=== PATIENT | male | born 1940 | race Two or more races ===

== ENCOUNTER 2025-07-09 01:42 | Inpatient (IN) | payer OTHER, MEDICAID ==
[~2025-07-09] VITALS: Ht 160 cm; Wt 67.7 kg
[2025-07-09] VITALS (9 sets, daily range): BP systolic 129–149; BP diastolic 66–77; PULSE 98–113; RESP 18–26; TEMP 97.9–98.5; O2SAT 86–97
--- NOTE | 2025-07-09 02:32 | ECG ---
[facility] Test Date: 2025-07-09 Test Time: 01:57:10 Pat Name: ROBIN MAURICE Department: [facility] ED Patient ID: [facility]-[id number] Room: [address] [place] [address] Gender: M Firm Administrator: ADALGISA : 1940 Requested By: CHEIKH TERAN Order Number: [id number] Reading MD: Eddie Curtis Measurements Intervals [place] Rate: 111 P: 0 LA: 206 QRS: 46 QRSD: 107 T: 255 QT: 316 QTc: 430 Interpretive Statements Sinus tachycardia Nonspecific repol abnormality, diffuse leads Electronically Signed On 07-11-2025 10:57:01 PST by Eddie Curtis Please click the below link to view image of tracing.
--- NOTE | 2025-07-09 02:32 | ED.PDOC ---
SOB-HPI HPI Comments HPI: 84-year-old male who came to ER via EMS for shortness of breath. Patient is a very poor informant. States for the past 2 days he has been having cough and shortness of breath, progressively worsening. Up arrival, saturating at 96 % at 15 lpm/ mask, tachycardic at 113 bpm, tachypneic at 28 Past Medical History: Hypertension, Diabetes, hyperlipidemia, medication reconciliation list shows Lasix and tamsulosin Surgical History: Denies Family History: Denies Personal and Social History: Denies HPI: Poor Historian. Patient does not know any of his medications. patient does not know his past medical problems. REVIEW OF SYSTEMS: CONSTITUTIONAL: Denies acute: fever, diaphoresis, chills, HEAD: Denies acute: headache, photophobia Eyes: Denies acute: Double vision, vision loss, eye pain, eye discharge. EARS: Denies acute: tinnitus, hearing loss, ear discharge, ear pain, THROAT: Denies acute: sore throat, swelling, difficulty swallowing , pain with swallowing, change in voice. NECK: Denies acute: neck pain, neck swelling, stiff neck. HEART: Denies acute : chest pain, palpitations, LUNGS: Denies acute: , wheezing, , hemoptysis ABDOMEN: Denies acute: abdominal pain, Nausea, Vomiting, diarrhea, melena , hematemesis, hematochezia SKIN: Denies acute: rash, redness, lesions, itchiness. EXTREMITIES: Denies acute: calf pain, numbness, tingling, weakness, denies pain in extremity. Denies acute: Low back pain. Neuro: Denies acute: focal neurological deficit, motor or sensory focal neurological deficit, tremors, seizure like activity, confusion, dizziness, change in mental status, loss of bowel or bladder function, cauda equina like symptoms. : Denies acute: dysuria, hematuria, flank pain, increase in urinary frequency. PSYCH: Denies acute: hallucination, suicidal ideation, homicidal ideation. PHYSICAL EXAM: General: ---moderate-----acute distress, awake and alert. Head: normocephalic, atraumatic. No raccoon's eyes, no gotti sign. Neck: supple, trachea is midline, no swelling. Throat: Normal phonation. Eyes:, no erythema, no purulent discharge, no proptosis, no icterus. Heart: regular tachycardic,, no significant murmur appreciated. Lungs: Mild respiratory distress, No wheezing, no rhonchi, no crackles. No stridors Clear to auscultation bilaterally. Abdomen: non tender to palpation, non distended, soft, no guarding, no rebound, + bowel sounds. Neuro: Awake, Alert, oriented to name, self, situation, follows commands GCS=15. Speech is normal. Skin: no petechia, no purpura, no cyanosis, non-pale, not jaundice. Lower extremities: --1/4 b/l - Pitting edema no deformity, no focal swelling, no calf TTP. Makes eye contact. moves all four extremities. Face: no apparent facial droop. ED COURSE: DISCLAIMER: This medical document was created using an electronic medical record system with voice recognition software and computerized dictation system. Although this document has been carefully reviewed, there might still be some phonetic and typographical errors. Occasional wrong-word or "sound-alike" substitutions may have occurred due to the inherent limitations of voice recognition software. Th yanely areas are purely typographical due to imperfections of the software programs and do not reflect any compromise in the patient's medical care. Please read the chart carefully and recognize, using context, where these substitutions have occurred. Chief Complaint: Shortness of Breath Time Seen by MD: 02:32 Reviewed notes: Drum Handler Notes, Allergies Information Source: Patient, Emergency Med Personnel Mode of Arrival: EMS Was a procedure done? Was a procedure done?: No Differential Dx Differential Diagnosis: Other (DDx include ACS, unstable angina, anxiety, PE, pneumothroax, neoplasm, cardiac ischemia, COPD, asthma, CHF, pleural effusion, tobacco abuse, pneumonia, hypoxia, hypercapnia, anemia., infection/sepsis., pulmonary edema. Asthma, Cardiac tamponade, infection.) X-Ray, Labs, Meds, VS Vital Signs Date Time Temp Pulse Resp B/P (MAP) Pulse Ox O2 Delivery O2 Flow Rate FiO2 07/09/25 04:34 97.9 113 26 149/66 95 97.9 07/09/25 04:01 110 07/09/25 03:55 110 97 Facial BiPAP Mask 40 07/09/25 02:48 149/66 07/09/25 02:41 26 95 Non-Rebreather 15 N/A 07/09/25 02:13 Non-Rebreather 15 N/A 07/09/25 02:13 97.9 113 23 149/66 (93) 94 97.9 07/09/25 01:57 111 07/09/25 01:42 98.5 113 28 168/78 96 98.5 Lab Test 07/09/25 03:35 07/09/25 02:44 Range/Units Troponin I High Sensitivity 2046 *H 2075 *H </=54 ng/L White Blood Count 19.9 H 4.4-10.8 10^3/uL Red Blood Count 2.96 L 4.5-5.90 10^6/uL Hemoglobin 9.2 L 13.5-17.5 g/dL Hematocrit 28.2 L 41.0-53.0 % Mean Corpuscular Volume 95.1 80.0-100.0 fL Mean Corpuscular Hemoglobin 31.2 28.0-32.0 pg Mean Corpuscular Hemoglobin Concent 32.9 32.0-36.0 g/dL Red Cell Distribution Width 17.0 H 11.8-14.3 % Platelet Count 138 L 140-450 10^3/uL Mean Platelet Volume 8.8 6.9-10.8 fL Neutrophils (%) (Auto) 37.0-80.0 % Lymphocytes (%) (Auto) 10.0-50.0 % Monocytes (%) (Auto) 0.0-12.0 % Basophils (%) (Auto) 0.0-2.0 % Neutrophils # (Auto) 1.6-8.6 10 ^3/uL Lymphocytes # (Auto) 0.4-5.4 10 ^3/uL Monocytes # (Auto) 0-1.3 10 ^3/uL Differential Total Cells Counted 100.0 100 Neutrophils % (Manual) 85 H 37.0-80.0 Band Neutrophils % (Manual) 6 Lymphocytes % (Manual) 6 L 10.0-50.0 Monocytes % (Manual) 3 0-12 Eosinophils % (Manual) 0 0-7 Basophils % (Manual) 0 0.0-2.0 Metamyelocytes % (manual) 0 Myelocytes % (Manual) 0 Promyelocytes % (Manual) 0 Blast Cells % (Manual) 0 Reactive Lymphocytes 0 Platelet Estimate Decrea Large Platelets Few Prothrombin Time 13.0 H 9.3-11.8 sec Prothrombin Time INR 1.25 H 0.9-1.15 Activated Partial Thromboplast Time 32.2 24.5-34.5 SEC D-Dimer, Quantitative 0.93 H 0.0-0.49 mg/L FEU Sodium Level 138 136-145 mmol/L Potassium Level 4.2 3.5-5.1 mmol/L Chloride Level 108 H 98-107 mmol/L Carbon Dioxide Level 18 L 20-31 mmol/L Anion Gap 12 5-15 Blood Urea Nitrogen 37 H 9-23 mg/dL Creatinine 2.21 H 0.700-1.30 mg/dL Glomerular Filtration Rate Calc 29 >90 mL/min BUN/Creatinine Ratio 16.7 10.0-20.0 Serum Glucose 171 H 74-106 mg/dL Calcium Level 8.4 L 8.7-10.4 mg/dL Magnesium Level 2.7 H 1.6-2.6 mg/dL Total Bilirubin 0.7 0.2-1.0 mg/dL Aspartate Amino Transferase (AST) 33 13-40 U/L Alanine Aminotransferase (ALT) 26 7-40 U/L Alkaline Phosphatase 50 46-116 U/L B-Type Natriuretic Peptide 1101.04 0-100 pg/mL Total Protein 7.1 5.7-8.2 g/dL Albumin 4.1 3.2-4.8 g/dL Current Medications Medications (Trade) Dose Ordered Sig/Cherise Route Start Time Stop Time Status Last Admin Furosemide (Lasix Injection) 40 mg ONCE ONCE IV 07/09/25 02:30 07/09/25 02:32 DC 07/09/25 02:48 Albuterol (Ventolin Medneb) 2.5 mg ONCE ONCE NEB 07/09/25 02:30 07/09/25 02:32 DC 07/09/25 02:41 Ipratropium Dracut (Atrovent Medneb) 1 mg ONCE ONCE NEB 07/09/25 02:30 07/09/25 02:32 DC 07/09/25 02:42 Methylprednisolone Sodium Succinate (Solu Medrol) 125 mg ONCE ONCE IV 07/09/25 02:30 07/09/25 02:32 DC 07/09/25 02:48 Aspirin (Ecotrin Enteric Coated Tablet) 325 mg ONCE ONCE PO 07/09/25 04:00 07/09/25 04:01 DC 07/09/25 04:[address] [address] Ph: [phone] DIAGNOSTIC IMAGING Diagnostic Imaging Report : [id number] Signed PATIENT: ROBIN MAURICE ACCT: [id number] UNIT: [id number] : 1940 LOC: ER ROOM / BED: / AGE / SEX: 84 / M ADM STATUS: REG ER SERVICE 8 ORDERING PHYSICIAN: CHEIKH TERAN DO PROCEDURE(s): CXRP - CHEST PORTABLE REASON: sob ORDER NUMBER(s): [id number], ACCESSION NUMBER(s): [id number] CHEST RADIOGRAPH Indication: sob Technique: Single frontal view of the chest was obtained COMPARISON: None FINDINGS: Lines and Tubes: None Lungs: Moderate diffuse bilateral perihilar and basilar pulmonary airspace disease and increased prominence of the pulmonary vasculature and interstitium. Pleura: Small bilateral pleural effusions. No pneumothorax. Cardiomediastinal contours: Unremarkable Bones: Unremarkable IMPRESSION: 1. Diffuse bilateral perihilar and basilar pulmonary airspace disease with increased prominence of the pulmonary vasculature and interstitium. 2. Small bilateral pleural effusions. ATED BY: SHELTON SKINNER MD DICTATED DATE/TIME: 07/09/25306 SIGNED BY: SHELTON SKINNER MD SIGNED DATE/TIME: 07/09/25306 CC: Time of 1ST Reevaluation: 02:29 Reevaluation 1ST: Unchanged Time of 2ND Reevaluation: 03:26 (All lab results are still pending) Time of 3RD Reevaluation: 03:49 (Labs just came back with critical values of elevated BNP and elevated troponin. Patient denies chest pain. Patient was placed on a BiPAP earlier.) Patient Education/Counseling: Diagnosis, Treatment Family Education/Counseling: No Family Present Comments MDM: patient presented with the above HPI.--dyspnea----workup was initiated. chantal corado was found with the above mentioned diagnosis. the following medications were ordered: please refer to order lists of meds and tests obtained by myself Dr. Teran. Patient ED course and VS have been stabilized. Patient has been reassessed in e ED and remained in a stable condition. Pertinent incidental findings were discussed with the patient and/or family. Patient/family voices understanding and is agreeable with plan. Patient has been observed in the ED adequate length of time to insure improvement/stability. Escalation of care considered: Consideration of escalation to observation or admission Patient was extremely poor historian. Patient was given DuoNeb treatments and Lasix. Patient x-ray shows pulmonary vascular congestion, patient was placed on a BiPAP with the purpose of diuresing him. Patient's vital signs remained stable. Patient denies any chest pain however he was found with elevated troponin. Patient was given aspirin and heparin drip initiated. EKGs did not show any STEMI . Patient has a leukocytosis of 19. Empiric antibiotics started. Patient was ADMITTED to the medicine team for further evaluation and treatment of their presentation. All the reports of any imaging studies that were ordered by myself were reviewed by myself. SEPSIS Sepsis Screen Date sepsis recognized/suspect: Jul 09, 2025 Time Sepsis recognized/suspect: 014 Recent Procedure: No On Antibiotic Therapy: No Respiratory Rate >20: No Heart Rate >90: No Temp<36 C (96.8 F) or >38.3 C: No SBP <90 or MAP <65 mmHG: No New Acute Mental Status Change: No Is the patient on CPAP, BIPAP,: No Physician Orders Database Analyst (07/09/25 ) Covid19 Antigen Tia (07/09/25 ) Rapid Influenza A&B (07/09/25 02:29) Chest Portable (07/09/25 02:29) Troponin-I Hs (07/09/25 05:29) Electrocardigram (07/09/25 04:47) Electrocardigram (07/09/25 06:47) Blood Pressure (07/09/25 03:49) Pulse Oximetry (07/09/25 03:49) Heparin Drip/D5w 100units/Ml (07/09/25 05:00) * Cardiology Consult (07/09/25 03:49) Blood Culture (07/09/25 04:42) Lactic Acid W/ Reflex Order (07/09/25 04:42) Ceftriaxone 1gm/50ml (Rocephin) (07/09/25 04:45) PTPTT (07/09/25 11:00) Heparin Per Pharmacy Protocol (07/09/25 04:45) Vital Signs Date Time Temp Pulse Resp B/P (MAP) Pulse Ox O2 Delivery O2 Flow Rate FiO2 07/09/25 04:34 97.9 113 26 149/66 95 97.9 07/09/25 04:01 110 07/09/25 03:55 110 97 Facial BiPAP Mask 40 07/09/25 02:48 149/66 07/09/25 02:41 26 95 Non-Rebreather 15 N/A 07/09/25 02:13 Non-Rebreather 15 N/A 07/09/25 02:13 97.9 113 23 149/66 (93) 94 97.9 07/09/25 01:57 111 07/09/25 01:42 98.5 113 28 168/78 96 98.5 Laboratory Tests Test 07/09/25 02:44 White Blood Count 19.9 10^3/uL (4.4-10.8) H Medications Medications Dose Ordered Sig/Cherise Route Start Time Stop Time Status Last Admin Dose Admin Albuterol 2.5 mg ONCE ONCE NEB 07/09/25 02:30 07/09/25 02:32 DC 07/09/25 02:41 Aspirin 325 mg ONCE ONCE PO 07/09/25 04:00 07/09/25 04:01 DC 07/09/25 04:25 Furosemide 40 mg ONCE ONCE IV 07/09/25 02:30 07/09/25 02:32 DC 07/09/25 02:48 Ipratropium Dracut 1 mg ONCE ONCE NEB 07/09/25 02:30 07/09/25 02:32 DC 07/09/25 02:42 Methylprednisolone Sodium Succinate 125 mg ONCE ONCE IV 07/09/25 02:30 07/09/25 02:32 DC 07/09/25 02:48 Departure 1 Departure Time of Disposition: 02:32 Impression: Primary Impression: Acute respiratory distress Additional Impressions: Hypoxemia Atrial fibrillation with RVR Acute exacerbation of CHF (congestive heart failure) NSTEMI (non-ST elevated myocardial infarction) Disposition: ADMITTED INPATIENT Admit to: Tele Condition: Guarded Discharged With: Self Critical Care Note Critical Care Time?: Yes (35 min-critical care time only) I personally scribed for CHEIKH TERAN DO ([facility]) on 07/09/25 at 02:32. Electronically submitted by Billy Virk ([facility]). I personally scribed for CHEIKH TERAN DO ([facility]) on 07/09/25 at 03:28. Electronically submitted by Billy Virk ([facility]). I personally scribed for CHEIKH TERAN DO ([facility]) on 07/09/25 at 03:54. Electronically submitted by Billy Virk ([facility]). CHEIKH TERAN DO Jul 09, 2025 02:32
[2025-07-09] MEDS: ALBUTEROL SULF 2.5 MG/0.5ML(0.5%) NEB SOLN NEB ONE (02:41)
[2025-07-09] MEDS: IPRATROPIUM BROM 0.5 MG/2.5ML INH SOL NEB ONE (02:42)
[2025-07-09] MEDS: methylPREDNISolone SOD SUCC 125 MG/2 ML VL IV ONE (02:48)
[2025-07-09] MEDS: FUROSEMIDE 40 MG/4 ML VIAL IV ONE (02:48)
--- NOTE | 2025-07-09 03:10 | DVH ---
CHEST RADIOGRAPH Indication: sob Technique: Single frontal view of the chest was obtained COMPARISON: None FINDINGS: Lines and Tubes: None Lungs: Moderate diffuse bilateral perihilar and basilar pulmonary airspace disease and increased prominence of the pulmonary vasculature and interstitium. Pleura: Small bilateral pleural effusions. No pneumothorax. Cardiomediastinal contours: Unremarkable Bones: Unremarkable IMPRESSION: 1. Diffuse bilateral perihilar and basilar pulmonary airspace disease with increased prominence of the pulmonary vasculature and interstitium. 2. Small bilateral pleural effusions.
[2025-07-09 03:24] LABS: Hematocrit 28.2 % (41.0-53.0); Hemoglobin 9.2 g/dL (13.5-17.5); Mean Corpuscular Hemoglobin 31.2 pg (28.0-32.0); Mean Corpuscular Volume 95.1 fL (80.0-100.0)
[2025-07-09 03:41] LABS: Alanine Aminotransferase 26 U/L (7-40); Albumin 4.1 g/dL (3.2-4.8); Alkaline Phosphatase 50 U/L (46-116); Anion Gap 12 (5-15); BUN/Creatinine Ratio 16.7 (10.0-20.0); Bilirubin, Total 0.7 mg/dL (0.2-1.0); Potassium 4.2 mmol/L (3.5-5.1); Sodium 138 mmol/L (136-145); Total Protein 7.1 g/dL (5.7-8.2)
[2025-07-09 03:42] LABS: Blood Urea Nitrogen 37 mg/dL (9-23); Calcium 8.4 mg/dL (8.7-10.4); Carbon Dioxide 18 mmol/L (20-31); Chloride 108 mmol/L (98-107); Glucose 171 mg/dL (74-106); Magnesium 2.7 mg/dL (1.6-2.6)
[2025-07-09 04:01] LABS: Total Cells Counted 100.0 (100)
--- NOTE | 2025-07-09 04:04 | ECG ---
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
[2025-07-09] MEDS: ASPirin-EC 325mg tab PO ONE (04:14)
[2025-07-09 04:21] LABS: INR 1.25 (0.9-1.15); Partial Thromboplastin Time 32.2 SEC (24.5-34.5); Prothrombin Time 13.0 sec (9.3-11.8)
[2025-07-09] MEDS: HEPARIN DRIP/D5W 100UNITS/ML 250 ML IV SCH (05:20)
[2025-07-09] MEDS ORDERED: LEVALBUTEROL HCL 1.25 MG/3 ML NEB NEB SCH (09:30)
[2025-07-09] MEDS ORDERED: IPRATROPIUM BROM 0.5 MG/2.5ML INH SOL NEB SCH (09:30)
[2025-07-09 09:59] LABS: COVID19 ANTIGEN SOFIA FIA NEGATIVE (NEGATIVE)
[2025-07-09] MEDS: AZITHROMYCIN 500MG/250ML 250 ML IV SCH (10:11)
[2025-07-09] MEDS ORDERED: HYDROcodone-ACET 5/325MG TAB PO PRN (10:30)
[2025-07-09] MEDS ORDERED: MORPHINE SULFATE INJ 2 MG/ml SYRG IV PRN (10:30)
[2025-07-09] MEDS ORDERED: DOCUSATE SOD 100 MG CAP PO PRN (10:30)
[2025-07-09] MEDS ORDERED: ONDANSETRON HCL 4 MG/2 ML VIAL IV PRN (10:30)
[2025-07-09] MEDS ORDERED: NITROGLYCERIN 0.4 MG SL TAB SL PRN (10:30)
[2025-07-09] MEDS ORDERED: ACETAMINOPHEN 325 MG TAB PO PRN (10:30)
--- NOTE | 2025-07-09 10:42 | DVHHP2 ---
History of Present Illness Reason for Visit: Shortness of breath History of Present Illness Antoine Blanton is an 84-year-old male with past medical history of CHF, diabetes, hyperlipidemia, hypertension, BPH, and gout, who came to the hospital for shortness of breath. Patient states he has not been feeling well for about 2 days with flu like symptoms. He has been experiencing shortness of breath, cough with white phlegm, fever, and chills. Denies any chest pain or palpitations. Yesterday about 1500 his shortness of breath worsened, then became even worse at 1900 prompting him to come to the hospital. Cardiovascular: CHF, HTN, hyperipidemia, Other (PTCA) Rheumatologic: Gout Renal/: Benign prostatic enlarg. Endocrine: Diabetes Past Surgical History: Other (PTCA) Smoke: No ALCOHOL: none Drugs: None Lives: with Family Domestic Violence: Neg Review of Systems Constitutional: No: Fever, Chills, Sweats, Weakness, Malaise, Other Eyes: No: Pain, Vision change, Conjunctivae inflammation, Eyelid inflammation, Other, Redness ENT: No: Ear pain, Ear discharge, Nose pain, Nose discharge, Nose congestion, Mouth pain, Mouth swelling, Throat pain, Throat swelling, Other Respiratory: Cough, Shortness of breath, SOB with excertion, Wheezing; No: Dry, Hemoptysis, Pleuritic Pain, Sputum, Wheezing, Other Cardiovascular: No: Chest Pain, Palpitations, Orthopnea, Paroxysmal Noc. Dyspnea, Edema, Lt Headedness, Other Gastrointestinal: No: Nausea, Vomiting, Abdominal Pain, Diarrhea, Constipation, Melena, Hematochezia, Other Genitourinary: No Dysuria, No Frequency, No Incontinence, No Hematuria, No Retention, No Other Musculoskeletal: No: other, neck pain, shoulder pain, arm pain, back pain, hand pain, leg pain, foot pain Skin: No: Rash, Lesions, Jaundice, Bruising, Other Neurological: No: Weakness, Numbness, Incoordination, Change in speech, Confusion, Seizures, Other Allergies: Coded Allergies: NO KNOWN ALLERGIES (Unverified , 07/09/25) Medications Current Medications Medications Dose Ordered Sig/Cherise Route Start Time Stop Time Status Last Admin Dose Admin Heparin Sodium/ Dextrose 250 ml @ 9 mls/hr Q24H IV 07/09/25 05:00 07/09/25 05:20 9 MLS/HR Ceftriaxone Sodium 50 ml @ 100 mls/hr DAILY@09 IV 07/10/25 09:00 Azithromycin 250 ml @ 125 mls/hr DAILY IV 07/09/25 10:00 07/09/25 10:11 125 MLS/HR Ipratropium [place] 0.5 mg Q6HR NEB 07/09/25 12:00 Levalbuterol HCl 0.625 mg Q6HR NEB 07/09/25 12:00 Exam Vital Signs Vital Signs Date Time Temp Pulse Resp B/P (MAP) Pulse Ox O2 Delivery O2 Flow Rate FiO2 07/09/25 09:00 98.8 100 19 134/67 (89) 93 98.8 07/09/25 08:39 Hi-Flow NC 9 N/A General Appearance: Alert, Oriented X3, Cooperative, moderate distress HEENT: Atraumatic, PERRLA Respiratory: Other (Diminshed breath sounds, ) Cardiovascular: Normal S1, Normal S2, Other (ST-SR) Abdominal: Normal bowel sounds, Soft, No tenderness, No hepatospenomegaly Extremities: No clubbing, No cyanosis, Other (Minimal bilateral lower extremity edema) Skin: No rashes, No breakdown, No significant lesion Neuro: Normal gait, Normal speech, Strength at 5/5 X4 ext Psych/Mental Status: Mental status NL Labs/Xrays Labs Test 07/09/25 08:58 07/09/25 05:40 07/09/25 02:44 Range/Units Influenza Type A Antigen Negative Negative Influenza Type B Antigen Negative Negative SARS-CoV-2 Antigen (Rapid) Negative NEGATIVE Lactic Acid Level 1.9 0.4-2.0 mmol/L Troponin I High Sensitivity 2288 *H </=54 ng/L Thyroid Stimulating Hormone (TSH) 0.79 0.55-4.78 uIU/mL White Blood Count 19.9 H 4.4-10.8 10^3/uL Red Blood Count 2.96 L 4.5-5.90 10^6/uL Hemoglobin 9.2 L 13.5-17.5 g/dL Hematocrit 28.2 L 41.0-53.0 % Mean Corpuscular Volume 95.1 80.0-100.0 fL Mean Corpuscular Hemoglobin 31.2 28.0-32.0 pg Mean Corpuscular Hemoglobin Concent 32.9 32.0-36.0 g/dL Red Cell Distribution Width 17.0 H 11.8-14.3 % Platelet Count 138 L 140-450 10^3/uL Mean Platelet Volume 8.8 6.9-10.8 fL Neutrophils (%) (Auto) 37.0-80.0 % Lymphocytes (%) (Auto) 10.0-50.0 % Monocytes (%) (Auto) 0.0-12.0 % Basophils (%) (Auto) 0.0-2.0 % Neutrophils # (Auto) 1.6-8.6 10 ^3/uL Lymphocytes # (Auto) 0.4-5.4 10 ^3/uL Monocytes # (Auto) 0-1.3 10 ^3/uL Differential Total Cells Counted 100.0 100 Neutrophils % (Manual) 85 H 37.0-80.0 Band Neutrophils % (Manual) 6 Lymphocytes % (Manual) 6 L 10.0-50.0 Monocytes % (Manual) 3 0-12 Eosinophils % (Manual) 0 0-7 Basophils % (Manual) 0 0.0-2.0 Metamyelocytes % (manual) 0 Myelocytes % (Manual) 0 Promyelocytes % (Manual) 0 Blast Cells % (Manual) 0 Reactive Lymphocytes 0 Platelet Estimate Decrea Large Platelets Few Prothrombin Time 13.0 H 9.3-11.8 sec Prothrombin Time INR 1.25 H 0.9-1.15 Activated Partial Thromboplast Time 32.2 24.5-34.5 SEC D-Dimer, Quantitative 0.93 H 0.0-0.49 mg/L FEU Sodium Level 138 136-145 mmol/L Potassium Level 4.2 3.5-5.1 mmol/L Chloride Level 108 H 98-107 mmol/L Carbon Dioxide Level 18 L 20-31 mmol/L Anion Gap 12 5-15 Blood Urea Nitrogen 37 H 9-23 mg/dL Creatinine 2.21 H 0.700-1.30 mg/dL Glomerular Filtration Rate Calc 29 >90 mL/min BUN/Creatinine Ratio 16.7 10.0-20.0 Serum Glucose 171 H 74-106 mg/dL Calcium Level 8.4 L 8.7-10.4 mg/dL Magnesium Level 2.7 H 1.6-2.6 mg/dL Total Bilirubin 0.7 0.2-1.0 mg/dL Aspartate Amino Transferase (AST) 33 13-40 U/L Alanine Aminotransferase (ALT) 26 7-40 U/L Alkaline Phosphatase 50 46-116 U/L B-Type Natriuretic Peptide 1101.04 0-100 pg/mL Total Protein 7.1 5.7-8.2 g/dL Albumin 4.1 3.2-4.8 g/dL CHEST RADIOGRAPH FINDINGS: Lines and Tubes: None Lungs: Moderate diffuse bilateral perihilar and basilar pulmonary airspace disease and increased prominence of the pulmonary vasculature and interstitium. Pleura: Small bilateral pleural effusions. No pneumothorax. Cardiomediastinal contours: Unremarkable Bones: Unremarkable IMPRESSION: 1. Diffuse bilateral perihilar and basilar pulmonary airspace disease with increased prominence of the pulmonary vasculature and interstitium. 2. Small bilateral pleural effusions. SEPSIS Sepsis Screen Date sepsis recognized/suspect: Jul 09, 2025 Time Sepsis recognized/suspect: 839 Recent Procedure: No On Antibiotic Therapy: No Respiratory Rate >20: No Heart Rate >90: No Temp<36 C (96.8 F) or >38.3 C: No SBP <90 or MAP <65 mmHG: No New Acute Mental Status Change: No Is the patient on CPAP, BIPAP,: No Physician Orders Roof Technician (07/09/25 ) Chest Portable (07/09/25 02:29) Electrocardigram (07/09/25 04:47) Electrocardigram (07/09/25 06:47) Blood Pressure (07/09/25 03:49) Pulse Oximetry (07/09/25 03:49) Heparin Drip/D5w 100units/Ml (07/09/25 05:00) * Cardiology Consult (07/09/25 03:49) Blood Culture (07/09/25 04:42) PTPTT (07/09/25 11:00) Heparin Per Pharmacy Protocol (07/09/25 04:45) BIPAP (07/09/25 05:36) Communication Order (07/09/25 07:36) Drug Screen (07/09/25 09:29) Hemoglobin A1c (07/09/25 09:29) Urinalysis (07/09/25 09:29) Strict I & O QSHIFT (07/09/25 09:29) Strict Aspiration Precautions (07/09/25 09:29) Ceftriaxone 1gm/50ml (Rocephin) (07/10/25 09:00) Azithromycin 500mg/ 250ml (Zithromax 50 (07/09/25 10:00) Maintain Fluid Restrictions QSHIFT (07/09/25 09:29) Mrsa Screen (07/09/25 09:29) Respiratory Culture W/ Gs (07/09/25 09:29) Ipratropium Medneb (Atrovent Medneb) (07/09/25 12:00) Levalbuterol Hcl (Xopenex Medneb) (07/09/25 12:00) Admit (07/09/25 10:18) Code Status (07/09/25 10:18) Hydrocodone-Acet 5/325mg Tab ([place] 5/32 (07/09/25 10:30) Ondansetron Hcl (Zofran) (07/09/25 10:30) Docusate Sodium Capsule (Colace Capsule) (07/09/25 10:30) Complete Blood Count (07/10/25 04:00) Comprehensive Metabolic Panel (07/10/25 04:00) Condition: Serious (07/09/25 10:18) Acetaminophen Tablet (Tylenol Tablet) (07/09/25 10:30) Nitroglycerin Sublingual (Ntrostat Subli (07/09/25 10:30) Morphine Sulfate Injection (07/09/25 10:30) Commercial Cleaner For 24 Hours (07/09/25 10:18) Emergency Dysrhythmia Protocol (07/09/25 10:18) Rhythm Strips Once Every Shift (07/09/25 10:18) Oxygen By Nasal Cannula (07/09/25 10:18) Stat Ekg For Chest Pain (07/09/25 10:18) Notify Md Of Changes From Base (07/09/25 10:18) Vital Signs Date Time Temp Pulse Resp B/P (MAP) Pulse Ox O2 Delivery O2 Flow Rate FiO2 07/09/25 09:00 98.8 100 19 134/67 (89) 93 98.8 07/09/25 08:39 Hi-Flow NC 9 N/A 07/09/25 07:00 100 17 128/66 (86) 96 07/09/25 06:11 102 129/70 95 Facial BiPAP Mask 40 07/09/25 06:00 98 12 129/70 (89) 96 07/09/25 04:34 97.9 113 26 149/66 95 97.9 07/09/25 04:01 110 07/09/25 04:00 110 21 137/60 (85) 92 07/09/25 03:55 110 97 Facial BiPAP Mask 40 07/09/25 02:48 149/66 07/09/25 02:41 26 95 Non-Rebreather 15 N/A Laboratory Tests Test 07/09/25 02:44 07/09/25 05:40 White Blood Count 19.9 10^3/uL (4.4-10.8) H Lactic Acid Level 1.9 mmol/L (0.4-2.0) Medications Medications Dose Ordered Sig/Cherise Route Start Time Stop Time Status Last Admin Dose Admin Albuterol 2.5 mg ONCE ONCE NEB 07/09/25 02:30 07/09/25 02:32 DC 07/09/25 02:41 2.5 MG Aspirin 325 mg ONCE ONCE PO 07/09/25 04:00 07/09/25 04:01 DC 07/09/25 04:25 325 MG Azithromycin 250 ml @ 125 mls/hr DAILY IV 07/09/25 10:00 07/09/25 10:11 125 MLS/HR Ceftriaxone Sodium 50 ml @ 100 mls/hr ONCE ONCE IV 07/09/25 04:45 07/09/25 05:14 DC 07/09/25 05:20 100 MLS/HR Furosemide 40 mg ONCE ONCE IV 07/09/25 02:30 07/09/25 02:32 DC 07/09/25 02:48 40 MG Heparin Sodium/ Dextrose 250 ml @ 9 mls/hr Q24H IV 07/09/25 05:00 07/09/25 05:20 9 MLS/HR Ipratropium [place] 1 mg ONCE ONCE NEB 07/09/25 02:30 07/09/25 02:32 DC 07/09/25 02:42 1 MG Methylprednisolone Sodium Succinate 125 mg ONCE ONCE IV 07/09/25 02:30 07/09/25 02:32 DC 07/09/25 02:48 125 MG Assessment/Plan Assessment/Plan Assessment: Acute exacerbation of CHF (congestive heart failure), NSTEMI (non-ST elevated myocardial infarction), Pleural effusion, Acute hypoxic respiratory failure, Hypertension, Hyperlipidemia, PE, Plan: Admit to Tele, Cardiology consult, ECHO, IV Heparin drip, IV antibiotics, IV Lasix, IV steroids, Breathing treatments, Supplemental oxygen as needed, Accu checks with sliding scale, Home medications reconciled, Plan discussed with: Patient My Orders Orders - ROXANE TORO Procedure Category Date Status Time Admit ADMIT 07/09/25 Transmitted 10:18 Code Status CODE 07/09/25 Transmitted 10:18 Hydrocodone-Acet PHA 07/09/25 Transmitted 5/325mg Tab ([place] 10:30 Ondansetron Hcl PHA 07/09/25 Transmitted (Zofran) 10:30 Docusate Sodium PHA 07/09/25 Transmitted Capsule (Colace 10:30 Complete Blood Count LAB 07/10/25 Verified 04:00 Comprehensive LAB 07/10/25 Verified Metabolic Panel 04:00 Condition: Serious YOEL 07/09/25 Transmitted 10:18 Acetaminophen Tablet PHA 07/09/25 Transmitted (Tylenol Tablet) 10:30 Nitroglycerin PHA 07/09/25 Transmitted Sublingual (Ntrostat 10:30 Morphine Sulfate PHA 07/09/25 Transmitted Injection 10:30 Commercial Cleaner For [facility] 07/09/25 Transmitted 24 Hours 10:18 Emergency Dysrhythmia [facility] 07/09/25 Transmitted Protocol 10:18 Rhythm Strips Once [facility] 07/09/25 Transmitted Every Shift 10:18 Oxygen By Nasal RT 07/09/25 Transmitted Cannula 10:18 Stat Ekg For Chest [facility] 07/09/25 Transmitted Pain 10:18 Notify Md Of Changes [facility] 07/09/25 Transmitted From Base 10:18 Date of Service: Jul 09, 2025 Billing Provider: ROXANE TORO Common Visit Codes: [id number] INP/OBS CARE (HIGH) ROXANE TORO Jul 09, 2025 10:42
--- NOTE | 2025-07-09 11:07 | DVHCONRES ---
Date Seen: Jul 09, 2025 Resident Creating Document: BOGDAN CRYSTAL RESIDENT Referring Physician Dr Avelar History of Present Illness This is a 84-year-old patient who presented to the ER with a chief complaint of shortness of breaths for the past 2 days. Patient reports having flu-like symptoms, mild fevers and chills for the past 2 days, says that yesterday around 3:00 p.m. he started to become more short of breaths while he was in the bed, associated with generalized weakness, productive cough with white phlegm for the past 2 days. He is also experiencing mild fever and chills. Denies any recent traveling or sick contacts. He quit smoking in 1994. On arrival to the ER, patient was afebrile, tachycardic, tachypneic 28 per minute and was put on non-rebreather and BiPAP then high-flow. WBC 19. D-dimer 0.9. Lactic 1.9, troponins 2074, 2045, 2288. Patient denies any chest pain, dizziness, palpitations at this time. Cardiology consulted for elevated troponins and shortness of breaths Past medical history: Diabetes mellitus on insulin, CKD, diastolic heart failure, CAD status post 1 2021 to RCA Past surgical history denies Home medications: Insulin, iron tablets, amlodipine 10, Lasix 40 mg Social history: Quit smoking and drinking 1994 Patient seen and examined. Bilateral coarse crackles no wheezing heard on auscultation. On high-flow nasal cannula. Has 1+ pitting edema. Allergies: Coded Allergies: NO KNOWN ALLERGIES (Unverified , 07/09/25) Home Meds Reported Medications Ferrous Sulfate (Ferosul) 325 Mg Tab, 325 MG PO DAILY 07/09/25 Glipizide (Glipizide Er) 10 Mg Tab, 1 TAB PO BID 07/09/25 Furosemide (Furosemide) 40 Mg Tab, 1 TAB PO DAILY 07/09/25 Amlodipine Besylate (Amlodipine Besylate) 10 Mg Tab, 1 TAB PO DAILY 07/09/25 Ferrous Sulfate (Ferrous Sulfate) 325 Mg Tab, 1 TAB PO BID 07/09/25 Insulin Glargine (Lantus Solostar) 100 Unit/Ml Inj, 15 UNITS SC DAILY 07/09/25 Tamsulosin Hcl (Tamsulosin Hcl) 0.4 Mg Cap, 0.4 MG PO HS 07/09/25 Current Medications Current Medications Medications (Trade) Dose Ordered Sig/Cherise Route PRN Reason Start Time Stop Time Status Last Admin Heparin Sodium/ Dextrose 250 ml @ 9 mls/hr Q24H IV 07/09/25 05:00 07/09/25 05:20 Levalbuterol HCl (Xopenex Medneb) 0.625 mg Q6HR NEB 07/09/25 09:30 07/09/25 09:55 DC Ipratropium [place] (Atrovent Medneb) 0.5 mg Q6HR NEB 07/09/25 09:30 07/09/25 09:55 DC Ceftriaxone Sodium 50 ml @ 100 mls/hr DAILY@09 IV 07/10/25 09:00 Azithromycin 250 ml @ 125 mls/hr DAILY IV 07/09/25 10:00 07/09/25 10:11 Ipratropium [place] (Atrovent Medneb) 0.5 mg Q6HR NEB 07/09/25 12:00 Levalbuterol HCl (Xopenex Medneb) 0.625 mg Q6HR NEB 07/09/25 12:00 Acetaminophen/ Hydrocodone Bitart ([place] 5/325MG Tab) 1 tab Q4HP PRN PO MODERATE PAIN (4-6 PAIN SCALE) 07/09/25 10:30 Ondansetron HCl (Zofran) 4 mg Q4HP PRN IV NAUSEA / VOMITING 07/09/25 10:30 Docusate Sodium (Colace Capsule) 100 mg BIDPRN PRN PO FOR CONSTIPATION 07/09/25 10:30 Acetaminophen (Tylenol Tablet) 650 mg Q6HP PRN PO PAIN SCALE 1-3 OR TEMP>100.4 07/09/25 10:30 Nitroglycerin (Ntrostat Sublingual) 0.4 mg Q5MINP PRN SL FOR CHEST PAIN 07/09/25 10:30 Morphine Sulfate 2 mg Q30M PRN IV FOR CHEST PAIN 07/09/25 10:30 Review of Systems Eyes: No Pain, No Vision change, No Conjunctivae inflammation, No Eyelid inflammation, No Other, No Redness ENT: No Ear pain, No Ear discharge, No Nose pain, No Nose discharge, No Nose congestion, No Mouth pain, No Mouth swelling, No Throat pain, No Throat swelling, No Other Cardiovascular: No Chest Pain, No Palpitations, No Orthopnea, No PND, No Edema, No Lt Headedness, No Other Respiratory: Reports shortness of breaths on exertion, shortness of breaths, cough, phlegm No Wheezing, No Hemoptysis, No Pleuritic Pain, No Sputum, No Other Gastrointestinal: No Nausea, No Vomiting, No Abdominal Pain, No Diarrhea, No Constipation, No Melena, No Hematochezia, No Other Genitourinary: No Dysuria, No Frequency, No Incontinence, No Hematuria, No Retention, No Other Musculoskeletal: No other, No neck pain, No shoulder pain, No arm pain, No back pain, No hand pain, No leg pain, No foot pain Skin: No Rash, No Lesions, No Jaundice, No Bruising, No Other Vital Signs Vital Signs Date Time Temp Pulse Resp B/P (MAP) Pulse Ox O2 Delivery O2 Flow Rate FiO2 07/09/25 09:00 98.8 100 19 134/67 (89) 93 98.8 07/09/25 08:39 Hi-Flow NC 9 N/A Physical Exam Elderly male patient lying in the bed, mild acute distress General: Well-built, afebrile, palor, mucosae are moist Cardiovascular: Tachycardic but Regular S1 and S2. No murmurs, gallops or rubs. No JVD elevation. 1+ bilateral pedal pitting edema Respiratory: Coarse crackles heard on auscultation on NC supplementation Abdomen: Soft, nontender, nondistended, normoactive bowel sounds, no rebound tenderness, no organomegaly, no masses Genitourinary: Deferred MSK/skin: Mobilizes 4 limbs. Skin is dry and warm Neurological: No motor, no sensitive deficits, normal speech. Pupils are isocoric and reactive. Psych/Mental Status: A/Ox3 Labs/Diagnostic Data Labs Test 07/09/25 08:58 07/09/25 05:40 07/09/25 02:44 Range/Units Influenza Type A Antigen Negative Negative Influenza Type B Antigen Negative Negative SARS-CoV-2 Antigen (Rapid) Negative NEGATIVE Lactic Acid Level 1.9 0.4-2.0 mmol/L Troponin I High Sensitivity 2288 *H </=54 ng/L Thyroid Stimulating Hormone (TSH) 0.79 0.55-4.78 uIU/mL White Blood Count 19.9 H 4.4-10.8 10^3/uL Red Blood Count 2.96 L 4.5-5.90 10^6/uL Hemoglobin 9.2 L 13.5-17.5 g/dL Hematocrit 28.2 L 41.0-53.0 % Mean Corpuscular Volume 95.1 80.0-100.0 fL Mean Corpuscular Hemoglobin 31.2 28.0-32.0 pg Mean Corpuscular Hemoglobin Concent 32.9 32.0-36.0 g/dL Red Cell Distribution Width 17.0 H 11.8-14.3 % Platelet Count 138 L 140-450 10^3/uL Mean Platelet Volume 8.8 6.9-10.8 fL Neutrophils (%) (Auto) 37.0-80.0 % Lymphocytes (%) (Auto) 10.0-50.0 % Monocytes (%) (Auto) 0.0-12.0 % Basophils (%) (Auto) 0.0-2.0 % Neutrophils # (Auto) 1.6-8.6 10 ^3/uL Lymphocytes # (Auto) 0.4-5.4 10 ^3/uL Monocytes # (Auto) 0-1.3 10 ^3/uL Differential Total Cells Counted 100.0 100 Neutrophils % (Manual) 85 H 37.0-80.0 Band Neutrophils % (Manual) 6 Lymphocytes % (Manual) 6 L 10.0-50.0 Monocytes % (Manual) 3 0-12 Eosinophils % (Manual) 0 0-7 Basophils % (Manual) 0 0.0-2.0 Metamyelocytes % (manual) 0 Myelocytes % (Manual) 0 Promyelocytes % (Manual) 0 Blast Cells % (Manual) 0 Reactive Lymphocytes 0 Platelet Estimate Decrea Large Platelets Few Prothrombin Time 13.0 H 9.3-11.8 sec Prothrombin Time INR 1.25 H 0.9-1.15 Activated Partial Thromboplast Time 32.2 24.5-34.5 SEC D-Dimer, Quantitative 0.93 H 0.0-0.49 mg/L FEU Sodium Level 138 136-145 mmol/L Potassium Level 4.2 3.5-5.1 mmol/L Chloride Level 108 H 98-107 mmol/L Carbon Dioxide Level 18 L 20-31 mmol/L Anion Gap 12 5-15 Blood Urea Nitrogen 37 H 9-23 mg/dL Creatinine 2.21 H 0.700-1.30 mg/dL Glomerular Filtration Rate Calc 29 >90 mL/min BUN/Creatinine Ratio 16.7 10.0-20.0 Serum Glucose 171 H 74-106 mg/dL Calcium Level 8.4 L 8.7-10.4 mg/dL Magnesium Level 2.7 H 1.6-2.6 mg/dL Total Bilirubin 0.7 0.2-1.0 mg/dL Aspartate Amino Transferase (AST) 33 13-40 U/L Alanine Aminotransferase (ALT) 26 7-40 U/L Alkaline Phosphatase 50 46-116 U/L B-Type Natriuretic Peptide 1101.04 0-100 pg/mL Total Protein 7.1 5.7-8.2 g/dL Albumin 4.1 3.2-4.8 g/dL Assessment Likely acute on chronic CHF exacerbation-EF unknown Acute hypoxic respiratory failure secondary to above Likely sepsis secondary to pneumonia, Gram-positive and negative NSTEMI, type 1 versus type 2 Insulin-dependent diabetes mellitus Likely [place] on CKD Chest x-ray shows perihilar opacities bilateral small effusions EKG shows sinus tachycardia.. BNP 1100 D-dimer 0.9 Plan/Recommendation Given the NSTEMI, shortness of breaths and risk factors, patient will benefit from left heart catheterization once sepsis resolves. We will continue to monitor the patient. Started Lasix 40 mg IV daily Continue aspirin 81 mg daily Plavix 75 mg daily and Lipitor 40 mg HS daily Follow up with the echocardiogram Follow up with lower extremity Doppler Continue IV antibiotics for pneumonia Nebulized treatments q.6 hour Strict I&Os, fluid restriction , monitor telemetry Electrolyte replacement, K greater than 4, Mag greater than 2 Thank you for consulting Cardiology Plan discussed with patient in which all questions have been answered Case discussed with Dr. Gardner Plan discussed with: Patient Visit Coding Cardiology RES Date of Service: Jul 09, 2025 Billing Provider: LIMA BRUCE MD Cardiology Common Codes: CONSULT ONLY BOGDAN CRYSTAL RESIDENT Jul 09, 2025 11:07
[2025-07-09 11:48] LABS: INR 1.25 (0.9-1.15); Partial Thromboplastin Time 62.8 SEC (24.5-34.5); Prothrombin Time 13.0 sec (9.3-11.8)
--- NOTE | 2025-07-09 11:56 | DVH ---
Bilateral lower extremity venous Doppler INDICATION: Rule out DVT TECHNIQUE: Duplex venous sonography was performed with real-time and flow sensitive images submitted for evaluation. FINDINGS: Normal phasic venous flow. Veins are fully compressible. No filling defects. IMPRESSION: 1. No evidence of deep vein thrombosis.
[2025-07-09] MEDS: IPRATROPIUM BROM 0.5 MG/2.5ML INH SOL NEB SCH (12:02)
[2025-07-09] MEDS: LEVALBUTEROL HCL 1.25 MG/3 ML NEB NEB SCH (12:02)
[2025-07-09 12:50] LABS: Urine Protein, UAD 1+ (Negative)
[2025-07-09 12:58] LABS: Amphetamine Screen, Urine Neg (NEGATIVE); Barbiturate Scree,Urine Neg (NEGATIVE); Benzodiazephine Screen, Urine Neg (NEGATIVE); Cannabinoid Screen, Urine Neg (NEGATIVE); Cocaine Screen, Urine Neg (NEGATIVE); Opiate Scree,Urine Neg (NEGATIVE); Phencyclidine Screen, Urine Neg (NEGATIVE)
[2025-07-09] MEDS ORDERED: INSUINJ37 SC (14:15)
[2025-07-09] MEDS ORDERED: FER325T PO (14:15)
[2025-07-09] MEDS ORDERED: AMLO1TAB23 PO (14:15)
[2025-07-09] MEDS ORDERED: DEXTROSE (50%) 50ML SYRG IV PRN (14:15)
[2025-07-09] MEDS ORDERED: FURO40TA4 PO (14:15)
[2025-07-09] MEDS ORDERED: TAMS0.4C39 PO (14:15)
[2025-07-09] MEDS ORDERED: GLIP10TA21 PO (14:15)
[2025-07-09] MEDS ORDERED: FERR325T20 PO (14:15)
[2025-07-09] MEDS: CLOPIDOGREL BISULFATE 75 MG TAB PO ONE (14:37)
[2025-07-09] MEDS: ACCU-CHEK COMFORT CURVE STRIP VI SCH (17:00)
[2025-07-09] MEDS: InsuLIN REG 1unit/0.01ml Soln (100units/ml) SC SCH ×2 (17:00→23:04)
[2025-07-09 19:53] LABS: INR 1.17 (0.9-1.15); Partial Thromboplastin Time 50.7 SEC (24.5-34.5); Prothrombin Time 12.2 sec (9.3-11.8)
[2025-07-09] MEDS ORDERED: FERROUS SULFATE 325mg EC TAB PO SCH (22:00)
[2025-07-09] MEDS: methylPREDNISolone SOD SUCC 40 MG/ML VL IV SCH (22:56)
[2025-07-09] MEDS: TAMSULOSIN HYDROCHLORIDE 0.4 MG CAP PO SCH (22:56)
[2025-07-09] MEDS: ATORVASTATIN 20 MG TAB PO SCH (22:56)
[2025-07-10] VITALS (40 sets, daily range): BP systolic 117–140; BP diastolic 58–77; PULSE 104–126; RESP 15–28; TEMP 97.8–98.7; O2SAT 89–100
[2025-07-10 02:30] LABS: INR 1.14 (0.9-1.15); Partial Thromboplastin Time 46.0 SEC (24.5-34.5); Prothrombin Time 11.9 sec (9.3-11.8)
[2025-07-10] MEDS: HEPARIN DRIP/D5W 100UNITS/ML 250 ML IV SCH (03:44)
[2025-07-10 07:49] LABS: Hematocrit 26.6 % (41.0-53.0); Hemoglobin 8.9 g/dL (13.5-17.5); Mean Corpuscular Hemoglobin 31.1 pg (28.0-32.0); Mean Corpuscular Volume 93.2 fL (80.0-100.0)
[2025-07-10 08:20] LABS: Albumin 3.9 g/dL (3.2-4.8); BUN/Creatinine Ratio 21.2 (10.0-20.0); Total Protein 7.1 g/dL (5.7-8.2)
[2025-07-10 08:21] LABS: Bilirubin, Total 0.5 mg/dL (0.2-1.0)
[2025-07-10 08:22] LABS: Alanine Aminotransferase 53 U/L (7-40); Alkaline Phosphatase 46 U/L (46-116); Blood Urea Nitrogen 58 mg/dL (9-23); Calcium 8.4 mg/dL (8.7-10.4); Carbon Dioxide 16 mmol/L (20-31); Glucose 209 mg/dL (74-106)
[2025-07-10 08:53] LABS: Anion Gap 17 (5-15); Chloride 109 mmol/L (98-107); Potassium 4.0 mmol/L (3.5-5.1); Sodium 142 mmol/L (136-145)
[2025-07-10 09:01] LABS: Total Cells Counted 100.0 (100)
[2025-07-10] MEDS: FERROUS SULFATE 325mg EC TAB PO SCH (09:44)
[2025-07-10] MEDS: CLOPIDOGREL BISULFATE 75 MG TAB PO SCH (09:46)
[2025-07-10] MEDS ORDERED: FUROSEMIDE 40 MG TAB PO SCH (10:00)
[2025-07-10] MEDS: INSULIN LANTUS (GLARGINE) 1 /0.01ml (100units/ml) SC SCH (10:26)
--- NOTE | 2025-07-10 11:09 | DVHPNRES ---
Progress Note Date Seen: Jul 10, 2025 Resident Creating Document: OLEG WOODS RESIDENT Objective vital signs Vital Sign Date Time Temp Pulse Resp B/P (MAP) Pulse Ox O2 Delivery O2 Flow Rate FiO2 07/10/25 09:45 121/66 07/10/25 09:00 98.1 112 20 98 98.1 07/10/25 01:20 Oxymizer 10 N/A Total Intake and Output 07/09/25 07/09/25 07/10/25 15:00 23:00 07:00 Intake Total 271 ml 28 ml 0 ml Balance 271 ml 28 ml 0 ml medications Current Medications Medications Dose Ordered Sig/Cherise Route Start Time Stop Time Status Last Admin Dose Admin Ceftriaxone Sodium 50 ml @ 100 mls/hr DAILY@09 IV 07/10/25 09:00 07/10/25 09:44 100 MLS/HR Azithromycin 250 ml @ 125 mls/hr DAILY IV 07/09/25 10:00 07/10/25 11:03 125 MLS/HR Ipratropium [place] 0.5 mg Q6HR NEB 07/09/25 12:00 07/10/25 06:48 0.5 MG Levalbuterol HCl 0.625 mg Q6HR NEB 07/09/25 12:00 07/10/25 06:49 0.625 MG Acetaminophen/ Hydrocodone Bitart 1 tab Q4HP PRN PO 07/09/25 10:30 Ondansetron HCl 4 mg Q4HP PRN IV 07/09/25 10:30 Docusate Sodium 100 mg BIDPRN PRN PO 07/09/25 10:30 Acetaminophen 650 mg Q6HP PRN PO 07/09/25 10:30 Nitroglycerin 0.4 mg Q5MINP PRN SL 07/09/25 10:30 Morphine Sulfate 2 mg Q30M PRN IV 07/09/25 10:30 Aspirin 81 mg DAILY PO 07/10/25 10:00 07/10/25 09:44 81 MG Clopidogrel Bisulfate 75 mg DAILY PO 07/10/25 10:00 07/10/25 09:46 75 MG Atorvastatin Calcium 40 mg HS PO 07/09/25 22:00 07/09/25 22:56 40 MG Methylprednisolone Sodium Succinate 40 mg BID IV 07/09/25 22:00 07/10/25 09:53 40 MG Diagnostic Test (Pha) 1 strip ACHS 07/09/25 17:00 07/10/25 06:15 1 STRIP Insulin Human Regular HS SC 07/09/25 22:00 07/09/25 23:04 2 UNITS Insulin Human Regular AC SC 07/09/25 17:00 07/10/25 06:21 6 UNITS Dextrose 50 ml UD PRN IV 07/09/25 14:15 Tamsulosin HCl 0.4 mg HS PO 07/09/25 22:00 07/09/25 22:56 0.4 MG Amlodipine Besylate 10 mg DAILY PO 07/10/25 10:00 07/10/25 09:45 10 MG Ferrous Sulfate 325 mg DAILY PO 07/10/25 10:00 07/10/25 09:44 325 MG Patient Own Medication 1 tab BID PO 07/09/25 22:00 Insulin Glargine 15 units DAILY SC 07/10/25 10:00 07/10/25 10:26 15 UNITS Heparin Sodium/ Dextrose 250 ml @ 9 mls/hr Q24H IV 07/10/25 03:15 07/10/25 03:44 9 MLS/HR Examination: GENERAL:Normal (overall sick ), HEENT:Normal, NECK:Abnormal (JVP elevated. ), LUNGS:Abnormal (crackles, right more than left on 6 L nc), CVS:Normal, ABDOMEN:Normal, MSK:Abnormal (pitting edema), SKIN:Normal, NEURO:Abnormal (patient hard of hearing,on oxygen mask. mildly anxious. ) laboratory and microbiology Laboratory Tests 07/10/25 06:39 Test 07/10/25 06:39 Range/Units Serum Glucose 209 H 74-106 mg/dL Microbiology Date/Time Source Procedure Growth Status 07/09/25 05:40 Blood Blood Culture - Preliminary NO GROWTH AFTER 24 HOURS OF INCUBATION. Resulted Labs and/or images reviewed: Labs reviewed by me, Image(s) reviewed by me Problem List/Assessment/Plan Problem List/Assessment/Plan Mr. Blanton, an 84-year-old male with a history of diabetes mellitus (on insulin), CKD, diastolic heart failure, and CAD status post ANICETO to RCA in 2021, presented to the ED with worsening shortness of breath over the past 2 days, accompanied by flu-like symptoms including mild fever, chills, generalized weakness, and a productive cough with white sputum. He denies chest pain, palpitations, dizziness, recent travel, or sick contacts. On arrival, he was afebrile but tachycardic and tachypneic (RR 28), requiring escalation from non-rebreather to BiPAP and then high-flow oxygen. Labs revealed leukocytosis (WBC 19), elevated troponins (2075 ? 2046 ? 2288), D-dimer 0.9, and lactate 1.9. Cardiology was consulted for elevated troponin and dyspnea. On exam, bilateral coarse crackles were noted without wheezing, 1+ pitting edema, and ABG showed mild respiratory alkalosis. Patient reports feeling better on 07/10 while on Oxymizer 10 L with O2 saturation between 8892%. Assesment and Plan: # Likely COPD exacerbation: on levalbuterol ipratropium as needed, on methylprednisolone 40 mg IV, we will try to go down on IV steroids given high chance of fluid retention. DVT ruled out # Type II NSTEMI, high risk: cardiology on board, echo pending, aspirin, atorvastatin and Plavix continue. # High risk of PE: elevated ddimer, renal function poor VQ scan to check. # Acute hypoxic respiratory failure: 6l>10 L check ABG, impending respiratory failure. # Sepsis, lactic acid negative, predominant neutrophilia: UA unremarkable, yet dark urine, sent urine culture, blood culture to follow, close monitoring. # Likely CHF exacerbation, no known EF: Echocardiogram done 10 07/09, final reading pending continue on telemetry, unknown EF, BNP elevated BNP >1000, high likelihood of CHF exacerbation, we will avoid beta blockade or negative ionotropic for now. # Bilateral pleural effusion likely due to CHF exacerbation # Pulmonary vascular congestion likely due to CHF exacerbation, Treatable Viral pneumonia ruled out with influenza and covid # Normocytic anemia, unknown baseline hemoglobin, 8.9, 9.2, H&H stable, cbc to follow # Mild thrombocytopenia 132 versus 138, close eye, no active bleeding noted, patient on heparin drip. # Controlled diabetic, 6.8 hemoglobin: target BG 140-180 avoid hypoglycemia elderly # Anion gap metabolic acidosis, 17 anion gap: recheck anion gap with BMP, blood gas and lactic acid. # Known CKD, stage stage IIIA/B: GFR last noted , limited room for GDM T # Known CAD status post 1 ANICETO 2021 to RCA, no conduction abnormality noted at this point. # Prior history of smoking, quit 1994 # BPH: tamsulosin 0.4, continue foleys. # Recurrent constipation: as needed docusate, abdomen unremarkable. # Mild transaminitis likely due to hepatic congestion, continue diuresis # Left-sided hard of hearing, has hearing aid, use the hearing aid # High-risk of in-hospital delirium, delirium prevention to continue, fall precautions # Chronic iron-deficiency anemia/anemia of chronic disease: Check iron panel, if the patient is heparin, we will need IV iron replenishment, oral iron for now is appropriate. Iron-deficiency anemia on iron tablets at home # MRSA nasal +ve: mupirocin x 5 days to nares. PUD prophylaxis: protonix 40mg/not needed DVT prophylaxis: Heparin drip Barriers to discharge: Medical diagnosis and management in progress. Patient lives with self / family. Independent/need supportive device/wheelchair/person support for ADL. PT and SW consult as needed. PCP: Dr. Quiles Specialist Relevant To Admission: Cardiology Case discussed with Dr. Bah Code Status: Full Code. Discussion needed total 29 minutes bedside. Upgraded to ICU level of care. Multiorgan disease need input from cardiology and perhaps from General Partner. Updated the son and daughter in law. Plan discussed with: Patient My Orders My Orders Orders - OLEG WOODS RESIDENT Procedure Category Date Status Time Mrsa Screen RICO 07/10/25 Logged 10:58 Lactic Acid W/ Reflex LAB 07/10/25 Logged Order 10:58 Erythrocyte LAB 07/10/25 Logged Sedimentation Rate 10:58 C-Reactive Protein LAB 07/10/25 Logged 10:58 Stool Occult Blood LAB 07/10/25 Logged 10:58 Iron Panel LAB 07/10/25 Logged 10:58 Ferritin LAB 07/10/25 Logged 10:58 Advance Directive YOEL 07/10/25 In Process 11:00 Vital Signs YOEL 07/10/25 In Process 11:00 Maintain Fluid YOEL 07/10/25 In Process Restrictions 11:00 Obtain Daily Weight YOEL 07/10/25 In Process 11:00 Echo 2d Mode Cardiac US 07/10/25 Logged DOP 11:00 Copy Of Previous Echo YOEL 07/10/25 In Process Report T 11:00 Chest Two Views XY 07/10/25 Logged Routine 11:00 Oxygen By Nasal RT 07/10/25 Transmitted Cannula 11:00 Oxygen By Face Mask RT 07/10/25 Transmitted 11:00 Early Ambulation YOEL 07/10/25 In Process 11:00 Sequential YOEL 07/10/25 In Process Compression Device 11:00 Cardiac YOEL 07/10/25 In Process Rehabilitation - Outpa Strict I & O YOEL 07/10/25 In Process 11:00 Teach: Heart Failure YOEL 07/10/25 In Process 11:00 Magnesium LAB 07/10/25 Logged 11:00 Cardiac ORDERS 07/10/25 Transmitted Rehabilitation: 11:00 Date of Service: Jul 10, 2025 Billing Provider: ZOLTAN BAH MD Common Visit Codes: [id number] INP/OBS CARE(HIGH) Secondary Visit Codes: [id number] CARE PLAN 30 MINUTES OLEG WOODS RESIDENT Jul 10, 2025 11:09 ZOLTAN BAH MD Jul 10, 2025 15:48
[2025-07-10 11:30] LABS: INR 1.11 (0.9-1.15); Partial Thromboplastin Time 58.5 SEC (24.5-34.5); Prothrombin Time 11.6 sec (9.3-11.8)
[2025-07-10] MEDS ORDERED: ZOLPIDEM TARTRATE 5 MG TAB PO PRN (11:45)
--- NOTE | 2025-07-10 12:50 | DVHPN2 ---
Progress Note - Dictate Date Seen: Jul 10, 2025 Medical Necessity Reason Pt with a Central, PICC or Fol: No Subjective PT WITH MYALGIA ARTHALGIA FEVER LEUKOCYTOSIS WITH LEFT SHIFT NOW WITH ELEVATED BNP ELEVATED TROPONIN CKD RENAL FAILURE INSUFF HX OF CAD S/P PTCA STENT IN 2021 ECHO LVH EF 50% vital signs Vital Sign Date Time Temp Pulse Resp B/P (MAP) Pulse Ox O2 Delivery O2 Flow Rate FiO2 07/10/25 09:45 121/66 07/10/25 09:00 98.1 112 20 98 98.1 07/10/25 01:20 Oxymizer 10 N/A Total Intake and Output 07/09/25 07/09/25 07/10/25 15:00 23:00 07:00 Intake Total 271 ml 28 ml 0 ml Balance 271 ml 28 ml 0 ml medications Current Medications Medications Dose Ordered Sig/Cherise Route Start Time Stop Time Status Last Admin Dose Admin Ceftriaxone Sodium 50 ml @ 100 mls/hr DAILY@09 IV 07/10/25 09:00 07/10/25 09:44 100 MLS/HR Azithromycin 250 ml @ 125 mls/hr DAILY IV 07/09/25 10:00 07/10/25 11:03 125 MLS/HR Ipratropium [place] 0.5 mg Q6HR NEB 07/09/25 12:00 07/10/25 11:56 0.5 MG Levalbuterol HCl 0.625 mg Q6HR NEB 07/09/25 12:00 07/10/25 11:56 0.625 MG Acetaminophen/ Hydrocodone Bitart 1 tab Q4HP PRN PO 07/09/25 10:30 Ondansetron HCl 4 mg Q4HP PRN IV 07/09/25 10:30 Docusate Sodium 100 mg BIDPRN PRN PO 07/09/25 10:30 Acetaminophen 650 mg Q6HP PRN PO 07/09/25 10:30 Nitroglycerin 0.4 mg Q5MINP PRN SL 07/09/25 10:30 Morphine Sulfate 2 mg Q30M PRN IV 07/09/25 10:30 Aspirin 81 mg DAILY PO 07/10/25 10:00 07/10/25 09:44 81 MG Clopidogrel Bisulfate 75 mg DAILY PO 07/10/25 10:00 07/10/25 09:46 75 MG Atorvastatin Calcium 40 mg HS PO 07/09/25 22:00 07/09/25 22:56 40 MG Methylprednisolone Sodium Succinate 40 mg BID IV 07/09/25 22:00 07/10/25 09:53 40 MG Diagnostic Test (Pha) 1 strip ACHS 07/09/25 17:00 07/10/25 06:15 1 STRIP Insulin Human Regular HS SC 07/09/25 22:00 07/09/25 23:04 2 UNITS Insulin Human Regular AC SC 07/09/25 17:00 07/10/25 11:37 9 UNITS Dextrose 50 ml UD PRN IV 07/09/25 14:15 Tamsulosin HCl 0.4 mg HS PO 07/09/25 22:00 07/09/25 22:56 0.4 MG Ferrous Sulfate 325 mg DAILY PO 07/10/25 10:00 07/10/25 09:44 325 MG Patient Own Medication 1 tab BID PO 07/09/25 22:00 Insulin Glargine 15 units DAILY SC 07/10/25 10:00 07/10/25 10:26 15 UNITS Heparin Sodium/ Dextrose 250 ml @ 9 mls/hr Q24H IV 07/10/25 03:15 07/10/25 12:32 9 MLS/HR Zolpidem Tartrate 5 mg HSPRN PRN PO 07/10/25 11:45 laboratory and microbiology Laboratory Tests 07/10/25 06:39 Test 07/10/25 06:39 Range/Units Serum Glucose 209 H 74-106 mg/dL Problem List MYALGIA ARTHALGIA FEVER LEUKOCYTOSIS WITH LEFT SHIFT NOW WITH ELEVATED BNP ELEVATED TROPONIN CKD RENAL FAILURE INSUFF HX OF CAD S/P PTCA STENT IN 2021 ECHO LVH EF 50% METABOLIC GAP ACIDOSIS SEVERE VOLUME DEPLETION Assessment/Plan IV FLUID ABX NO CARDIAC INTERVENTION AT THIS TIME ELEVATED CARDIAC PARAMETRS SECONDARY TO METABOLIC INSTABILITY Plan discussed with: Patient Critical Care Time(min): 35 LIMA BRUCE MD Jul 10, 2025 12:50
[2025-07-10 14:19] LABS: Base Excess -5.3 mmol/L (-2.0-3.0)
--- NOTE | 2025-07-10 14:50 | DVHPN2 ---
Progress Note Date Seen: Jul 10, 2025 Resident Creating Document: BOGDAN CRYSTAL RESIDENT Medical Necessity Reason Pt with a Central, PICC or Fol: No Subjective Review of Systems This is a 84-year-old patient who presented to the ER with a chief complaint of shortness of breaths for the past 2 days. Patient reports having flu-like symptoms, mild fevers and chills for the past 2 days, says that yesterday around 3:00 p.m. he started to become more short of breaths while he was in the bed, associated with generalized weakness, productive cough with white phlegm for the past 2 days. He is also experiencing mild fever and chills. Denies any recent traveling or sick contacts. He quit smoking in 1994. On arrival to the ER, patient was afebrile, tachycardic, tachypneic 28 per minute and was put on non-rebreather and BiPAP then high-flow. WBC 19. D-dimer 0.9. Lactic 1.9, troponins 2074, 2045, 2288. Patient denies any chest pain, dizziness, palpitations at this time. Cardiology consulted for elevated troponins and shortness of breaths Past medical history: Diabetes mellitus on insulin, CKD, diastolic heart failure, CAD status post 1 ANICETO 2021 to RCA Past surgical history denies Home medications: Insulin, iron tablets, amlodipine 10, Lasix 40 mg Social history: Quit smoking and drinking 07/09-Patient seen and examined. Bilateral coarse crackles no wheezing heard on auscultation. On high-flow nasal cannula. Has 1+ pitting edema. 07/10-patient seen and examined, reports feeling better. On Oxymizer 10 L, saturating 88-92. ABG showing mild respiratory alkalosis. Objective vital signs Vital Sign Date Time Temp Pulse Resp B/P (MAP) Pulse Ox O2 Delivery O2 Flow Rate FiO2 07/10/25 13:00 98.1 109 21 138/62 (87) 94 98.1 07/10/25 10:00 Oxymizer 10 N/A Total Intake and Output 07/09/25 07/09/25 07/10/25 15:00 23:00 07:00 Intake Total 271 ml 28 ml 0 ml Balance 271 ml 28 ml 0 ml medications Current Medications Medications Dose Ordered Sig/Cherise Route Start Time Stop Time Status Last Admin Dose Admin Ceftriaxone Sodium 50 ml @ 100 mls/hr DAILY@09 IV 07/10/25 09:00 07/10/25 09:44 100 MLS/HR Azithromycin 250 ml @ 125 mls/hr DAILY IV 07/09/25 10:00 07/10/25 11:03 125 MLS/HR Ipratropium [place] 0.5 mg Q6HR NEB 07/09/25 12:00 07/10/25 11:56 0.5 MG Levalbuterol HCl 0.625 mg Q6HR NEB 07/09/25 12:00 07/10/25 11:56 0.625 MG Acetaminophen/ Hydrocodone Bitart 1 tab Q4HP PRN PO 07/09/25 10:30 Ondansetron HCl 4 mg Q4HP PRN IV 07/09/25 10:30 Docusate Sodium 100 mg BIDPRN PRN PO 07/09/25 10:30 Acetaminophen 650 mg Q6HP PRN PO 07/09/25 10:30 Nitroglycerin 0.4 mg Q5MINP PRN SL 07/09/25 10:30 Morphine Sulfate 2 mg Q30M PRN IV 07/09/25 10:30 Aspirin 81 mg DAILY PO 07/10/25 10:00 07/10/25 09:44 81 MG Clopidogrel Bisulfate 75 mg DAILY PO 07/10/25 10:00 07/10/25 09:46 75 MG Atorvastatin Calcium 40 mg HS PO 07/09/25 22:00 07/09/25 22:56 40 MG Methylprednisolone Sodium Succinate 40 mg BID IV 07/09/25 22:00 07/10/25 09:53 40 MG Diagnostic Test (Pha) 1 strip ACHS 07/09/25 17:00 07/10/25 06:15 1 STRIP Insulin Human Regular HS SC 07/09/25 22:00 07/09/25 23:04 2 UNITS Insulin Human Regular AC SC 07/09/25 17:00 07/10/25 11:37 9 UNITS Dextrose 50 ml UD PRN IV 07/09/25 14:15 Tamsulosin HCl 0.4 mg HS PO 07/09/25 22:00 07/09/25 22:56 0.4 MG Ferrous Sulfate 325 mg DAILY PO 07/10/25 10:00 07/10/25 09:44 325 MG Patient Own Medication 1 tab BID PO 07/09/25 22:00 Insulin Glargine 15 units DAILY SC 07/10/25 10:00 07/10/25 10:26 15 UNITS Heparin Sodium/ Dextrose 250 ml @ 9 mls/hr Q24H IV 07/10/25 03:15 07/10/25 12:32 9 MLS/HR Zolpidem Tartrate 5 mg HSPRN PRN PO 07/10/25 11:45 Mupirocin 1 applic BID EACHNOSTRI 07/10/25 22:00 07/15/25 21:59 Examination Elderly male patient lying in the bed, mild acute distress General: Well-built, afebrile, palor, mucosae are moist Cardiovascular: Tachycardic but Regular S1 and S2. No murmurs, gallops or rubs. No JVD elevation. 1+ bilateral pedal pitting edema Respiratory: Coarse crackles heard on auscultation on 10 L Oxymizer Abdomen: Soft, nontender, nondistended, normoactive bowel sounds, no rebound tenderness, no organomegaly, no masses Genitourinary: Deferred MSK/skin: Mobilizes 4 limbs. Skin is dry and warm Neurological: No motor, no sensitive deficits, normal speech. Pupils are isocoric and reactive. Psych/Mental Status: A/Ox3 laboratory and microbiology Laboratory Tests 07/10/25 06:39 Test 07/10/25 06:39 Range/Units Serum Glucose 209 H 74-106 mg/dL Microbiology Date/Time Source Procedure Growth Status 07/10/25 01:46 Nose MRSA Screen - Final Methicillin Resistant S.aureus Complete 07/09/25 05:40 Blood Blood Culture - Preliminary NO GROWTH AFTER 24 HOURS OF INCUBATION. Resulted Labs and/or images reviewed: Labs reviewed by me, Image(s) reviewed by me Problem List/Assessment/Plan Problem List/Assessment/Plan Likely acute on chronic CHF exacerbation-EF unknown Acute hypoxic respiratory failure secondary to above Likely sepsis secondary to pneumonia, Gram-positive and negative NSTEMI, type 1 versus type 2 Insulin-dependent diabetes mellitus Likely CAMERON on CKD Chest x-ray shows perihilar opacities bilateral small effusions EKG shows sinus tachycardia BNP 1100 D-dimer 0.9 Plan/Recommendation Given the NSTEMI, shortness of breaths and risk factors, patient will benefit from left heart catheterization once sepsis resolves. We will continue to monitor the patient. Discontinued Lasix given worsening CAMERON, downtrending GFR. Patient would benefit from gentle IV hydration given sepsis at this time. Lower extremity Doppler unremarkable. Continue aspirin 81 mg daily Plavix 75 mg daily and Lipitor 40 mg HS daily Follow up with the echocardiogram Consider CT angio to rule out PE, given the patient is tachycardic, repeat EKG 07/10 also shows sinus tachycardia Continue IV antibiotics for pneumonia Nebulized treatments q.6 hour Strict I&Os, fluid restriction , monitor telemetry Electrolyte replacement, K greater than 4, Mag greater than 2 Thank you for consulting Cardiology Plan discussed with patient in which all questions have been answered Case discussed with Dr. Gardner Plan discussed with: Patient My Orders My Orders Orders - BOGDAN CRYSTAL Procedure Category Date Status Time Strict I & O YOEL 07/10/25 In Process 09:10 Urinalysis LAB 07/10/25 Logged 09:13 Urine Sodium LAB 07/10/25 Logged 09:13 Communication Order ORDERS 07/10/25 Transmitted 09:13 Urine LAB 07/10/25 Logged Protein/Creatinine 09:13 Abg W/ Co-Ox RT 07/10/25 Logged 11:20 Electrocardigram EKG 07/10/25 Logged 11:27 Visit Coding Cardiology RES Date of Service: Jul 10, 2025 Billing Provider: LIMA BRUCE MD Cardiology Common Codes: [id number] HOSP CARE(High BOGDAN CRYSTAL RESIDENT Jul 10, 2025 14:50
[2025-07-10] MEDS ORDERED: ALLO100T PO (15:00)
[2025-07-10] MEDS ORDERED: DOCU-94 PO (15:01)
[2025-07-10] MEDS ORDERED: HYDR50TA47 PO (15:02)
[2025-07-10] MEDS ORDERED: ATOR-507 PO (15:03)
[2025-07-10] MEDS ORDERED: PATI1POW PO (15:04)
--- NOTE | 2025-07-10 15:24 | DVH ---
CHEST RADIOGRAPH Indication: Pulmonary Edema Technique: Single frontal view of the chest was obtained Comparison: XY CHEST PORTABLE on DOS: 07/09/25 FINDINGS: Lines and Tubes: None Lungs: Bilateral perihilar infiltrates. Pleura: No effusion. No pneumothorax. Cardiomediastinal contours: Mild cardiomegaly Bones: No acute osseous abnormality. IMPRESSION: 1. Mild cardiomegaly and bilateral perihilar infiltrates. 2. Findings may represent non cardiogenic pulmonary edema. Other possibility such as developing congestive failure are also in the differential. Correlate with the clinical setting.
[2025-07-10 16:06] LABS: INR 1.07 (0.9-1.15); Partial Thromboplastin Time 57.0 SEC (24.5-34.5); Prothrombin Time 11.3 sec (9.3-11.8)
[2025-07-10 16:17] LABS: Lactic Acid w/Reflex 2.2 mmol/L (0.4-2.0)
[2025-07-10 16:21] LABS: Iron 25.0 ug/dL (65-175); Total Iron Binding Capacity 209.0 ug/dL (250-425)
[2025-07-10] MEDS ORDERED: VANCOMYCIN PER PHARMACY 0 MG IV SCH (17:30)
[2025-07-10] MEDS: LACTATED RINGER'S 250 ML IV ONE (18:43)
[2025-07-10] MEDS: VANCOMYCIN 1GM/250ML KIT 250 ML IV ONE (19:29)
[2025-07-10 19:41] LABS: Urine Amorphous Crystal FEW /hpf (None Seen); Urine Protein, UAD 1+ (Negative)
[2025-07-10 19:53] LABS: Protein, Urine 72.8 mg/dL (1-14)
[2025-07-10] MEDS: CEFEPIME 1GM/50ML 50 ML IV SCH (20:39)
[2025-07-10] MEDS ORDERED: MUPIROCIN 2% OINT 15gm or 22gm FOR MRSA NARES EACHNOSTRI SCH (22:00)
[2025-07-10] MEDS: MUPIROCIN 2% OINT 15gm or 22gm FOR MRSA NARES EACHNOSTRI SCH (22:14)
[2025-07-10] MEDS: MUPIROCIN 2% OINT 15gm or 22gm ONE (22:18)
[2025-07-10 22:28] LABS: INR 1.08 (0.9-1.15); Partial Thromboplastin Time 57.5 SEC (24.5-34.5); Prothrombin Time 11.4 sec (9.3-11.8)
[2025-07-10] MEDS: LEVALBUTEROL HCL 1.25 MG/3 ML NEB NEB SCH (22:52)
[2025-07-10] MEDS: IPRATROPIUM BROM 0.5 MG/2.5ML INH SOL NEB SCH (22:52)
[2025-07-10] MEDS: FUROSEMIDE 40 MG/4 ML VIAL IV ONE (23:20)
[2025-07-10] MEDS ORDERED: HEPARIN DRIP/D5W 100UNITS/ML 250 ML IV SCH (23:45)
[2025-07-11] VITALS (105 sets, daily range): BP systolic 101–146; BP diastolic 50–106; PULSE 96–133; RESP 8–57; TEMP 97.7–99.7; O2SAT 62–100
[2025-07-11 00:18] LABS: Base Excess -4.7 mmol/L (-2.0-3.0)
[2025-07-11] MEDS: LORazepam 2MG/ML-1ML VIAL IV ONE (00:42)
--- NOTE | 2025-07-11 01:32 | DVH ---
CHEST RADIOGRAPH Indication: SOB Technique: Single frontal view of the chest was obtained COMPARISON: XY CHEST XRAY 1 VIEW on DOS: 07/10/25, XY CHEST PORTABLE on DOS: 07/09/25 FINDINGS: Worsening perihilar predominant airspace disease throughout both lungs. Cardiac silhouette is mildly enlarged. Diffuse prominence of the pulmonary vasculature. Trace bilateral pleural effusions. IMPRESSION: Worsening perihilar predominant airspace disease presumably related to pulmonary edema although infection could have a similar appearance.
[2025-07-11 03:38] LABS: Hematocrit 26.2 % (41.0-53.0); Hemoglobin 8.7 g/dL (13.5-17.5); Mean Corpuscular Hemoglobin 31.7 pg (28.0-32.0); Mean Corpuscular Volume 95.0 fL (80.0-100.0)
[2025-07-11 03:51] LABS: Albumin 4.1 g/dL (3.2-4.8); Alkaline Phosphatase 46 U/L (46-116); Anion Gap 15 (5-15); BUN/Creatinine Ratio 21.3 (10.0-20.0); Calcium 8.7 mg/dL (8.7-10.4); Potassium 3.8 mmol/L (3.5-5.1); Sodium 142 mmol/L (136-145); Total Protein 7.2 g/dL (5.7-8.2)
[2025-07-11 03:52] LABS: Bilirubin, Total 0.5 mg/dL (0.2-1.0)
[2025-07-11 03:58] LABS: Alanine Aminotransferase 60 U/L (7-40); Blood Urea Nitrogen 58 mg/dL (9-23); Carbon Dioxide 19 mmol/L (20-31); Chloride 108 mmol/L (98-107); Glucose 182 mg/dL (74-106)
[2025-07-11 03:59] LABS: Lactic Acid w/Reflex 2.1 mmol/L (0.4-2.0)
[2025-07-11] MEDS ORDERED: POTASSIUM CHLORIDE 20 MEQ, LIDOCAINE 1% (LOCAL ANESTH.) 2 ML in SODIUM CHL 0.9% 100 ML IV ONE (04:30)
[2025-07-11 04:32] LABS: Total Cells Counted 100.0 (100)
[2025-07-11] MEDS: FUROSEMIDE 40 MG/4 ML VIAL IV ONE (04:48)
[2025-07-11] MEDS: POTASSIUM CHL 20MEQ/100ML 100 ML IV ONE (04:53)
[2025-07-11 06:22] LABS: Base Excess -10.8 mmol/L (-2.0-3.0)
[2025-07-11] MEDS: SODIUM BICARB 8.4% 50Meq/50ml SYR Vial IV ONE ×2 (07:13→07:22)
--- NOTE | 2025-07-11 07:33 | ECG ---
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
[2025-07-11 10:02] LABS: Base Excess -1.7 mmol/L (-2.0-3.0)
[2025-07-11] MEDS: AZITHROMYCIN 500MG/250ML 250 ML IV SCH (10:57)
--- NOTE | 2025-07-11 11:47 | DVHPN2 ---
Progress Note Date Seen: Jul 11, 2025 Resident Creating Document: BOGDAN CRYSTAL RESIDENT Medical Necessity Reason Pt with a Central, PICC or Fol: No Subjective Review of Systems This is a 84-year-old patient who presented to the ER with a chief complaint of shortness of breaths for the past 2 days. Patient reports having flu-like symptoms, mild fevers and chills for the past 2 days, says that yesterday around 3:00 p.m. he started to become more short of breaths while he was in the bed, associated with generalized weakness, productive cough with white phlegm for the past 2 days. He is also experiencing mild fever and chills. Denies any recent traveling or sick contacts. He quit smoking in 1994. On arrival to the ER, patient was afebrile, tachycardic, tachypneic 28 per minute and was put on non-rebreather and BiPAP then high-flow. WBC 19. D-dimer 0.9. Lactic 1.9, troponins 2074, 2045, 2288. Patient denies any chest pain, dizziness, palpitations at this time. Cardiology consulted for elevated troponins and shortness of breaths Past medical history: Diabetes mellitus on insulin, CKD, diastolic heart failure, CAD status post 1 ANICETO 2021 to RCA Past surgical history denies Home medications: Insulin, iron tablets, amlodipine 10, Lasix 40 mg Social history: Quit smoking and drinking 07/09-Patient seen and examined. Bilateral coarse crackles no wheezing heard on auscultation. On high-flow nasal cannula. Has 1+ pitting edema. 07/10-patient seen and examined, reports feeling better. On Oxymizer 10 L, saturating 88-92. ABG showing mild respiratory alkalosis. 07/11- Max 99.7, tachycardic, 120s bpm tachypneic 22-28 per minute, normotensive, started on BiPAP overnight, urine output 1750 cc and a day, WBC persistently high at 23.9, lactic acidosis 2.5. Repeat CRP and BNP pending. Chest x-ray shows worsening opacity. Patient is A&O x3. ABG shows respiratory alkalosis. Objective vital signs Vital Sign Date Time Temp Pulse Resp B/P (MAP) Pulse Ox O2 Delivery O2 Flow Rate FiO2 07/11/25 09:53 117 120/62 98 Facial BiPAP Mask 80 07/11/25 08:00 97.7 24 97.7 07/10/25 11:56 10 Total Intake and Output 07/10/25 07/10/25 07/11/25 15:00 23:00 07:00 Intake Total 250 ml 390 ml 50 ml Output Total 1000 ml 750 ml Balance 250 ml -610 ml -700 ml medications Current Medications Medications Dose Ordered Sig/Cherise Route Start Time Stop Time Status Last Admin Dose Admin Docusate Sodium 100 mg BIDPRN PRN PO 07/09/25 10:30 Acetaminophen 650 mg Q6HP PRN PO 07/09/25 10:30 Nitroglycerin 0.4 mg Q5MINP PRN SL 07/09/25 10:30 Aspirin 81 mg DAILY PO 07/10/25 10:00 07/10/25 09:44 81 MG Clopidogrel Bisulfate 75 mg DAILY PO 07/10/25 10:00 07/10/25 09:46 75 MG Atorvastatin Calcium 40 mg HS PO 07/09/25 22:00 07/09/25 22:56 40 MG Methylprednisolone Sodium Succinate 40 mg BID IV 07/09/25 22:00 07/11/25 10:57 40 MG Diagnostic Test (Pha) 1 strip ACHS 07/09/25 17:00 07/11/25 11:04 1 STRIP Insulin Human Regular HS SC 07/09/25 22:00 07/10/25 22:12 4 UNITS Insulin Human Regular AC SC 07/09/25 17:00 07/11/25 06:31 9 UNITS Dextrose 50 ml UD PRN IV 07/09/25 14:15 Insulin Glargine 15 units DAILY SC 07/10/25 10:00 07/10/25 10:26 15 UNITS Mupirocin 1 applic BID EACHNOSTRI 07/10/25 22:00 07/15/25 21:59 07/11/25 10:00 1 APPLIC Cefepime HCl 50 ml @ 12.5 mls/hr DAILY IV 07/10/25 17:30 07/11/25 10:57 12.5 MLS/HR Vancomycin HCl 0 ml @ 0 mls/hr PER PHARMACY IV 07/10/25 17:30 Ipratropium [place] 0.5 mg Q4HR NEB 07/10/25 22:45 07/11/25 10:42 0.5 MG Levalbuterol HCl 0.625 mg Q4HR NEB 07/10/25 22:45 07/11/25 10:42 0.625 MG Heparin Sodium/ Dextrose 250 ml @ 0 mls/hr Q0M IV 07/10/25 23:45 Hold Azithromycin 250 ml @ 125 mls/hr DAILY IV 07/11/25 10:00 07/11/25 10:57 125 MLS/HR Furosemide 60 mg BIDD IV 07/11/25 18:00 Examination Elderly male patient lying in the bed, mild acute distress General: Well-built, afebrile, palor, mucosae are moist Cardiovascular: Tachycardic but Regular S1 and S2. No murmurs, gallops or rubs. No JVD elevation. Minimal bilateral pedal pitting edema Respiratory: Coarse crackles heard on auscultation on BiPAP Abdomen: Soft, nontender, nondistended, normoactive bowel sounds, no rebound tenderness, no organomegaly, no masses Genitourinary: Deferred MSK/skin: Mobilizes 4 limbs. Skin is dry and warm Neurological: No motor, no sensitive deficits, normal speech. Pupils are isocoric and reactive. Psych/Mental Status: A/Ox3 laboratory and microbiology Laboratory Tests 07/11/25 02:46 Test 07/11/25 02:46 Range/Units Serum Glucose 182 H 74-106 mg/dL Microbiology Date/Time Source Procedure Growth Status 07/10/25 01:46 Nose MRSA Screen - Final Methicillin Resistant S.aureus Complete 07/09/25 05:40 Blood Blood Culture - Preliminary NO GROWTH AFTER 48 HOURS OF INCUBATION. Resulted Labs and/or images reviewed: Labs reviewed by me, Image(s) reviewed by me Problem List/Assessment/Plan Problem List/Assessment/Plan Likely acute on chronic systolic CHF exacerbation-EF 35-40% Acute hypoxic respiratory failure secondary to above Likely sepsis secondary to pneumonia, Gram-positive and negative Likely COPD exacerbation Lactic acidosis NSTEMI, type 1 versus type 2 Insulin-dependent diabetes mellitus Likely CAMERON on CKD Transaminitis Nicotine dependence Chest x-ray shows perihilar opacities bilateral small effusions EKG shows sinus tachycardia BNP 1100 D-dimer 0.9 Plan/Recommendation Given the NSTEMI, shortness of breaths and risk factors, patient will benefit from left heart catheterization once sepsis resolves. We will continue to monitor the patient. Lower extremity Doppler unremarkable. Continue aspirin 81 mg daily Plavix 75 mg daily and Lipitor 40 mg HS daily Echocardiogram EF 35-40% MILD TR MILD MR Continue IV antibiotics for pneumonia Nebulized treatments q.6 hour Strict I&Os, fluid restriction , monitor telemetry Electrolyte replacement, K greater than 4, Mag greater than 2 Thank you for consulting Cardiology Plan discussed with patient in which all questions have been answered Case discussed with Dr. Gardner Plan discussed with: Patient, Other (nurse) Visit Coding Cardiology RES Date of Service: Jul 11, 2025 Billing Provider: LIMA BRUCE MD Cardiology Common Codes: [id number] [id number] CARE([facility] BOGDAN CRYSTAL RESIDENT Jul 11, 2025 11:47
[2025-07-11] MEDS ORDERED: VANCOMYCIN 500mg/100mL 100 ML IV ONE (13:00)
--- NOTE | 2025-07-11 13:00 | DVHPN2 ---
Progress Note - Dictate Date Seen: Jul 11, 2025 Medical Necessity Reason Pt with a Central, PICC or Fol: No Subjective PT WITH MYALGIA ARTHALGIA FEVER LEUKOCYTOSIS WITH LEFT SHIFT NOW WITH ELEVATED BNP ELEVATED TROPONIN CKD RENAL FAILURE INSUFF HX OF CAD S/P PTCA STENT IN 2021 ECHO LVH EF 50% vital signs Vital Sign Date Time Temp Pulse Resp B/P (MAP) Pulse Ox O2 Delivery O2 Flow Rate FiO2 07/11/25 12:00 27 97 Bi-Pap+ 100 100 07/11/25 11:52 114 120/62 07/11/25 08:00 97.7 97.7 07/10/25 11:56 10 Total Intake and Output 07/10/25 07/10/25 07/11/25 15:00 23:00 07:00 Intake Total 250 ml 390 ml 50 ml Output Total 1000 ml 750 ml Balance 250 ml -610 ml -700 ml medications Current Medications Medications Dose Ordered Sig/[place] Route Start Time Stop Time Status Last Admin Dose Admin Docusate Sodium 100 mg BIDPRN PRN PO 07/09/25 10:30 Acetaminophen 650 mg Q6HP PRN PO 07/09/25 10:30 Nitroglycerin 0.4 mg Q5MINP PRN SL 07/09/25 10:30 Aspirin 81 mg DAILY PO 07/10/25 10:00 07/10/25 09:44 81 MG Clopidogrel Bisulfate 75 mg DAILY PO 07/10/25 10:00 07/10/25 09:46 75 MG Atorvastatin Calcium 40 mg HS PO 07/09/25 22:00 07/09/25 22:56 40 MG Methylprednisolone Sodium Succinate 40 mg BID IV 07/09/25 22:00 07/11/25 10:57 40 MG Diagnostic Test (Pha) 1 strip ACHS 07/09/25 17:00 07/11/25 11:04 1 STRIP Insulin Human Regular HS SC 07/09/25 22:00 07/10/25 22:12 4 UNITS Insulin Human Regular AC SC 07/09/25 17:00 07/11/25 06:31 9 UNITS Dextrose 50 ml UD PRN IV 07/09/25 14:15 Insulin Glargine 15 units DAILY SC 07/10/25 10:00 07/10/25 10:26 15 UNITS Mupirocin 1 applic BID EACHNOSTRI 07/10/25 22:00 07/15/25 21:59 07/11/25 10:00 1 APPLIC Cefepime HCl 50 ml @ 12.5 mls/hr DAILY IV 07/10/25 17:30 07/11/25 10:57 12.5 MLS/HR Vancomycin HCl 0 ml @ 0 mls/hr PER PHARMACY IV 07/10/25 17:30 Ipratropium [place] 0.5 mg Q4HR NEB 07/10/25 22:45 07/11/25 10:42 0.5 MG Levalbuterol HCl 0.625 mg Q4HR NEB 07/10/25 22:45 07/11/25 10:42 0.625 MG Heparin Sodium/ Dextrose 250 ml @ 0 mls/hr Q0M IV 07/10/25 23:45 Hold Azithromycin 250 ml @ 125 mls/hr DAILY IV 07/11/25 10:00 07/11/25 10:57 125 MLS/HR Furosemide 60 mg BIDD IV 07/11/25 18:00 laboratory and microbiology Laboratory Tests 07/11/25 02:46 Test 07/11/25 02:46 Range/Units Serum Glucose 182 H 74-106 mg/dL Problem List MYALGIA ARTHALGIA FEVER LEUKOCYTOSIS WITH LEFT SHIFT NOW WITH ELEVATED BNP ELEVATED TROPONIN CKD RENAL FAILURE INSUFF HX OF CAD S/P PTCA STENT IN 2021 ECHO LVH EF 35% METABOLIC GAP ACIDOSIS SEVERE VOLUMEoverload Assessment/Plan IV FLUID ABX NO CARDIAC INTERVENTION AT THIS TIME ELEVATED CARDIAC PARAMETeRS SECONDARY TO METABOLIC INSTABILITY EF 35% MILD TR MILD MR Plan discussed with: Patient Critical Care Time(min): 35 LIMA BRUCE MD Jul 11, 2025 13:00
[2025-07-11] MEDS ORDERED: DEXTROSE (50%) 50ML SYRG IV PRN ×2 (13:15→19:00)
[2025-07-11 13:37] LABS: Hematocrit 24.8 % (41.0-53.0); Hemoglobin 8.0 g/dL (13.5-17.5)
[2025-07-11 13:43] LABS: Base Excess -2.5 mmol/L (-2.0-3.0)
[2025-07-11] MEDS: ETOMIDATE (2MG/ML) 20ML VIAL IV ONE ×2 (14:39→15:32)
[2025-07-11] MEDS ORDERED: ROCURONIUM 10MG/ML 10ML VIAL IV ONE (14:43)
[2025-07-11] MEDS: ROCURONIUM 10MG/ML 10ML VIAL IV ONE ×2 (14:45→15:32)
[2025-07-11] MEDS: PROPOFOL 100 ML IV SCH (15:00)
[2025-07-11] MEDS: fentaNYL Drip 2500mCg/250mlNS 250 ML IV SCH (15:00)
[2025-07-11] MEDS: SUCCINYLCHOLINE CHLORIDE 20 MG/ML 10ML VIAL IV ONE (15:14)
[2025-07-11] MEDS: fentaNYL Drip 2500mCg/250mlNS 250 ML IV ONE (15:15)
[2025-07-11] MEDS: PROPOFOL 100 ML IV ONE (15:15)
[2025-07-11] MEDS: DOBUTamine 1000MCG/ML 250 ML IV SCH (15:50)
--- NOTE | 2025-07-11 15:52 | DVH ---
INDICATION: confirm ET tube placement TECHNIQUE: Single frontal view of the chest was obtained COMPARISON: XY CHEST PORTABLE on DOS: 07/11/25, XY CHEST XRAY 1 VIEW on DOS: 07/10/25, XY CHEST PORTABLE on DOS: 07/09/25 FINDINGS: Nondiagnostic examination as the upper chest not included within the field of view. Endotracheal tube not visualized. IMPRESSION: Nondiagnostic examination as the upper chest not included within the field of view. Endotracheal tube not visualized.
[2025-07-11 16:34] LABS: Base Excess -6.1 mmol/L (-2.0-3.0)
--- NOTE | 2025-07-11 17:56 | DVHINCON2 ---
Date of service: Jul 11, 2025 Reason for Consultation [place] History of Present Illness 84 years old male with past medical history of diabetes insulin-dependent, Chronic kidney disease, diastolic heart failure, coronary artery disease status post stent, presented with chief complaints of shortness of breath for the past few days prior to hospitalization associated with fevers and chills generalized weakness, cough productive patient seen and examined in ICU he is currently on BiPAP and is restless Past Medical History As per HPI Allergies: Coded Allergies: NO KNOWN ALLERGIES (Unverified , 07/09/25) Home Meds Reported Medications Patiromer Sorbitex Calcium (Veltassa) 8.4 Gm Pow, 8.4 GM PO DAILY, POW 07/10/25 Atorvastatin Calcium (Lipitor) 40 Mg Tab, 1 TAB PO QPM, #90 TAB 1 Refill 07/10/25 Hydralazine Hcl (Hydralazine Hcl) 50 Mg Tab, 50 MG PO 3x a day PRN for blood pressure for 30 Days, MG 07/10/25 Docusate Sodium (Colace) 100 Mg Cap, 1 CAP PO BID, #30 CAP 07/10/25 Allopurinol (Allopurinol) 100 Mg Tab, 100 MG PO DAILY for 30 Days, MG 07/10/25 Ferrous Sulfate (Ferosul) 325 Mg Tab, 325 MG PO DAILY 07/09/25 Glipizide (Glipizide Er) 10 Mg Tab, 1 TAB PO BID 07/09/25 Furosemide (Furosemide) 40 Mg Tab, 1 TAB PO DAILY 07/09/25 Amlodipine Besylate (Amlodipine Besylate) 10 Mg Tab, 1 TAB PO DAILY 07/09/25 Ferrous Sulfate (Ferrous Sulfate) 325 Mg Tab, 1 TAB PO BID 07/09/25 Insulin Glargine (Lantus Solostar) 100 Unit/Ml Inj, 15 UNITS SC DAILY 07/09/25 Tamsulosin Hcl (Tamsulosin Hcl) 0.4 Mg Cap, 0.4 MG PO HS 07/09/25 Current Medications Current Medications Medications (Trade) Dose Ordered Sig/Cherise Route PRN Reason Start Time Stop Time Status Last Admin Mupirocin (Bactroban 2% Ointment) 1 applic BID EACHNOSTRI 07/10/25 22:00 07/10/25 13:17 DC Mupirocin (Bactroban 2% Ointment) 1 applic BID EACHNOSTRI 07/10/25 22:00 07/15/25 21:59 07/11/25 10:00 Ipratropium Thermal (Atrovent Medneb) 0.5 mg Q4HR NEB 07/10/25 22:45 07/11/25 14:55 Levalbuterol HCl (Xopenex Medneb) 0.625 mg Q4HR NEB 07/10/25 22:45 07/11/25 14:55 Heparin Sodium/ Dextrose 250 ml @ 0 mls/hr Q0M IV 07/10/25 23:45 Hold Azithromycin 250 ml @ 125 mls/hr DAILY IV 07/11/25 10:00 07/11/25 13:11 DC 07/11/25 10:57 Furosemide (Lasix Injection) 60 mg BIDD IV 07/11/25 18:00 Diagnostic Test (Pha) (Accu-Chek Comfort Curve T) 1 strip Q6HR 07/11/25 18:00 Insulin Human Regular (InsuLIN R) Q6HR SC 07/11/25 18:00 Dextrose 50 ml UD PRN IV Blood Sugar LESS THAN 60 07/11/25 13:15 Dobutamine HCl/ Dextrose 250 ml @ 21.48 mls/ hr [id number] IV 07/11/25 14:15 07/11/25 15:50 Propofol 100 ml @ 2.148 mls/ hr Q24H IV 07/11/25 15:00 07/11/25 15:00 Fentanyl Citrate 250 ml @ 2.5 mls/hr Q24H IV 07/11/25 15:00 07/11/25 15:00 Family History: FH: cancer G8 FATHER G8 BROTHER FH: heart attack G8 MOTHER Review of Systems Unable to obtain patient on BiPAP H&P Exam Vital Signs/I&O Vital Sign Date Time Temp Pulse Resp B/P (MAP) Pulse Ox O2 Delivery O2 Flow Rate FiO2 07/11/25 16:45 121 26 114/60 (78) 93 07/11/25 16:19 90 07/11/25 16:00 Mechanical Ventilator+ 07/11/25 16:00 99.1 99.1 07/10/25 11:56 10 Intake and Output 07/10/25 07/11/25 19:00 07:00 Intake Total 363 ml 327 ml Output Total 1750 ml Balance 363 ml -1423 ml Intake Oral 0 ml 0 ml IV Total 363 ml 327 ml Output Urine Total 1750 ml Physical Exam Patient in respiratory distress currently on BiPAP Positive crackles No pedal edema Soft abdomen Labs/Diagnostic Data Labs/Diagnostic Data Laboratory Tests Test 07/11/25 16:15 07/11/25 13:01 07/11/25 12:51 07/11/25 10:43 Range/Units Blood Gas Specimen Type Arterial Arterial Blood Gas Sample Site Left radial Right radial Blood Gas Patient Temperature 37.0 37.0 Arterial Blood Date Drawn [id number] Arterial Blood pH 7.261 L 7.496 H 7.350-7.450 Arterial Blood Partial Pressure CO2 47.1 26.7 L 35.0-48.0 mmHg Arterial Blood Partial Pressure O2 94.2 48.1 *L 83.0-108.0 mmHg Arterial Blood HCO3 20.7 L 20.2 L 21.0-28.0 mmol/L Arterial Blood Oxygen Saturation 94.9 83.1 *L 94.0-98.0 % Arterial Blood Base Excess -6.1 L -2.5 L -2.0-3.0 mmol/L Arterial Blood Oxyhemoglobin 94.3 82.9 L 94.0-98.0 % Arterial Blood Carboxyhemoglobin 0.5 0.2 L 0.5-1.5 % Arterial Blood Methemoglobin 0.1 0.0 0.0-1.5 % Salas Test Modified Modified Blood Gas Total Hemoglobin 8.80 L 8.00 L 13.5-17.5 g/dL Blood Gas Set Respiration Rate 26.0 12.0 Blood Gas Modality Vent - ac Mask - bipap FiO2 % 100.0 80.0 Blood Gas Tidal Volume 450.0 Blood Gas PEEP or CPAP 8.0 Hemoglobin 8.0 L 13.5-17.5 g/dL Hematocrit 24.8 L 41.0-53.0 % Blood Gas EPAP 5 Blood Gas IPAP 12 Blood Gas Critical Value Read Back Yes Blood Gas Notified Whom Azra otero Blood Gas Notified Time [id number] Blood Gas Notified By German healy POC Glucose 167 H 70-106 mg/dl Test 07/11/25 09:31 07/11/25 09:30 07/11/25 06:28 07/11/25 06:10 Range/Units Blood Gas Specimen Type Arterial Arterial Blood Gas Sample Site Left radial Left radial Blood Gas Patient Temperature 37.0 37.0 Arterial Blood Date Drawn [id number] Arterial Blood pH 7.488 H 7.284 L 7.350-7.450 Arterial Blood Partial Pressure CO2 28.8 L 32.0 L 35.0-48.0 mmHg Arterial Blood Partial Pressure O2 59.2 L 68.1 L 83.0-108.0 mmHg Arterial Blood HCO3 21.4 14.8 L 21.0-28.0 mmol/L Arterial Blood Oxygen Saturation 90.8 L 89.1 L 94.0-98.0 % Arterial Blood Base Excess -1.7 -10.8 L -2.0-3.0 mmol/L Arterial Blood Oxyhemoglobin 90.3 L 88.6 L 94.0-98.0 % Arterial Blood Carboxyhemoglobin 0.3 L 0.3 L 0.5-1.5 % Arterial Blood Methemoglobin 0.2 0.3 0.0-1.5 % Salas Test Yes Yes Blood Gas Total Hemoglobin 7.00 L 8.70 L 13.5-17.5 g/dL Blood Gas Set Respiration Rate 12.0 Blood Gas Modality Mask - bipap Mask - bipap FiO2 % 80.0 70.0 Blood Gas EPAP 5 5 Blood Gas IPAP 12 12 Lactic Acid Level 2.5 *H 0.4-2.0 mmol/L POC Glucose 270 H 70-106 mg/dl Blood Gas Spontaneous Rate 12 Test 07/11/25 02:46 07/11/25 00:52 07/10/25 23:03 07/10/25 22:08 Range/Units White Blood Count 23.9 H 4.4-10.8 10^3/uL Red Blood Count 2.76 L 4.5-5.90 10^6/uL Hemoglobin 8.7 L 13.5-17.5 g/dL Hematocrit 26.2 L 41.0-53.0 % Mean Corpuscular Volume 95.0 80.0-100.0 fL Mean Corpuscular Hemoglobin 31.7 28.0-32.0 pg Mean Corpuscular Hemoglobin Concent 33.4 32.0-36.0 g/dL Red Cell Distribution Width 16.7 H 11.8-14.3 % Platelet Count 153 140-450 10^3/uL Mean Platelet Volume 9.3 6.9-10.8 fL Neutrophils (%) (Auto) 37.0-80.0 % Lymphocytes (%) (Auto) 10.0-50.0 % Monocytes (%) (Auto) 0.0-12.0 % Basophils (%) (Auto) 0.0-2.0 % Neutrophils # (Auto) 1.6-8.6 10 ^3/uL Lymphocytes # (Auto) 0.4-5.4 10 ^3/uL Monocytes # (Auto) 0-1.3 10 ^3/uL Differential Total Cells Counted 100.0 100 Neutrophils % (Manual) 90 H 37.0-80.0 Band Neutrophils % (Manual) 6 Lymphocytes % (Manual) 4 L 10.0-50.0 Monocytes % (Manual) 0 0-12 Eosinophils % (Manual) 0 0-7 Basophils % (Manual) 0 0.0-2.0 Metamyelocytes % (manual) 0 Myelocytes % (Manual) 0 Promyelocytes % (Manual) 0 Blast Cells % (Manual) 0 Reactive Lymphocytes 0 Platelet Estimate Adequate Sodium Level 142 136-145 mmol/L Potassium Level 3.8 3.5-5.1 mmol/L Chloride Level 108 H 98-107 mmol/L Carbon Dioxide Level 19 L 20-31 mmol/L Anion Gap 15 5-15 Blood Urea Nitrogen 58 H 9-23 mg/dL Creatinine 2.72 H 0.700-1.30 mg/dL Glomerular Filtration Rate Calc 22 >90 mL/min BUN/Creatinine Ratio 21.3 H 10.0-20.0 Serum Glucose 182 H 74-106 mg/dL Lactic Acid Level 2.1 *H 0.4-2.0 mmol/L Calcium Level 8.7 8.7-10.4 mg/dL Total Bilirubin 0.5 0.2-1.0 mg/dL Aspartate Amino Transferase (AST) 75 H 13-40 U/L Alanine Aminotransferase (ALT) 60 H 7-40 U/L Alkaline Phosphatase 46 46-116 U/L C-Reactive Protein High Sensitivity 10.21 H <1.0 mg/dL B-Type Natriuretic Peptide 1276.53 0-100 pg/mL Total Protein 7.2 5.7-8.2 g/dL Albumin 4.1 3.2-4.8 g/dL Random Vancomycin Level 12.2 H 5-10 ug/mL POC Glucose 177 H 210 H 70-106 mg/dl Blood Gas Specimen Type Arterial Blood Gas Sample Site Right radial Blood Gas Patient Temperature 37.0 Arterial Blood Date Drawn [id number] Arterial Blood pH 7.491 H 7.350-7.450 Arterial Blood Partial Pressure CO2 23.9 L 35.0-48.0 mmHg Arterial Blood Partial Pressure O2 60.5 L 83.0-108.0 mmHg Arterial Blood HCO3 17.8 L 21.0-28.0 mmol/L Arterial Blood Oxygen Saturation 91.2 L 94.0-98.0 % Arterial Blood Base Excess -4.7 L -2.0-3.0 mmol/L Arterial Blood Oxyhemoglobin 90.7 L 94.0-98.0 % Arterial Blood Carboxyhemoglobin 0.5 0.5-1.5 % Arterial Blood Methemoglobin 0.1 0.0-1.5 % Salas Test Yes Blood Gas Total Hemoglobin 7.40 L 13.5-17.5 g/dL Blood Gas Set Respiration Rate 12.0 Blood Gas Modality Mask - bipap Blood Gas Spontaneous Rate 26 FiO2 % 60.0 Blood Gas EPAP 5 Blood Gas IPAP 12 Test 07/10/25 21:45 07/10/25 18:45 07/10/25 17:25 07/10/25 17:04 Range/Units Prothrombin Time 11.4 9.3-11.8 sec Prothrombin Time INR 1.08 0.9-1.15 Activated Partial Thromboplast Time 57.5 H 24.5-34.5 SEC Urine Color Light-yellow Yellow Urine Clarity Turbid H Clear Urine pH 5.0 5.0-9.0 Urine Specific [place] 1.012 1.001-1.035 Urine Protein 1+ H Negative Urine Ketones Negative Negative Urine Blood 2+ H Negative /uL Urine Nitrite Negative Negative Urine Bilirubin Negative Negative Urine Urobilinogen Normal Negative mg/dL Urine Leukocyte Esterase Negative Negative /uL Urine RBC 34 0 - 3 /hpf Urine Microscopic WBC 5 H 0-3 /HPF Urine Squamous Epithelial Cells None seen <5 /hpf Urine Amorphous Crystals Few None Seen /hpf Urine Bacteria Few H None Seen /hpf Urine Creatinine 93.23 30.0-125.0 mg/dL Urine Protein/Creatinine Ratio 0.78 Urine Sodium 19 L 40-220 mmol/L Urine Glucose 2+ H Normal mg/dL Urine Total Protein 72.8 H 1-14 mg/dL Lactic Acid Level 2.0 0.4-2.0 mmol/L POC Glucose 226 H 70-106 mg/dl Test 07/10/25 15:31 07/10/25 11:57 07/10/25 11:33 07/10/25 09:36 Range/Units Erythrocyte Sedimentation Rate 76 H 0-20 mm/hr Prothrombin Time 11.3 11.6 9.3-11.8 sec Prothrombin Time INR 1.07 1.11 0.9-1.15 Activated Partial Thromboplast Time 57.0 H 58.5 H 24.5-34.5 SEC Lactic Acid Level 2.2 *H 0.4-2.0 mmol/L Magnesium Level 3.1 H 1.6-2.6 mg/dL Iron Level 25 L 65-175 ug/dL Total Iron Binding Capacity 209 L 250-425 ug/dL Percent Iron Saturation 12.0 L 20-55 % Ferritin 539.5 H 22-322 ng/mL C-Reactive Protein High Sensitivity 12.76 H <1.0 mg/dL Blood Gas Specimen Type Arterial Blood Gas Sample Site Left radial Blood Gas Patient Temperature 37.0 Arterial Blood Date Drawn [id number] Arterial Blood pH 7.462 H 7.350-7.450 Arterial Blood Partial Pressure CO2 24.9 L 35.0-48.0 mmHg Arterial Blood Partial Pressure O2 65.2 L 83.0-108.0 mmHg Arterial Blood HCO3 17.4 L 21.0-28.0 mmol/L Arterial Blood Oxygen Saturation 92.7 L 94.0-98.0 % Arterial Blood Base Excess -5.3 L -2.0-3.0 mmol/L Arterial Blood Oxyhemoglobin 92.0 L 94.0-98.0 % Arterial Blood Carboxyhemoglobin 0.7 0.5-1.5 % Arterial Blood Methemoglobin 0.1 0.0-1.5 % Salas Test Yes Blood Gas Total Hemoglobin 9.60 L 13.5-17.5 g/dL Blood Gas Liter Flow 10.00 Blood Gas Modality Oxymizer FiO2 % 72.0 POC Glucose 268 H 70-106 mg/dl Test 07/10/25 06:39 07/10/25 06:07 07/10/25 01:28 07/09/25 23:00 Range/Units White Blood Count 25.8 #H 4.4-10.8 10^3/uL Red Blood Count 2.86 L 4.5-5.90 10^6/uL Hemoglobin 8.9 L 13.5-17.5 g/dL Hematocrit 26.6 L 41.0-53.0 % Mean Corpuscular Volume 93.2 80.0-100.0 fL Mean Corpuscular Hemoglobin 31.1 28.0-32.0 pg Mean Corpuscular Hemoglobin Concent 33.3 32.0-36.0 g/dL Red Cell Distribution Width 16.2 H 11.8-14.3 % Platelet Count 132 L 140-450 10^3/uL Mean Platelet Volume 9.5 6.9-10.8 fL Neutrophils (%) (Auto) 37.0-80.0 % Lymphocytes (%) (Auto) 10.0-50.0 % Monocytes (%) (Auto) 0.0-12.0 % Basophils (%) (Auto) 0.0-2.0 % Neutrophils # (Auto) 1.6-8.6 10 ^3/uL Lymphocytes # (Auto) 0.4-5.4 10 ^3/uL Monocytes # (Auto) 0-1.3 10 ^3/uL Differential Total Cells Counted 100.0 100 Neutrophils % (Manual) 91 H 37.0-80.0 Band Neutrophils % (Manual) 4 Lymphocytes % (Manual) 4 L 10.0-50.0 Monocytes % (Manual) 1 0-12 Eosinophils % (Manual) 0 0-7 Basophils % (Manual) 0 0.0-2.0 Metamyelocytes % (manual) 0 Myelocytes % (Manual) 0 Promyelocytes % (Manual) 0 Blast Cells % (Manual) 0 Reactive Lymphocytes 0 Platelet Estimate Decreased Sodium Level 142 136-145 mmol/L Potassium Level 4.0 3.5-5.1 mmol/L Chloride Level 109 H 98-107 mmol/L Carbon Dioxide Level 16 L 20-31 mmol/L Anion Gap 17 H 5-15 Blood Urea Nitrogen 58 #H 9-23 mg/dL Creatinine 2.73 H 0.700-1.30 mg/dL Glomerular Filtration Rate Calc 22 >90 mL/min BUN/Creatinine Ratio 21.2 H 10.0-20.0 Serum Glucose 209 H 74-106 mg/dL Calcium Level 8.4 L 8.7-10.4 mg/dL Total Bilirubin 0.5 0.2-1.0 mg/dL Aspartate Amino Transferase (AST) 92 H 13-40 U/L Alanine Aminotransferase (ALT) 53 H 7-40 U/L Alkaline Phosphatase 46 46-116 U/L Troponin I High Sensitivity 2113 *H </=54 ng/L Total Protein 7.1 5.7-8.2 g/dL Albumin 3.9 3.2-4.8 g/dL POC Glucose 205 H 153 H 70-106 mg/dl Prothrombin Time 11.9 H 9.3-11.8 sec Prothrombin Time INR 1.14 0.9-1.15 Activated Partial Thromboplast Time 46.0 H 24.5-34.5 SEC Test 07/09/25 19:26 07/09/25 18:11 07/09/25 12:13 07/09/25 11:12 Range/Units Prothrombin Time 12.2 H 13.0 H 9.3-11.8 sec Prothrombin Time INR 1.17 H 1.25 H 0.9-1.15 Activated Partial Thromboplast Time 50.7 H 62.8 H 24.5-34.5 SEC POC Glucose 307 H 70-106 mg/dl Urine Color Light-yellow Yellow Urine Clarity Turbid H Clear Urine pH 5.0 5.0-9.0 Urine Specific [place] 1.010 1.001-1.035 Urine Protein 1+ H Negative Urine Ketones Negative Negative Urine Blood 1+ H Negative /uL Urine Nitrite Negative Negative Urine Bilirubin Negative Negative Urine Urobilinogen Normal Negative mg/dL Urine Leukocyte Esterase Negative Negative /uL Urine RBC <1 0 - 3 /hpf Urine Microscopic WBC 2 0-3 /HPF Urine Squamous Epithelial Cells None seen <5 /hpf Urine Bacteria Few H None Seen /hpf Urine Hyaline Casts Few 0 - 2 /lpf Urine Glucose 3+ H Normal mg/dL Urine Opiates Screen Neg NEGATIVE Urine Fentanyl Screen Neg NEGATIVE Urine Barbiturates Screen Neg NEGATIVE Urine Phencyclidine Screen Neg NEGATIVE Urine Amphetamines Screen Neg NEGATIVE Urine Benzodiazepines Screen Neg NEGATIVE Urine Cocaine Screen Neg NEGATIVE Urine Cannabinoids Screen Neg NEGATIVE Hemoglobin A1c 6.8 H <5.7 % A1C Test 07/09/25 08:58 07/09/25 05:40 07/09/25 03:35 07/09/25 02:44 Range/Units Influenza Type A Antigen Negative Negative Influenza Type B Antigen Negative Negative SARS-CoV-2 Antigen (Rapid) Negative NEGATIVE Lactic Acid Level 1.9 0.4-2.0 mmol/L Troponin I High Sensitivity 2288 *H 2046 *H 2075 *H </=54 ng/L Thyroid Stimulating Hormone (TSH) 0.79 0.55-4.78 uIU/mL White Blood Count 19.9 H 4.4-10.8 10^3/uL Red Blood Count 2.96 L 4.5-5.90 10^6/uL Hemoglobin 9.2 L 13.5-17.5 g/dL Hematocrit 28.2 L 41.0-53.0 % Mean Corpuscular Volume 95.1 80.0-100.0 fL Mean Corpuscular Hemoglobin 31.2 28.0-32.0 pg Mean Corpuscular Hemoglobin Concent 32.9 32.0-36.0 g/dL Red Cell Distribution Width 17.0 H 11.8-14.3 % Platelet Count 138 L 140-450 10^3/uL Mean Platelet Volume 8.8 6.9-10.8 fL Neutrophils (%) (Auto) 37.0-80.0 % Lymphocytes (%) (Auto) 10.0-50.0 % Monocytes (%) (Auto) 0.0-12.0 % Basophils (%) (Auto) 0.0-2.0 % Neutrophils # (Auto) 1.6-8.6 10 ^3/uL Lymphocytes # (Auto) 0.4-5.4 10 ^3/uL Monocytes # (Auto) 0-1.3 10 ^3/uL Differential Total Cells Counted 100.0 100 Neutrophils % (Manual) 85 H 37.0-80.0 Band Neutrophils % (Manual) 6 Lymphocytes % (Manual) 6 L 10.0-50.0 Monocytes % (Manual) 3 0-12 Eosinophils % (Manual) 0 0-7 Basophils % (Manual) 0 0.0-2.0 Metamyelocytes % (manual) 0 Myelocytes % (Manual) 0 Promyelocytes % (Manual) 0 Blast Cells % (Manual) 0 Reactive Lymphocytes 0 Platelet Estimate Decrea Large Platelets Few Prothrombin Time 13.0 H 9.3-11.8 sec Prothrombin Time INR 1.25 H 0.9-1.15 Activated Partial Thromboplast Time 32.2 24.5-34.5 SEC D-Dimer, Quantitative 0.93 H 0.0-0.49 mg/L FEU Sodium Level 138 136-145 mmol/L Potassium Level 4.2 3.5-5.1 mmol/L Chloride Level 108 H 98-107 mmol/L Carbon Dioxide Level 18 L 20-31 mmol/L Anion Gap 12 5-15 Blood Urea Nitrogen 37 H 9-23 mg/dL Creatinine 2.21 H 0.700-1.30 mg/dL Glomerular Filtration Rate Calc 29 >90 mL/min BUN/Creatinine Ratio 16.7 10.0-20.0 Serum Glucose 171 H 74-106 mg/dL Calcium Level 8.4 L 8.7-10.4 mg/dL Magnesium Level 2.7 H 1.6-2.6 mg/dL Total Bilirubin 0.7 0.2-1.0 mg/dL Aspartate Amino Transferase (AST) 33 13-40 U/L Alanine Aminotransferase (ALT) 26 7-40 U/L Alkaline Phosphatase 50 46-116 U/L B-Type Natriuretic Peptide 1101.04 0-100 pg/mL Total Protein 7.1 5.7-8.2 g/dL Albumin 4.1 3.2-4.8 g/dL Microbiology Date/Time Source Procedure Growth Status 07/10/25 01:46 Nose MRSA Screen - Final Methicillin Resistant S.aureus Complete Assessment Acute kidney injury hemodynamic mediated etiology unknown baseline renal function Acute hypoxic respiratory failure needing BiPAP Severe sepsis Possible underlying Chronic kidney disease four Congestive heart failure preserved ejection fraction Recommendations Agree with IV Lasix continue for now Kidney ultrasound as ordered Nonoliguric High-risk for intubation We will follow closely Plan discussed with: Patient, Other NICOLÁS VAUGHN MD Jul 11, 2025 17:56
[2025-07-11] MEDS: VANCOMYCIN 500mg/100mL 100 ML IV ONE (17:57)
[2025-07-11] MEDS: FUROSEMIDE 100 MG/10ML VIAL IV SCH (17:58)
--- NOTE | 2025-07-11 18:07 | DVH ---
CHEST RADIOGRAPH REASON FOR EXAM: confirm central line and NG placement. COMPARISON: XY CHEST PORTABLE on DOS: 07/11/25, XY CHEST PORTABLE on DOS: 07/11/25, XY CHEST XRAY 1 VIEW on DOS: 07/10/25, XY CHEST PORTABLE on DOS: 07/09/25 TECHNIQUE: One view of the chest is provided FINDINGS: The cardiomediastinal silhouette is within normal limits for size. There is aortic atherosclerosis. There is an endotracheal tube terminating approximately 4.7 cm from the terry. There is a right neck catheter with the tip projecting over the area of mid SVC. There is extensive bilateral airspace disease that appears more pronounced compared with the prior study. There is no significant pleural effusion. The right lung apex is excluded from view. There is no large pneumothorax. There is an enteric tube with the tip and side hole projecting over the stomach. IMPRESSION: Enteric tube tip and side hole project over the stomach. Endotracheal tube terminates approximately 4.7 cm from the terry. Right neck catheter tip projects over the area of mid SVC.
[2025-07-11] MEDS: ACCU-CHEK COMFORT CURVE STRIP VI SCH ×2 (18:25→23:51)
[2025-07-11] MEDS: InsuLIN REG 1unit/0.01ml Soln (100units/ml) SC SCH ×2 (18:40→23:50)
--- NOTE | 2025-07-11 19:59 | DVHPNRES ---
Progress Note Date Seen: Jul 11, 2025 Resident Creating Document: KARYNA SINGLETON RESIDENT Medical Necessity Reason Pt with a Central, PICC or Fol: No Subjective Review of Systems pt seen and examined at bedside was on BPAP in the morning, did not complaint of chest pain. Toscano catheter revealed gross hematuria, ( heparin drip was discontinued yesterday) did not have any improvement in the PaO2 even on 100% BPAP pt had bouts of confusion since the morning, pt refused intubation but later got altered and family decided for intubation after detailed discussion was intubated later currently on [facility] vent Dobutamine drip was started per cardiology recommendation Objective vital signs Vital Sign Date Time Temp Pulse Resp B/P (MAP) Pulse Ox O2 Delivery O2 Flow Rate FiO2 07/11/25 18:45 105 13 111/53 (72) 100 07/11/25 17:30 Mechanical Ventilator+ 80 80 07/11/25 16:00 99.1 99.1 07/10/25 11:56 10 Total Intake and Output 07/10/25 07/10/25 07/11/25 15:00 23:00 07:00 Intake Total 250 ml 390 ml 50 ml Output Total 1000 ml 750 ml Balance 250 ml -610 ml -700 ml medications Current Medications Medications Dose Ordered Sig/Cherise Route Start Time Stop Time Status Last Admin Dose Admin Docusate Sodium 100 mg BIDPRN PRN PO 07/09/25 10:30 Acetaminophen 650 mg Q6HP PRN PO 07/09/25 10:30 Nitroglycerin 0.4 mg Q5MINP PRN SL 07/09/25 10:30 Aspirin 81 mg DAILY PO 07/10/25 10:00 07/10/25 09:44 81 MG Clopidogrel Bisulfate 75 mg DAILY PO 07/10/25 10:00 07/10/25 09:46 75 MG Atorvastatin Calcium 40 mg HS PO 07/09/25 22:00 07/09/25 22:56 40 MG Mupirocin 1 applic BID EACHNOSTRI 07/10/25 22:00 07/15/25 21:59 07/11/25 10:00 1 APPLIC Cefepime HCl 50 ml @ 12.5 mls/hr DAILY IV 07/10/25 17:30 07/11/25 10:57 12.5 MLS/HR Vancomycin HCl 0 ml @ 0 mls/hr PER PHARMACY IV 07/10/25 17:30 Ipratropium [place] 0.5 mg Q4HR NEB 07/10/25 22:45 07/11/25 14:55 0.5 MG Levalbuterol HCl 0.625 mg Q4HR NEB 07/10/25 22:45 07/11/25 14:55 0.625 MG Heparin Sodium/ Dextrose 250 ml @ 0 mls/hr Q0M IV 07/10/25 23:45 Hold Furosemide 60 mg BIDD IV 07/11/25 18:00 07/11/25 17:58 60 MG Dobutamine HCl/ Dextrose 250 ml @ 21.48 mls/ hr [id number] IV 07/11/25 14:15 07/11/25 15:50 21.48 MLS/HR Propofol 100 ml @ 2.148 mls/ hr Q24H IV 07/11/25 15:00 07/11/25 15:00 2.148 MLS/HR Fentanyl Citrate 250 ml @ 2.5 mls/hr Q24H IV 07/11/25 15:00 07/11/25 15:00 2.5 MLS/HR Diagnostic Test (Pha) 1 strip Q6HR 07/12/25 00:00 Insulin Human Regular Q6HR SC 07/12/25 00:00 Dextrose 50 ml UD PRN IV 07/11/25 19:00 Examination Examination General Appearance: Toscano's catheter revealed gross hematuria, Sedated and intubated HEENT: EOMI Respiratory: On mechanical ventilation Cardiovascular: Regular rate, Normal S1, Normal S2 Abdominal: Normal bowel sounds Extremities: No cyanosis, No edema, Normal pulses, No tenderness/swelling Skin: No rashes, No breakdown Neuro: Sedated and intubated laboratory and microbiology Laboratory Tests 07/11/25 13:01 07/11/25 02:46 Test 07/11/25 02:46 Range/Units Serum Glucose 182 H 74-106 mg/dL Microbiology Date/Time Source Procedure Growth Status 07/10/25 18:45 Urine - Toscano Port Urine Culture - Preliminary No growth Resulted 07/10/25 01:46 Nose MRSA Screen - Final Methicillin Resistant S.aureus Complete 07/09/25 05:40 Blood Blood Culture - Preliminary NO GROWTH AFTER 48 HOURS OF INCUBATION. Resulted Labs and/or images reviewed: Labs reviewed by me, Image(s) reviewed by me Problem List/Assessment/Plan Problem List/Assessment/Plan Assessment/plan Neurology # Sedation Fentanyl and Propofol # ALOC ?Cardiac encephalopathy -likely because of forward pump failure -patient is currently sedated and intubated Cardiology # NSTEMI type 2 likely, type one not ruled out yet - elevated trops - patient was on heparin drip and then was discontinued due to gross hematuria - hold aspirin and Plavix because of gross hematuria - Dr. Gardner, cardiology on board, awaiting sepsis to be resolved before deciding for left heart catheterization - echocardiogram shows ejection fraction 20%, which is decreased from previous 50% # acute HFrEF exacerbation -currently on dobutamine drip 5% started by the shopping investigator - Dr. Gardner, cardiology on board, awaiting sepsis to be resolved before deciding for left heart catheterization - echocardiogram shows ejection fraction 20%, which is decreased from previous 50% - IV lasix 60mg BID # elevated D-dimer likely because of sepsis CHF exacerbation -lower extremity ultrasound # hypertension, currently in shock Hold antihypertensives # hyperlipidemia on statins # paroxysmal AFib, currently sinus tachycardia Likely because of CHF exacerbation # Known CAD status post 1 ANICETO 2021 to RCA -hold aspirin and Plavix because of gross hematuria Respiratory # Acute hypoxic respiratory failure likely due to acute HFrEF exacerbation Currently on mechanical ventilator Intubated 07/2025 # Gram-positive/negative community-acquired pneumonia -currently on antibiotics, Vanc plus cefepime # bilateral pleural effusion due to CHF exacerbation -continue diuresis # ?COPD, not in exacerbation Currently on mechanical ventilator # history of previous smoking Nephrology # CAMERON on CKD Monitor Renal function Renal ultrasound # anion gap metabolic acidosis with partial compensatory respiratory alkalosis Monitor CBC Infectious disease # sepsis likely due to pneumonia IV antibiotics Cultures # MRSA nares positive Mupirocin GI # Mild transaminitis likely due to hepatic congestion -continue diuresis # ppd prophylaxis IV Protonix 40 mg daily # bowel regimen -currently on [facility] Endocrinology # diabetes mellitus type 2 Sliding scale insulin Rheumatology # Gout We will resume allopurinol on discharge Urology # BPH Hold tamsulosin # gross hematuria -hold antiplatelets and bladder irrigation Hematology oncology # anemia, likely anemia of chronic disease Monitor # thrombocytopenia likely due to sepsis Resolved #DVT prophylaxis -heparin on hold currently because of gross hematuria SCDs Lines Right IJ line CBC placed on 07/11/2025 Tocsano's catheter placed on 07/11/25 Code status discussed with the family for greater than 21 min, full code Family at bedside updated about the condition of the patient 07/11/25 : pt was on BPAP in the morning, did not complaint of chest pain. Toscano catheter revealed gross hematuria, ( heparin drip was discontinued yesterday. He did not have any improvement in the PaO2 even on 100% BPAP. pt had bouts of confusion since the morning, pt refused intubation but later got altered and family decided for intubation after detailed discussion. pt was intubated later, currently on [facility] vent. Dobutamine drip was started per cardiology recommendation Critical care time excluding procedures >93 minutes Case discussion with Dr Marlow. Plan discussed with: Patient, Other My Orders My Orders Orders - KARYNA SINGLETON Procedure Category Date Status Time Furosemide Injection PHA 07/11/25 In Process (Lasix Injection) 18:00 BIPAP RT 07/11/25 Logged 13:40 Abg W/ Co-Ox RT 07/11/25 Logged 14:45 Ventilator Orders RT 07/11/25 Transmitted 14:45 Respiratory Culture RICO 07/11/25 In Process W/ Gs 14:55 Place Ng ORDERS 07/11/25 Transmitted 15:19 Ventilator Orders RT 07/11/25 Transmitted 16:23 Abg W/ Co-Ox RT 07/11/25 Logged 17:30 Chest Portable XY 07/11/25 Resulted 17:02 Glucose Blood PHA 07/12/25 In Process (Accu-Chek Comfort 00:00 Insulin R (Human) PHA 07/12/25 In Process (Insulin R) 00:00 Dextrose 50% Syringe PHA 07/11/25 In Process 19:00 Date of Service: Jul 11, 2025 Billing Provider: CELINE MARLOW MD Common Visit Codes: [id number] CARE 30-74 MIN, [id number] CARE-EACH +30MIN KARYNA SINGLETON Jul 11, 2025 19:59 CELINE MARLOW MD Jul 16, 2025 17:57
--- NOTE | 2025-07-11 21:00 | DVHNC2 ---
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 The skin was thoroughly sponged with chlorhexidine and allowed to dry. All persons involved were shielded with hair nets, face masks and sterile gowns. With sterile-gloved hands the right neck area was draped with the large disposable sterile field provided in the pre-manufactured kit. The skin and subcutaneous tissues superficial to the RIGHT internal jugular vein were anesthetized with 2 mL of 1% lidocaine. The RIGHT internal jugular vein was identified on ultrasound from the angle of the mandible down into the supraclavicular fossa using the linear ultrasound probe in the transverse orientation. The carotid artery was identified and avoided. The internal jugular vein was then placed in the center of the ultrasound field and compressed for patency. A movement artifact was identified as the needle was advanced through the skin and advanced toward the vessel. A real time hyperechoic signal revealed visualization of vascular needle entry into the lumen as blood was noted to flashback in the syringe. The needle was then held in place while the guide wire was advanced. The needle was then removed. Direct visualization of guide wire location within the vein was noted on ultrasound indicating proper placement and was document in the electronic medical record chart. A skin dilator was advanced over the guidewire and removed, and the triple-lumen catheter was then advanced over the guide wire into proper position. The guide wire was removed and discarded. The ports were aspirated which showed good blood return and then carefully flushed with normal saline. The catheter was stabilized and sutured to the skin with 2-0 silk at 2 anchor points. A sterile bio-patch and dressing was placed over the catheter, including the insertion site. The patient tolerated the procedure well. A chest x-ray was ordered for position confirmation. Ilia Hoyt Luis J MD Intubation Indication: Respiratory Insufficiency Prep: Preoxygenation (BPAP) Intubation Approach: Orotracheal Intubation size: cm (8 cm) Informed consent obtained: Yes Risks/benefits/alt described: Yes Notes A time out was performed.The patient was placed on a night monitor including continuous pulse oximetry. Rapid Sequence Intubation was conducted. The patient received 30 mg of etomidate for induction and 50 mg of rocuronium for adequate paralysis. Using a size 4 video laryngoscope and a size eight endotracheal tube with stylet, the patient was intubated on the 1st attempt. The stylet was removed and cuff balloon was inflated. Appropriate endotracheal tube position was confirmed by direct visualization of vocal cord passage, fogging of the tube, CO2 colormetric indicator and symmetric breath sounds. The tube was secured at 26 cm at the lips. Post intubation chest x-ray is pending at this time. Ilia Hoyt Luis J MD Date of Service: Jul 11, 2025 Billing Provider: CELINE MARLOW MD Common Visit Codes: PROCEDURE ONLY Procedure Codes: [id number], [id number] NON-TUNNEL CV CATH ILIA HOYT Jul 11, 2025 21:00 CELINE MARLOW MD Jul 16, 2025 17:58
[2025-07-11 21:05] LABS: Base Excess -6.1 mmol/L (-2.0-3.0)
--- NOTE | 2025-07-11 22:23 | DVH ---
INDICATION: CAMERON TECHNIQUE: Multiple real-time sonographic images of the kidneys and bladder were obtained. COMPARISON: None FINDINGS: The right kidney measures 8.7 cm in length, which is normal in size. There is normal echogenicity of the right kidney. No hydronephrosis. There is a 2.0 cm right renal cyst. The left kidney measures 11.0 cm in length, which is normal in size. There is normal echogenicity of the left kidney. No hydronephrosis. A Toscano catheter is present in the urinary bladder. Incidental note of bilateral pleural effusions. IMPRESSION: 1. No acute sonographic abnormality within the kidneys.
[2025-07-11] MEDS: PANTOPRAZOLE 40 MG/10 ML VIAL INJ IV ONE (22:44)
[2025-07-11] MEDS: DOCUSATE ORAL LIQUID 100 MG/10 ML UD GT SCH (22:44)
[2025-07-12] VITALS (115 sets, daily range): BP systolic 102–150; BP diastolic 47–68; PULSE 86–108; RESP 15–34; TEMP 93.9–98.9; O2SAT 89–100
[2025-07-12 04:33] LABS: Hematocrit 20.8 % (41.0-53.0); Mean Corpuscular Hemoglobin 31.5 pg (28.0-32.0); Mean Corpuscular Volume 95.0 fL (80.0-100.0); Nucleated Red Blood Cells % 0.5 %
--- NOTE | 2025-07-12 04:34 | DVH ---
CHEST RADIOGRAPH Indication: intubated Technique: Single frontal view of the chest was obtained COMPARISON: XY CHEST PORTABLE on DOS: 07/11/25, XY CHEST PORTABLE on DOS: 07/11/25, XY CHEST PORTABLE on DOS: 07/11/25, XY CHEST XRAY 1 VIEW on DOS: 07/10/25, XY CHEST PORTABLE on DOS: 07/09/25 FINDINGS: Tracheostomy tube tip terminating 5.4 cm above the terry. Right IJ line in the lower SVC. Enteric tube terminating at least in the mid stomach. Cardiac silhouette is borderline in size. Grossly stable diffuse airspace disease throughout both lungs. No large pleural effusion or significant pneumothorax. IMPRESSION: Stable diffuse airspace disease.
[2025-07-12 04:38] LABS: Hemoglobin 6.9 g/dL (13.5-17.5)
[2025-07-12 04:44] LABS: Albumin 3.3 g/dL (3.2-4.8); Anion Gap 15 (5-15); BUN/Creatinine Ratio 26.2 (10.0-20.0); Carbon Dioxide 24 mmol/L (20-31); Potassium 3.9 mmol/L (3.5-5.1); Total Protein 5.7 g/dL (5.7-8.2)
[2025-07-12 04:45] LABS: Bilirubin, Total 0.4 mg/dL (0.2-1.0)
[2025-07-12 04:47] LABS: Alanine Aminotransferase 55 U/L (7-40); Alkaline Phosphatase 43 U/L (46-116); Calcium 7.7 mg/dL (8.7-10.4); Chloride 108 mmol/L (98-107); Glucose 299 mg/dL (74-106); Magnesium 3.6 mg/dL (1.6-2.6); Sodium 147 mmol/L (136-145)
[2025-07-12 04:48] LABS: Blood Urea Nitrogen 107 mg/dL (9-23)
[2025-07-12 06:53] LABS: Base Excess -3.5 mmol/L (-2.0-3.0)
[2025-07-12] MEDS: SOD CHL 0.45% 1,000 ML IV ONE (09:39)
[2025-07-12] MEDS: PANTOPRAZOLE 40 MG/10 ML VIAL INJ IV SCH (09:44)
[2025-07-12] MEDS: FREE WATER GT SCH (12:18)
--- NOTE | 2025-07-12 13:26 | DVHPN2 ---
Progress Note Date Seen: Jul 12, 2025 Resident Creating Document: BOGDAN CRYSTAL RESIDENT Medical Necessity Reason Pt with a Central, PICC or Fol: Yes The following are medically ne: Central Line, Toscano Catheter Subjective Review of Systems This is a 84-year-old patient who presented to the ER with a chief complaint of shortness of breaths for the past 2 days. Patient reports having flu-like symptoms, mild fevers and chills for the past 2 days, says that yesterday around 3:00 p.m. he started to become more short of breaths while he was in the bed, associated with generalized weakness, productive cough with white phlegm for the past 2 days. He is also experiencing mild fever and chills. Denies any recent traveling or sick contacts. He quit smoking in 1994. On arrival to the ER, patient was afebrile, tachycardic, tachypneic 28 per minute and was put on non-rebreather and BiPAP then high-flow. WBC 19. D-dimer 0.9. Lactic 1.9, troponins 2074, 2045, 228. Patient denies any chest pain, dizziness, palpitations at this time. Cardiology consulted for elevated troponins and shortness of breaths Past medical history: Diabetes mellitus on insulin, CKD, diastolic heart failure, CAD status post 1 2021 to RCA Past surgical history denies Home medications: Insulin, iron tablets, amlodipine 10, Lasix 40 mg Social history: Quit smoking and drinking 07/09-Patient seen and examined. Bilateral coarse crackles no wheezing heard on auscultation. On high-flow nasal cannula. Has 1+ pitting edema. 07/10-patient seen and examined, reports feeling better. On Oxymizer 10 L, saturating 88-92. ABG showing mild respiratory alkalosis. 07/11- Max 99.7, tachycardic, 120s bpm tachypneic 22-28 per minute, normotensive, started on BiPAP overnight, urine output 1750 cc and a day, WBC persistently high at 23.9, lactic acidosis 2.5. Repeat CRP and BNP pending. Chest x-ray shows worsening opacity. Patient is A&O x3. ABG shows respiratory alkalosis. 07/12 patient overnight got intubated secondary to respiratory distress, on Lasix 40 b.i.d., urine output 875 cc in 24 hours. Hemoglobin 6.9, transfuse 1 packed RBCs. Objective vital signs Vital Sign Date Time Temp Pulse Resp B/P (MAP) Pulse Ox O2 Delivery O2 Flow Rate FiO2 07/12/25 12:57 95 26 117/55 (75) 100 30 07/12/25 12:00 Mechanical Ventilator+ 07/12/25 11:27 98.9 98.9 07/10/25 11:56 10 Total Intake and Output 07/11/25 07/11/25 07/12/25 15:00 23:00 07:00 Intake Total 50.0 ml 322.760 ml 404.628 ml Output Total 550 ml 325 ml Balance 50.0 ml -227.240 ml 79.628 ml medications Current Medications Medications Dose Ordered Sig/Cherise Route Start Time Stop Time Status Last Admin Dose Admin Atorvastatin Calcium 40 mg HS PO 07/09/25 22:00 07/11/25 22:45 40 MG Mupirocin 1 applic BID EACHNOSTRI 07/10/25 22:00 07/15/25 21:59 07/12/25 09:44 1 APPLIC Cefepime HCl 50 ml @ 12.5 mls/hr DAILY IV 07/10/25 17:30 07/12/25 09:44 12.5 MLS/HR Vancomycin HCl 0 ml @ 0 mls/hr PER PHARMACY IV 07/10/25 17:30 Dobutamine HCl/ Dextrose 250 ml @ 21.48 mls/ hr [id number] IV 07/11/25 14:15 07/12/25 03:15 21.48 MLS/HR Propofol 100 ml @ 2.148 mls/ hr Q24H IV 07/11/25 15:00 07/12/25 03:49 15.036 MLS/HR Fentanyl Citrate 250 ml @ 2.5 mls/hr Q24H IV 07/11/25 15:00 07/12/25 09:55 12.5 MLS/HR Diagnostic Test (Pha) 1 strip Q6HR 07/12/25 00:00 07/12/25 12:15 1 STRIP Insulin Human Regular Q6HR SC 07/12/25 00:00 07/12/25 12:16 6 UNITS Dextrose 50 ml UD PRN IV 07/11/25 19:00 Pantoprazole Sodium 40 mg DAILY IV 07/12/25 10:00 07/12/25 09:44 40 MG Enteral Nutritional Formula 1,000 ml 30ML/HR GT 07/11/25 21:00 Docusate Sodium 100 mg BID GT 07/11/25 22:00 07/12/25 09:43 100 MG Purified Water 100 ml Q6HR GT 07/12/25 12:00 07/12/25 12:18 100 ML Furosemide 40 mg BIDD IV 07/12/25 18:00 Examination Elderly male patient lying in the bed, mild acute distress General: Well-built, afebrile, palor, mucosae are moist Cardiovascular: Regular S1 and S2. No murmurs, gallops or rubs. No JVD elevation. Minimal bilateral pedal pitting edema Respiratory: Decreased breath sounds, minimal Coarse crackles heard on auscultation, intubated on minimal settings FiO2 30% Abdomen: Soft, nontender, nondistended, normoactive bowel sounds, no rebound tenderness, no organomegaly, no masses Genitourinary: Deferred MSK/skin: Skin is dry and warm laboratory and microbiology Laboratory Tests 07/12/25 03:50 Test 07/12/25 03:50 Range/Units Serum Glucose 299 #H 74-106 mg/dL Microbiology Date/Time Source Procedure Growth Status 07/11/25 14:45 Sputum Gram Stain Pending Resulted 07/11/25 14:45 Sputum Respiratory Culture - Preliminary Resulted 07/10/25 18:45 Urine - Toscano Port Urine Culture - Preliminary No growth Resulted 07/10/25 01:46 Nose MRSA Screen - Final Methicillin Resistant S.aureus Complete 07/09/25 05:40 Blood Blood Culture - Preliminary NO GROWTH AFTER 72 HOURS OF INCUBATION. Resulted Labs and/or images reviewed: Labs reviewed by me, Image(s) reviewed by me Problem List/Assessment/Plan Problem List/Assessment/Plan Likely ARDS secondary to sepsis Likely acute on chronic systolic CHF exacerbation-EF 35-40% Acute hypoxic respiratory failure secondary to above Pulmonary edema Likely sepsis secondary to pneumonia, Gram-positive and negative Likely COPD exacerbation Lactic acidosis NSTEMI, type 1 versus type 2 Insulin-dependent diabetes mellitus Likely CAMERON on CKD Transaminitis Nicotine dependence Chest x-ray shows perihilar opacities bilateral small effusions EKG shows sinus tachycardia BNP 1100 D-dimer 0.9 Plan/Recommendation Given the NSTEMI, shortness of breaths and risk factors, patient will benefit from left heart catheterization once sepsis resolves. Consider [place]-Janie catheter for hemodynamic monitoring due to probable ARDS. Currently on dobutamine drip, not on any pressors Echocardiogram EF 35-40% MILD TR MILD MR Dual antiplatelet hold given gross hematuria and no hemoglobin Continue Lipitor Continue IV antibiotics for pneumonia Nebulized treatments q.6 hour Strict I&Os, fluid restriction , monitor telemetry Electrolyte replacement, K greater than 4, Mag greater than 2 Thank you for consulting Cardiology Case discussed with Dr. Gardner, Dr Hoyt Plan discussed with: Patient, Other (Nurse Ramandeep) Dietary Evaluation Review Comments: Nutrition Recommendation: 1) EN Glucerna 1.2 @ 60ml/hr x 24hr (goal). TF at goal volume provides 1728 kcal (100%), 86 gm protein (100%), and 1159 ml free water. 2) Consider TPN/PN if NPO>7 days 3) Monitor NPO status, lab values, weight trend, and I/O Expected Outcomes/Goals: Intake to meet >75% estimated needs Lab values to improve FU 2-3 days Visit Coding Cardiology RES Date of Service: Jul 12, 2025 Billing Provider: LIMA BRUCE MD Cardiology Common Codes: [id number] HOSP CARE(BOGDAN Davalos RESIDENT Jul 12, 2025 13:26
--- NOTE | 2025-07-12 14:41 | DVH ---
Carotid Duplex Date: 07/12/2025 02:00 PM Clinical History: rule out stenosis Comparison: None Technique: Duplex Doppler evaluation of the extracranial carotid and vertebral arteries including color Doppler and spectral/pulsed waveform analysis was performed. Findings: Velocities and ratios within normal limits IMPRESSION: No hemodynamically significant stenosis noted in the right carotid system. No hemodynamically significant stenosis noted in the left carotid system. Reference: Radiology 2003; 229:[id number]
--- NOTE | 2025-07-12 15:01 | DVHPN2 ---
Progress Note Date Seen: Jul 12, 2025 Medical Necessity Reason Pt with a Central, PICC or Fol: Yes The following are medically ne: Central Line, Toscano Catheter Subjective Patient reports: Other Review of Systems: Deferred Objective vital signs Vital Sign Date Time Temp Pulse Resp B/P (MAP) Pulse Ox O2 Delivery O2 Flow Rate FiO2 07/12/25 13:51 89 26 113/66 (82) 100 30 07/12/25 12:00 Mechanical Ventilator+ 07/12/25 11:27 98.9 98.9 07/10/25 11:56 10 Total Intake and Output 07/11/25 07/11/25 07/12/25 15:00 23:00 07:00 Intake Total 50.0 ml 322.760 ml 404.628 ml Output Total 550 ml 325 ml Balance 50.0 ml -227.240 ml 79.628 ml medications Current Medications Medications Dose Ordered Sig/Cherise Route Start Time Stop Time Status Last Admin Dose Admin Mupirocin 1 applic BID EACHNOSTRI 07/10/25 22:00 07/15/25 21:59 07/12/25 09:44 1 APPLIC Cefepime HCl 50 ml @ 12.5 mls/hr DAILY IV 07/10/25 17:30 07/12/25 09:44 12.5 MLS/HR Dobutamine HCl/ Dextrose 250 ml @ 21.48 mls/ hr [id number] IV 07/11/25 14:15 07/12/25 13:33 21.48 MLS/HR Propofol 100 ml @ 2.148 mls/ hr Q24H IV 07/11/25 15:00 07/12/25 03:49 15.036 MLS/HR Fentanyl Citrate 250 ml @ 2.5 mls/hr Q24H IV 07/11/25 15:00 07/12/25 09:55 12.5 MLS/HR Diagnostic Test (Pha) 1 strip Q6HR 07/12/25 00:00 07/12/25 12:15 1 STRIP Insulin Human Regular Q6HR SC 07/12/25 00:00 07/12/25 12:16 6 UNITS Dextrose 50 ml UD PRN IV 07/11/25 19:00 Pantoprazole Sodium 40 mg DAILY IV 07/12/25 10:00 07/12/25 09:44 40 MG Enteral Nutritional Formula 1,000 ml 30ML/HR GT 07/11/25 21:00 Docusate Sodium 100 mg BID GT 07/11/25 22:00 07/12/25 09:43 100 MG Purified Water 100 ml Q6HR GT 07/12/25 12:00 07/12/25 12:18 100 ML Furosemide 40 mg DAILY IV 07/13/25 10:00 Examination: GENERAL:Abnormal, LUNGS:Abnormal, MSK:Abnormal laboratory and microbiology Laboratory Tests 07/12/25 03:50 Test 07/12/25 03:50 Range/Units Serum Glucose 299 #H 74-106 mg/dL Microbiology Date/Time Source Procedure Growth Status 07/11/25 14:45 Sputum Gram Stain - Final Resulted 07/11/25 14:45 Sputum Respiratory Culture - Preliminary Resulted 07/10/25 18:45 Urine - Toscano Port Urine Culture - Preliminary No growth Resulted 07/10/25 01:46 Nose MRSA Screen - Final Methicillin Resistant S.aureus Complete 07/09/25 05:40 Blood Blood Culture - Preliminary NO GROWTH AFTER 72 HOURS OF INCUBATION. Resulted Problem List/Assessment/Plan Problem List/Assessment/Plan Acute kidney injury hemodynamic mediated etiology unknown baseline renal function Acute hypoxic respiratory failure needing intubation Severe sepsis Possible underlying Chronic kidney disease four Congestive heart failure preserved ejection fraction Recommendations 1L ivf half NS getting prbc reduce lasix Plan discussed with: Other My Orders My Orders Orders - NICOLÁS VAUGHN MD Procedure Category Date Status Time Sod Chl 0.45% (Sodium PHA 07/12/25 In Process Chloride 0.45% Via 09:15 Dietary Evaluation Review Comments: Nutrition Recommendation: 1) EN Glucerna 1.2 @ 60ml/hr x 24hr (goal). TF at goal volume provides 1728 kcal (100%), 86 gm protein (100%), and 1159 ml free water. 2) Consider TPN/PN if NPO>7 days 3) Monitor NPO status, lab values, weight trend, and I/O Expected Outcomes/Goals: Intake to meet >75% estimated needs Lab values to improve FU 2-3 days NICOLÁS VAUGHN MD Jul 12, 2025 15:01
--- NOTE | 2025-07-12 15:39 | DVHPN2 ---
Progress Note - Dictate Date Seen: Jul 12, 2025 Medical Necessity Reason Pt with a Central, PICC or Fol: Yes The following are medically ne: Central Line, Toscano Catheter Subjective PT WITH MYALGIA ARTHALGIA FEVER LEUKOCYTOSIS WITH LEFT SHIFT NOW WITH ELEVATED BNP ELEVATED TROPONIN CKD RENAL FAILURE INSUFF HX OF CAD S/P PTCA STENT IN 2021 ECHO LVH EF 50% vital signs Vital Sign Date Time Temp Pulse Resp B/P (MAP) Pulse Ox O2 Delivery O2 Flow Rate FiO2 07/12/25 14:00 26 100 Mechanical Ventilator+ 30 30 07/12/25 13:51 89 113/66 (82) 07/12/25 11:27 98.9 98.9 07/10/25 11:56 10 Total Intake and Output 07/11/25 07/11/25 07/12/25 15:00 23:00 07:00 Intake Total 50.0 ml 322.760 ml 404.628 ml Output Total 550 ml 325 ml Balance 50.0 ml -227.240 ml 79.628 ml medications Current Medications Medications Dose Ordered Sig/Cherise Route Start Time Stop Time Status Last Admin Dose Admin Mupirocin 1 applic BID EACHNOSTRI 07/10/25 22:00 07/15/25 21:59 07/12/25 09:44 1 APPLIC Cefepime HCl 50 ml @ 12.5 mls/hr DAILY IV 07/10/25 17:30 07/12/25 09:44 12.5 MLS/HR Dobutamine HCl/ Dextrose 250 ml @ 21.48 mls/ hr [id number] IV 07/11/25 14:15 07/12/25 13:33 21.48 MLS/HR Propofol 100 ml @ 2.148 mls/ hr Q24H IV 07/11/25 15:00 07/12/25 03:49 15.036 MLS/HR Fentanyl Citrate 250 ml @ 2.5 mls/hr Q24H IV 07/11/25 15:00 07/12/25 09:55 12.5 MLS/HR Diagnostic Test (Pha) 1 strip Q6HR 07/12/25 00:00 07/12/25 12:15 1 STRIP Insulin Human Regular Q6HR SC 07/12/25 00:00 07/12/25 12:16 6 UNITS Dextrose 50 ml UD PRN IV 07/11/25 19:00 Pantoprazole Sodium 40 mg DAILY IV 07/12/25 10:00 07/12/25 09:44 40 MG Enteral Nutritional Formula 1,000 ml 30ML/HR GT 07/11/25 21:00 Docusate Sodium 100 mg BID GT 07/11/25 22:00 07/12/25 09:43 100 MG Purified Water 100 ml Q6HR GT 07/12/25 12:00 07/12/25 12:18 100 ML Furosemide 40 mg DAILY IV 07/13/25 10:00 laboratory and microbiology Laboratory Tests 07/12/25 03:50 Test 07/12/25 03:50 Range/Units Serum Glucose 299 #H 74-106 mg/dL Problem List MYALGIA ARTHALGIA FEVER LEUKOCYTOSIS WITH LEFT SHIFT NOW WITH ELEVATED BNP ELEVATED TROPONIN CKD RENAL FAILURE INSUFF HX OF CAD S/P PTCA STENT IN 2021 ECHO LVH EF 35% METABOLIC GAP ACIDOSIS SEVERE VOLUMEoverload Assessment/Plan IV FLUID ABX NO CARDIAC INTERVENTION AT THIS TIME ELEVATED CARDIAC PARAMETeRS SECONDARY TO METABOLIC INSTABILITY EF 35% MILD TR MILD MR cxr CONSISTENT WITH ARDS IF CLINICALLY INDICATED CONSIDER RHC Dietary Evaluation Review Comments: Nutrition Recommendation: 1) EN Glucerna 1.2 @ 60ml/hr x 24hr (goal). TF at goal volume provides 1728 kcal (100%), 86 gm protein (100%), and 1159 ml free water. 2) Consider TPN/PN if NPO>7 days 3) Monitor NPO status, lab values, weight trend, and I/O Expected Outcomes/Goals: Intake to meet >75% estimated needs Lab values to improve FU 2-3 days Plan discussed with: Patient Critical Care Time(min): 35 LIMA BRUCE MD Jul 12, 2025 15:39
[2025-07-12 15:57] LABS: Hemoglobin 7.8 g/dL (13.5-17.5)
[2025-07-12 15:59] LABS: Hematocrit 23.6 % (41.0-53.0)
[2025-07-12] MEDS ORDERED: CEFEPIME 1GM/50ML 50 ML IV SCH (17:00)
[2025-07-12] MEDS: DOXYCYCLINE 100MG/100ML 100 ML IV SCH (17:00)
[2025-07-12] MEDS ORDERED: FUROSEMIDE 40 MG/4 ML VIAL IV SCH (18:00)
--- NOTE | 2025-07-12 19:14 | DVHPNRES ---
Progress Note Date Seen: Jul 12, 2025 Resident Creating Document: KARYNA SINGLETON RESIDENT Medical Necessity Reason Pt with a Central, PICC or Fol: Yes The following are medically ne: Central Line, Ling Catheter Subjective Review of Systems pt seen and examined at bedside. sedated and intubated Hb 6.9 and 1 unit of PRBC was transferred. had gross hematuria seen in ling, darker color compared to yesterday Vanco discontinued and switched to doxy worsening kidney function decreased lasix to 40mg daily Objective vital signs Vital Sign Date Time Temp Pulse Resp B/P (MAP) Pulse Ox O2 Delivery O2 Flow Rate FiO2 07/12/25 18:26 98.8 88 26 107/54 98.8 07/12/25 16:45 100 07/12/25 16:00 Mechanical Ventilator+ 30 30 07/10/25 11:56 10 Total Intake and Output 07/11/25 07/11/25 07/12/25 15:00 23:00 07:00 Intake Total 50.0 ml 322.760 ml 404.628 ml Output Total 550 ml 325 ml Balance 50.0 ml -227.240 ml 79.628 ml medications Current Medications Medications Dose Ordered Sig/Cherise Route Start Time Stop Time Status Last Admin Dose Admin Mupirocin 1 applic BID EACHNOSTRI 07/10/25 22:00 07/15/25 21:59 07/12/25 09:44 1 APPLIC Dobutamine HCl/ Dextrose 250 ml @ 21.48 mls/ hr [id number] IV 07/11/25 14:15 07/12/25 13:33 21.48 MLS/HR Propofol 100 ml @ 2.148 mls/ hr Q24H IV 07/11/25 15:00 07/12/25 18:16 15.036 MLS/HR Fentanyl Citrate 250 ml @ 2.5 mls/hr Q24H IV 07/11/25 15:00 07/12/25 09:55 12.5 MLS/HR Diagnostic Test (Pha) 1 strip Q6HR 07/12/25 00:00 07/12/25 17:24 1 STRIP Insulin Human Regular Q6HR SC 07/12/25 00:00 07/12/25 17:26 6 UNITS Dextrose 50 ml UD PRN IV 07/11/25 19:00 Pantoprazole Sodium 40 mg DAILY IV 07/12/25 10:00 07/12/25 09:44 40 MG Enteral Nutritional Formula 1,000 ml 30ML/HR GT 07/11/25 21:00 Docusate Sodium 100 mg BID GT 07/11/25 22:00 07/12/25 09:43 100 MG Purified Water 100 ml Q6HR GT 07/12/25 12:00 07/12/25 17:24 100 ML Furosemide 40 mg DAILY IV 07/13/25 10:00 Doxycycline Hyclate 100 ml @ 50 mls/hr Q12H IV 07/12/25 17:00 07/12/25 17:00 50 MLS/HR Cefepime HCl 50 ml @ 12.5 mls/hr BID IV 07/12/25 22:00 Examination Examination General Appearance: Ling's catheter revealed gross hematuria, Sedated and intubated HEENT: EOMI Respiratory: On mechanical ventilation Cardiovascular: Regular rate, Normal S1, Normal S2 Abdominal: Normal bowel sounds Extremities: No cyanosis, No edema, Normal pulses, No tenderness/swelling Skin: No rashes, No breakdown Neuro: Sedated and intubated laboratory and microbiology Laboratory Tests 07/12/25 15:43 07/12/25 03:50 Test 07/12/25 03:50 Range/Units Serum Glucose 299 #H 74-106 mg/dL Microbiology Date/Time Source Procedure Growth Status 07/11/25 14:45 Sputum Gram Stain - Final Resulted 07/11/25 14:45 Sputum Respiratory Culture - Preliminary Resulted 07/10/25 18:45 Urine - Ling Port Urine Culture - Preliminary No growth Resulted 07/10/25 01:46 Nose MRSA Screen - Final Methicillin Resistant S.aureus Complete 07/09/25 05:40 Blood Blood Culture - Preliminary NO GROWTH AFTER 72 HOURS OF INCUBATION. Resulted Labs and/or images reviewed: Labs reviewed by me, Image(s) reviewed by me Problem List/Assessment/Plan Problem List/Assessment/Plan Assessment/plan Neurology # Sedation Fentanyl and Propofol # ALOC ?Cardiac encephalopathy -likely because of forward pump failure -patient is currently sedated and intubated Cardiology # NSTEMI type 2 likely, type one not ruled out yet - elevated trops - patient was on heparin drip and then was discontinued due to gross hematuria - hold aspirin and Plavix because of gross hematuria - Dr. Gardner, cardiology on board, awaiting sepsis to be resolved before deciding for left heart catheterization - echocardiogram shows ejection fraction 20%, which is decreased from previous 50% # acute HFrEF exacerbation -currently on dobutamine drip 5% started by the picture engraver - Dr. Gardner, cardiology on board, awaiting sepsis to be resolved before deciding for left heart catheterization - echocardiogram shows ejection fraction 20%, which is decreased from previous 50% - IV lasix 60mg BID decreased to 40mg IV daily for worsening kidney function # elevated D-dimer likely because of sepsis CHF exacerbation -lower extremity ultrasound # hypertension, currently in shock Hold antihypertensives # hyperlipidemia on statins # paroxysmal AFib, currently sinus tachycardia Likely because of CHF exacerbation # Known CAD status post 1 2021 to RCA -hold aspirin and Plavix because of gross hematuria Respiratory # Acute hypoxic respiratory failure likely due to acute HFrEF exacerbation Currently on mechanical ventilator Intubated 07/2025 # Gram-positive/negative community-acquired pneumonia -currently on antibiotics, Vanc switched to doxy plus cefepime # bilateral pleural effusion due to CHF exacerbation -continue diuresis # ?COPD, not in exacerbation Currently on mechanical ventilator # history of previous smoking Nephrology # CAMERON on CKD, worsening Monitor Renal function Renal ultrasound # anion gap metabolic acidosis with partial compensatory respiratory alkalosis Monitor CBC # Hypernatremia -free water 1/2 NS once given by nephrology Infectious disease # sepsis likely due to pneumonia IV antibiotics Cultures # MRSA nares positive Mupirocin GI # Mild transaminitis likely due to hepatic congestion -continue diuresis # ppd prophylaxis IV Protonix 40 mg daily # bowel regimen -currently on Colace Endocrinology # diabetes mellitus type 2 Sliding scale insulin Rheumatology # Gout We will resume allopurinol on discharge Urology # BPH Hold tamsulosin # gross hematuria -hold antiplatelet agents and bladder irrigation Hematology oncology # anemia, likely anemia of chronic disease Monitor # thrombocytopenia likely due to sepsis Resolved #DVT prophylaxis -heparin on hold currently because of gross hematuria SCDs Lines Right IJ line CBC placed on 07/11/2025 Ling's catheter placed on 07/11/25 Code status discussed with the family for greater than 21 min, full code Family at bedside updated about the condition of the patient 07/11/25 : pt was on BPAP in the morning, did not complaint of chest pain. Lnig catheter revealed gross hematuria, ( heparin drip was discontinued yesterday. He did not have any improvement in the PaO2 even on 100% BPAP. pt had bouts of confusion since the morning, pt refused intubation but later got altered and family decided for intubation after detailed discussion. pt was intubated later, [facility] Dobutamine drip was started per cardiology recommendation 07/12/25: Hb 6.9 and 1 unit of PRBC was transferred. had gross hematuria seen in ling, darker color compared to yesterday Vanco discontinued and switched to doxy worsening kidney function decreased lasix to 40mg daily Critical care time excluding procedures >81 minutes Case discussion with Dr Marlow. Plan discussed with: Other My Orders My Orders Orders - KARYNA SINGLETON RESIDENT Procedure Category Date Status Time Kidney US 07/11/25 Resulted 20:35 Chest Portable XY 07/12/25 Resulted 04:00 Abg W/ Co-Ox RT 07/12/25 Logged 04:00 Pantoprazole PHA 07/12/25 In Process (Protonix) 10:00 Nutritional PHA 07/11/25 In Process Supplements (Glucerna 21:00 Docusate Sodium PHA 07/11/25 In Process Liquid (Colace Liquid) 22:00 Communication Order ORDERS 07/11/25 Transmitted 20:59 Communication Order ORDERS 07/11/25 Transmitted 21:00 Free Water PHA 07/12/25 In Process 12:00 Stool Occult Blood LAB 07/12/25 Logged 08:49 Carotid Duplx W Color US 07/12/25 Resulted DOP 11:04 Doxycycline PHA 07/12/25 In Process 100mg/100ml 17:00 Cefepime 1gm/50ml PHA 07/12/25 In Process (Maxipime 1gm/50ml) 22:00 Dietary Evaluation Review Comments: Nutrition Recommendation: 1) EN Glucerna 1.2 @ 60ml/hr x 24hr (goal). TF at goal volume provides 1728 kcal (100%), 86 gm protein (100%), and 1159 ml free water. 2) Consider TPN/PN if NPO>7 days 3) Monitor NPO status, lab values, weight trend, and I/O Expected Outcomes/Goals: Intake to meet >75% estimated needs Lab values to improve FU 2-3 days Date of Service: Jul 12, 2025 Billing Provider: CELINE MARLOW MD Common Visit Codes: 34590-ECYIEOPH CARE 30-74 MIN, 85851-BORBXISP CARE-EACH +30MIN KARYNA SINGLETON Jul 12, 2025 19:14 CELINE MARLOW MD Jul 13, 2025 14:32
[2025-07-12] MEDS: CEFEPIME 1GM/50ML 50 ML IV SCH (22:23)
[2025-07-13] VITALS (112 sets, daily range): BP systolic 111–131; BP diastolic 54–66; PULSE 90–103; RESP 21–30; TEMP 97.3–99.1; O2SAT 80–100
[2025-07-13] MEDS: InsuLIN REG 1unit/0.01ml Soln (100units/ml) SC SCH (00:10)
[2025-07-13 00:20] LABS: Potassium 4.6 mmol/L (3.5-5.1); Sodium 143 mmol/L (136-145)
[2025-07-13 00:21] LABS: Anion Gap 14 (5-15); Carbon Dioxide 22 mmol/L (20-31)
[2025-07-13 00:22] LABS: Hematocrit 25.6 % (41.0-53.0); Hemoglobin 8.5 g/dL (13.5-17.5); Mean Corpuscular Hemoglobin 31.2 pg (28.0-32.0); Mean Corpuscular Volume 93.5 fL (80.0-100.0); Nucleated Red Blood Cells % 0.9 %
[2025-07-13 00:23] LABS: Calcium 7.6 mg/dL (8.7-10.4); Chloride 107 mmol/L (98-107)
[2025-07-13 00:27] LABS: BUN/Creatinine Ratio 23.1 (10.0-20.0)
[2025-07-13 00:37] LABS: Glucose 276 mg/dL (74-106); Magnesium 3.5 mg/dL (1.6-2.6)
[2025-07-13 00:38] LABS: Blood Urea Nitrogen 89 mg/dL (9-23)
--- NOTE | 2025-07-13 04:59 | DVH ---
[facility]: Single frontal view of the chest was obtained Comparison: XY CHEST PORTABLE on DOS: 07/12/25 FINDINGS: Lines and Tubes: The endotracheal tube terminates 5.1 cm above the terry. Right PICC terminates in the superior vena cava. Lungs: Patchy bilateral pulmonary opacities are similar to prior study. Pleura: No effusion. No pneumothorax. Cardiomediastinal contours: Unremarkable Bones: No acute osseous abnormality. IMPRESSION: 1. No significant change in bilateral pulmonary opacities.
[2025-07-13 07:22] LABS: Base Excess -3.6 mmol/L (-2.0-3.0)
--- NOTE | 2025-07-13 07:29 | ECG ---
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
[2025-07-13] MEDS: FUROSEMIDE 40 MG/4 ML VIAL IV SCH (10:11)
--- NOTE | 2025-07-13 11:20 | DVHPN2 ---
Progress Note Date Seen: Jul 13, 2025 Resident Creating Document: BOGDAN CRYSTAL RESIDENT Medical Necessity Reason Pt with a Central, PICC or Fol: Yes The following are medically ne: Central Line, Toscano Catheter Subjective Review of Systems This is a 84-year-old patient who presented to the ER with a chief complaint of shortness of breaths for the past 2 days. Patient reports having flu-like symptoms, mild fevers and chills for the past 2 days, says that yesterday around 3:00 p.m. he started to become more short of breaths while he was in the bed, associated with generalized weakness, productive cough with white phlegm for the past 2 days. He is also experiencing mild fever and chills. Denies any recent traveling or sick contacts. He quit smoking in 1994. On arrival to the ER, patient was afebrile, tachycardic, tachypneic 28 per minute and was put on non-rebreather and BiPAP then high-flow. WBC 19. D-dimer 0.9. Lactic 1.9, troponins 2074, 2045, 228. Patient denies any chest pain, dizziness, palpitations at this time. Cardiology consulted for elevated troponins and shortness of breaths Past medical history: Diabetes mellitus on insulin, CKD, diastolic heart failure, CAD status post 1 2021 to RCA Past surgical history denies Home medications: Insulin, iron tablets, amlodipine 10, Lasix 40 mg Social history: Quit smoking and drinking 07/09-Patient seen and examined. Bilateral coarse crackles no wheezing heard on auscultation. On high-flow nasal cannula. Has 1+ pitting edema. 07/10-patient seen and examined, reports feeling better. On Oxymizer 10 L, saturating 88-92. ABG showing mild respiratory alkalosis. 07/11- Max 99.7, tachycardic, 120s bpm tachypneic 22-28 per minute, normotensive, started on BiPAP overnight, urine output 1750 cc and a day, WBC persistently high at 23.9, lactic acidosis 2.5. Repeat CRP and BNP pending. Chest x-ray shows worsening opacity. Patient is A&O x3. ABG shows respiratory alkalosis. 07/12 patient overnight got intubated secondary to respiratory distress, on Lasix 40 b.i.d., urine output 875 cc in 24 hours. Hemoglobin 6.9, transfuse 1 packed RBCs. 07/13-urine output 1175 cc per 24 hours, BUN/creatinine trending down, vent settings peep 8, FiO2 30, tidal volume 450 Objective vital signs Vital Sign Date Time Temp Pulse Resp B/P (MAP) Pulse Ox O2 Delivery O2 Flow Rate FiO2 07/13/25 11:00 97.5 95 30 125/61 (82) 99 207.5 07/13/25 10:00 Mechanical Ventilator+ 30 30 Total Intake and Output 07/12/25 07/12/25 07/13/25 15:00 23:00 07:00 Intake Total 1167.128 ml 1642.128 ml 758.572 ml Output Total 525 ml 650 ml Balance 1167.128 ml 1117.128 ml 108.572 ml medications Current Medications Medications Dose Ordered Sig/Cherise Route Start Time Stop Time Status Last Admin Dose Admin Mupirocin 1 applic BID EACHNOSTRI 07/10/25 22:00 07/15/25 21:59 07/13/25 10:09 1 APPLIC Dobutamine HCl/ Dextrose 250 ml @ 21.48 mls/ hr [id number] IV 07/11/25 14:15 07/13/25 02:18 21.48 MLS/HR Propofol 100 ml @ 2.148 mls/ hr Q24H IV 07/11/25 15:00 07/13/25 05:32 15.036 MLS/HR Fentanyl Citrate 250 ml @ 2.5 mls/hr Q24H IV 07/11/25 15:00 07/13/25 05:37 12.5 MLS/HR Diagnostic Test (Pha) 1 strip Q6HR 07/12/25 00:00 07/13/25 05:37 1 STRIP Dextrose 50 ml UD PRN IV 07/11/25 19:00 Pantoprazole Sodium 40 mg DAILY IV 07/12/25 10:00 07/13/25 10:12 40 MG Enteral Nutritional Formula 1,000 ml 30ML/HR GT 07/11/25 21:00 Docusate Sodium 100 mg BID GT 07/11/25 22:00 07/13/25 10:09 100 MG Furosemide 40 mg DAILY IV 07/13/25 10:00 07/13/25 10:11 40 MG Doxycycline Hyclate 100 ml @ 50 mls/hr Q12H IV 07/12/25 17:00 07/13/25 05:32 50 MLS/HR Cefepime HCl 50 ml @ 12.5 mls/hr BID IV 07/12/25 22:00 07/13/25 10:12 12.5 MLS/HR Insulin Human Regular Q6HR SC 07/13/25 00:00 07/13/25 05:38 3 UNITS Examination Elderly male patient lying in the bed, intubated and mechanically ventilated General: Well-built, afebrile, palor, mucosae are moist Cardiovascular: Regular S1 and S2. No murmurs, gallops or rubs. Pulsatile JVD noted. Minimal bilateral pedal pitting edema Respiratory: Decreased breath sounds, minimal Coarse crackles heard on auscultation, intubated on minimal settings FiO2 30% Abdomen: Soft, nontender, nondistended, normoactive bowel sounds, no rebound tenderness, no organomegaly, no masses Genitourinary: Deferred MSK/skin: Skin is dry and warm laboratory and microbiology Laboratory Tests 07/13/25 00:00 Test 07/13/25 00:00 Range/Units Serum Glucose 276 H 74-106 mg/dL Microbiology Date/Time Source Procedure Growth Status 07/11/25 14:45 Sputum Gram Stain - Final Resulted 07/11/25 14:45 Sputum Respiratory Culture - Preliminary Resulted 07/10/25 18:45 Urine - Toscano Port Urine Culture - Final Complete 07/10/25 01:46 Nose MRSA Screen - Final Methicillin Resistant S.aureus Complete 07/09/25 05:40 Blood Blood Culture - Preliminary NO GROWTH AFTER 72 HOURS OF INCUBATION. Resulted Labs and/or images reviewed: Labs reviewed by me, Image(s) reviewed by me Problem List/Assessment/Plan Problem List/Assessment/Plan Likely ARDS secondary to sepsis Likely acute on chronic systolic CHF exacerbation-EF 35-40% Acute hypoxic respiratory failure secondary to above Pulmonary edema Likely sepsis secondary to pneumonia, Gram-positive and negative Likely COPD exacerbation Lactic acidosis NSTEMI, type 1 versus type 2 Insulin-dependent diabetes mellitus Likely CAMERON on CKD Anemia requiring blood transfusion Transaminitis Nicotine dependence Chest x-ray shows perihilar opacities bilateral small effusions EKG shows sinus tachycardia BNP 1100 D-dimer 0.9 Plan/Recommendation Given the NSTEMI, shortness of breaths and risk factors, patient will benefit from left heart catheterization once sepsis resolves. Consider Rudyard-Janie catheter for hemodynamic monitoring due to probable ARDS. Currently on dobutamine drip, not on any pressors Echocardiogram EF 35-40% MILD TR MILD MR Dual antiplatelet hold given gross hematuria and no hemoglobin Continue Lipitor Continue IV antibiotics for pneumonia Nebulized treatments q.6 hour Strict I&Os, fluid restriction , monitor telemetry Electrolyte replacement, K greater than 4, Mag greater than 2 Thank you for consulting Cardiology Case discussed with Dr. Gardner, Dr Hoyt Plan discussed with: Patient Dietary Evaluation Review Comments: Nutrition Recommendation: 1) EN Glucerna 1.2 @ 60ml/hr x 24hr (goal). TF at goal volume provides 1728 kcal (100%), 86 gm protein (100%), and 1159 ml free water. 2) Consider TPN/PN if NPO>7 days 3) Monitor NPO status, lab values, weight trend, and I/O Expected Outcomes/Goals: Intake to meet >75% estimated needs Lab values to improve FU 2-3 days Visit Coding Cardiology RES Date of Service: Jul 13, 2025 Billing Provider: LIMA BRUCE MD Cardiology Common Codes: 05264-[id number] HOSP CARE(BOGDAN Davalos RESIDENT Jul 13, 2025 11:20
--- NOTE | 2025-07-13 15:19 | DVHPN2 ---
Progress Note - Dictate Date Seen: Jul 13, 2025 Medical Necessity Reason Pt with a Central, PICC or Fol: Yes The following are medically ne: Central Line, Toscano Catheter Subjective PT WITH MYALGIA ARTHALGIA FEVER LEUKOCYTOSIS WITH LEFT SHIFT NOW WITH ELEVATED BNP ELEVATED TROPONIN CKD RENAL FAILURE INSUFF HX OF CAD S/P PTCA STENT IN 2021 ECHO LVH EF 50% vital signs Vital Sign Date Time Temp Pulse Resp B/P (MAP) Pulse Ox O2 Delivery O2 Flow Rate FiO2 07/13/25 15:00 97.3 92 26 126/64 (84) 95 207.1 07/13/25 14:00 Mechanical Ventilator+ 30 30 Total Intake and Output 07/12/25 07/12/25 07/13/25 15:00 23:00 07:00 Intake Total 1167.128 ml 1642.128 ml 758.572 ml Output Total 525 ml 650 ml Balance 1167.128 ml 1117.128 ml 108.572 ml medications Current Medications Medications Dose Ordered Sig/Cherise Route Start Time Stop Time Status Last Admin Dose Admin Mupirocin 1 applic BID EACHNOSTRI 07/10/25 22:00 07/15/25 21:59 07/13/25 10:09 1 APPLIC Dobutamine HCl/ Dextrose 250 ml @ 21.48 mls/ hr [id number] IV 07/11/25 14:15 07/13/25 14:10 21.48 MLS/HR Propofol 100 ml @ 2.148 mls/ hr Q24H IV 07/11/25 15:00 07/13/25 11:23 15.036 MLS/HR Fentanyl Citrate 250 ml @ 2.5 mls/hr Q24H IV 07/11/25 15:00 07/13/25 05:37 12.5 MLS/HR Diagnostic Test (Pha) 1 strip Q6HR 07/12/25 00:00 07/13/25 11:54 1 STRIP Dextrose 50 ml UD PRN IV 07/11/25 19:00 Pantoprazole Sodium 40 mg DAILY IV 07/12/25 10:00 07/13/25 10:12 40 MG Enteral Nutritional Formula 1,000 ml 30ML/HR GT 07/11/25 21:00 Docusate Sodium 100 mg BID GT 07/11/25 22:00 07/13/25 10:09 100 MG Furosemide 40 mg DAILY IV 07/13/25 10:00 07/13/25 10:11 40 MG Doxycycline Hyclate 100 ml @ 50 mls/hr Q12H IV 07/12/25 17:00 07/13/25 05:32 50 MLS/HR Cefepime HCl 50 ml @ 12.5 mls/hr BID IV 07/12/25 22:00 07/13/25 10:12 12.5 MLS/HR Insulin Human Regular Q6HR SC 07/13/25 00:00 07/13/25 11:54 3 UNITS laboratory and microbiology Laboratory Tests 07/13/25 00:00 Test 07/13/25 00:00 Range/Units Serum Glucose 276 H 74-106 mg/dL Problem List MYALGIA ARTHALGIA FEVER LEUKOCYTOSIS WITH LEFT SHIFT NOW WITH ELEVATED BNP ELEVATED TROPONIN CKD RENAL FAILURE INSUFF HX OF CAD S/P PTCA STENT IN 2021 ECHO LVH EF 35% METABOLIC GAP ACIDOSIS SEVERE VOLUMEoverload Assessment/Plan IV FLUID ABX NO CARDIAC INTERVENTION AT THIS TIME ELEVATED CARDIAC PARAMETeRS SECONDARY TO METABOLIC INSTABILITY EF 35% MILD TR MILD MR cxr CONSISTENT WITH ARDS IF CLINICALLY INDICATED CONSIDER RHC Dietary Evaluation Review Comments: Nutrition Recommendation: 1) EN Glucerna 1.2 @ 60ml/hr x 24hr (goal). TF at goal volume provides 1728 kcal (100%), 86 gm protein (100%), and 1159 ml free water. 2) Consider TPN/PN if NPO>7 days 3) Monitor NPO status, lab values, weight trend, and I/O Expected Outcomes/Goals: Intake to meet >75% estimated needs Lab values to improve FU 2-3 days Plan discussed with: Patient, Other Critical Care Time(min): 35 LIMA BRUCE MD Jul 13, 2025 15:19
--- NOTE | 2025-07-13 16:47 | DVHPNRES ---
Progress Note Date Seen: Jul 13, 2025 Resident Creating Document: KARYNA SINGLETON RESIDENT Medical Necessity Reason Pt with a Central, PICC or Fol: Yes The following are medically ne: Central Line, Ling Catheter Subjective Review of Systems pt seen and examined at bedside. sedated and intubated Patient had 2 units of PRBC transfuse as per Cardiology recommendation Hematuria resolved no clear urine Vanco was discontinued and switched to doxy today, improvement in the creatinine, had 650 mL of urine last night Improving kidney function Objective vital signs Vital Sign Date Time Temp Pulse Resp B/P (MAP) Pulse Ox O2 Delivery O2 Flow Rate FiO2 07/13/25 16:15 97.3 92 26 125/63 (83) 94 207.1 07/13/25 16:00 Mechanical Ventilator+ 30 30 Total Intake and Output 07/12/25 07/12/25 07/13/25 15:00 23:00 07:00 Intake Total 1167.128 ml 1642.128 ml 758.572 ml Output Total 525 ml 650 ml Balance 1167.128 ml 1117.128 ml 108.572 ml medications Current Medications Medications Dose Ordered Sig/Cherise Route Start Time Stop Time Status Last Admin Dose Admin Mupirocin 1 applic BID EACHNOSTRI 07/10/25 22:00 07/15/25 21:59 07/13/25 10:09 1 APPLIC Dobutamine HCl/ Dextrose 250 ml @ 21.48 mls/ hr [id number] IV 07/11/25 14:15 07/13/25 14:10 21.48 MLS/HR Propofol 100 ml @ 2.148 mls/ hr Q24H IV 07/11/25 15:00 07/13/25 11:23 15.036 MLS/HR Fentanyl Citrate 250 ml @ 2.5 mls/hr Q24H IV 07/11/25 15:00 07/13/25 05:37 12.5 MLS/HR Diagnostic Test (Pha) 1 strip Q6HR 07/12/25 00:00 07/13/25 11:54 1 STRIP Dextrose 50 ml UD PRN IV 07/11/25 19:00 Pantoprazole Sodium 40 mg DAILY IV 07/12/25 10:00 07/13/25 10:12 40 MG Enteral Nutritional Formula 1,000 ml 30ML/HR GT 07/11/25 21:00 Docusate Sodium 100 mg BID GT 07/11/25 22:00 07/13/25 10:09 100 MG Furosemide 40 mg DAILY IV 07/13/25 10:00 07/13/25 10:11 40 MG Doxycycline Hyclate 100 ml @ 50 mls/hr Q12H IV 07/12/25 17:00 07/13/25 16:20 50 MLS/HR Cefepime HCl 50 ml @ 12.5 mls/hr BID IV 07/12/25 22:00 07/13/25 10:12 12.5 MLS/HR Insulin Human Regular Q6HR SC 07/13/25 00:00 07/13/25 11:54 3 UNITS Examination Examination General Appearance: Ling's catheter revealed gross hematuria, , improving Sedated and intubated HEENT: EOMI Respiratory: On mechanical ventilation Cardiovascular: Regular rate, Normal S1, Normal S2 Abdominal: Normal bowel sounds Extremities: No cyanosis, No edema, Normal pulses, No tenderness/swelling Skin: No rashes, No breakdown Neuro: Sedated and intubated laboratory and microbiology Laboratory Tests 07/13/25 00:00 Test 07/13/25 00:00 Range/Units Serum Glucose 276 H 74-106 mg/dL Microbiology Date/Time Source Procedure Growth Status 07/11/25 14:45 Sputum Gram Stain - Final Resulted 07/11/25 14:45 Sputum Respiratory Culture - Preliminary Resulted 07/10/25 18:45 Urine - Ling Port Urine Culture - Final Complete 07/10/25 01:46 Nose MRSA Screen - Final Methicillin Resistant S.aureus Complete 07/09/25 05:40 Blood Blood Culture - Preliminary NO GROWTH AFTER 72 HOURS OF INCUBATION. Resulted Labs and/or images reviewed: Labs reviewed by me, Image(s) reviewed by me Problem List/Assessment/Plan Problem List/Assessment/Plan Assessment/plan Neurology # Sedation Fentanyl and Propofol # ALOC ?Cardiac encephalopathy -likely because of forward pump failure -patient is currently sedated and intubated Cardiology # NSTEMI type 2 likely, type one not ruled out yet - elevated trops - patient was on heparin drip and then was discontinued due to gross hematuria - hold aspirin and Plavix because of gross hematuria, as hematuria is resolved we will plan to start Plavix, - Dr. Gardner, cardiology on board, awaiting sepsis to be resolved before deciding for left heart catheterization - as per qualitative executive researcher Dr. Gardner, echocardiogram shows ejection fraction 20%, which is decreased from previous 50% # acute HFrEF exacerbation -currently on dobutamine drip 5% started by the qualitative executive researcher - Dr. Gardner, cardiology on board, awaiting sepsis to be resolved before deciding for left heart catheterization - as per qualitative executive researcher Dr. Gardner, echocardiogram shows ejection fraction 20%, which is decreased from previous 50% - IV lasix 60mg BID decreased to 40mg IV daily for worsening kidney function # elevated D-dimer likely because of sepsis CHF exacerbation -lower extremity ultrasound # hypertension, currently in shock Hold antihypertensives # hyperlipidemia on statins # paroxysmal AFib, currently sinus tachycardia Likely because of CHF exacerbation # Known CAD status post 1 ANICETO 2021 to RCA -hold aspirin and Plavix because of gross hematuria Plan to restart Plavix tomorrow Respiratory # Acute hypoxic respiratory failure likely due to acute HFrEF exacerbation Currently on mechanical ventilator Intubated 07/2025 # Gram-positive/negative community-acquired pneumonia -currently on antibiotics, Vanc switched to doxy plus cefepime # bilateral pleural effusion due to CHF exacerbation -continue diuresis # ?COPD, not in exacerbation Currently on mechanical ventilator # history of previous smoking Nephrology # CAMERON on CKD, improving today Monitor Renal function Renal ultrasound # anion gap metabolic acidosis with partial compensatory respiratory alkalosis Monitor CBC # Hypernatremia, resolved -free water discontinued 1/2 NS once given by nephrology Infectious disease # sepsis likely due to pneumonia IV antibiotics Cultures # MRSA nares positive Mupirocin GI # Mild transaminitis likely due to hepatic congestion -continue diuresis # PUD prophylaxis IV Protonix 40 mg daily # bowel regimen -currently on [facility] Endocrinology # diabetes mellitus type 2 Sliding scale insulin Rheumatology # Gout We will resume allopurinol on discharge Urology # BPH Hold tamsulosin # gross hematuria -hold antiplatelet agents and bladder irrigation Hematology oncology # anemia, likely anemia of chronic disease Monitor # thrombocytopenia likely due to sepsis Resolved #DVT prophylaxis -heparin on hold currently because of gross hematuria SCDs Lines Right IJ line CBC placed on 07/11/2025 Ling's catheter placed on 07/11/25 Code status discussed with the family for greater than 21 min, full code Family at bedside updated about the condition of the patient 07/11/25 : pt was on BPAP in the morning, did not complaint of chest pain. Ling catheter revealed gross hematuria, ( heparin drip was discontinued yesterday. He did not have any improvement in the PaO2 even on 100% BPAP. pt had bouts of confusion since the morning, pt refused intubation but later got altered and family decided for intubation after detailed discussion. pt was [facility] later, [facility] Dob[facility]amine drip was started per cardiology recommendation 07/12/25: Hb 6.9 and 1 unit of PRBC was transferred. had gross hematuria seen in ling, darker color compared to yesterday Vanco discontinued and switched to doxy worsening kidney function decreased lasix to 40mg daily 07/13/2025 Patient had 2 units of PRBC transfuse as per Cardiology recommendation Hematuria resolved no clear urine Vanco was discontinued and switched to doxy today, improvement in the creatinine, had 650 mL of urine last night Improving kidney function Critical care time excluding procedures > 81 minutes Case discussion with Dr Marlow. Plan discussed with: Other My Orders My Orders Orders - KARYNA SINGLETON Procedure Category Date Status Time Doxycycline PHA 07/12/25 In Process 100mg/100ml 17:00 Cefepime 1gm/50ml PHA 07/12/25 In Process (Maxipime 1gm/50ml) 22:00 Chest Portable XY 07/13/25 Resulted 04:00 Abg W/ Co-Ox RT 07/13/25 Logged 04:00 Insulin R (Human) PHA 07/13/25 In Process (Insulin R) 00:00 Dietary Evaluation Review Comments: Nutrition Recommendation: 1) EN Glucerna 1.2 @ 60ml/hr x 24hr (goal). TF at goal volume provides 1728 kcal (100%), 86 gm protein (100%), and 1159 ml free water. 2) Consider TPN/PN if NPO>7 days 3) Monitor NPO status, lab values, weight trend, and I/O Expected Outcomes/Goals: Intake to meet >75% estimated needs Lab values to improve FU 2-3 days Date of Service: Jul 13, 2025 Billing Provider: CELINE MARLOW MD Common Visit Codes: 66110-[id number] CARE 30-74 MIN, 82477-[id number] CARE-EACH +30MIN KARYNA SINGLETON Jul 13, 2025 16:47 CELINE MARLOW MD Jul 14, 2025 11:47
--- NOTE | 2025-07-13 18:30 | DVHPN2 ---
Progress Note Date Seen: Jul 13, 2025 Medical Necessity Reason Pt with a Central, PICC or Fol: Yes The following are medically ne: Central Line, [place] Catheter Subjective Patient reports: Other (intubated) Review of Systems: Deferred Objective vital signs Vital Sign Date Time Temp Pulse Resp B/P (MAP) Pulse Ox O2 Delivery O2 Flow Rate FiO2 07/13/25 18:00 92 07/13/25 18:00 26 99 Mechanical Ventilator+ 30 30 07/13/25 17:45 97.7 120/57 (78) 207.9 Total Intake and Output 07/12/25 07/12/25 07/13/25 15:00 23:00 07:00 Intake Total 1167.128 ml 1642.128 ml 758.572 ml Output Total 525 ml 650 ml Balance 1167.128 ml 1117.128 ml 108.572 ml medications Current Medications Medications Dose Ordered Sig/Cherise Route Start Time Stop Time Status Last Admin Dose Admin Mupirocin 1 applic BID EACHNOSTRI 07/10/25 22:00 07/15/25 21:59 07/13/25 10:09 1 APPLIC Dobutamine HCl/ Dextrose 250 ml @ 21.48 mls/ hr [id number] IV 07/11/25 14:15 07/13/25 14:10 21.48 MLS/HR Propofol 100 ml @ 2.148 mls/ hr Q24H IV 07/11/25 15:00 07/13/25 11:23 15.036 MLS/HR Fentanyl Citrate 250 ml @ 2.5 mls/hr Q24H IV 07/11/25 15:00 07/13/25 05:37 12.5 MLS/HR Diagnostic Test (Pha) 1 strip Q6HR 07/12/25 00:00 07/13/25 17:30 1 STRIP Dextrose 50 ml UD PRN IV 07/11/25 19:00 Pantoprazole Sodium 40 mg DAILY IV 07/12/25 10:00 07/13/25 10:12 40 MG Enteral Nutritional Formula 1,000 ml 30ML/HR GT 07/11/25 21:00 Docusate Sodium 100 mg BID GT 07/11/25 22:00 07/13/25 10:09 100 MG Furosemide 40 mg DAILY IV 07/13/25 10:00 07/13/25 10:11 40 MG Doxycycline Hyclate 100 ml @ 50 mls/hr Q12H IV 07/12/25 17:00 07/13/25 16:20 50 MLS/HR Cefepime HCl 50 ml @ 12.5 mls/hr BID IV 07/12/25 22:00 07/13/25 10:12 12.5 MLS/HR Insulin Human Regular Q6HR SC 07/13/25 00:00 07/13/25 17:31 3 UNITS Examination: GENERAL:Abnormal, LUNGS:Abnormal, MSK:Normal, NEURO:Abnormal laboratory and microbiology Laboratory Tests 07/13/25 00:00 Test 07/13/25 00:00 Range/Units Serum Glucose 276 H 74-106 mg/dL Microbiology Date/Time Source Procedure Growth Status 07/11/25 14:45 Sputum Gram Stain - Final Resulted 07/11/25 14:45 Sputum Respiratory Culture - Preliminary Resulted 07/10/25 18:45 Urine - [place] Urine Culture - Final Complete 07/10/25 01:46 Nose MRSA Screen - Final Methicillin Resistant S.aureus Complete 07/09/25 05:40 Blood Blood Culture - Preliminary NO GROWTH AFTER 72 HOURS OF INCUBATION. Resulted Problem List/Assessment/Plan Problem List/Assessment/Plan Acute kidney injury hemodynamic mediated etiology unknown baseline renal function Acute hypoxic respiratory failure needing intubation Severe sepsis Possible underlying Chronic kidney disease four Congestive heart failure preserved ejection fraction Recommendations uop non oliguric reduce lasix dose will follow Plan discussed with: Other Dietary Evaluation Review Comments: Nutrition Recommendation: 1) EN Glucerna 1.2 @ 60ml/hr x 24hr (goal). TF at goal volume provides 1728 kcal (100%), 86 gm protein (100%), and 1159 ml free water. 2) Consider TPN/PN if NPO>7 days 3) Monitor NPO status, lab values, weight trend, and I/O Expected Outcomes/Goals: Intake to meet >75% estimated needs Lab values to improve FU 2-3 days NICOLÁS VAUGHN MD Jul 13, 2025 18:30
[2025-07-14] VITALS (107 sets, daily range): BP systolic 113–136; BP diastolic 50–68; PULSE 70–94; RESP 20–29; TEMP 97.3–99.3; O2SAT 92–99
[2025-07-14 04:20] LABS: Hematocrit 28.6 % (41.0-53.0); Hemoglobin 9.6 g/dL (13.5-17.5); Mean Corpuscular Hemoglobin 31.5 pg (28.0-32.0); Mean Corpuscular Volume 93.7 fL (80.0-100.0); Nucleated Red Blood Cells % 1.4 %
[2025-07-14 04:32] LABS: Anion Gap 12 (5-15); Carbon Dioxide 25 mmol/L (20-31); Potassium 4.8 mmol/L (3.5-5.1)
[2025-07-14 04:36] LABS: Calcium 7.7 mg/dL (8.7-10.4); Chloride 110 mmol/L (98-107); Sodium 147 mmol/L (136-145)
[2025-07-14 04:38] LABS: BUN/Creatinine Ratio 31.4 (10.0-20.0)
[2025-07-14 04:49] LABS: Glucose 190 mg/dL (74-106)
[2025-07-14 04:51] LABS: Magnesium 3.4 mg/dL (1.6-2.6)
[2025-07-14 04:52] LABS: Blood Urea Nitrogen 116 mg/dL (9-23)
--- NOTE | 2025-07-14 05:40 | DVH ---
MEDICAL RECORDS NUMBER: [id number] PROCEDURE: XY CHEST PORTABLE DATE: 07/14/2025 05:08 AM HISTORY: [facility] vent Views:1 COMPARISON: XY CHEST PORTABLE on DOS: 07/13/25, XY CHEST PORTABLE on DOS: 07/12/25, XY CHEST PORTABLE on DOS: 07/11/25, XY CHEST PORTABLE on DOS: 07/11/25, XY CHEST PORTABLE on DOS: 07/11/25 FINDINGS/IMPRESSION: Lungs: Bibasilar infiltrates are noted. Mediastinum: Mediastinal structures appear unremarkable.A right-sided central line is seen. The tip projects over the superior vena cava. No pneumothorax is seen. The the ET tube is not clearly identified. Skeletal: The skeletal structures appear unremarkable.
[2025-07-14 06:49] LABS: Base Excess -2.6 mmol/L (-2.0-3.0)
--- NOTE | 2025-07-14 07:56 | DVHPN2 ---
Progress Note - Dictate Date Seen: Jul 14, 2025 Medical Necessity Reason Pt with a Central, PICC or Fol: Yes The following are medically ne: Central Line, [place] Catheter Subjective PT WITH MYALGIA ARTHALGIA FEVER LEUKOCYTOSIS WITH LEFT SHIFT NOW WITH ELEVATED BNP ELEVATED TROPONIN CKD RENAL FAILURE INSUFF HX OF CAD S/P PTCA STENT IN 2021 ECHO LVH EF 50% vital signs Vital Sign Date Time Temp Pulse Resp B/P (MAP) Pulse Ox O2 Delivery O2 Flow Rate FiO2 07/14/25 06:45 98.2 94 26 131/63 (85) 96 208.8 07/14/25 06:00 Mechanical Ventilator+ 30 30 Total Intake and Output 07/13/25 07/13/25 07/14/25 15:00 23:00 07:00 Intake Total 842.128 ml 1302.128 ml 723.112 ml Output Total 1475 ml 1625 ml Balance 842.128 ml -172.872 ml -901.888 ml medications Current Medications Medications Dose Ordered Sig/Cherise Route Start Time Stop Time Status Last Admin Dose Admin Mupirocin 1 applic BID EACHNOSTRI 07/10/25 22:00 07/15/25 21:59 07/13/25 21:28 1 APPLIC Dobutamine HCl/ Dextrose 250 ml @ 21.48 mls/ hr [id number] IV 07/11/25 14:15 07/14/25 01:58 21.48 MLS/HR Propofol 100 ml @ 2.148 mls/ hr Q24H IV 07/11/25 15:00 07/13/25 21:26 15.036 MLS/HR Fentanyl Citrate 250 ml @ 2.5 mls/hr Q24H IV 07/11/25 15:00 07/14/25 00:10 12.5 MLS/HR Diagnostic Test (Pha) 1 strip Q6HR 07/12/25 00:00 07/14/25 05:03 1 STRIP Dextrose 50 ml UD PRN IV 07/11/25 19:00 Pantoprazole Sodium 40 mg DAILY IV 07/12/25 10:00 07/13/25 10:12 40 MG Enteral Nutritional Formula 1,000 ml 30ML/HR GT 07/11/25 21:00 Docusate Sodium 100 mg BID GT 07/11/25 22:00 07/13/25 21:28 100 MG Furosemide 40 mg DAILY IV 07/13/25 10:00 07/13/25 10:11 40 MG Doxycycline Hyclate 100 ml @ 50 mls/hr Q12H IV 07/12/25 17:00 07/14/25 04:51 50 MLS/HR Cefepime HCl 50 ml @ 12.5 mls/hr BID IV 07/12/25 22:00 07/13/25 21:27 12.5 MLS/HR Insulin Human Regular Q6HR SC 07/13/25 00:00 07/14/25 05:03 3 UNITS laboratory and microbiology Laboratory Tests 07/14/25 04:00 Test 07/14/25 04:00 Range/Units Serum Glucose 190 H 74-106 mg/dL Problem List MYALGIA ARTHALGIA FEVER LEUKOCYTOSIS WITH LEFT SHIFT NOW WITH ELEVATED BNP ELEVATED TROPONIN CKD RENAL FAILURE INSUFF HX OF CAD S/P PTCA STENT IN 2021 ECHO LVH EF 35% METABOLIC GAP ACIDOSIS SEVERE VOLUMEoverload Assessment/Plan IV FLUID ABX NO CARDIAC INTERVENTION AT THIS TIME ELEVATED CARDIAC PARAMETeRS SECONDARY TO METABOLIC INSTABILITY EF 35% MILD TR MILD MR cxr CONSISTENT WITH ARDS IF CLINICALLY INDICATED CONSIDER RHC CXR BILATERAL INFILTRATE R>L CONSIDER CT OF CHEST Dietary Evaluation Review Comments: Nutrition Recommendation: 1) EN Glucerna 1.2 @ 60ml/hr x 24hr (goal). TF at goal volume provides 1728 kcal (100%), 86 gm protein (100%), and 1159 ml free water. 2) Consider TPN/PN if NPO>7 days 3) Monitor NPO status, lab values, weight trend, and I/O Expected Outcomes/Goals: Intake to meet >75% estimated needs Lab values to improve FU 2-3 days Plan discussed with: Patient Critical Care Time(min): 35 LIMA BRUCE MD Jul 14, 2025 07:56
[2025-07-14] MEDS: DOBUTamine 1000MCG/ML 250 ML IV SCH (11:45)
[2025-07-14] MEDS ORDERED: FREE WATER GT SCH (12:00)
--- NOTE | 2025-07-14 12:11 | DVHPN2 ---
Progress Note Date Seen: Jul 14, 2025 Resident Creating Document: BOGDAN CRYSTAL RESIDENT Medical Necessity Reason Pt with a Central, PICC or Fol: Yes The following are medically ne: Central Line, [place]oscano Catheter Subjective Review of Systems This is a 84-year-old patient who presented to the ER with a chief complaint of shortness of breaths for the past 2 days. Patient reports having flu-like symptoms, mild fevers and chills for the past 2 days, says that yesterday around 3:00 p.m. he started to become more short of breaths while he was in the bed, associated with generalized weakness, productive cough with white phlegm for the past 2 days. He is also experiencing mild fever and chills. Denies any recent traveling or sick contacts. He quit smoking in 1994. On arrival to the ER, patient was afebrile, tachycardic, tachypneic 28 per minute and was put on non-rebreather and BiPAP then high-flow. WBC 19. D-dimer 0.9. Lactic 1.9, troponins 2074, 2045, 228. Patient denies any chest pain, dizziness, palpitations at this time. Cardiology consulted for elevated troponins and shortness of breaths Past medical history: Diabetes mellitus on insulin, CKD, diastolic heart failure, CAD status post 1 2021 to RCA Past surgical history denies Home medications: Insulin, iron tablets, amlodipine 10, Lasix 40 mg Social history: Quit smoking and drinking 07/09-Patient seen and examined. Bilateral coarse crackles no wheezing heard on auscultation. On high-flow nasal cannula. Has 1+ pitting edema. 07/10-patient seen and examined, reports feeling better. On Oxymizer 10 L, saturating 88-92. ABG showing mild respiratory alkalosis. 07/11- Max 99.7, tachycardic, 120s bpm tachypneic 22-28 per minute, normotensive, started on BiPAP overnight, urine output 1750 cc and a day, WBC persistently high at 23.9, lactic acidosis 2.5. Repeat CRP and BNP pending. Chest x-ray shows worsening opacity. Patient is A&O x3. ABG shows respiratory alkalosis. 07/12 patient overnight got intubated secondary to respiratory distress, on Lasix 40 b.i.d., urine output 875 cc in 24 hours. Hemoglobin 6.9, transfuse 1 packed RBCs. 07/13-urine output 1175 cc per 24 hours, BUN/creatinine trending down, vent settings peep 8, FiO2 30, tidal volume 450 07/14- urine output improving, FiO2 30% ECHO : .Left atrial enlargement with concentric LVH. Mild dilation of the sinuses of Valsalva. Mild aortic sclerosis. Mild mitral annular calcification. Left ventricular function is mildly to moderately diminished EF of 40% with normal RV function. There is severe mitral and tricuspid regurgitation. Right ventricular systolic pressure of 60 mmHg. This is consistent with severe pulmonary hypertension. Objective vital signs Vital Sign Date Time Temp Pulse Resp B/P (MAP) Pulse Ox O2 Delivery O2 Flow Rate FiO2 07/14/25 11:52 127/62 07/14/25 11:15 99.0 89 26 96 210.2 07/14/25 10:00 Mechanical Ventilator 07/14/25 10:00 30 30 Total Intake and Output 07/13/25 07/13/25 07/14/25 15:00 23:00 07:00 Intake Total 842.128 ml 1302.128 ml 772.128 ml Output Total 1475 ml 1625 ml Balance 842.128 ml -172.872 ml -852.872 ml medications Current Medications Medications Dose Ordered Sig/Cherise Route Start Time Stop Time Status Last Admin Dose Admin Mupirocin 1 applic BID EACHNOSTRI 07/10/25 22:00 07/15/25 21:59 07/14/25 10:01 1 APPLIC Propofol 100 ml @ 2.148 mls/ hr Q24H IV 07/11/25 15:00 07/14/25 11:52 15.036 MLS/HR Fentanyl Citrate 250 ml @ 2.5 mls/hr Q24H IV 07/11/25 15:00 07/14/25 00:10 12.5 MLS/HR Diagnostic Test (Pha) 1 strip Q6HR 07/12/25 00:00 07/14/25 11:52 1 STRIP Dextrose 50 ml UD PRN IV 07/11/25 19:00 Pantoprazole Sodium 40 mg DAILY IV 07/12/25 10:00 07/14/25 10:01 40 MG Enteral Nutritional Formula 1,000 ml 30ML/HR GT 07/11/25 21:00 Docusate Sodium 100 mg BID GT 07/11/25 22:00 07/14/25 10:00 100 MG Doxycycline Hyclate 100 ml @ 50 mls/hr Q12H IV 07/12/25 17:00 07/14/25 04:51 50 MLS/HR Cefepime HCl 50 ml @ 12.5 mls/hr BID IV 07/12/25 22:00 07/14/25 10:01 12.5 MLS/HR Insulin Human Regular Q6HR SC 07/13/25 00:00 07/14/25 11:58 2 UNITS Clopidogrel Bisulfate 75 mg DAILY NG 07/15/25 10:00 Aspirin 81 mg DAILY NG 07/15/25 10:00 UNV Dobutamine HCl/ Dextrose 250 ml @ 11.28 mls/ hr [id number] IV 07/14/25 11:45 UNV Purified Water 200 ml Q6HR GT 07/14/25 12:00 UNV Examination Elderly male patient lying in the bed, intubated and mechanically ventilated General: Well-built, afebrile, palor, mucosae are moist Cardiovascular: Regular S1 and S2. No murmurs, gallops or rubs. Pulsatile JVD noted. Minimal bilateral pedal pitting edema Respiratory: Decreased breath sounds, minimal Coarse crackles heard on auscultation, intubated on minimal settings FiO2 30% Abdomen: Soft, nontender, nondistended, normoactive bowel sounds, no rebound tenderness, no organomegaly, no masses Genitourinary: Deferred MSK/skin: Skin is dry and warm laboratory and microbiology Laboratory Tests 07/14/25 04:00 Test 07/14/25 04:00 Range/Units Serum Glucose 190 H 74-106 mg/dL Microbiology Date/Time Source Procedure Growth Status 07/11/25 14:45 Sputum Gram Stain - Final Resulted 07/11/25 14:45 Sputum Respiratory Culture - Preliminary Resulted 07/10/25 18:45 Urine - [place] Urine Culture - Final Complete 07/10/25 01:46 Nose MRSA Screen - Final Methicillin Resistant S.aureus Complete 07/09/25 05:40 Blood Blood Culture - Final NO GROWTH AFTER 5 DAYS OF INCUBATION. Complete Labs and/or images reviewed: Labs reviewed by me, Image(s) reviewed by me Problem List/Assessment/Plan Problem List/Assessment/Plan Likely Mild ARDS secondary to sepsis Likely acute on chronic systolic CHF exacerbation-EF 35-40% Severe MR Severe TR Acute hypoxic respiratory failure secondary to above Pulmonary edema Likely sepsis secondary to pneumonia, Gram-positive and negative Likely COPD exacerbation Lactic acidosis NSTEMI, type 1 versus type 2 Insulin-dependent diabetes mellitus Likely CAMERON on CKD Anemia requiring blood transfusion Transaminitis Nicotine dependence Chest x-ray shows perihilar opacities bilateral small effusions EKG shows sinus tachycardia BNP 1100 D-dimer 0.9 Plan/Recommendation Given the NSTEMI, shortness of breaths and risk factors, patient will benefit from left heart catheterization once sepsis resolves. Consider [place]Janie catheter for hemodynamic monitoring due to probable ARDS. ECHO : .Left atrial enlargement with concentric LVH. Mild dilation of the sinuses of Valsalva. Mild aortic sclerosis. Mild mitral annular calcification. Left ventricular function is mildly to moderately diminished EF of 40% with normal RV function. There is severe mitral and tricuspid regurgitation. Right ventricular systolic pressure of 60 mmHg. This is consistent with severe pulmonary hypertension. Currently on dobutamine drip at 2.5, not on any pressors Dual antiplatelet hold given gross hematuria and no hemoglobin Continue Lipitor Continue IV antibiotics for pneumonia Nebulized treatments q.6 hour Strict I&Os, fluid restriction , monitor telemetry Electrolyte replacement, K greater than 4, Mag greater than 2 Thank you for consulting Cardiology Case discussed with Dr. Gardner Plan discussed with: Patient Dietary Evaluation Review Comments: Nutrition Recommendation: 1) EN Glucerna 1.2 @ 60ml/hr x 24hr (goal). TF at goal volume provides 1728 kcal (100%), 86 gm protein (100%), and 1159 ml free water. 2) Consider TPN/PN if NPO>7 days 3) Monitor NPO status, lab values, weight trend, and I/O Expected Outcomes/Goals: Intake to meet >75% estimated needs Lab values to improve FU 2-3 days Visit Coding Cardiology RES Date of Service: Jul 14, 2025 Billing Provider: LIMA BRUCE MD Cardiology Common Codes: 40412-[id number] HOSP CARE(BOGDAN Davalos RESIDENT Jul 14, 2025 12:11
[2025-07-14] MEDS: DOBUTamine 1000MCG/ML 250 ML IV ONE (13:41)
--- NOTE | 2025-07-14 14:29 | DVHSR ---
APPROVED REPORT EXAM: Two-dimensional and M-mode echocardiogram with Doppler and color Doppler. Blood Pressure: 138/77 mmHg INDICATION nstemi, chf RISK FACTORS Height: 5'8, Weight: 168 DIMENSIONS LVDd 4.7 (3.8-5.7cm) LA (2D) 4.6 (1.9-4.0cm) Aortic Root 3.0 (2.0-3.7cm) LVDs 3.7 (2.5-4.0cm) LA (MM) (1.9-4.0cm) Aortic Cusp Exc 1.3 (1.5-2.0cm) EF (%) 40.0 (55-70%) Rt. Atrium 3.9 (1.9-4.0cm) Asc. Aorta cm IVSd 0.9 (0.7-1.1cm) RV (D) (1.8-2.4cm) PWd 1.1 (0.7-1.1cm) Mitral Valve Mitral Mitral Stenosis E wave m/s MV Mean GR. 5mmHg A wave m/s MV Peak GR. 97mmHg E/A ratio 0.0 2D MVA cm2 Aortic Valve Aortic Valve Aortic Stenosis V1 1.01m/s AO Mean GR. mmHg V2 1.43m/s AO Peak GR. 8mmHg LVOT Diameter 1.9 (1.8-2.4cm) Doppler YODIT 2.00cm2 Pulmonic Valve V2 1.25m/s Tricuspid Valve TR Velocity 3.85m/s RVSP 59mmHg Other Information Quality : Technically Limited Rhythm : Technically limited study due to patient position. pt siting up very sob Conclusion Technically good study. Sinus rhythm. Left atrial enlargement with concentric LVH. . Mild dilation of the sinuses of Valsalva. Mild aortic sclerosis. Mild mitral annular calcification. Left ventricular function is mildly to moderately diminished EF of 40% with normal RV function. There is severe mitral and tricuspid regurgitation. Right ventricular systolic pressure of 60 mmHg. This is consistent with severe pulmonary hypertension. No pericardial effusion masses or vegetations.
[2025-07-14] MEDS: FREE WATER GT SCH (14:45)
--- NOTE | 2025-07-14 16:11 | DVHPN2 ---
Progress Note Date Seen: Jul 14, 2025 Medical Necessity Reason Pt with a Central, PICC or Fol: Yes The following are medically ne: Central Line, [place] Catheter Subjective Patient reports: Other (intubated) Review of Systems: Deferred Objective vital signs Vital Sign Date Time Temp Pulse Resp B/P (MAP) Pulse Ox O2 Delivery O2 Flow Rate FiO2 07/14/25 15:56 72 26 113/54 (73) 97 30 07/14/25 14:30 98.1 208.6 07/14/25 14:00 Mechanical Ventilator+ Total Intake and Output 07/13/25 07/13/25 07/14/25 15:00 23:00 07:00 Intake Total 842.128 ml 1302.128 ml 772.128 ml Output Total 1475 ml 1625 ml Balance 842.128 ml -172.872 ml -852.872 ml medications Current Medications Medications Dose Ordered Sig/Cherise Route Start Time Stop Time Status Last Admin Dose Admin Mupirocin 1 applic BID EACHNOSTRI 07/10/25 22:00 07/15/25 21:59 07/14/25 10:01 1 APPLIC Propofol 100 ml @ 2.148 mls/ hr Q24H IV 07/11/25 15:00 07/14/25 11:52 15.036 MLS/HR Fentanyl Citrate 250 ml @ 2.5 mls/hr Q24H IV 07/11/25 15:00 07/14/25 00:10 12.5 MLS/HR Diagnostic Test (Pha) 1 strip Q6HR 07/12/25 00:00 07/14/25 11:52 1 STRIP Dextrose 50 ml UD PRN IV 07/11/25 19:00 Pantoprazole Sodium 40 mg DAILY IV 07/12/25 10:00 07/14/25 10:01 40 MG Enteral Nutritional Formula 1,000 ml 30ML/HR GT 07/11/25 21:00 Docusate Sodium 100 mg BID GT 07/11/25 22:00 07/14/25 10:00 100 MG Doxycycline Hyclate 100 ml @ 50 mls/hr Q12H IV 07/12/25 17:00 07/14/25 04:51 50 MLS/HR Cefepime HCl 50 ml @ 12.5 mls/hr BID IV 07/12/25 22:00 07/14/25 10:01 12.5 MLS/HR Insulin Human Regular Q6HR SC 07/13/25 00:00 07/14/25 11:58 2 UNITS Clopidogrel Bisulfate 75 mg DAILY NG 07/15/25 10:00 Aspirin 81 mg DAILY NG 07/15/25 10:00 Dobutamine HCl/ Dextrose 250 ml @ 11.28 mls/ hr [id number] IV 07/14/25 11:45 07/14/25 11:45 11.28 MLS/HR Purified Water 250 ml Q6HR GT 07/14/25 14:45 Examination: GENERAL:Abnormal, NEURO:Abnormal laboratory and microbiology Laboratory Tests 07/14/25 04:00 Test 07/14/25 04:00 Range/Units Serum Glucose 190 H 74-106 mg/dL Microbiology Date/Time Source Procedure Growth Status 07/11/25 14:45 Sputum Gram Stain - Final Resulted 07/11/25 14:45 Sputum Respiratory Culture - Preliminary Resulted 07/10/25 18:45 Urine - [place] Urine Culture - Final Complete 07/10/25 01:46 Nose MRSA Screen - Final Methicillin Resistant S.aureus Complete 07/09/25 05:40 Blood Blood Culture - Final NO GROWTH AFTER 5 DAYS OF INCUBATION. Complete Problem List/Assessment/Plan Problem List/Assessment/Plan Acute kidney injury hemodynamic mediated etiology unknown baseline renal function Acute hypoxic respiratory failure needing intubation Severe sepsis Possible underlying Chronic kidney disease four Congestive heart failure preserved ejection fraction hypernatremia Recommendations free water 250ml q6 uop non oliguric hold lasix dose will follow Plan discussed with: Other My Orders My Orders Orders - NICOLÁS VAUGHN MD Procedure Category Date Status Time Free Water PHA 07/14/25 In Process 14:45 Dietary Evaluation Review Comments: Nutrition Recommendation: 1) EN Glucerna 1.2 @ 60ml/hr x 24hr (goal). TF at goal volume provides 1728 kcal (100%), 86 gm protein (100%), and 1159 ml free water. 2) Consider TPN/PN if NPO>7 days 3) Monitor NPO status, lab values, weight trend, and I/O Expected Outcomes/Goals: Intake to meet >75% estimated needs Lab values to improve FU 2-3 days NICOLÁS VAUGHN MD Jul 14, 2025 16:11
--- NOTE | 2025-07-14 17:20 | DVHPNRES ---
Progress Note Date Seen: Jul 14, 2025 Resident Creating Document: CONOR MURO RESIDENT Medical Necessity Reason Pt with a Central, PICC or Fol: Yes The following are medically ne: Central Line, Ling Catheter Subjective Review of Systems Patient seen at bedside. Patient is sedated, intubated Dobutamine changed to 2.5 Patient placed on Plavix, aspirin. Patient's BUN has increased Free water given. Objective vital signs Vital Sign Date Time Temp Pulse Resp B/P (MAP) Pulse Ox O2 Delivery O2 Flow Rate FiO2 07/14/25 17:06 125/60 07/14/25 16:30 98.1 70 26 97 208.6 07/14/25 16:00 Mechanical Ventilator+ 30 30 Total Intake and Output 07/13/25 07/13/25 07/14/25 15:00 23:00 07:00 Intake Total 842.128 ml 1302.128 ml 772.128 ml Output Total 1475 ml 1625 ml Balance 842.128 ml -172.872 ml -852.872 ml medications Current Medications Medications Dose Ordered Sig/Cherise Route Start Time Stop Time Status Last Admin Dose Admin Mupirocin 1 applic BID EACHNOSTRI 07/10/25 22:00 07/15/25 21:59 07/14/25 10:01 1 APPLIC Propofol 100 ml @ 2.148 mls/ hr Q24H IV 07/11/25 15:00 07/14/25 17:02 15.036 MLS/HR Fentanyl Citrate 250 ml @ 2.5 mls/hr Q24H IV 07/11/25 15:00 07/14/25 17:06 12.5 MLS/HR Diagnostic Test (Pha) 1 strip Q6HR 07/12/25 00:00 07/14/25 17:02 1 STRIP Dextrose 50 ml UD PRN IV 07/11/25 19:00 Pantoprazole Sodium 40 mg DAILY IV 07/12/25 10:00 07/14/25 10:01 40 MG Enteral Nutritional Formula 1,000 ml 30ML/HR GT 07/11/25 21:00 Docusate Sodium 100 mg BID GT 07/11/25 22:00 07/14/25 10:00 100 MG Doxycycline Hyclate 100 ml @ 50 mls/hr Q12H IV 07/12/25 17:00 07/14/25 17:02 50 MLS/HR Cefepime HCl 50 ml @ 12.5 mls/hr BID IV 07/12/25 22:00 07/14/25 10:01 12.5 MLS/HR Insulin Human Regular Q6HR SC 07/13/25 00:00 07/14/25 17:03 2 UNITS Clopidogrel Bisulfate 75 mg DAILY NG 07/15/25 10:00 Aspirin 81 mg DAILY NG 07/15/25 10:00 Dobutamine HCl/ Dextrose 250 ml @ 11.28 mls/ hr [id number] IV 07/14/25 11:45 07/14/25 11:45 11.28 MLS/HR Purified Water 250 ml Q6HR GT 07/14/25 14:45 07/14/25 17:03 250 ML Examination Examination General Appearance: Ling's catheter revealed gross hematuria, , improving Sedated and intubated HEENT: EOMI Respiratory: On mechanical ventilation Cardiovascular: Regular rate, Normal S1, Normal S2 Abdominal: Normal bowel sounds Extremities: No cyanosis, No edema, Normal pulses, No tenderness/swelling Skin: No rashes, No breakdown Neuro: Sedated and intubated laboratory and microbiology Laboratory Tests 07/14/25 04:00 Test 07/14/25 04:00 Range/Units Serum Glucose 190 H 74-106 mg/dL Microbiology Date/Time Source Procedure Growth Status 07/11/25 14:45 Sputum Gram Stain - Final Resulted 07/11/25 14:45 Sputum Respiratory Culture - Preliminary Resulted 07/10/25 18:45 Urine - Ling Port Urine Culture - Final Complete 07/10/25 01:46 Nose MRSA Screen - Final Methicillin Resistant S.aureus Complete 07/09/25 05:40 Blood Blood Culture - Final NO GROWTH AFTER 5 DAYS OF INCUBATION. Complete Problem List/Assessment/Plan Problem List/Assessment/Plan Neurology # Sedation Fentanyl and Propofol # ALOC ?Cardiac encephalopathy -likely because of forward pump failure -patient is currently sedated and intubated Cardiology # NSTEMI type 2 likely, type one not ruled out yet - elevated trops - patient was on heparin drip and then was discontinued due to gross hematuria - hold aspirin and Plavix because of gross hematuria, as hematuria is resolved we will plan to start Plavix, - Dr. Gardner, cardiology on board, awaiting sepsis to be resolved before deciding for left heart catheterization - as per salvage clerk Dr. Gardner, echocardiogram shows ejection fraction 20%, which is decreased from previous 50% # acute HFrEF exacerbation -currently on dobutamine drip 5% started by the salvage clerk - Dr. Gardner, cardiology on board, awaiting sepsis to be resolved before deciding for left heart catheterization - as per salvage clerk Dr. Gardner, echocardiogram shows ejection fraction 20%, which is decreased from previous 50% - IV lasix 60mg BID decreased to 40mg IV daily for worsening kidney function # elevated D-dimer likely because of sepsis CHF exacerbation -lower extremity ultrasound # hypertension, currently in shock Hold antihypertensives # hyperlipidemia on statins # paroxysmal AFib, currently sinus tachycardia Likely because of CHF exacerbation # Known CAD status post 1 ANICETO 2021 to RCA -hold aspirin and Plavix because of gross hematuria Plan to restart Plavix tomorrow Respiratory # Acute hypoxic respiratory failure likely due to acute HFrEF exacerbation Currently on mechanical ventilator Intubated 07/2025 # Gram-positive/negative community-acquired pneumonia -currently on antibiotics, Vanc switched to doxy plus cefepime # bilateral pleural effusion due to CHF exacerbation -continue diuresis # ?COPD, not in exacerbation Currently on mechanical ventilator # history of previous smoking Nephrology # CAMERON on CKD, improving today Monitor Renal function Renal ultrasound # anion gap metabolic acidosis with partial compensatory respiratory alkalosis Monitor CBC # Hypernatremia, resolved -free water discontinued 1/2 NS once given by nephrology Infectious disease # sepsis likely due to pneumonia IV antibiotics Cultures # MRSA nares positive Mupirocin GI # Mild transaminitis likely due to hepatic congestion -continue diuresis # PUD prophylaxis IV Protonix 40 mg daily # bowel regimen -currently on [facility] Endocrinology # diabetes mellitus type 2 Sliding scale insulin Rheumatology # Gout We will resume allopurinol on discharge Urology # BPH Hold tamsulosin # gross hematuria -hold antiplatelet agents and bladder irrigation Hematology oncology # anemia, likely anemia of chronic disease Monitor # thrombocytopenia likely due to sepsis Resolved #DVT prophylaxis -heparin on hold currently because of gross hematuria SCDs Lines Right IJ line CBC placed on 07/11/2025 Ling's catheter placed on 07/11/25 Code status discussed with the family for greater than 21 min, full code Family at bedside updated about the condition of the patient 07/11/25 : pt was on BPAP in the morning, did not complaint of chest pain. Ling catheter revealed gross hematuria, ( heparin drip was discontinued yesterday. He did not have any improvement in the PaO2 even on 100% BPAP. pt had bouts of confusion since the morning, pt refused intubation but later got altered and family decided for intubation after detailed discussion. [facility] drip was started per cardiology recommendation 07/12/25: Hb 6.9 and 1 unit of PRBC was transferred. had gross hematuria seen in ling, darker color compared to yesterday Vanco discontinued and switched to doxy worsening kidney function decreased lasix to 40mg daily 07/13/2025 Patient had 2 units of PRBC transfuse as per Cardiology recommendation Hematuria resolved no clear urine Vanco was discontinued and switched to doxy today, improvement in the creatinine, had 650 mL of urine last night Improving kidney function Critical care time excluding procedures > 81 minutes Case discussion with Dr Marlow. Plan discussed with: Son My Orders My Orders Orders - CONOR MURO Procedure Category Date Status Time Clopidogrel Bisulfate PHA 07/15/25 In Process (Plavix) 10:00 Aspirin Tablet PHA 07/15/25 In Process 10:00 Dietary Evaluation Review Comments: Nutrition Recommendation: 1) EN Glucerna 1.2 @ 60ml/hr x 24hr (goal). TF at goal volume provides 1728 kcal (100%), 86 gm protein (100%), and 1159 ml free water. 2) Consider TPN/PN if NPO>7 days 3) Monitor NPO status, lab values, weight trend, and I/O Expected Outcomes/Goals: Intake to meet >75% estimated needs Lab values to improve FU 2-3 days Date of Service: Jul 14, 2025 Billing Provider: CELINE MARLOW MD Common Visit Codes: 19635-[id number] CARE 30-74 MIN, 90443-[id number] CARE-EACH +30MIN CONOR MURO Jul 14, 2025 17:19 CELINE MARLOW MD Jul 16, 2025 18:22
[2025-07-15] VITALS (111 sets, daily range): BP systolic 114–148; BP diastolic 48–69; PULSE 62–94; RESP 18–26; TEMP 95.4–99.3; O2SAT 26–100
[2025-07-15 04:08] LABS: Hematocrit 31.2 % (41.0-53.0); Hemoglobin 10.4 g/dL (13.5-17.5); Mean Corpuscular Hemoglobin 31.6 pg (28.0-32.0); Mean Corpuscular Volume 95.1 fL (80.0-100.0); Nucleated Red Blood Cells % 0.8 %
[2025-07-15 04:20] LABS: Alanine Aminotransferase 30 U/L (7-40); Alkaline Phosphatase 64 U/L (46-116); Anion Gap 11 (5-15); BUN/Creatinine Ratio 29.1 (10.0-20.0); Carbon Dioxide 25 mmol/L (20-31); Potassium 5.0 mmol/L (3.5-5.1); Total Protein 5.7 g/dL (5.7-8.2)
[2025-07-15 04:21] LABS: Calcium 7.8 mg/dL (8.7-10.4); Chloride 112 mmol/L (98-107); Glucose 147 mg/dL (74-106); Magnesium 3.4 mg/dL (1.6-2.6); Sodium 148 mmol/L (136-145)
[2025-07-15 04:22] LABS: Albumin 3.1 g/dL (3.2-4.8); Bilirubin, Total 0.4 mg/dL (0.2-1.0); Blood Urea Nitrogen 90 mg/dL (9-23)
--- NOTE | 2025-07-15 06:05 | DVH ---
CHEST RADIOGRAPH Indication: on vent Technique: Single frontal view of the chest was obtained COMPARISON: XY CHEST PORTABLE on DOS: 07/14/25, XY CHEST PORTABLE on DOS: 07/13/25, XY CHEST PORTABLE on DOS: 07/12/25, XY CHEST PORTABLE on DOS: 07/11/25, XY CHEST PORTABLE on DOS: 07/11/25 FINDINGS: Lines and Tubes: Endotracheal tube, enteric catheter and right central venous catheter in satisfactory position. Lungs: Severe multifocal airspace disease. Pleura: No effusion.No pneumothorax. Cardiomediastinal contours: Unremarkable Bones: Unremarkable IMPRESSION: Lines and tubes in satisfactory position. No significant interval change.
[2025-07-15] MEDS: CLOPIDOGREL BISULFATE 75 MG TAB NG SCH (07:37)
[2025-07-15 07:42] LABS: Base Excess -2.5 mmol/L (-2.0-3.0)
[2025-07-15 11:18] LABS: Base Excess -2.0 mmol/L (-2.0-3.0)
--- NOTE | 2025-07-15 11:29 | DVHPNRES ---
Progress Note Date Seen: Jul 15, 2025 Resident Creating Document: CONOR MURO RESIDENT Medical Necessity Reason Pt with a Central, PICC or Fol: Yes The following are medically ne: Central Line, Ling Catheter Subjective Review of Systems This is a 84-year-old patient who presented to the ER with a chief complaint of shortness of breaths for the past 2 days. Patient reports having flu-like symptoms, mild fevers and chills for the past 2 days, says that yesterday around 3:00 p.m. he started to become more short of breaths while he was in the bed, associated with generalized weakness, productive cough with white phlegm for the past 2 days. He is also experiencing mild fever and chills. Denies any recent traveling or sick contacts. He quit smoking in 1994. On arrival to the ER, patient was afebrile, tachycardic, tachypneic 28 per minute and was put on non-rebreather and BiPAP then high-flow. WBC 19. D-dimer 0.9. Lactic 1.9, troponins 2074, 2045, 2288. Patient denies any chest pain, dizziness, palpitations at this time. Cardiology consulted for elevated troponins and shortness of breaths Past medical history: Diabetes mellitus on insulin, CKD, diastolic heart failure, CAD status post 2021 to RCA Past surgical history denies Home medications: Insulin, iron tablets, amlodipine 10, Lasix 40 mg Social history: Quit smoking and drinking 199407/15/2025: urine output improving. ECHO : .Left atrial enlargement with concentric LVH. Mild dilation of the sinuses of Valsalva. Mild aortic sclerosis. Mild mitral annular calcification. Left ventricular function is mildly to moderately diminished EF of 40% with normal RV function. There is severe mitral and tricuspid regurgitation. Right ventricular systolic pressure of 60 mmHg. This is consistent with severe pulmonary hypertension. Patient on 2.5 dobutamine drip. Patient's chest x-ray still looks congested. So Cardiology recommended keeping dobutamine drip. Objective vital signs Vital Sign Date Time Temp Pulse Resp B/P (MAP) Pulse Ox O2 Delivery O2 Flow Rate FiO2 07/15/25 10:30 98.1 68 22 122/57 (78) 98 208.6 07/15/25 10:10 30 07/15/25 10:01 Mechanical Ventilator Total Intake and Output 07/14/25 07/14/25 07/15/25 15:00 23:00 07:00 Intake Total 351.328 ml 1310.528 ml 1290.528 ml Output Total 1575 ml 1450 ml Balance 351.328 ml -264.472 ml -159.472 ml medications Current Medications Medications Dose Ordered Sig/Cherise Route Start Time Stop Time Status Last Admin Dose Admin Mupirocin 1 applic BID EACHNOSTRI 07/10/25 22:00 07/15/25 21:59 07/15/25 07:44 1 APPLIC Propofol 100 ml @ 2.148 mls/ hr Q24H IV 07/11/25 15:00 07/15/25 09:53 15.036 MLS/HR Fentanyl Citrate 250 ml @ 2.5 mls/hr Q24H IV 07/11/25 15:00 07/14/25 17:06 12.5 MLS/HR Diagnostic Test (Pha) 1 strip Q6HR 07/12/25 00:00 07/15/25 05:02 1 STRIP Dextrose 50 ml UD PRN IV 07/11/25 19:00 Pantoprazole Sodium 40 mg DAILY IV 07/12/25 10:00 07/15/25 07:36 40 MG Enteral Nutritional Formula 1,000 ml 30ML/HR GT 07/11/25 21:00 Docusate Sodium 100 mg BID GT 07/11/25 22:00 07/15/25 07:36 100 MG Doxycycline Hyclate 100 ml @ 50 mls/hr Q12H IV 07/12/25 17:00 07/15/25 05:02 50 MLS/HR Cefepime HCl 50 ml @ 12.5 mls/hr BID IV 07/12/25 22:00 07/15/25 07:37 12.5 MLS/HR Insulin Human Regular Q6HR SC 07/13/25 00:00 07/15/25 05:15 2 UNITS Clopidogrel Bisulfate 75 mg DAILY NG 07/15/25 10:00 07/15/25 07:37 75 MG Aspirin 81 mg DAILY NG 07/15/25 10:00 07/15/25 07:37 81 MG Dobutamine HCl/ Dextrose 250 ml @ 11.28 mls/ hr [id number] IV 07/14/25 11:45 07/15/25 09:53 11.28 MLS/HR Purified Water 250 ml Q6HR GT 07/14/25 14:45 07/15/25 05:02 250 ML Examination Elderly male patient lying in the bed, intubated and mechanically ventilated General: Well-built, afebrile, palor, mucosae are moist Cardiovascular: Regular S1 and S2. No murmurs, gallops or rubs. Pulsatile JVD noted. Minimal bilateral pedal pitting edema Respiratory: Decreased breath sounds, minimal Coarse crackles heard on auscultation, intubated on minimal settings FiO2 30% Abdomen: Soft, nontender, nondistended, normoactive bowel sounds, no rebound tenderness, no organomegaly, no masses Genitourinary: Deferred MSK/skin: Skin is dry and warm laboratory and microbiology Laboratory Tests 07/15/25 03:20 Test 07/15/25 03:20 Range/Units Serum Glucose 147 H 74-106 mg/dL Microbiology Date/Time Source Procedure Growth Status 07/11/25 14:45 Sputum Gram Stain - Final Resulted 07/11/25 14:45 Sputum Respiratory Culture - Preliminary Resulted 07/10/25 18:45 Urine - Ling Port Urine Culture - Final Complete 07/10/25 01:46 Nose MRSA Screen - Final Methicillin Resistant S.aureus Complete 07/09/25 05:40 Blood Blood Culture - Final NO GROWTH AFTER 5 DAYS OF INCUBATION. Complete Problem List/Assessment/Plan Problem List/Assessment/Plan Neurology # Sedation Fentanyl and Propofol # ALOC ?Cardiac encephalopathy -likely because of forward pump failure -patient is currently sedated and intubated Cardiology # NSTEMI type 2 likely, type one not ruled out yet - elevated trops - patient was on heparin drip and then was discontinued due to gross hematuria - hold aspirin and Plavix because of gross hematuria, as hematuria is resolved we will plan to start Plavix, - Dr. Gardner, cardiology on board, awaiting sepsis to be resolved before deciding for left heart catheterization - as per warranty administrator Dr. Gardner, echocardiogram shows ejection fraction 20%, which is decreased from previous 50% 07/14- ECHO : .Left atrial enlargement with concentric LVH. Mild dilation of the sinuses of Valsalva. Mild aortic sclerosis. Mild mitral annular calcification. Left ventricular function is mildly to moderately diminished EF of 40% with normal RV function. There is severe mitral and tricuspid regurgitation. Right ventricular systolic pressure of 60 mmHg. This is consistent with severe pulmonary hypertension. 07/15- patient continued on 2.5 dobutamine drip. As per cardiology # acute HFrEF exacerbation -currently on dobutamine drip 5% started by the warranty administrator - Dr. Gardner, cardiology on board, awaiting sepsis to be resolved before deciding for left heart catheterization - as per warranty administrator Dr. Gardner, echocardiogram shows ejection fraction 20%, which is decreased from previous 50% - IV lasix 60mg BID decreased to 40mg IV daily for worsening kidney function # elevated D-dimer likely because of sepsis CHF exacerbation -lower extremity ultrasound # hypertension, currently in shock Hold antihypertensives # hyperlipidemia on statins # paroxysmal AFib, currently sinus tachycardia Likely because of CHF exacerbation # Known CAD status post 1 2021 to RCA -hold aspirin and Plavix because of gross hematuria Plan to restart Plavix tomorrow Respiratory # Acute hypoxic respiratory failure likely due to acute HFrEF exacerbation Currently on mechanical ventilator Intubated 07/2025 # Gram-positive/negative community-acquired pneumonia -currently on antibiotics, Vanc switched to doxy plus cefepime # bilateral pleural effusion due to CHF exacerbation -continue diuresis # ?COPD, not in exacerbation Currently on mechanical ventilator # history of previous smoking Nephrology # CAMERON on CKD, improving today Monitor Renal function Renal ultrasound # anion gap metabolic acidosis with partial compensatory respiratory alkalosis Monitor CBC # Hypernatremia, resolved -free water given 1/2 NS once given by nephrology Infectious disease # sepsis likely due to pneumonia IV antibiotics Cultures # MRSA nares positive Mupirocin GI # Mild transaminitis likely due to hepatic congestion -continue diuresis # PUD prophylaxis IV Protonix 40 mg daily # bowel regimen -currently on [facility] Endocrinology # diabetes mellitus type 2 Sliding scale insulin Rheumatology # Gout We will resume allopurinol on discharge Urology # BPH Hold tamsulosin # gross hematuria -hold antiplatelet agents and bladder irrigation Hematology oncology # anemia, likely anemia of chronic disease Monitor # thrombocytopenia likely due to sepsis Resolved #DVT prophylaxis -heparin on hold currently because of gross hematuria SCDs Lines Right IJ line CBC placed on 07/11/2025 Ling's catheter placed on 07/11/25 Code status discussed with the family for greater than 21 min, full code Family at bedside updated about the condition of the patient 07/11/25 : pt was on BPAP in the morning, did not complaint of chest pain. Ling catheter revealed gross hematuria, ( heparin drip was discontinued yesterday. He did not have any improvement in the PaO2 even on 100% BPAP. pt had bouts of confusion since the morning, pt refused intubation but later got altered and family decided for intubation after detailed discussion. pt was intubated later, currently on mech vent. Dobutamine drip was started per cardiology recommendation 07/12/25: Hb 6.9 and 1 unit of PRBC was transferred. had gross hematuria seen in ling, darker color compared to yesterday Vanco discontinued and switched to doxy worsening kidney function decreased lasix to 40mg daily 07/13/2025 Patient had 2 units of PRBC transfuse as per Cardiology recommendation Hematuria resolved no clear urine Vanco was discontinued and switched to doxy today, improvement in the creatinine, had 650 mL of urine last night Improving kidney function 07/14/25 Dobutamine drip decreased from 5 to 2.5. ECHO : .Left atrial enlargement with concentric LVH. Mild dilation of the sinuses of Valsalva. Mild aortic sclerosis. Mild mitral annular calcification. Left ventricular function is mildly to moderately diminished EF of 40% with normal RV function. There is severe mitral and tricuspid regurgitation. Right ventricular systolic pressure of 60 mmHg. This is consistent with severe pulmonary hypertension. 07/15/25 Patient continued on dopamine drip 2.5 Kidney function improving No hematuria noted, but mild clots seen in the urine Critical care time excluding procedures > 81 minutes Case discussion with Dr Oquendo. Plan discussed with: Son My Orders My Orders Orders - CONOR MURO RESIDENT Procedure Category Date Status Time Chest Xray 1 View XY 07/15/25 Resulted 04:00 Abg W/ Co-Ox RT 07/15/25 Logged 04:00 Abg W/ Co-Ox RT 07/15/25 Logged 11:00 Ventilator Orders RT 07/15/25 Transmitted 08:49 Dietary Evaluation Review Comments: Nutrition Recommendation: 1) EN Glucerna 1.2 @ 60ml/hr x 24hr (goal). TF at goal volume provides 1728 kcal (100%), 86 gm protein (100%), and 1159 ml free water. 2) Consider TPN/PN if NPO>7 days 3) Monitor NPO status, lab values, weight trend, and I/O Expected Outcomes/Goals: Intake to meet >75% estimated needs Lab values to improve FU 2-3 days CONOR MURO RESIDENT Jul 15, 2025 11:29
--- NOTE | 2025-07-15 12:42 | DVHPN2 ---
Progress Note - Dictate Date Seen: Jul 15, 2025 Medical Necessity Reason Pt with a Central, PICC or Fol: Yes The following are medically ne: Central Line, [place] Catheter Subjective PT WITH MYALGIA ARTHALGIA FEVER LEUKOCYTOSIS WITH LEFT SHIFT NOW WITH ELEVATED BNP ELEVATED TROPONIN CKD RENAL FAILURE INSUFF HX OF CAD S/P PTCA STENT IN 2021 ECHO LVH EF 50% vital signs Vital Sign Date Time Temp Pulse Resp B/P (MAP) Pulse Ox O2 Delivery O2 Flow Rate FiO2 07/15/25 10:30 98.1 68 22 122/57 (78) 98 208.6 07/15/25 10:10 30 07/15/25 10:01 Mechanical Ventilator Total Intake and Output 07/14/25 07/14/25 07/15/25 15:00 23:00 07:00 Intake Total 351.328 ml 1310.528 ml 1290.528 ml Output Total 1575 ml 1450 ml Balance 351.328 ml -264.472 ml -159.472 ml medications Current Medications Medications Dose Ordered Sig/Cherise Route Start Time Stop Time Status Last Admin Dose Admin Mupirocin 1 applic BID EACHNOSTRI 07/10/25 22:00 07/15/25 21:59 07/15/25 07:44 1 APPLIC Propofol 100 ml @ 2.148 mls/ hr Q24H IV 07/11/25 15:00 07/15/25 09:53 15.036 MLS/HR Fentanyl Citrate 250 ml @ 2.5 mls/hr Q24H IV 07/11/25 15:00 07/15/25 12:39 12.5 MLS/HR Diagnostic Test (Pha) 1 strip Q6HR 07/12/25 00:00 07/15/25 12:26 1 STRIP Dextrose 50 ml UD PRN IV 07/11/25 19:00 Pantoprazole Sodium 40 mg DAILY IV 07/12/25 10:00 07/15/25 07:36 40 MG Enteral Nutritional Formula 1,000 ml 30ML/HR GT 07/11/25 21:00 Docusate Sodium 100 mg BID GT 07/11/25 22:00 07/15/25 07:36 100 MG Doxycycline Hyclate 100 ml @ 50 mls/hr Q12H IV 07/12/25 17:00 07/15/25 05:02 50 MLS/HR Cefepime HCl 50 ml @ 12.5 mls/hr BID IV 07/12/25 22:00 07/15/25 07:37 12.5 MLS/HR Insulin Human Regular Q6HR SC 07/13/25 00:00 07/15/25 12:00 3 UNITS Clopidogrel Bisulfate 75 mg DAILY NG 07/15/25 10:00 07/15/25 07:37 75 MG Aspirin 81 mg DAILY NG 07/15/25 10:00 07/15/25 07:37 81 MG Dobutamine HCl/ Dextrose 250 ml @ 11.28 mls/ hr [id number] IV 07/14/25 11:45 07/15/25 09:53 11.28 MLS/HR Purified Water 250 ml Q6HR GT 07/14/25 14:45 07/15/25 12:00 250 ML laboratory and microbiology Laboratory Tests 07/15/25 03:20 Test 07/15/25 03:20 Range/Units Serum Glucose 147 H 74-106 mg/dL Problem List MYALGIA ARTHALGIA FEVER LEUKOCYTOSIS WITH LEFT SHIFT NOW WITH ELEVATED BNP ELEVATED TROPONIN CKD RENAL FAILURE INSUFF HX OF CAD S/P PTCA STENT IN 2021 ECHO LVH EF 35% METABOLIC GAP ACIDOSIS SEVERE VOLUMEoverload Assessment/Plan IV FLUID ABX NO CARDIAC INTERVENTION AT THIS TIME ELEVATED CARDIAC PARAMETeRS SECONDARY TO METABOLIC INSTABILITY EF 35% MILD TR MILD MR cxr CONSISTENT WITH ARDS IF CLINICALLY INDICATED CONSIDER RHC CXR BILATERAL INFILTRATE R>L CONSIDER CT OF CHEST Dietary Evaluation Review Comments: Nutrition Recommendation: 1) EN Glucerna 1.2 @ 60ml/hr x 24hr (goal). TF at goal volume provides 1728 kcal (100%), 86 gm protein (100%), and 1159 ml free water. 2) Consider TPN/PN if NPO>7 days 3) Monitor NPO status, lab values, weight trend, and I/O Expected Outcomes/Goals: Intake to meet >75% estimated needs Lab values to improve FU 2-3 days Plan discussed with: Patient Critical Care Time(min): 35 LIMA BRUCE MD Jul 15, 2025 12:42
--- NOTE | 2025-07-15 17:49 | DVHPN2 ---
Progress Note Date Seen: Jul 15, 2025 Medical Necessity Reason Pt with a Central, PICC or Fol: Yes The following are medically ne: Central Line, [place]oscano Catheter Subjective Patient reports: Other Objective vital signs Vital Sign Date Time Temp Pulse Resp B/P (MAP) Pulse Ox O2 Delivery O2 Flow Rate FiO2 07/15/25 17:34 70 07/15/25 17:33 22 98 Mechanical Ventilator+ 30 30 07/15/25 17:30 97.3 140/63 (88) 207.1 Total Intake and Output 07/14/25 07/14/25 07/15/25 15:00 23:00 07:00 Intake Total 351.328 ml 1310.528 ml 1290.528 ml Output Total 1575 ml 1450 ml Balance 351.328 ml -264.472 ml -159.472 ml medications Current Medications Medications Dose Ordered Sig/Cherise Route Start Time Stop Time Status Last Admin Dose Admin Mupirocin 1 applic BID EACHNOSTRI 07/10/25 22:00 07/15/25 21:59 07/15/25 07:44 1 APPLIC Propofol 100 ml @ 2.148 mls/ hr Q24H IV 07/11/25 15:00 07/15/25 17:32 12.888 MLS/HR Fentanyl Citrate 250 ml @ 2.5 mls/hr Q24H IV 07/11/25 15:00 07/15/25 12:39 12.5 MLS/HR Diagnostic Test (Pha) 1 strip Q6HR 07/12/25 00:00 07/15/25 16:11 1 STRIP Dextrose 50 ml UD PRN IV 07/11/25 19:00 Pantoprazole Sodium 40 mg DAILY IV 07/12/25 10:00 07/15/25 07:36 40 MG Enteral Nutritional Formula 1,000 ml 30ML/HR GT 07/11/25 21:00 Docusate Sodium 100 mg BID GT 07/11/25 22:00 07/15/25 07:36 100 MG Doxycycline Hyclate 100 ml @ 50 mls/hr Q12H IV 07/12/25 17:00 07/15/25 16:11 50 MLS/HR Cefepime HCl 50 ml @ 12.5 mls/hr BID IV 07/12/25 22:00 07/15/25 07:37 12.5 MLS/HR Insulin Human Regular Q6HR SC 07/13/25 00:00 07/15/25 16:36 2 UNITS Clopidogrel Bisulfate 75 mg DAILY NG 07/15/25 10:00 07/15/25 07:37 75 MG Aspirin 81 mg DAILY NG 07/15/25 10:00 07/15/25 07:37 81 MG Dobutamine HCl/ Dextrose 250 ml @ 11.28 mls/ hr [id number] IV 07/14/25 11:45 07/15/25 09:53 11.28 MLS/HR Purified Water 250 ml Q6HR GT 07/14/25 14:45 07/15/25 16:11 250 ML Examination: GENERAL:Abnormal laboratory and microbiology Laboratory Tests 07/15/25 03:20 Test 07/15/25 03:20 Range/Units Serum Glucose 147 H 74-106 mg/dL Microbiology Date/Time Source Procedure Growth Status 07/11/25 14:45 Sputum Gram Stain - Final Resulted 07/11/25 14:45 Respiratory Culture - Preliminary Staphylococcus aureus Resulted 07/10/25 18:45 Urine - [place] Urine Culture - Final Complete 07/10/25 01:46 Nose MRSA Screen - Final Methicillin Resistant S.aureus Complete 07/09/25 05:40 Blood Blood Culture - Final NO GROWTH AFTER 5 DAYS OF INCUBATION. Complete Problem List/Assessment/Plan Problem List/Assessment/Plan Acute kidney injury hemodynamic mediated etiology unknown baseline renal function Acute hypoxic respiratory failure needing intubation Severe sepsis Possible underlying Chronic kidney disease four Congestive heart failure preserved ejection fraction hypernatremia Recommendations free water 250ml q6 uop non oliguric gentle lasix will follow Plan discussed with: Spouse, Other Dietary Evaluation Review Comments: Nutrition Recommendation: 1) EN Glucerna 1.2 @ 60ml/hr x 24hr (goal). TF at goal volume provides 1728 kcal (100%), 86 gm protein (100%), and 1159 ml free water. 2) Consider TPN/PN if NPO>7 days 3) Monitor NPO status, lab values, weight trend, and I/O Expected Outcomes/Goals: Intake to meet >75% estimated needs Lab values to improve FU 2-3 days NICOLÁS VAUGHN MD Jul 15, 2025 17:49
[2025-07-16] VITALS (111 sets, daily range): BP systolic 96–167; BP diastolic 45–81; PULSE 58–105; RESP 12–25; TEMP 85.8–99.1; O2SAT 96–100
[2025-07-16 04:42] LABS: Hematocrit 32.1 % (41.0-53.0); Hemoglobin 10.5 g/dL (13.5-17.5); Mean Corpuscular Hemoglobin 30.8 pg (28.0-32.0); Mean Corpuscular Volume 94.4 fL (80.0-100.0); Nucleated Red Blood Cells % 0.3 %
[2025-07-16 05:05] LABS: Alanine Aminotransferase 26 U/L (7-40); Alkaline Phosphatase 64 U/L (46-116); Anion Gap 12 (5-15); BUN/Creatinine Ratio 31.2 (10.0-20.0); Bilirubin, Total 0.4 mg/dL (0.2-1.0); Carbon Dioxide 25 mmol/L (20-31)
[2025-07-16 05:08] LABS: Albumin 2.9 g/dL (3.2-4.8); Blood Urea Nitrogen 92 mg/dL (9-23); Calcium 7.8 mg/dL (8.7-10.4); Chloride 111 mmol/L (98-107); Glucose 137 mg/dL (74-106); Magnesium 3.2 mg/dL (1.6-2.6); Potassium 5.4 mmol/L (3.5-5.1); Sodium 148 mmol/L (136-145); Total Protein 5.3 g/dL (5.7-8.2)
--- NOTE | 2025-07-16 05:46 | DVH ---
CHEST RADIOGRAPH Indication: on vent Technique: 1 view Comparison: XY CHEST XRAY 1 VIEW on DOS: 07/15/25, XY CHEST PORTABLE on DOS: 07/14/25, XY CHEST PORTABLE on DOS: 07/13/25, XY CHEST PORTABLE on DOS: 07/12/25, XY CHEST PORTABLE on DOS: 07/11/25 FINDINGS: Lines and Tubes: Unchanged. Lungs/Pleura: Unchanged, with a portion of the right chest excluded on the current exam from field of view. Cardiomediastinum: Unchanged. Other: Or true to osseous structures. IMPRESSION: 1. No significant change from the previous day, allowing for non visualization of the right lateral lung due to cropped [id number]. Support devices are stable. Bilateral patchy mid to lower lung opacities remain.
[2025-07-16 07:28] LABS: Base Excess -2.7 mmol/L (-2.0-3.0)
[2025-07-16] MEDS: FUROSEMIDE 20 MG/2 ML VIAL IV SCH (07:38)
[2025-07-16] MEDS: DEXMEDETOMIDINE HCL IN D5W 100 ML IV SCH (10:47)
[2025-07-16] MEDS: ALBUTEROL SULF 2.5 MG/0.5ML(0.5%) NEB SOLN NEB ONE (12:06)
[2025-07-16] MEDS: SODIUM BICARB 8.4% 50Meq/50ml SYR INJ IV ONE (12:08)
[2025-07-16] MEDS: SODIUM ZIRCONIUM CYCL 10 GM PAK PO SCH (12:08)
[2025-07-16] MEDS: InsuLIN REG 1unit/0.01ml Soln (100units/ml) IV ONE (12:08)
[2025-07-16] MEDS: DEXTROSE (50%) 50ML SYRG IV ONE (12:08)
[2025-07-16] MEDS: D5W 5% 1,000 ML IV ONE (13:54)
--- NOTE | 2025-07-16 14:23 | DVHPN2 ---
Progress Note Date Seen: Jul 16, 2025 Medical Necessity Reason Pt with a Central, PICC or Fol: Yes The following are medically ne: Central Line, Toscano Catheter Objective vital signs Vital Sign Date Time Temp Pulse Resp B/P (MAP) Pulse Ox O2 Delivery O2 Flow Rate FiO2 07/16/25 13:51 91 22 144/59 (87) 98 30 07/16/25 13:46 Mechanical Ventilator+ 07/16/25 13:45 99.0 210.2 Total Intake and Output 07/15/25 07/15/25 07/16/25 15:00 23:00 07:00 Intake Total 442.640 ml 993.344 ml 1187.762 ml Output Total 1400 ml 1350 ml Balance 442.640 ml -406.656 ml -162.238 ml medications Current Medications Medications Dose Ordered Sig/Cherise Route Start Time Stop Time Status Last Admin Dose Admin Propofol 100 ml @ 2.148 mls/ hr Q24H IV 07/11/25 15:00 07/16/25 01:06 12.888 MLS/HR Fentanyl Citrate 250 ml @ 2.5 mls/hr Q24H IV 07/11/25 15:00 07/16/25 07:05 7.5 MLS/HR Diagnostic Test (Pha) 1 strip Q6HR 07/12/25 00:00 07/16/25 13:54 1 STRIP Dextrose 50 ml UD PRN IV 07/11/25 19:00 Pantoprazole Sodium 40 mg DAILY IV 07/12/25 10:00 07/16/25 07:37 40 MG Enteral Nutritional Formula 1,000 ml 30ML/HR GT 07/11/25 21:00 Docusate Sodium 100 mg BID GT 07/11/25 22:00 07/16/25 07:37 100 MG Doxycycline Hyclate 100 ml @ 50 mls/hr Q12H IV 07/12/25 17:00 07/16/25 04:23 50 MLS/HR Cefepime HCl 50 ml @ 12.5 mls/hr BID IV 07/12/25 22:00 07/16/25 07:37 12.5 MLS/HR Insulin Human Regular Q6HR SC 07/13/25 00:00 07/16/25 10:52 2 UNITS Clopidogrel Bisulfate 75 mg DAILY NG 07/15/25 10:00 07/16/25 07:38 75 MG Aspirin 81 mg DAILY NG 07/15/25 10:00 07/16/25 07:38 81 MG Dobutamine HCl/ Dextrose 250 ml @ 11.28 mls/ hr [id number] IV 07/14/25 11:45 07/16/25 07:03 11.28 MLS/HR Purified Water 250 ml Q6HR GT 07/14/25 14:45 07/16/25 10:47 250 ML Furosemide 20 mg DAILY IV 07/16/25 10:00 07/16/25 07:38 20 MG Zirconium Oxide 10 gm TID PO 07/16/25 11:49 07/18/25 06:01 07/16/25 12:08 10 GM laboratory and microbiology Laboratory Tests 07/16/25 04:00 Test 07/16/25 04:00 Range/Units Serum Glucose 137 H 74-106 mg/dL Microbiology Date/Time Source Procedure Growth Status 07/11/25 14:45 Sputum Gram Stain - Final Complete 07/11/25 14:45 Respiratory Culture - Final Staphylococcus aureus Klebsiella ozaenae Complete 07/10/25 18:45 Urine - [place] Urine Culture - Final Complete 07/10/25 01:46 Nose MRSA Screen - Final Methicillin Resistant S.aureus Complete 07/09/25 05:40 Blood Blood Culture - Final NO GROWTH AFTER 5 DAYS OF INCUBATION. Complete Problem List/Assessment/Plan Problem List/Assessment/Plan Acute kidney injury hemodynamic mediated etiology unknown baseline renal function Acute hypoxic respiratory failure needing intubation Severe sepsis Possible underlying Chronic kidney disease four Congestive heart failure preserved ejection fraction hypernatremia Recommendations d5w iv for Na correction hyperkalemia management as ordered gentle lasix will follow Plan discussed with: Other My Orders My Orders Orders - NICOLÁS VAUGHN MD Procedure Category Date Status Time Furosemide Injection PHA 07/16/25 In Process (Lasix Injection) 10:00 D5w 5% (Dextrose 5%) PHA 07/16/25 In Process 11:45 Sodium Zirconium PHA 07/16/25 In Process Cyclosilicate 11:49 Dietary Evaluation Review Comments: Nutrition Recommendation: 1) EN Glucerna 1.2 @ 60ml/hr x 24hr (goal). TF at goal volume provides 1728 kcal (100%), 86 gm protein (100%), and 1159 ml free water. 2) Consider TPN/PN if NPO>7 days 3) Monitor NPO status, lab values, weight trend, and I/O Expected Outcomes/Goals: Intake to meet >75% estimated needs Lab values to improve FU 2-3 days NICOLÁS VAUGHN MD Jul 16, 2025 14:23
--- NOTE | 2025-07-16 18:30 | DVHPNRES ---
Progress Note Date Seen: Jul 16, 2025 Resident Creating Document: KARYNA SINGLETON RESIDENT Medical Necessity Reason Pt with a Central, PICC or Fol: Yes The following are medically ne: Central Line, Ling Catheter Subjective Review of Systems Patient seen and examined at bedside 07/15/2025: urine output improving. ECHO : .Left atrial enlargement with concentric LVH. Mild dilation of the sinuses of Valsalva. Mild aortic sclerosis. Mild mitral annular calcification. Left ventricular function is mildly to moderately diminished EF of 40% with normal RV function. There is severe mitral and tricuspid regurgitation. Right ventricular systolic pressure of 60 mmHg. This is consistent with severe pulmonary hypertension. Patient on 2.5 dobutamine drip. Patient's chest x-ray still looks congested. So Cardiology recommended keeping dobutamine drip. 07/16/2025 Currently intubated Respiratory cultures growing MRSA and Klebsiella CPAP trial in the a.m. Objective vital signs Vital Sign Date Time Temp Pulse Resp B/P (MAP) Pulse Ox O2 Delivery O2 Flow Rate FiO2 07/16/25 18:05 82 07/16/25 18:05 22 98 Mechanical Ventilator+ 30 30 07/16/25 18:02 107/51 (69) 07/16/25 18:00 98.6 209.5 Total Intake and Output 07/15/25 07/15/25 07/16/25 15:00 23:00 07:00 Intake Total 442.640 ml 993.344 ml 1187.762 ml Output Total 1400 ml 1350 ml Balance 442.640 ml -406.656 ml -162.238 ml medications Current Medications Medications Dose Ordered Sig/Cherise Route Start Time Stop Time Status Last Admin Dose Admin Propofol 100 ml @ 2.148 mls/ hr Q24H IV 07/11/25 15:00 07/16/25 16:42 6.444 MLS/HR Fentanyl Citrate 250 ml @ 2.5 mls/hr Q24H IV 07/11/25 15:00 07/16/25 07:05 7.5 MLS/HR Diagnostic Test (Pha) 1 strip Q6HR 07/12/25 00:00 07/16/25 13:54 1 STRIP Dextrose 50 ml UD PRN IV 07/11/25 19:00 Pantoprazole Sodium 40 mg DAILY IV 07/12/25 10:00 07/16/25 07:37 40 MG Enteral Nutritional Formula 1,000 ml 30ML/HR GT 07/11/25 21:00 Docusate Sodium 100 mg BID GT 07/11/25 22:00 07/16/25 07:37 100 MG Doxycycline Hyclate 100 ml @ 50 mls/hr Q12H IV 07/12/25 17:00 07/16/25 15:40 50 MLS/HR Cefepime HCl 50 ml @ 12.5 mls/hr BID IV 07/12/25 22:00 07/16/25 07:37 12.5 MLS/HR Insulin Human Regular Q6HR SC 07/13/25 00:00 07/16/25 16:42 6 UNITS Clopidogrel Bisulfate 75 mg DAILY NG 07/15/25 10:00 07/16/25 07:38 75 MG Aspirin 81 mg DAILY NG 07/15/25 10:00 07/16/25 07:38 81 MG Dobutamine HCl/ Dextrose 250 ml @ 11.28 mls/ hr [id number] IV 07/14/25 11:45 07/16/25 07:03 11.28 MLS/HR Purified Water 250 ml Q6HR GT 07/14/25 14:45 07/16/25 16:31 250 ML Furosemide 20 mg DAILY IV 07/16/25 10:00 07/16/25 07:38 20 MG Zirconium Oxide 10 gm TID PO 07/16/25 11:49 07/18/25 06:01 07/16/25 12:08 10 GM Examination Elderly male patient lying in the bed, intubated and mechanically ventilated General: Well-built, afebrile, palor, mucosae are moist Cardiovascular: Regular S1 and S2. No murmurs, gallops or rubs. Pulsatile JVD noted. Minimal bilateral pedal pitting edema Respiratory: Decreased breath sounds, minimal Coarse crackles heard on auscultation, intubated on minimal settings FiO2 30% Abdomen: Soft, nontender, nondistended, normoactive bowel sounds, no rebound tenderness, no organomegaly, no masses Genitourinary: Deferred MSK/skin: Skin is dry and warm laboratory and microbiology Laboratory Tests 07/16/25 04:00 Test 07/16/25 04:00 Range/Units Serum Glucose 137 H 74-106 mg/dL Microbiology Date/Time Source Procedure Growth Status 07/11/25 14:45 Sputum Gram Stain - Final Complete 07/11/25 14:45 Respiratory Culture - Final Staphylococcus aureus Klebsiella ozaenae Complete 07/10/25 18:45 Urine - Ling Port Urine Culture - Final Complete 07/10/25 01:46 Nose MRSA Screen - Final Methicillin Resistant S.aureus Complete 07/09/25 05:40 Blood Blood Culture - Final NO GROWTH AFTER 5 DAYS OF INCUBATION. Complete Labs and/or images reviewed: Labs reviewed by me, Image(s) reviewed by me Problem List/Assessment/Plan Problem List/Assessment/Plan Neurology # Sedation Fentanyl and Propofol # ALOC ?Cardiac encephalopathy -likely because of forward pump failure -patient is currently sedated and intubated Cardiology # NSTEMI type 2 likely, type one not ruled out yet - elevated trops - patient was on heparin drip and then was discontinued due to gross hematuria - hold aspirin and Plavix because of gross hematuria, as hematuria is resolved we will plan to start Plavix, - Dr. Gardner, cardiology on board, awaiting sepsis to be resolved before deciding for left heart catheterization - as per solid waste facility supervisor Dr. Gardner, echocardiogram shows ejection fraction 20%, which is decreased from previous 50% 07/14- ECHO : .Left atrial enlargement with concentric LVH. Mild dilation of the sinuses of Valsalva. Mild aortic sclerosis. Mild mitral annular calcification. Left ventricular function is mildly to moderately diminished EF of 40% with normal RV function. There is severe mitral and tricuspid regurgitation. Right ventricular systolic pressure of 60 mmHg. This is consistent with severe pulmonary hypertension. 07/15- patient continued on 2.5 dobutamine drip. As per cardiology # acute HFrEF exacerbation -currently on dobutamine drip 5% started by the solid waste facility supervisor - Dr. Gardner, cardiology on board, awaiting sepsis to be resolved before deciding for left heart catheterization - as per solid waste facility supervisor Dr. Gardner, echocardiogram shows ejection fraction 20%, which is decreased from previous 50% - IV lasix decreased to 20mg IV daily for worsening kidney function # elevated D-dimer likely because of sepsis CHF exacerbation -lower extremity ultrasound # hypertension, currently in shock Hold antihypertensives # hyperlipidemia on statins # paroxysmal AFib, currently sinus tachycardia Likely because of CHF exacerbation # Known CAD status post 1 ANICETO 2021 to RCA -hold aspirin and Plavix because of gross hematuria Plan to restart Plavix tomorrow Respiratory # Acute hypoxic respiratory failure likely due to acute HFrEF exacerbation Currently on mechanical ventilator Intubated 07/2025 # Gram-positive/negative community-acquired pneumonia -currently on antibiotics, Vanc switched to doxy plus cefepime # bilateral pleural effusion due to CHF exacerbation -continue diuresis # ?COPD, not in exacerbation Currently on mechanical ventilator # history of previous smoking Nephrology # CAMERON on CKD, improving today Monitor Renal function Renal ultrasound # anion gap metabolic acidosis with partial compensatory respiratory alkalosis Monitor CBC # Hypernatremia, resolved -free water given D5W once given by nephrology # hyperkalemia -corrected Infectious disease # sepsis likely due to pneumonia IV antibiotics Cultures # MRSA nares positive Mupirocin GI # Mild transaminitis likely due to hepatic congestion -continue diuresis # PUD prophylaxis IV Protonix 40 mg daily # bowel regimen -currently on [facility]ace Endocrinology # diabetes mellitus type 2 Sliding scale insulin Rheumatology # Gout We will resume allopurinol on discharge Urology # BPH Hold tamsulosin # gross hematuria -hold antiplatelet agents and bladder irrigation Hematology oncology # anemia, likely anemia of chronic disease Monitor # thrombocytopenia likely due to sepsis Resolved #DVT prophylaxis -heparin on hold currently because of gross hematuria SCDs Lines Right IJ line CBC placed on 07/11/2025 Ling's catheter placed on 07/11/25 Code status discussed with the family for greater than 21 min, full code Family at bedside updated about the condition of the patient 07/11/25 : pt was on BPAP in the morning, did not complaint of chest pain. Ling catheter revealed gross hematuria, ( heparin drip was discontinued yesterday. He did not have any improvement in the PaO2 even on 100% BPAP. pt had bouts of confusion since the morning, pt refused intubation but later got altered and family decided for intubation after detailed discussion. pt was intubated later, currently on [facility] vent. Dobutamine drip was started per cardiology recommendation 07/12/25: Hb 6.9 and 1 unit of PRBC was transferred. had gross hematuria seen in ling, darker color compared to yesterday Vanco discontinued and switched to doxy worsening kidney function decreased lasix to 40mg daily 07/13/2025 Patient had 2 units of PRBC transfuse as per Cardiology recommendation Hematuria resolved no clear urine Vanco was discontinued and switched to doxy today, improvement in the creatinine, had 650 mL of urine last night Improving kidney function 07/14/25 Dobutamine drip decreased from 5 to 2.5. ECHO : .Left atrial enlargement with concentric LVH. Mild dilation of the sinuses of Valsalva. Mild aortic sclerosis. Mild mitral annular calcification. Left ventricular function is mildly to moderately diminished EF of 40% with normal RV function. There is severe mitral and tricuspid regurgitation. Right ventricular systolic pressure of 60 mmHg. This is consistent with severe pulmonary hypertension. 07/15/25 Patient continued on dopamine drip 2.5 Kidney function improving No hematuria noted, but mild clots seen in the urine 07/16/2025 Currently intubated Respiratory cultures growing MRSA and Klebsiella CPAP trial in the a.m. Critical care time excluding procedures > 77 minutes Case discussion with Dr Heredia Plan discussed with: Other Dietary Evaluation Review Comments: Nutrition Recommendation: 1) EN Glucerna 1.2 @ 60ml/hr x 24hr (goal). TF at goal volume provides 1728 kcal (100%), 86 gm protein (100%), and 1159 ml free water. 2) Consider TPN/PN if NPO>7 days 3) Monitor NPO status, lab values, weight trend, and I/O Expected Outcomes/Goals: Intake to meet >75% estimated needs Lab values to improve FU 2-3 days KARYNA SINGLETON RESIDENT Jul 16, 2025 18:30
[2025-07-17] VITALS (102 sets, daily range): BP systolic 99–164; BP diastolic 47–75; PULSE 60–94; RESP 14–27; TEMP 97–99.5; O2SAT 98–100
[2025-07-17 04:48] LABS: Hematocrit 33.7 % (41.0-53.0); Hemoglobin 11.0 g/dL (13.5-17.5); Mean Corpuscular Hemoglobin 31.6 pg (28.0-32.0); Mean Corpuscular Volume 96.4 fL (80.0-100.0); Nucleated Red Blood Cells % 0.2 %
[2025-07-17 04:54] LABS: Alanine Aminotransferase 27 U/L (7-40); Alkaline Phosphatase 62 U/L (46-116); Anion Gap 12 (5-15); BUN/Creatinine Ratio 29.3 (10.0-20.0); Carbon Dioxide 26 mmol/L (20-31); Chloride 107 mmol/L (98-107); Potassium 5.1 mmol/L (3.5-5.1); Sodium 145 mmol/L (136-145)
[2025-07-17 04:55] LABS: Calcium 7.8 mg/dL (8.7-10.4); Glucose 207 mg/dL (74-106); Magnesium 3.0 mg/dL (1.6-2.6); Total Protein 5.7 g/dL (5.7-8.2)
[2025-07-17 04:56] LABS: Albumin 3.1 g/dL (3.2-4.8); Bilirubin, Total 0.5 mg/dL (0.2-1.0); Blood Urea Nitrogen 81 mg/dL (9-23)
--- NOTE | 2025-07-17 06:45 | DVH ---
MEDICAL RECORDS NUMBER: [id number] PROCEDURE: XY CHEST PORTABLE DATE: 07/17/2025 05:22 AM HISTORY: INTUBATED Views:1 COMPARISON: XY CHEST XRAY 1 VIEW on DOS: 07/16/25, XY CHEST XRAY 1 VIEW on DOS: 07/15/25, XY CHEST PORTABLE on DOS: 07/14/25, XY CHEST PORTABLE on DOS: 07/13/25, XY CHEST PORTABLE on DOS: 07/12/25 FINDINGS/IMPRESSION: Lungs: Bibasilar infiltrates are noted. No consolidation is seen. Mediastinum: Mediastinal structures appear unremarkable.A endotracheal tube is seen with the tip projecting approximately 2 cm above the terry.A right-sided central line is seen. The tip projects over the superior vena cava. No pneumothorax is seen. Nasogastric tube courses through the film. Skeletal: The skeletal structures appear unremarkable.
[2025-07-17 07:12] LABS: Base Excess 1.9 mmol/L (-2.0-3.0)
--- NOTE | 2025-07-17 10:48 | MEDREC ---
[facility] ASP Intervention Section I [facility] ASP Intervention: Deescalate AB based on CS (PLEASE CONSIDER DE-ESCALATION BASED ON CULTURE RESULTS AND SUSCEPTIBILITIES - SWITCH CEFEPIME TO CEFAZOLIN OR UNASYN) NOHEMY CLEANING PHARMACIST Jul 17, 2025 10:48
--- NOTE | 2025-07-17 14:24 | DVHPNRES ---
Progress Note Date Seen: Jul 17, 2025 Resident Creating Document: CONOR MURO RESIDENT Medical Necessity Reason Pt with a Central, PICC or Fol: Yes The following are medically ne: Central Line, [place]oscano Catheter Subjective Review of Systems This is a 84-year-old patient who presented to the ER with a chief complaint of shortness of breaths for the past 2 days. Patient reports having flu-like symptoms, mild fevers and chills for the past 2 days, says that yesterday around 3:00 p.m. he started to become more short of breaths while he was in the bed, associated with generalized weakness, productive cough with white phlegm for the past 2 days. He is also experiencing mild fever and chills. Denies any recent traveling or sick contacts. He quit smoking in 1994. On arrival to the ER, patient was afebrile, tachycardic, tachypneic 28 per minute and was put on non-rebreather and BiPAP then high-flow. WBC 19. D-dimer 0.9. Lactic 1.9, troponins 2074, 2045, 2288. Patient denies any chest pain, dizziness, palpitations at this time. Cardiology consulted for elevated troponins and shortness of breaths Past medical history: Diabetes mellitus on insulin, CKD, diastolic heart failure, CAD status post 2021 to RCA Past surgical history denies Home medications: Insulin, iron tablets, amlodipine 10, Lasix 40 mg Social history: Quit smoking and drinking 199407/15/2025: urine output improving. ECHO : .Left atrial enlargement with concentric LVH. Mild dilation of the sinuses of Valsalva. Mild aortic sclerosis. Mild mitral annular calcification. Left ventricular function is mildly to moderately diminished EF of 40% with normal RV function. There is severe mitral and tricuspid regurgitation. Right ventricular systolic pressure of 60 mmHg. This is consistent with severe pulmonary hypertension. Patient on 2.5 dobutamine drip. Patient's chest x-ray still looks congested. So Cardiology recommended keeping dobutamine drip. 07/16/2025 Currently intubated Respiratory cultures growing MRSA and Klebsiella CPAP trial in the a.m. 07/17/2025: Patient seen in ICU. patient kept on dobutamine drip 2.5. Patient not on pressors. kidney function improving. CPAP trial done today. Patient tolerated well. hypernatremia resolved. Objective vital signs Vital Sign Date Time Temp Pulse Resp B/P (MAP) Pulse Ox O2 Delivery O2 Flow Rate FiO2 07/17/25 12:20 77 16 155/70 (98) 99 30 07/17/25 12:00 Mechanical Ventilator+ 07/17/25 11:45 97.0 206.6 Total Intake and Output 07/16/25 07/16/25 07/17/25 15:00 23:00 07:00 Intake Total 337.016 ml 1401.792 ml 1306.332 ml Output Total 2200 ml 2050 ml Balance 337.016 ml -798.208 ml -743.668 ml medications Current Medications Medications Dose Ordered Sig/Cherise Route Start Time Stop Time Status Last Admin Dose Admin Propofol 100 ml @ 2.148 mls/ hr Q24H IV 07/11/25 15:00 07/17/25 07:58 6.444 MLS/HR Fentanyl Citrate 250 ml @ 2.5 mls/hr Q24H IV 07/11/25 15:00 07/16/25 07:05 7.5 MLS/HR Diagnostic Test (Pha) 1 strip Q6HR 07/12/25 00:00 07/17/25 11:32 1 STRIP Dextrose 50 ml UD PRN IV 07/11/25 19:00 Pantoprazole Sodium 40 mg DAILY IV 07/12/25 10:00 07/17/25 09:27 40 MG Enteral Nutritional Formula 1,000 ml 30ML/HR GT 07/11/25 21:00 Docusate Sodium 100 mg BID GT 07/11/25 22:00 07/17/25 09:26 100 MG Doxycycline Hyclate 100 ml @ 50 mls/hr Q12H IV 07/12/25 17:00 07/17/25 06:34 50 MLS/HR Cefepime HCl 50 ml @ 12.5 mls/hr BID IV 07/12/25 22:00 07/17/25 09:27 12.5 MLS/HR Insulin Human Regular Q6HR SC 07/13/25 00:00 07/17/25 11:28 2 UNITS Clopidogrel Bisulfate 75 mg DAILY NG 07/15/25 10:00 07/17/25 09:27 75 MG Aspirin 81 mg DAILY NG 07/15/25 10:00 07/17/25 09:27 81 MG Dobutamine HCl/ Dextrose 250 ml @ 11.28 mls/ hr [id number] IV 07/14/25 11:45 07/17/25 06:15 11.28 MLS/HR Purified Water 250 ml Q6HR GT 07/14/25 14:45 07/17/25 11:31 250 ML Furosemide 20 mg DAILY IV 07/16/25 10:00 07/17/25 09:26 20 MG Zirconium Oxide 10 gm TID PO 07/16/25 11:49 07/18/25 06:01 07/17/25 13:23 10 GM Examination Elderly male patient lying in the bed, intubated and mechanically ventilated General: Well-built, afebrile, palor, mucosae are moist Cardiovascular: Regular S1 and S2. No murmurs, gallops or rubs. Pulsatile JVD noted. Minimal bilateral pedal pitting edema Respiratory: Decreased breath sounds, minimal Coarse crackles heard on auscultation, intubated on minimal settings FiO2 30% Abdomen: Soft, nontender, nondistended, normoactive bowel sounds, no rebound tenderness, no organomegaly, no masses Genitourinary: Deferred MSK/skin: Skin is dry and warm laboratory and microbiology Laboratory Tests 07/17/25 04:00 Test 07/17/25 04:00 Range/Units Serum Glucose 207 H 74-106 mg/dL Microbiology Date/Time Source Procedure Growth Status 07/11/25 14:45 Sputum Gram Stain - Final Complete 07/11/25 14:45 Respiratory Culture - Final Staphylococcus aureus Klebsiella ozaenae Complete 07/10/25 18:45 Urine - [place] Urine Culture - Final Complete 07/10/25 01:46 Nose MRSA Screen - Final Methicillin Resistant S.aureus Complete 07/09/25 05:40 Blood Blood Culture - Final NO GROWTH AFTER 5 DAYS OF INCUBATION. Complete Problem List/Assessment/Plan Problem List/Assessment/Plan Neurology # Sedation Fentanyl and Propofol # ALOC ?Cardiac encephalopathy -likely because of forward pump failure -patient is currently sedated and intubated Cardiology # NSTEMI type 2 likely, type one not ruled out yet - elevated trops - patient was on heparin drip and then was discontinued due to gross hematuria - hold aspirin and Plavix because of gross hematuria, as hematuria is resolved we will plan to start Plavix, - Dr. Gardner, cardiology on board, awaiting sepsis to be resolved before deciding for left heart catheterization - as per criminal justice social worker Dr. Gardner, echocardiogram shows ejection fraction 20%, which is decreased from previous 50% 07/14- ECHO : .Left atrial enlargement with concentric LVH. Mild dilation of the sinuses of Valsalva. Mild aortic sclerosis. Mild mitral annular calcification. Left ventricular function is mildly to moderately diminished EF of 40% with normal RV function. There is severe mitral and tricuspid regurgitation. Right ventricular systolic pressure of 60 mmHg. This is consistent with severe pulmonary hypertension. 07/15- patient continued on 2.5 dobutamine drip. As per cardiology # acute HFrEF exacerbation -currently on dobutamine drip 5% started by the criminal justice social worker - Dr. Gardner, cardiology on board, awaiting sepsis to be resolved before deciding for left heart catheterization - as per criminal justice social worker Dr. Gardner, echocardiogram shows ejection fraction 20%, which is decreased from previous 50% - IV lasix 60mg BID decreased to 40mg IV daily for worsening kidney function # elevated D-dimer likely because of sepsis CHF exacerbation -lower extremity ultrasound # hypertension, currently in shock Hold antihypertensives # hyperlipidemia on statins # paroxysmal AFib, currently sinus tachycardia Likely because of CHF exacerbation # Known CAD status post 1 2021 to RCA -hold aspirin and Plavix because of gross hematuria Plan to restart Plavix tomorrow Respiratory # Acute hypoxic respiratory failure likely due to acute HFrEF exacerbation Currently on mechanical ventilator Intubated 07/2025 # Gram-positive/negative community-acquired pneumonia -currently on antibiotics, Vanc switched to doxy plus cefepime # bilateral pleural effusion due to CHF exacerbation -continue diuresis # ?COPD, not in exacerbation Currently on mechanical ventilator # history of previous smoking Nephrology # CAMERON on CKD, improving today Monitor Renal function Renal ultrasound # anion gap metabolic acidosis with partial compensatory respiratory alkalosis Monitor CBC # Hypernatremia, resolved -free water given 1/2 NS once given by nephrology Infectious disease # sepsis likely due to pneumonia IV antibiotics Cultures # MRSA nares positive Mupirocin GI # Mild transaminitis likely due to hepatic congestion -continue diuresis # PUD prophylaxis IV Protonix 40 mg daily # bowel regimen -currently on [facility] Endocrinology # diabetes mellitus type 2 Sliding scale insulin Rheumatology # Gout We will resume allopurinol on discharge Urology # BPH Hold tamsulosin # gross hematuria -hold antiplatelet agents and bladder irrigation Hematology oncology # anemia, likely anemia of chronic disease Monitor # thrombocytopenia likely due to sepsis Resolved #DVT prophylaxis -heparin on hold currently because of gross hematuria SCDs Lines Right IJ line CBC placed on 07/11/2025 Toscano's catheter placed on 07/11/25 Code status discussed with the family for greater than 21 min, full code Family at bedside updated about the condition of the patient Critical care time excluding procedures > 81 minutes Case discussion with Dr. Tapia Plan discussed with: Spouse My Orders My Orders Orders - CONOR MURO RESIDENT Procedure Category Date Status Time Abg W/ Co-Ox RT 07/17/25 Logged 06:00 Cpap Trial For Am ORDERS 07/17/25 Transmitted 11:12 Cpap/Sed Vacation Med ORDERS 07/17/25 Transmitted Weaning 11:12 Dietary Evaluation Review Comments: Nutrition Recommendation: 1) EN Glucerna 1.2 @ 60ml/hr x 24hr (goal). TF at goal volume provides 1728 kcal (100%), 86 gm protein (100%), and 1159 ml free water. 2) Consider TPN/PN if NPO>7 days 3) Monitor NPO status, lab values, weight trend, and I/O Expected Outcomes/Goals: Intake to meet >75% estimated needs Lab values to improve FU 2-3 days CONOR MURO RESIDENT Jul 17, 2025 14:24
--- NOTE | 2025-07-17 17:35 | DVHPN2 ---
Progress Note Date Seen: Jul 17, 2025 Medical Necessity Reason Pt with a Central, PICC or Fol: Yes The following are medically ne: Central Line, Toscano Catheter Subjective Patient reports: Other (intubated) Review of Systems: Deferred Objective vital signs Vital Sign Date Time Temp Pulse Resp B/P (MAP) Pulse Ox O2 Delivery O2 Flow Rate FiO2 07/17/25 17:00 99.1 86 22 122/57 (78) 99 210.4 07/17/25 16:00 30 07/17/25 16:00 Mechanical Ventilator+ Total Intake and Output 07/16/25 07/16/25 07/17/25 15:00 23:00 07:00 Intake Total 337.016 ml 1401.792 ml 1306.332 ml Output Total 2200 ml 2050 ml Balance 337.016 ml -798.208 ml -743.668 ml medications Current Medications Medications Dose Ordered Sig/Cherise Route Start Time Stop Time Status Last Admin Dose Admin Propofol 100 ml @ 2.148 mls/ hr Q24H IV 07/11/25 15:00 07/17/25 07:58 6.444 MLS/HR Fentanyl Citrate 250 ml @ 2.5 mls/hr Q24H IV 07/11/25 15:00 07/16/25 07:05 7.5 MLS/HR Diagnostic Test (Pha) 1 strip Q6HR 07/12/25 00:00 07/17/25 17:23 1 STRIP Dextrose 50 ml UD PRN IV 07/11/25 19:00 Pantoprazole Sodium 40 mg DAILY IV 07/12/25 10:00 07/17/25 09:27 40 MG Enteral Nutritional Formula 1,000 ml 30ML/HR GT 07/11/25 21:00 Docusate Sodium 100 mg BID GT 07/11/25 22:00 07/17/25 09:26 100 MG Doxycycline Hyclate 100 ml @ 50 mls/hr Q12H IV 07/12/25 17:00 07/17/25 16:34 50 MLS/HR Cefepime HCl 50 ml @ 12.5 mls/hr BID IV 07/12/25 22:00 07/17/25 09:27 12.5 MLS/HR Insulin Human Regular Q6HR SC 07/13/25 00:00 07/17/25 17:22 3 UNITS Clopidogrel Bisulfate 75 mg DAILY NG 07/15/25 10:00 07/17/25 09:27 75 MG Aspirin 81 mg DAILY NG 07/15/25 10:00 07/17/25 09:27 81 MG Dobutamine HCl/ Dextrose 250 ml @ 11.28 mls/ hr [id number] IV 07/14/25 11:45 07/17/25 06:15 11.28 MLS/HR Purified Water 250 ml Q6HR GT 07/14/25 14:45 07/17/25 17:23 250 ML Furosemide 20 mg DAILY IV 07/16/25 10:00 07/17/25 09:26 20 MG Zirconium Oxide 10 gm TID PO 07/16/25 11:49 07/18/25 06:01 07/17/25 13:23 10 GM Examination: MSK:Abnormal, NEURO:Abnormal laboratory and microbiology Laboratory Tests 07/17/25 04:00 Test 07/17/25 04:00 Range/Units Serum Glucose 207 H 74-106 mg/dL Microbiology Date/Time Source Procedure Growth Status 07/11/25 14:45 Sputum Gram Stain - Final Complete 07/11/25 14:45 Respiratory Culture - Final Staphylococcus aureus Klebsiella ozaenae Complete 07/10/25 18:45 Urine - [place] Urine Culture - Final Complete 07/10/25 01:46 Nose MRSA Screen - Final Methicillin Resistant S.aureus Complete 07/09/25 05:40 Blood Blood Culture - Final NO GROWTH AFTER 5 DAYS OF INCUBATION. Complete Problem List/Assessment/Plan Problem List/Assessment/Plan Acute kidney injury hemodynamic mediated etiology unknown baseline renal function Acute hypoxic respiratory failure needing intubation Severe sepsis Possible underlying Chronic kidney disease four Congestive heart failure preserved ejection fraction hypernatremia Recommendations na better//k better gentle lasix will follow Plan discussed with: Other Dietary Evaluation Review Comments: Nutrition Recommendation: 1) EN Glucerna 1.2 @ 60ml/hr x 24hr (goal). TF at goal volume provides 1728 kcal (100%), 86 gm protein (100%), and 1159 ml free water. 2) Consider TPN/PN if NPO>7 days 3) Monitor NPO status, lab values, weight trend, and I/O Expected Outcomes/Goals: Intake to meet >75% estimated needs Lab values to improve FU 2-3 days NICOLÁS VAUGHN MD Jul 17, 2025 17:35
[2025-07-18] VITALS (106 sets, daily range): BP systolic 93–156; BP diastolic 46–71; PULSE 71–98; RESP 9–26; TEMP 98.2–99.1; O2SAT 97–100
[2025-07-18 04:41] LABS: Hematocrit 31.4 % (41.0-53.0); Hemoglobin 10.4 g/dL (13.5-17.5); Mean Corpuscular Hemoglobin 31.5 pg (28.0-32.0); Mean Corpuscular Volume 94.7 fL (80.0-100.0); Nucleated Red Blood Cells % 0.0 %
[2025-07-18 04:44] LABS: Alanine Aminotransferase 28 U/L (7-40); Alkaline Phosphatase 62 U/L (46-116); Anion Gap 12 (5-15); BUN/Creatinine Ratio 29.2 (10.0-20.0); Carbon Dioxide 28 mmol/L (20-31); Chloride 106 mmol/L (98-107); Potassium 4.5 mmol/L (3.5-5.1)
[2025-07-18 04:45] LABS: Bilirubin, Total 0.5 mg/dL (0.2-1.0)
--- NOTE | 2025-07-18 04:59 | DVH ---
CHEST RADIOGRAPH Indication: on vent Technique: Single frontal view of the chest was obtained COMPARISON: XY CHEST PORTABLE on DOS: 07/17/25, XY CHEST XRAY 1 VIEW on DOS: 07/16/25, XY CHEST XRAY 1 VIEW on DOS: 07/15/25, XY CHEST PORTABLE on DOS: 07/14/25, XY CHEST PORTABLE on DOS: 07/13/25 FINDINGS: Lines and Tubes: Endotracheal tube, enteric catheter and right central venous catheter in satisfactory position. Lungs: Slightly improved pulmonary vascular congestion. Pleura: No effusion.No pneumothorax. Cardiomediastinal contours: Unremarkable Bones: Unremarkable IMPRESSION: Lines and tubes in satisfactory position. Slightly improved pulmonary vascular congestion.
[2025-07-18 05:01] LABS: Albumin 3.1 g/dL (3.2-4.8); Blood Urea Nitrogen 76 mg/dL (9-23); Calcium 7.9 mg/dL (8.7-10.4); Glucose 133 mg/dL (74-106); Magnesium 3.0 mg/dL (1.6-2.6); Sodium 146 mmol/L (136-145); Total Protein 5.6 g/dL (5.7-8.2)
[2025-07-18 08:35] LABS: Base Excess 0.5 mmol/L (-2.0-3.0)
--- NOTE | 2025-07-18 13:28 | DVHPN2 ---
Progress Note - Dictate Date Seen: Jul 16, 2025 Medical Necessity Reason Pt with a Central, PICC or Fol: Yes The following are medically ne: Central Line, [place]ano Catheter Subjective PT WITH MYALGIA ARTHALGIA FEVER LEUKOCYTOSIS WITH LEFT SHIFT NOW WITH ELEVATED BNP ELEVATED TROPONIN CKD RENAL FAILURE INSUFF HX OF CAD S/P PTCA STENT IN 2021 ECHO LVH EF 50% vital signs Vital Sign Date Time Temp Pulse Resp B/P (MAP) Pulse Ox O2 Delivery O2 Flow Rate FiO2 07/18/25 12:20 92 11 149/68 (95) 99 30 07/18/25 10:00 Mechanical Ventilator+ 07/18/25 09:30 98.8 209.8 Total Intake and Output 07/17/25 07/17/25 07/18/25 15:00 23:00 07:00 Intake Total 154.340 ml 875.348 ml 919.292 ml Output Total 1850 ml 1200 ml Balance 154.340 ml -974.652 ml -280.708 ml medications Current Medications Medications Dose Ordered Sig/Cherise Route Start Time Stop Time Status Last Admin Dose Admin Propofol 100 ml @ 2.148 mls/ hr Q24H IV 07/11/25 15:00 07/18/25 03:48 6.444 MLS/HR Fentanyl Citrate 250 ml @ 2.5 mls/hr Q24H IV 07/11/25 15:00 07/18/25 04:05 7.5 MLS/HR Diagnostic Test (Pha) 1 strip Q6HR 07/12/25 00:00 07/18/25 11:44 1 STRIP Dextrose 50 ml UD PRN IV 07/11/25 19:00 Pantoprazole Sodium 40 mg DAILY IV 07/12/25 10:00 07/18/25 09:53 40 MG Enteral Nutritional Formula 1,000 ml 30ML/HR GT 07/11/25 21:00 Docusate Sodium 100 mg BID GT 07/11/25 22:00 07/18/25 09:52 100 MG Doxycycline Hyclate 100 ml @ 50 mls/hr Q12H IV 07/12/25 17:00 07/18/25 11:44 50 MLS/HR Cefepime HCl 50 ml @ 12.5 mls/hr BID IV 07/12/25 22:00 07/18/25 09:53 12.5 MLS/HR Insulin Human Regular Q6HR SC 07/13/25 00:00 07/18/25 11:44 3 UNITS Clopidogrel Bisulfate 75 mg DAILY NG 07/15/25 10:00 07/18/25 09:55 75 MG Aspirin 81 mg DAILY NG 07/15/25 10:00 07/18/25 09:54 81 MG Dobutamine HCl/ Dextrose 250 ml @ 11.28 mls/ hr [id number] IV 07/14/25 11:45 07/18/25 03:48 11.28 MLS/HR Purified Water 250 ml Q6HR GT 07/14/25 14:45 07/18/25 11:44 250 ML Furosemide 20 mg DAILY IV 07/16/25 10:00 07/18/25 09:53 20 MG laboratory and microbiology Laboratory Tests 07/18/25 03:50 Test 07/18/25 03:50 Range/Units Serum Glucose 133 H 74-106 mg/dL Problem List MYALGIA ARTHALGIA FEVER LEUKOCYTOSIS WITH LEFT SHIFT NOW WITH ELEVATED BNP ELEVATED TROPONIN CKD RENAL FAILURE INSUFF HX OF CAD S/P PTCA STENT IN 2021 ECHO LVH EF 35% METABOLIC GAP ACIDOSIS SEVERE VOLUMEoverload Assessment/Plan IV FLUID ABX NO CARDIAC INTERVENTION AT THIS TIME ELEVATED CARDIAC PARAMETERS SECONDARY TO METABOLIC INSTABILITY EF 35% MILD TR MILD MR cxr CONSISTENT WITH ARDS IF CLINICALLY INDICATED CONSIDER RHC CXR BILATERAL INFILTRATE R>L CONSIDER CT OF CHEST SIGNIFICANT IMPROVEMENT IN CHEST CXR Dietary Evaluation Review Comments: Nutrition Recommendation: 1) EN Glucerna 1.2 @ 60ml/hr x 24hr (goal). TF at goal volume provides 1728 kcal (100%), 86 gm protein (100%), and 1159 ml free water. 2) Consider TPN/PN if NPO>7 days 3) Monitor NPO status, lab values, weight trend, and I/O Expected Outcomes/Goals: Intake to meet >75% estimated needs Lab values to improve FU 2-3 days Plan discussed with: Patient Critical Care Time(min): 35 LIMA BRUCE MD Jul 18, 2025 13:28
[2025-07-18 14:39] LABS: Base Excess 2.0 mmol/L (-2.0-3.0)
--- NOTE | 2025-07-18 15:21 | DVHPN2 ---
Progress Note Date Seen: Jul 18, 2025 Resident Creating Document: ALYSE DONALD RESIDENT Medical Necessity Reason Pt with a Central, PICC or Fol: Yes The following are medically ne: Central Line, Toscano Catheter Subjective Review of Systems Patient seen and examined at the bedside. Unable to obtain ROS due to patient's clinical status currently intubated and on mechanical ventilation. Objective vital signs Vital Sign Date Time Temp Pulse Resp B/P (MAP) Pulse Ox O2 Delivery O2 Flow Rate FiO2 07/18/25 14:16 90 11 130/64 (86) 98 30 07/18/25 14:00 Mechanical Ventilator+ 07/18/25 13:30 99.0 210.2 Total Intake and Output 07/17/25 07/17/25 07/18/25 15:00 23:00 07:00 Intake Total 154.340 ml 875.348 ml 919.292 ml Output Total 1850 ml 1200 ml Balance 154.340 ml -974.652 ml -280.708 ml medications Current Medications Medications Dose Ordered Sig/Cherise Route Start Time Stop Time Status Last Admin Dose Admin Fentanyl Citrate 250 ml @ 2.5 mls/hr Q24H IV 07/11/25 15:00 07/18/25 04:05 7.5 MLS/HR Diagnostic Test (Pha) 1 strip Q6HR 07/12/25 00:00 07/18/25 11:44 1 STRIP Dextrose 50 ml UD PRN IV 07/11/25 19:00 Pantoprazole Sodium 40 mg DAILY IV 07/12/25 10:00 07/18/25 09:53 40 MG Enteral Nutritional Formula 1,000 ml 30ML/HR GT 07/11/25 21:00 Docusate Sodium 100 mg BID GT 07/11/25 22:00 07/18/25 09:52 100 MG Doxycycline Hyclate 100 ml @ 50 mls/hr Q12H IV 07/12/25 17:00 07/18/25 11:44 50 MLS/HR Cefepime HCl 50 ml @ 12.5 mls/hr BID IV 07/12/25 22:00 07/18/25 09:53 12.5 MLS/HR Insulin Human Regular Q6HR SC 07/13/25 00:00 07/18/25 11:44 3 UNITS Clopidogrel Bisulfate 75 mg DAILY NG 07/15/25 10:00 07/18/25 09:55 75 MG Aspirin 81 mg DAILY NG 07/15/25 10:00 07/18/25 09:54 81 MG Dobutamine HCl/ Dextrose 250 ml @ 11.28 mls/ hr [id number] IV 07/14/25 11:45 07/18/25 03:48 11.28 MLS/HR Purified Water 250 ml Q6HR GT 07/14/25 14:45 07/18/25 11:44 250 ML Furosemide 20 mg DAILY IV 07/16/25 10:00 07/18/25 09:53 20 MG Examination Pt is lying on bed General Appearance: Mildly sedated, intubated RASS -1 HEENT: Atraumatic, Mucous membranes moist/pink Respiratory: Clear to auscultation, Normal air movement, bilateral crackles Cardiovascular: Regular rate, Normal S1, Normal S2, No murmurs Abdominal: Active bowel sounds, Soft, no distention, no tenderness Extremities: No edema, Normal pulses, No tenderness/swelling Skin: No Significant rash, except past surgical scars Neuro: Pupillary and gag reflexes intact Nurse was there as communications equipment installer during examination laboratory and microbiology Laboratory Tests 07/18/25 03:50 Test 07/18/25 03:50 Range/Units Serum Glucose 133 H 74-106 mg/dL Microbiology Date/Time Source Procedure Growth Status 07/11/25 14:45 Sputum Gram Stain - Final Complete 07/11/25 14:45 Respiratory Culture - Final Staphylococcus aureus Klebsiella ozaenae Complete 07/10/25 18:45 Urine - [place] Urine Culture - Final Complete 07/10/25 01:46 Nose MRSA Screen - Final Methicillin Resistant S.aureus Complete 07/09/25 05:40 Blood Blood Culture - Final NO GROWTH AFTER 5 DAYS OF INCUBATION. Complete Labs and/or images reviewed: Labs reviewed by me, Image(s) reviewed by me Problem List/Assessment/Plan Problem List/Assessment/Plan Acute kidney injury hemodynamic mediated etiology unknown baseline renal function Acute hypoxic respiratory failure needing intubation Severe sepsis Possible underlying Chronic kidney disease four Congestive heart failure preserved ejection fraction hypernatremia Recommendations Monitor lab Lasix 20 mg daily Strict I&Os Assess fluid status daily will follow Rest of management as per primary team Case discussed with Dr. Davenport Plan discussed with: Other (Family and RN) Dietary Evaluation Review Comments: Nutrition Recommendation: 1) EN Glucerna 1.2 @ 60ml/hr x 24hr (goal). TF at goal volume provides 1728 kcal (100%), 86 gm protein (100%), and 1159 ml free water. 2) Consider TPN/PN if NPO>7 days 3) Monitor NPO status, lab values, weight trend, and I/O Expected Outcomes/Goals: Intake to meet >75% estimated needs Lab values to improve FU 2-3 days ALYSE DONALD RESIDENT Jul 18, 2025 15:21
[2025-07-18] MEDS: PROPOFOL 100 ML IV SCH (17:30)
[2025-07-18] MEDS: FREE WATER GT SCH (17:44)
--- NOTE | 2025-07-18 19:12 | DVHPNRES ---
Progress Note Date Seen: Jul 18, 2025 Resident Creating Document: DEMARCUS SINGLETON RESIDENT Medical Necessity Reason Pt with a Central, PICC or Fol: Yes The following are medically ne: Central Line, Toscano Catheter Subjective Review of Systems This is a 84-year-old patient who presented to the ER with a chief complaint of shortness of breaths for the past 2 days. Patient reports having flu-like symptoms, mild fevers and chills for the past 2 days, says that yesterday around 3:00 p.m. he started to become more short of breaths while he was in the bed, associated with generalized weakness, productive cough with white phlegm for the past 2 days. He is also experiencing mild fever and chills. Denies any recent traveling or sick contacts. He quit smoking in 1994. On arrival to the ER, patient was afebrile, tachycardic, tachypneic 28 per minute and was put on non-rebreather and BiPAP then high-flow. WBC 19. D-dimer 0.9. Lactic 1.9, troponins 2074, 2045, 2288. Patient denies any chest pain, dizziness, palpitations at this time. Cardiology consulted for elevated troponins and shortness of breaths Past medical history: Diabetes mellitus on insulin, CKD, diastolic heart failure, CAD status post 2021 to RCA Past surgical history denies Home medications: Insulin, iron tablets, amlodipine 10, Lasix 40 mg Social history: Quit smoking and drinking 199407/15/2025: urine output improving. ECHO : .Left atrial enlargement with concentric LVH. Mild dilation of the sinuses of Valsalva. Mild aortic sclerosis. Mild mitral annular calcification. Left ventricular function is mildly to moderately diminished EF of 40% with normal RV function. There is severe mitral and tricuspid regurgitation. Right ventricular systolic pressure of 60 mmHg. This is consistent with severe pulmonary hypertension. Patient on 2.5 dobutamine drip. Patient's chest x-ray still looks congested. So Cardiology recommended keeping dobutamine drip. 07/16/2025 Currently intubated Respiratory cultures growing MRSA and Klebsiella CPAP trial in the a.m. 07/17/2025: Patient seen in ICU. patient kept on dobutamine drip 2.5. Patient not on pressors. kidney function improving. CPAP trial done today. Patient tolerated well. hypernatremia resolved. 07/18/25: Patient seen and examined at bedside, patient was on CPAP trial to the, patient is off sedation and following commands. Plan for left heart catheterization tomorrow Objective vital signs Vital Sign Date Time Temp Pulse Resp B/P (MAP) Pulse Ox O2 Delivery O2 Flow Rate FiO2 07/18/25 19:00 99.0 84 16 114/56 (75) 99 210.2 07/18/25 18:15 30 07/18/25 18:00 Mechanical Ventilator+ Total Intake and Output 07/17/25 07/17/25 07/18/25 15:00 23:00 07:00 Intake Total 154.340 ml 875.348 ml 919.292 ml Output Total 1850 ml 1200 ml Balance 154.340 ml -974.652 ml -280.708 ml medications Current Medications Medications Dose Ordered Sig/Cherise Route Start Time Stop Time Status Last Admin Dose Admin Fentanyl Citrate 250 ml @ 2.5 mls/hr Q24H IV 07/11/25 15:00 07/18/25 04:05 7.5 MLS/HR Diagnostic Test (Pha) 1 strip Q6HR 07/12/25 00:00 07/18/25 17:41 1 STRIP Dextrose 50 ml UD PRN IV 07/11/25 19:00 Pantoprazole Sodium 40 mg DAILY IV 07/12/25 10:00 07/18/25 09:53 40 MG Enteral Nutritional Formula 1,000 ml 30ML/HR GT 07/11/25 21:00 Docusate Sodium 100 mg BID GT 07/11/25 22:00 07/18/25 09:52 100 MG Doxycycline Hyclate 100 ml @ 50 mls/hr Q12H IV 07/12/25 17:00 07/18/25 11:44 50 MLS/HR Cefepime HCl 50 ml @ 12.5 mls/hr BID IV 07/12/25 22:00 07/18/25 09:53 12.5 MLS/HR Insulin Human Regular Q6HR SC 07/13/25 00:00 07/18/25 17:45 2 UNITS Clopidogrel Bisulfate 75 mg DAILY NG 07/15/25 10:00 07/18/25 09:55 75 MG Aspirin 81 mg DAILY NG 07/15/25 10:00 07/18/25 09:54 81 MG Dobutamine HCl/ Dextrose 250 ml @ 11.28 mls/ hr [id number] IV 07/14/25 11:45 07/18/25 03:48 11.28 MLS/HR Furosemide 20 mg DAILY IV 07/16/25 10:00 07/18/25 09:53 20 MG Purified Water 150 ml Q6HR GT 07/18/25 18:00 07/18/25 17:44 150 ML Propofol 100 ml @ 2.232 mls/ hr Q24H IV 07/18/25 17:30 07/18/25 17:30 2.232 MLS/HR Examination Patient lying in bed, under sedoanalgesia due to mechanical ventilation General: RASS -1, afebrile, mucosae are moist Cardiovascular: Normal S1 and S2. No murmurs, gallops or rubs Respiratory: Mechanically assisted ventilation, equal bilateral airway entree. Clear lung sounds on auscultation Abdomen: Soft, nontender, no organomegaly, normal bowel sounds MSK/skin: Mobilization of limbs cannot be evaluated. Skin is dry and warm Neurological: Orientation cannot be assessed. No apparent motor no sensitive deficits. Pupils are isocoric and reactive laboratory and microbiology Laboratory Tests 07/18/25 03:50 Test 07/18/25 03:50 Range/Units Serum Glucose 133 H 74-106 mg/dL Microbiology Date/Time Source Procedure Growth Status 07/11/25 14:45 Sputum Gram Stain - Final Complete 07/11/25 14:45 Respiratory Culture - Final Staphylococcus aureus Klebsiella ozaenae Complete 07/10/25 18:45 Urine - [place] Urine Culture - Final Complete 07/10/25 01:46 Nose MRSA Screen - Final Methicillin Resistant S.aureus Complete 07/09/25 05:40 Blood Blood Culture - Final NO GROWTH AFTER 5 DAYS OF INCUBATION. Complete Problem List/Assessment/Plan Problem List/Assessment/Plan Neurology # Sedation Fentanyl and Propofol # ALOC ?Cardiac encephalopathy -likely because of forward pump failure -patient is currently sedated and intubated Cardiology # NSTEMI type 2 likely, type one not ruled out yet - elevated trops - patient was on heparin drip and then was discontinued due to gross hematuria - hold aspirin and Plavix because of gross hematuria, as hematuria is resolved we will plan to start Plavix, - Dr. Gardner, cardiology on board, awaiting sepsis to be resolved before deciding for left heart catheterization - as per java developer architect Dr. Gardner, echocardiogram shows ejection fraction 35%, which is decreased from previous 50% 07/14- ECHO : .Left atrial enlargement with concentric LVH. Mild dilation of the sinuses of Valsalva. Mild aortic sclerosis. Mild mitral annular calcification. Left ventricular function is mildly to moderately diminished EF of 40% with normal RV function. There is severe mitral and tricuspid regurgitation. Right ventricular systolic pressure of 60 mmHg. This is consistent with severe pulmonary hypertension. 07/15- patient continued on 2.5 dobutamine drip. As per cardiology # acute HFrEF exacerbation -currently on dobutamine drip 5% started by the java developer architect - Dr. Gardner, cardiology on board, awaiting sepsis to be resolved before deciding for left heart catheterization - as per java developer architect Dr. Gardner, echocardiogram shows ejection fraction 20%, which is decreased from previous 50% - IV lasix 60mg BID decreased to 40mg IV daily for worsening kidney function # elevated D-dimer likely because of sepsis CHF exacerbation -lower extremity ultrasound # hypertension, currently in shock Hold antihypertensives # hyperlipidemia on statins # paroxysmal AFib, currently sinus tachycardia Likely because of CHF exacerbation # Known CAD status post 1 ANICETO 2021 to RCA -hold aspirin and Plavix because of gross hematuria Plan to restart Plavix # NSTEMI, rule out type 1 # rule out ACS - plan to do left-sided right heart catheterization tomorrow Respiratory # Acute hypoxic respiratory failure likely due to acute HFrEF exacerbation Currently on mechanical ventilator Intubated 07/2025 # Gram-positive/negative community-acquired pneumonia -currently on antibiotics, Vanc switched to doxy plus cefepime # bilateral pleural effusion due to CHF exacerbation -continue diuresis # ?COPD, not in exacerbation Currently on mechanical ventilator # history of previous smoking # Genitourinary # CAMERON on CKD, improving Monitor Renal function Renal ultrasound # Hypernatremia, resolved -free water given 1/2 NS once given by nephrology Infectious disease # sepsis likely due to pneumonia IV antibiotics Cultures # MRSA nares positive Mupirocin GI # Mild transaminitis likely due to hepatic congestion -continue diuresis # bowel regimen -currently on Colace Endocrinology # diabetes mellitus type 2 Sliding scale insulin Rheumatology # Gout We will resume allopurinol on discharge # BPH Hold tamsulosin # gross hematuria -hold antiplatelet agents and bladder irrigation Hematology oncology # anemia, likely anemia of chronic disease - Monitor # thrombocytopenia likely due to sepsis - monitor CBC GI prophylaxis: IV Protonix 40 mg daily #DVT prophylaxis -heparin on hold currently because of gross hematuria SCDs Lines Right IJ line CBC placed on 07/11/2025 Toscano's catheter placed on 07/11/25 Family at bedside updated about the condition of the patient, and discussed about possible ACS, plan for left heart catheterization and right heart catheterization tomorrow, discussed with patient's son and they are agreed with the plan. Critical Care time spent 64 minutes including patient care, chart review and updating family, excluding procedure. Case discussion with Dr. Marlow Plan discussed with: Spouse, Son My Orders My Orders Orders - DEMARCUS SINGLETON RESIDENT Procedure Category Date Status Time PTPTT LAB 07/19/25 Verified 04:00 Prothrombin Time W/ LAB 07/19/25 Verified INR 04:00 Dietary Evaluation Review Comments: Nutrition Recommendation: 1) EN Glucerna 1.2 @ 60ml/hr x 24hr (goal). TF at goal volume provides 1728 kcal (100%), 86 gm protein (100%), and 1159 ml free water. 2) Consider TPN/PN if NPO>7 days 3) Monitor NPO status, lab values, weight trend, and I/O Expected Outcomes/Goals: Intake to meet >75% estimated needs Lab values to improve FU 2-3 days Date of Service: Jul 18, 2025 Billing Provider: CELINE MARLOW MD Common Visit Codes: 20187-NHETKBLN CARE 30-74 MIN DEMARCUS SINGLETON RESIDENT Jul 18, 2025 19:12 CELINE MARLOW MD Jul 19, 2025 15:04
[2025-07-19] VITALS (110 sets, daily range): BP systolic 105–158; BP diastolic 50–74; PULSE 73–87; RESP 17–22; TEMP 96.8–99.1; O2SAT 98–100
--- NOTE | 2025-07-19 03:23 | DVH ---
CHEST RADIOGRAPH Indication: intubated Technique: 1 view Comparison: XY CHEST XRAY 1 VIEW on DOS: 07/18/25, XY CHEST PORTABLE on DOS: 07/17/25, XY CHEST XRAY 1 VIEW on DOS: 07/16/25, XY CHEST XRAY 1 VIEW on DOS: 07/15/25, XY CHEST PORTABLE on DOS: 07/14/25 FINDINGS: Lines and Tubes: Unchanged. Lungs/Pleura: Unchanged. Cardiomediastinum: Unchanged. Other: Unchanged osseous structures. IMPRESSION: No significant change from the previous study. Stable support devices. Mild bilateral infrahilar interstitial prominence remains.
[2025-07-19 04:36] LABS: Hematocrit 31.5 % (41.0-53.0); Hemoglobin 10.5 g/dL (13.5-17.5); Mean Corpuscular Hemoglobin 31.2 pg (28.0-32.0); Mean Corpuscular Volume 93.2 fL (80.0-100.0); Nucleated Red Blood Cells % 0.1 %
[2025-07-19 04:51] LABS: INR 1.17 (0.9-1.15); Partial Thromboplastin Time 29.6 SEC (24.5-34.5); Prothrombin Time 12.2 sec (9.3-11.8)
[2025-07-19 04:55] LABS: Alanine Aminotransferase 29 U/L (7-40); Alkaline Phosphatase 63 U/L (46-116); Anion Gap 13 (5-15); BUN/Creatinine Ratio 28.7 (10.0-20.0); Bilirubin, Total 0.5 mg/dL (0.2-1.0); Carbon Dioxide 28 mmol/L (20-31); Chloride 105 mmol/L (98-107); Creatine Kinase IFCC 160 U/L (46-171); Potassium 3.8 mmol/L (3.5-5.1); Total Protein 5.8 g/dL (5.7-8.2)
[2025-07-19 04:58] LABS: Albumin 3.2 g/dL (3.2-4.8); Blood Urea Nitrogen 75 mg/dL (9-23); Calcium 8.4 mg/dL (8.7-10.4); Glucose 131 mg/dL (74-106); Sodium 146 mmol/L (136-145)
[2025-07-19 08:30] LABS: Base Excess 2.4 mmol/L (-2.0-3.0)
--- NOTE | 2025-07-19 13:10 | DVHPN2 ---
Progress Note Date Seen: Jul 19, 2025 Resident Creating Document: ALYSE DONALD RESIDENT Medical Necessity Reason Pt with a Central, PICC or Fol: Yes The following are medically ne: Central Line, T[place]ano Catheter Subjective Review of Systems Patient seen and examined at the bedside. Unable to obtain ROS due to patient's clinical status currently on mechanical ventilation. Objective vital signs Vital Sign Date Time Temp Pulse Resp B/P (MAP) Pulse Ox O2 Delivery O2 Flow Rate FiO2 07/19/25 12:00 76 07/19/25 12:00 30 07/19/25 12:00 22 100 Mechanical Ventilator+ 07/19/25 11:54 131/60 (83) 07/19/25 11:45 98.6 209.5 Total Intake and Output 07/18/25 07/18/25 07/19/25 15:00 23:00 07:00 Intake Total 255.62 ml 160.416 ml 686.308 ml Output Total 1400 ml 900 ml Balance 255.62 ml -1239.584 ml -213.692 ml medications Current Medications Medications Dose Ordered Sig/Cherise Route Start Time Stop Time Status Last Admin Dose Admin Fentanyl Citrate 250 ml @ 2.5 mls/hr Q24H IV 07/11/25 15:00 07/18/25 04:05 7.5 MLS/HR Diagnostic Test (Pha) 1 strip Q6HR 07/12/25 00:00 07/19/25 11:33 1 STRIP Dextrose 50 ml UD PRN IV 07/11/25 19:00 Pantoprazole Sodium 40 mg DAILY IV 07/12/25 10:00 07/19/25 09:16 40 MG Enteral Nutritional Formula 1,000 ml 30ML/HR GT 07/11/25 21:00 Docusate Sodium 100 mg BID GT 07/11/25 22:00 07/18/25 21:39 100 MG Doxycycline Hyclate 100 ml @ 50 mls/hr Q12H IV 07/12/25 17:00 07/19/25 05:34 50 MLS/HR Cefepime HCl 50 ml @ 12.5 mls/hr BID IV 07/12/25 22:00 07/19/25 09:12 12.5 MLS/HR Insulin Human Regular Q6HR SC 07/13/25 00:00 07/19/25 05:40 2 UNITS Clopidogrel Bisulfate 75 mg DAILY NG 07/15/25 10:00 07/18/25 09:55 75 MG Aspirin 81 mg DAILY NG 07/15/25 10:00 07/18/25 09:54 81 MG Dobutamine HCl/ Dextrose 250 ml @ 11.28 mls/ hr [id number] IV 07/14/25 11:45 07/19/25 00:01 11.28 MLS/HR Furosemide 20 mg DAILY IV 07/16/25 10:00 07/19/25 09:16 20 MG Purified Water 150 ml Q6HR GT 07/18/25 18:00 07/19/25 05:34 150 ML Propofol 100 ml @ 2.232 mls/ hr Q24H IV 07/18/25 17:30 07/19/25 09:12 6.696 MLS/HR Examination Pt is lying on bed General Appearance: Mildly sedated, intubated RASS -1 HEENT: Atraumatic, Mucous membranes moist/pink Respiratory: Clear to auscultation, Normal air movement, bilateral crackles Cardiovascular: Regular rate, Normal S1, Normal S2, No murmurs Abdominal: Active bowel sounds, Soft, no distention, no tenderness Extremities: No edema, Normal pulses, No tenderness/swelling Skin: No Significant rash, except past surgical scars Neuro: Pupillary and gag reflexes intact Nurse was there as account auditor during examination laboratory and microbiology Laboratory Tests 07/19/25 03:40 Test 07/19/25 03:40 Range/Units Serum Glucose 131 H 74-106 mg/dL Microbiology Date/Time Source Procedure Growth Status 07/11/25 14:45 Sputum Gram Stain - Final Complete 07/11/25 14:45 Respiratory Culture - Final Staphylococcus aureus Klebsiella ozaenae Complete 07/10/25 18:45 Urine - [place] Urine Culture - Final Complete 07/10/25 01:46 Nose MRSA Screen - Final Methicillin Resistant S.aureus Complete 07/09/25 05:40 Blood Blood Culture - Final NO GROWTH AFTER 5 DAYS OF INCUBATION. Complete Labs and/or images reviewed: Labs reviewed by me, Image(s) reviewed by me Problem List/Assessment/Plan Problem List/Assessment/Plan Acute kidney injury hemodynamic mediated etiology unknown baseline renal function Acute hypoxic respiratory failure needing intubation Severe sepsis Possible underlying Chronic kidney disease four Congestive heart failure preserved ejection fraction hypernatremia Recommendations Monitor lab Lasix 20 mg daily Strict I&Os Assess fluid status daily will follow Rest of management as per primary team Case discussed with Dr. Davenport Plan discussed with: Other (Family and RN) Dietary Evaluation Review Comments: Nutrition Recommendation: 1) EN Glucerna 1.2 @ 60ml/hr x 24hr (goal). TF at goal volume provides 1728 kcal (100%), 86 gm protein (100%), and 1159 ml free water. 2) Consider TPN/PN if NPO>7 days 3) Monitor NPO status, lab values, weight trend, and I/O Expected Outcomes/Goals: Intake to meet >75% estimated needs Lab values to improve FU 2-3 days ALYSE DONLAD RESIDENT Jul 19, 2025 13:10
--- NOTE | 2025-07-19 14:17 | DVHPN2 ---
Progress Note - Dictate Date Seen: Jul 19, 2025 Medical Necessity Reason Pt with a Central, PICC or Fol: Yes The following are medically ne: Central Line, Toscano Catheter Subjective PT WITH MYALGIA ARTHALGIA FEVER LEUKOCYTOSIS WITH LEFT SHIFT NOW WITH ELEVATED BNP ELEVATED TROPONIN CKD RENAL FAILURE INSUFF HX OF CAD S/P PTCA STENT IN 2021 ECHO LVH EF 50% vital signs Vital Sign Date Time Temp Pulse Resp B/P (MAP) Pulse Ox O2 Delivery O2 Flow Rate FiO2 07/19/25 14:05 78 22 129/59 (82) 99 30 07/19/25 13:45 98.8 209.8 07/19/25 12:00 Mechanical Ventilator+ Total Intake and Output 07/18/25 07/18/25 07/19/25 15:00 23:00 07:00 Intake Total 255.62 ml 160.416 ml 686.308 ml Output Total 1400 ml 900 ml Balance 255.62 ml -1239.584 ml -213.692 ml medications Current Medications Medications Dose Ordered Sig/Cherise Route Start Time Stop Time Status Last Admin Dose Admin Fentanyl Citrate 250 ml @ 2.5 mls/hr Q24H IV 07/11/25 15:00 07/18/25 04:05 7.5 MLS/HR Diagnostic Test (Pha) 1 strip Q6HR 07/12/25 00:00 07/19/25 11:33 1 STRIP Dextrose 50 ml UD PRN IV 07/11/25 19:00 Pantoprazole Sodium 40 mg DAILY IV 07/12/25 10:00 07/19/25 09:16 40 MG Enteral Nutritional Formula 1,000 ml 30ML/HR GT 07/11/25 21:00 Docusate Sodium 100 mg BID GT 07/11/25 22:00 07/18/25 21:39 100 MG Doxycycline Hyclate 100 ml @ 50 mls/hr Q12H IV 07/12/25 17:00 07/19/25 05:34 50 MLS/HR Cefepime HCl 50 ml @ 12.5 mls/hr BID IV 07/12/25 22:00 07/19/25 09:12 12.5 MLS/HR Insulin Human Regular Q6HR SC 07/13/25 00:00 07/19/25 05:40 2 UNITS Clopidogrel Bisulfate 75 mg DAILY NG 07/15/25 10:00 07/18/25 09:55 75 MG Aspirin 81 mg DAILY NG 07/15/25 10:00 07/18/25 09:54 81 MG Dobutamine HCl/ Dextrose 250 ml @ 11.28 mls/ hr [id number] IV 07/14/25 11:45 07/19/25 00:01 11.28 MLS/HR Furosemide 20 mg DAILY IV 07/16/25 10:00 07/19/25 09:16 20 MG Purified Water 150 ml Q6HR GT 07/18/25 18:00 07/19/25 05:34 150 ML Propofol 100 ml @ 2.232 mls/ hr Q24H IV 07/18/25 17:30 07/19/25 09:12 6.696 MLS/HR laboratory and microbiology Laboratory Tests 07/19/25 03:40 Test 07/19/25 03:40 Range/Units Serum Glucose 131 H 74-106 mg/dL Problem List MYALGIA ARTHALGIA FEVER LEUKOCYTOSIS WITH LEFT SHIFT NOW WITH ELEVATED BNP ELEVATED TROPONIN CKD RENAL FAILURE INSUFF HX OF CAD S/P PTCA STENT IN 2021 ECHO LVH EF 35% METABOLIC GAP ACIDOSIS SEVERE VOLUMEoverload Assessment/Plan IV FLUID ABX NO CARDIAC INTERVENTION AT THIS TIME ELEVATED CARDIAC PARAMETERS SECONDARY TO METABOLIC INSTABILITY EF 35% MILD TR MILD MR cxr CONSISTENT WITH ARDS IF CLINICALLY INDICATED CONSIDER RHC CXR BILATERAL INFILTRATE R>L CONSIDER CT OF CHEST SIGNIFICANT IMPROVEMENT IN CHEST CXR DISCUSSED WITH GORDO SEYMOUR ABOUT L/RHC HE IS AGREEABLE WILL RESCHEDULE FOR 07/20/25 MAY EXTUBATE PT Dietary Evaluation Review Comments: Nutrition Recommendation: 1) EN Glucerna 1.2 @ 60ml/hr x 24hr (goal). TF at goal volume provides 1728 kcal (100%), 86 gm protein (100%), and 1159 ml free water. 2) Consider TPN/PN if NPO>7 days 3) Monitor NPO status, lab values, weight trend, and I/O Expected Outcomes/Goals: Intake to meet >75% estimated needs Lab values to improve FU 2-3 days Plan discussed with: Grodo Critical Care Time(min): 35 LIMA BRUCE MD Jul 19, 2025 14:17
--- NOTE | 2025-07-19 17:04 | DVHPNRES ---
Progress Note Date Seen: Jul 19, 2025 Resident Creating Document: DEMARCUS SINGLETON RESIDENT Medical Necessity Reason Pt with a Central, PICC or Fol: Yes The following are medically ne: Central Line, Toscano Catheter Subjective Review of Systems This is a 84-year-old patient who presented to the ER with a chief complaint of shortness of breaths for the past 2 days. Patient reports having flu-like symptoms, mild fevers and chills for the past 2 days, says that yesterday around 3:00 p.m. he started to become more short of breaths while he was in the bed, associated with generalized weakness, productive cough with white phlegm for the past 2 days. He is also experiencing mild fever and chills. Denies any recent traveling or sick contacts. He quit smoking in 1994. On arrival to the ER, patient was afebrile, tachycardic, tachypneic 28 per minute and was put on non-rebreather and BiPAP then high-flow. WBC 19. D-dimer 0.9. Lactic 1.9, troponins 2074, 2045, 2288. Patient denies any chest pain, dizziness, palpitations at this time. Cardiology consulted for elevated troponins and shortness of breaths Past medical history: Diabetes mellitus on insulin, CKD, diastolic heart failure, CAD status post 2021 to RCA Past surgical history denies Home medications: Insulin, iron tablets, amlodipine 10, Lasix 40 mg Social history: Quit smoking and drinking 199407/15/2025: urine output improving. ECHO : .Left atrial enlargement with concentric LVH. Mild dilation of the sinuses of Valsalva. Mild aortic sclerosis. Mild mitral annular calcification. Left ventricular function is mildly to moderately diminished EF of 40% with normal RV function. There is severe mitral and tricuspid regurgitation. Right ventricular systolic pressure of 60 mmHg. This is consistent with severe pulmonary hypertension. Patient on 2.5 dobutamine drip. Patient's chest x-ray still looks congested. So Cardiology recommended keeping dobutamine drip. 07/16/2025 Currently intubated Respiratory cultures growing MRSA and Klebsiella CPAP trial in the a.m. 07/17/2025: Patient seen in ICU. patient kept on dobutamine drip 2.5. Patient not on pressors. kidney function improving. CPAP trial done today. Patient tolerated well. hypernatremia resolved. 07/18/25: Patient seen and examined at bedside, patient was on CPAP trial to the, patient is off sedation and following commands. Plan for left heart catheterization tomorrow 07/19/2025: Patient seen and examined at bedside, patient was on CPAP trial to the, patient is off sedation and following commands. Left heart catheterization was postponed today . Plan for left heart catheterization tomorrow. Objective vital signs Vital Sign Date Time Temp Pulse Resp B/P (MAP) Pulse Ox O2 Delivery O2 Flow Rate FiO2 07/19/25 16:35 80 22 114/55 (74) 99 30 07/19/25 16:00 Mechanical Ventilator+ 07/19/25 14:00 98.8 209.8 Total Intake and Output 07/18/25 07/18/25 07/19/25 15:00 23:00 07:00 Intake Total 255.62 ml 160.416 ml 686.308 ml Output Total 1400 ml 900 ml Balance 255.62 ml -1239.584 ml -213.692 ml medications Current Medications Medications Dose Ordered Sig/Cherise Route Start Time Stop Time Status Last Admin Dose Admin Fentanyl Citrate 250 ml @ 2.5 mls/hr Q24H IV 07/11/25 15:00 07/18/25 04:05 7.5 MLS/HR Diagnostic Test (Pha) 1 strip Q6HR 07/12/25 00:00 07/19/25 11:33 1 STRIP Dextrose 50 ml UD PRN IV 07/11/25 19:00 Pantoprazole Sodium 40 mg DAILY IV 07/12/25 10:00 07/19/25 09:16 40 MG Enteral Nutritional Formula 1,000 ml 30ML/HR GT 07/11/25 21:00 Docusate Sodium 100 mg BID GT 07/11/25 22:00 07/18/25 21:39 100 MG Doxycycline Hyclate 100 ml @ 50 mls/hr Q12H IV 07/12/25 17:00 07/19/25 16:58 50 MLS/HR Cefepime HCl 50 ml @ 12.5 mls/hr BID IV 07/12/25 22:00 07/19/25 09:12 12.5 MLS/HR Insulin Human Regular Q6HR SC 07/13/25 00:00 07/19/25 05:40 2 UNITS Clopidogrel Bisulfate 75 mg DAILY NG 07/15/25 10:00 07/18/25 09:55 75 MG Aspirin 81 mg DAILY NG 07/15/25 10:00 07/18/25 09:54 81 MG Dobutamine HCl/ Dextrose 250 ml @ 11.28 mls/ hr [id number] IV 07/14/25 11:45 07/19/25 00:01 11.28 MLS/HR Purified Water 150 ml Q6HR GT 07/18/25 18:00 07/19/25 05:34 150 ML Propofol 100 ml @ 2.232 mls/ hr Q24H IV 07/18/25 17:30 07/19/25 09:12 6.696 MLS/HR Examination Patient lying in bed, under sedoanalgesia due to mechanical ventilation General: RASS -3, afebrile, mucosae are moist Cardiovascular: Normal S1 and S2. No murmurs, gallops or rubs Respiratory: Mechanically assisted ventilation, equal bilateral airway entree. Clear lung sounds on auscultation Abdomen: Soft, nontender, no organomegaly, normal bowel sounds MSK/skin: Mobilization of limbs cannot be evaluated. Skin is dry and warm Neurological: Orientation cannot be assessed. No apparent motor no sensitive deficits. Pupils are isocoric and reactive. laboratory and microbiology Laboratory Tests 07/19/25 03:40 Test 07/19/25 03:40 Range/Units Serum Glucose 131 H 74-106 mg/dL Microbiology Date/Time Source Procedure Growth Status 07/11/25 14:45 Sputum Gram Stain - Final Complete 07/11/25 14:45 Respiratory Culture - Final Staphylococcus aureus Klebsiella ozaenae Complete 07/10/25 18:45 Urine - [place] Port Urine Culture - Final Complete 07/10/25 01:46 Nose MRSA Screen - Final Methicillin Resistant S.aureus Complete 07/09/25 05:40 Blood Blood Culture - Final NO GROWTH AFTER 5 DAYS OF INCUBATION. Complete Problem List/Assessment/Plan Problem List/Assessment/Plan Neurology # Sedation Fentanyl and Propofol # ALOC ?Cardiac encephalopathy -likely because of forward pump failure -patient is currently sedated and intubated Cardiology # NSTEMI type 2 likely, type one not ruled out yet - elevated trops - patient was on heparin drip and then was discontinued due to gross hematuria - hold aspirin and Plavix because of gross hematuria, as hematuria is resolved we will plan to start Plavix, - Dr. Gardner, cardiology on board, awaiting sepsis to be resolved before deciding for left heart catheterization - as per associate professor of church music Dr. Gardner, echocardiogram shows ejection fraction 35%, which is decreased from previous 50% ECHO : Left atrial enlargement with concentric LVH. Mild dilation of the sinuses of Valsalva. Mild aortic sclerosis. Mild mitral annular calcification. Left ventricular function is mildly to moderately diminished EF of 40% with normal RV function. There is severe mitral and tricuspid regurgitation. Right ventricular systolic pressure of 60 mmHg. This is consistent with severe pulmonary hypertension. - patient continued on 2.5 dobutamine drip. As per cardiology - plan for left and right heart catheterization tomorrow # acute HFrEF exacerbation -currently on dobutamine drip 2.5 MCG/KG/MIN started by the associate professor of church music - Dr. Gardner, cardiology on board, awaiting sepsis to be resolved before deciding for left heart catheterization - as per associate professor of church music Dr. Gardner, echocardiogram shows ejection fraction 20%, which is decreased from previous 50% - IV lasix 60mg BID decreased to 40mg IV daily for worsening kidney function # elevated D-dimer likely because of sepsis CHF exacerbation -lower extremity ultrasound # hypertension, currently in shock Hold antihypertensives # hyperlipidemia on statins # paroxysmal AFib, currently sinus rhythm. Likely because of CHF exacerbation # Known CAD status post 2021 to RCA -hold aspirin and Plavix because of gross hematuria Plan to restart Plavix # NSTEMI, rule out type 1 # rule out ACS - plan to do left and right heart catheterization tomorrow Respiratory # Acute hypoxic respiratory failure likely due to acute HFrEF exacerbation Currently on mechanical ventilator Intubated 07/2025 # Gram-positive/negative community-acquired pneumonia -currently on antibiotics, # bilateral pleural effusion due to CHF exacerbation -continue diuresis # ?COPD, not in exacerbation Currently on mechanical ventilator # history of previous smoking # Genitourinary # CAMERON on CKD, improving Monitor Renal function Renal ultrasound # Hypernatremia, resolved -free water given 1/2 NS once given by nephrology Infectious disease # sepsis likely due to pneumonia IV antibiotics Cultures # MRSA nares positive Mupirocin GI # Mild transaminitis likely due to hepatic congestion -continue diuresis # bowel regimen -currently on Colace Endocrinology # diabetes mellitus type 2 Sliding scale insulin Rheumatology # Gout We will resume allopurinol on discharge # BPH Hold tamsulosin # gross hematuria -hold antiplatelet agents and bladder irrigation Hematology oncology # anemia, likely anemia of chronic disease - Monitor # thrombocytopenia likely due to sepsis - monitor CBC # GI prophylaxis: IV Protonix 40 mg daily # DVT prophylaxis -heparin on hold currently because of gross hematuria SCDs Lines Right IJ line CBC placed on 07/11/2025 Toscano's catheter placed on 07/11/25 Family at bedside updated about the condition of the patient, and discussed about possible ACS, plan for left heart catheterization and right heart catheterization tomorrow, discussed with patient's son and they are agreed with the plan. Critical Care time spent 62 minutes including patient care, chart review and updating family, excluding procedure. Case discussion with Dr. Marlow Plan discussed with: Son My Orders My Orders Orders - DEMARCUS SINGLETON RESIDENT Procedure Category Date Status Time Abg W/ Co-Ox RT 07/19/25 Logged 04:00 Chest Xray 1 View XY 07/19/25 Resulted 04:00 Comprehensive LAB 07/20/25 Verified Metabolic Panel 04:00 Complete Blood Count LAB 07/20/25 Verified 04:00 Chest Xray 1 View XY 07/20/25 Logged 04:00 Abg W/ Co-Ox RT 07/20/25 Logged 04:00 Dietary Evaluation Review Comments: Nutrition Recommendation: 1) EN Glucerna 1.2 @ 60ml/hr x 24hr (goal). TF at goal volume provides 1728 kcal (100%), 86 gm protein (100%), and 1159 ml free water. 2) Consider TPN/PN if NPO>7 days 3) Monitor NPO status, lab values, weight trend, and I/O Expected Outcomes/Goals: Intake to meet >75% estimated needs Lab values to improve FU 2-3 days Date of Service: Jul 19, 2025 Billing Provider: CELINE MARLOW MD Common Visit Codes: [id number] CARE 30-74 MIN DEMARCUS SINGLETON Jul 19, 2025 17:04 CELINE MARLOW MD Jul 20, 2025 14:56
[2025-07-20] VITALS (109 sets, daily range): BP systolic 103–160; BP diastolic 46–69; PULSE 60–86; RESP 12–22; TEMP 63–98.8; O2SAT 98–100
[2025-07-20 04:18] LABS: Alanine Aminotransferase 24 U/L (7-40); Alkaline Phosphatase 59 U/L (46-116); Anion Gap 13 (5-15); BUN/Creatinine Ratio 23.5 (10.0-20.0); Carbon Dioxide 27 mmol/L (20-31); Total Protein 6.0 g/dL (5.7-8.2)
[2025-07-20 04:19] LABS: Blood Urea Nitrogen 59 mg/dL (9-23); Calcium 8.3 mg/dL (8.7-10.4); Chloride 108 mmol/L (98-107); Glucose 154 mg/dL (74-106); Potassium 3.5 mmol/L (3.5-5.1); Sodium 148 mmol/L (136-145)
[2025-07-20 04:20] LABS: Albumin 3.1 g/dL (3.2-4.8); Bilirubin, Total 0.4 mg/dL (0.2-1.0)
[2025-07-20 04:21] LABS: Hematocrit 29.0 % (41.0-53.0); Hemoglobin 9.8 g/dL (13.5-17.5); Mean Corpuscular Hemoglobin 31.9 pg (28.0-32.0); Mean Corpuscular Volume 93.8 fL (80.0-100.0); Nucleated Red Blood Cells % 0.0 %
--- NOTE | 2025-07-20 05:13 | DVH ---
CHEST RADIOGRAPH Indication: intubated Technique: Single frontal view of the chest was obtained COMPARISON: XY CHEST XRAY 1 VIEW on DOS: 07/19/25, XY CHEST XRAY 1 VIEW on DOS: 07/18/25, XY CHEST PORTABLE on DOS: 07/17/25, XY CHEST XRAY 1 VIEW on DOS: 07/16/25, XY CHEST XRAY 1 VIEW on DOS: 07/15/25 FINDINGS: Lines and Tubes: Endotracheal tube and right central venous catheter in satisfactory position. Lungs: Mild congestion unchanged. Pleura: No effusion. No pneumothorax. Cardiomediastinal contours: Vascular calcifications of the aorta. Bones: Unremarkable IMPRESSION: Lines and tubes in satisfactory position. No significant interval change.
[2025-07-20] MEDS: POTASSIUM CHL 20MEQ/100ML 100 ML IV ONE (05:59)
[2025-07-20 06:49] LABS: Base Excess 2.8 mmol/L (-2.0-3.0)
[2025-07-20] MEDS: IOHEXOL 350 MG/ML 100ML IJ ONE (13:15)
[2025-07-20] MEDS: IODIXANOL 320MG/ML 100ML BTL IV ONE (13:36)
--- NOTE | 2025-07-20 13:49 | DVHPN2 ---
Progress Note - Dictate Date Seen: Jul 20, 2025 Medical Necessity Reason Pt with a Central, PICC or Fol: Yes The following are medically ne: Central Line, Toscano Catheter Subjective PT WITH MYALGIA ARTHALGIA FEVER LEUKOCYTOSIS WITH LEFT SHIFT NOW WITH ELEVATED BNP ELEVATED TROPONIN CKD RENAL FAILURE INSUFF HX OF CAD S/P PTCA STENT IN 2021 ECHO LVH EF 50% vital signs Vital Sign Date Time Temp Pulse Resp B/P (MAP) Pulse Ox O2 Delivery O2 Flow Rate FiO2 07/20/25 11:45 97.3 66 22 141/54 (83) 100 207.1 07/20/25 11:26 30 07/20/25 10:00 Mechanical Ventilator+ Total Intake and Output 07/19/25 07/19/25 07/20/25 15:00 23:00 07:00 Intake Total 253.808 ml 622.808 ml 789.84 ml Output Total 950 ml 1000 ml Balance 253.808 ml -327.192 ml -210.16 ml medications Current Medications Medications Dose Ordered Sig/Cherise Route Start Time Stop Time Status Last Admin Dose Admin Fentanyl Citrate 250 ml @ 2.5 mls/hr Q24H IV 07/11/25 15:00 07/19/25 21:31 7.5 MLS/HR Diagnostic Test (Pha) 1 strip Q6HR 07/12/25 00:00 07/20/25 12:21 1 STRIP Dextrose 50 ml UD PRN IV 07/11/25 19:00 Pantoprazole Sodium 40 mg DAILY IV 07/12/25 10:00 07/20/25 10:38 40 MG Enteral Nutritional Formula 1,000 ml 30ML/HR GT 07/11/25 21:00 Docusate Sodium 100 mg BID GT 07/11/25 22:00 07/19/25 21:31 100 MG Doxycycline Hyclate 100 ml @ 50 mls/hr Q12H IV 07/12/25 17:00 07/20/25 05:58 50 MLS/HR Cefepime HCl 50 ml @ 12.5 mls/hr BID IV 07/12/25 22:00 07/20/25 10:39 12.5 MLS/HR Insulin Human Regular Q6HR SC 07/13/25 00:00 07/20/25 06:20 2 UNITS Clopidogrel Bisulfate 75 mg DAILY NG 07/15/25 10:00 07/20/25 10:38 75 MG Aspirin 81 mg DAILY NG 07/15/25 10:00 07/20/25 10:38 81 MG Dobutamine HCl/ Dextrose 250 ml @ 11.28 mls/ hr [id number] IV 07/14/25 11:45 07/19/25 23:49 11.28 MLS/HR Purified Water 150 ml Q6HR GT 07/18/25 18:00 07/20/25 06:00 150 ML Propofol 100 ml @ 2.232 mls/ hr Q24H IV 07/18/25 17:30 07/20/25 13:26 11.16 MLS/HR Lactulose 30 ml DAILY PO 07/21/25 10:00 laboratory and microbiology Laboratory Tests 07/20/25 03:34 Test 07/20/25 03:34 Range/Units Serum Glucose 154 H 74-106 mg/dL Problem List MYALGIA ARTHALGIA FEVER LEUKOCYTOSIS WITH LEFT SHIFT NOW WITH ELEVATED BNP ELEVATED TROPONIN CKD RENAL FAILURE INSUFF HX OF CAD S/P PTCA STENT IN 2021 ECHO LVH EF 35% METABOLIC GAP ACIDOSIS SEVERE VOLUMEoverload Assessment/Plan IV FLUID ABX NO CARDIAC INTERVENTION AT THIS TIME ELEVATED CARDIAC PARAMETERS SECONDARY TO METABOLIC INSTABILITY EF 35% MILD TR MILD MR cxr CONSISTENT WITH ARDS IF CLINICALLY INDICATED CONSIDER RHC CXR BILATERAL INFILTRATE R>L CONSIDER CT OF CHEST SIGNIFICANT IMPROVEMENT IN CHEST CXR DISCUSSED WITH SON LION ABOUT L/RHC HE IS AGREEABLE WILL RESCHEDULE FOR 07/20/25 MAY EXTUBATE PT L/RHC TODAY Dietary Evaluation Review Comments: Nutrition Recommendation: 1) EN Glucerna 1.2 @ 60ml/hr x 24hr (goal). TF at goal volume provides 1728 kcal (100%), 86 gm protein (100%), and 1159 ml free water. 2) Consider TPN/PN if NPO>7 days 3) Monitor NPO status, lab values, weight trend, and I/O Expected Outcomes/Goals: Intake to meet >75% estimated needs Lab values to improve FU 2-3 days Plan discussed with: Patient, Son, Other Critical Care Time(min): 35 LIMA BRUCE MD Jul 20, 2025 13:49
[2025-07-20] MEDS: SODIUM CHL 0.9% 0 ML ONE (13:50)
[2025-07-20] MEDS: HEPARIN SODIUM (PORCINE) 5000 UNITS/ML 1ML VIAL ONE (13:50)
[2025-07-20] MEDS: LIDOCAINE 2%HCL (LOCAL ANESTH.) INJ 20ML MDV ONE (13:50)
[2025-07-20] MEDS: ANGIOMAX 250 MG VIAL IV ONE (13:50)
--- NOTE | 2025-07-20 14:41 | DVHPN2 ---
Progress Note Date Seen: Jul 20, 2025 Resident Creating Document: ALYSE DONALD RESIDENT Medical Necessity Reason Pt with a Central, PICC or Fol: Yes The following are medically ne: Central Line, [place]ano Catheter Subjective Review of Systems Patient seen and examined at the bedside. Unable to obtain ROS due to patient's clinical status currently on mechanical ventilation. Objective vital signs Vital Sign Date Time Temp Pulse Resp B/P (MAP) Pulse Ox O2 Delivery O2 Flow Rate FiO2 07/20/25 12:15 30 07/20/25 12:15 22 98 Mechanical Ventilator+ 07/20/25 11:47 63 07/20/25 11:45 97.3 141/54 (83) 207.1 Total Intake and Output 07/19/25 07/19/25 07/20/25 15:00 23:00 07:00 Intake Total 253.808 ml 622.808 ml 789.84 ml Output Total 950 ml 1000 ml Balance 253.808 ml -327.192 ml -210.16 ml medications Current Medications Medications Dose Ordered Sig/Cherise Route Start Time Stop Time Status Last Admin Dose Admin Fentanyl Citrate 250 ml @ 2.5 mls/hr Q24H IV 07/11/25 15:00 07/19/25 21:31 7.5 MLS/HR Diagnostic Test (Pha) 1 strip Q6HR 07/12/25 00:00 07/20/25 12:21 1 STRIP Dextrose 50 ml UD PRN IV 07/11/25 19:00 Pantoprazole Sodium 40 mg DAILY IV 07/12/25 10:00 07/20/25 10:38 40 MG Enteral Nutritional Formula 1,000 ml 30ML/HR GT 07/11/25 21:00 Docusate Sodium 100 mg BID GT 07/11/25 22:00 07/19/25 21:31 100 MG Doxycycline Hyclate 100 ml @ 50 mls/hr Q12H IV 07/12/25 17:00 07/20/25 05:58 50 MLS/HR Cefepime HCl 50 ml @ 12.5 mls/hr BID IV 07/12/25 22:00 07/20/25 10:39 12.5 MLS/HR Insulin Human Regular Q6HR SC 07/13/25 00:00 07/20/25 06:20 2 UNITS Clopidogrel Bisulfate 75 mg DAILY NG 07/15/25 10:00 07/20/25 10:38 75 MG Aspirin 81 mg DAILY NG 07/15/25 10:00 07/20/25 10:38 81 MG Dobutamine HCl/ Dextrose 250 ml @ 11.28 mls/ hr [id number] IV 07/14/25 11:45 07/19/25 23:49 11.28 MLS/HR Purified Water 150 ml Q6HR GT 07/18/25 18:00 07/20/25 06:00 150 ML Propofol 100 ml @ 2.232 mls/ hr Q24H IV 07/18/25 17:30 07/20/25 13:26 11.16 MLS/HR Lactulose 30 ml DAILY PO 07/21/25 10:00 Sodium Chloride 1,000 ml @ 75 mls/hr [id number] IV 07/20/25 14:30 07/20/25 20:29 UNV Examination Pt is lying on bed General Appearance: Mildly sedated, intubated RASS -1 HEENT: Atraumatic, Mucous membranes moist/pink Respiratory: Clear to auscultation, Normal air movement, bilateral crackles Cardiovascular: Regular rate, Normal S1, Normal S2, No murmurs Abdominal: Active bowel sounds, Soft, no distention, no tenderness Extremities: No edema, Normal pulses, No tenderness/swelling Skin: No Significant rash, except past surgical scars Neuro: Pupillary and gag reflexes intact Nurse was there as toolmaker grade three during examination laboratory and microbiology Laboratory Tests 07/20/25 03:34 Test 07/20/25 03:34 Range/Units Serum Glucose 154 H 74-106 mg/dL Microbiology Date/Time Source Procedure Growth Status 07/11/25 14:45 Sputum Gram Stain - Final Complete 07/11/25 14:45 Respiratory Culture - Final Staphylococcus aureus Klebsiella ozaenae Complete 07/10/25 18:45 Urine - [place] Urine Culture - Final Complete 07/10/25 01:46 Nose MRSA Screen - Final Methicillin Resistant S.aureus Complete 07/09/25 05:40 Blood Blood Culture - Final NO GROWTH AFTER 5 DAYS OF INCUBATION. Complete Labs and/or images reviewed: Labs reviewed by me, Image(s) reviewed by me Problem List/Assessment/Plan Problem List/Assessment/Plan Acute kidney injury hemodynamic mediated etiology unknown baseline renal function Acute hypoxic respiratory failure needing intubation Severe sepsis Possible underlying Chronic kidney disease four Congestive heart failure preserved ejection fraction hypernatremia Recommendations Monitor lab Lasix 20 mg daily Strict I&Os Assess fluid status daily will follow Patient is high risk for contrast induced nephropathy, after the catheterization 250 mL bolus followed by Lasix 40 mg IV push followed by NS 75 mL/hour for 6 hours Rest of management as per primary team Case discussed with Dr. Davenport Plan discussed with: Other (family and RN) My Orders My Orders Orders - ALYSE DONALD RESIDENT Procedure Category Date Status Time Sodium Chloride 0.9% PHA 07/20/25 Logged 14:30 Furosemide Injection PHA 07/20/25 Logged (Lasix Injection) 14:30 Sodium Chloride 0.9% PHA 07/20/25 Logged 14:30 Dietary Evaluation Review Comments: Nutrition Recommendation: 1) EN Glucerna 1.2 @ 60ml/hr x 24hr (goal). TF at goal volume provides 1728 kcal (100%), 86 gm protein (100%), and 1159 ml free water. 2) Consider TPN/PN if NPO>7 days 3) Monitor NPO status, lab values, weight trend, and I/O Expected Outcomes/Goals: Intake to meet >75% estimated needs Lab values to improve FU 2-3 days ALYSE DONALD RESIDENT Jul 20, 2025 14:41
[2025-07-20] MEDS: SODIUM CHLORIDE 0.9% 250 ML IV ONE (15:12)
--- NOTE | 2025-07-20 15:28 | DVHOP ---
DATE OF SURGERY: 07/20/2025 PROCEDURE TO BE PERFORMED: * Selective left and right coronary angiography. * Ventriculogram. * Right heart catheterization. * [place]-Janie reading. * Right iliac angiography. * Conscious sedation. DESCRIPTION OF PROCEDURE: The patient was prepped and draped under sterile condition. 1% Xylocaine was used to anesthetize the right groin. Using a Cook needle, the right femoral artery was engaged. With Seldinger technique, a 6-Welsh sheath was introduced in the right femoral artery. Using a 6-Welsh JL4 catheter and a 6-Welsh JR4 catheter, selective left and right coronary angiography was performed. Using a 6-Welsh pigtail catheter, a ventriculogram was done. Similarly, a 6-Welsh sheath was introduced into the right femoral vein. Using a 6-Welsh balloon-tipped thermodilutional catheter, right-sided pressure tracings were obtained. There were no complications. The patient tolerated the procedure well. RESULTS: * Left main patent. * Left anterior descending artery, mild intimal irregularity without any flow restrictive lesion. * Circumflex artery, mild intimal irregularity with unequivocal restrictive lesion. * The branches of the LAD, the diagonal, had about a 30% narrowing in the proximal segment, otherwise unremarkable. * The right coronary artery was proximally occluded with bridging collaterals from the left. * Left ventricular function shows segmental wall motion abnormality with anterior severe hypokinesis, apical hypokinesis, and anterior mild hypokinesis with an estimated EF around 25-30%. * LVEDP was 11 mmHg with a left ventricular systolic pressure of 150. * Right heart catheterization, [place]-Janie reading shows RA pressure of 5, RV pressure of 28/5, capillary wedge pressure of 10, and PA pressure of 28/10. CONCLUSION: Thus, the patient's right-sided pressures and left-sided pressures are within normal limits. The patient's infiltrate is consistent with ARDS and not congestive heart failure. Blood pressure is still elevated. We can continue to titrate on the blood pressure medications to get his blood pressure optimal control, but the patient is not in congestive heart failure at this present time, and therefore, the patient could be extubated if hemodynamically stable and if the patient's pulmonary parameters allow extubation. Jj Rodriguez MD SA/MELVIN TID: [id number] RECEIPT: [id number]
[2025-07-20] MEDS: SODIUM CHLORIDE 0.9% 1,000 ML IV SCH (15:45)
[2025-07-20] MEDS: FUROSEMIDE 40 MG/4 ML VIAL IV ONE (16:00)
--- NOTE | 2025-07-20 16:13 | DVHPNRES ---
Progress Note Date Seen: Jul 20, 2025 Resident Creating Document: DEMARCUS SINGLETON RESIDENT Medical Necessity Reason Pt with a Central, PICC or Fol: Yes The following are medically ne: Central Line, [place]ano Catheter Subjective Review of Systems This is a 84-year-old patient who presented to the ER with a chief complaint of shortness of breaths for the past 2 days. Patient reports having flu-like symptoms, mild fevers and chills for the past 2 days, says that yesterday around 3:00 p.m. he started to become more short of breaths while he was in the bed, associated with generalized weakness, productive cough with white phlegm for the past 2 days. He is also experiencing mild fever and chills. Denies any recent traveling or sick contacts. He quit smoking in 1994. On arrival to the ER, patient was afebrile, tachycardic, tachypneic 28 per minute and was put on non-rebreather and BiPAP then high-flow. WBC 19. D-dimer 0.9. Lactic 1.9, troponins 2074, 2045, 2288. Patient denies any chest pain, dizziness, palpitations at this time. Cardiology consulted for elevated troponins and shortness of breaths Past medical history: Diabetes mellitus on insulin, CKD, diastolic heart failure, CAD status post 2021 to RCA Past surgical history denies Home medications: Insulin, iron tablets, amlodipine 10, Lasix 40 mg Social history: Quit smoking and drinking 199407/15/2025: urine output improving. ECHO : .Left atrial enlargement with concentric LVH. Mild dilation of the sinuses of Valsalva. Mild aortic sclerosis. Mild mitral annular calcification. Left ventricular function is mildly to moderately diminished EF of 40% with normal RV function. There is severe mitral and tricuspid regurgitation. Right ventricular systolic pressure of 60 mmHg. This is consistent with severe pulmonary hypertension. Patient on 2.5 dobutamine drip. Patient's chest x-ray still looks congested. So Cardiology recommended keeping dobutamine drip. 07/16/2025 Currently intubated Respiratory cultures growing MRSA and Klebsiella CPAP trial in the a.m. 07/17/2025: Patient seen in ICU. patient kept on dobutamine drip 2.5. Patient not on pressors. kidney function improving. CPAP trial done today. Patient tolerated well. hypernatremia resolved. 07/18/25: Patient seen and examined at bedside, patient was on CPAP trial to the, patient is off sedation and following commands. Plan for left heart catheterization tomorrow 07/19/2025: Patient seen and examined at bedside, patient was on CPAP trial to the, patient is off sedation and following commands. Left heart catheterization was postponed today . Plan for left heart catheterization tomorrow. 07/20/25: Patient had a left heart catheterization today by Dr. Gardner Objective vital signs Vital Sign Date Time Temp Pulse Resp B/P (MAP) Pulse Ox O2 Delivery O2 Flow Rate FiO2 07/20/25 16:00 147/60 07/20/25 15:08 74 22 100 30 07/20/25 14:35 Mechanical Ventilator+ 07/20/25 11:45 97.3 207.1 Total Intake and Output 07/19/25 07/19/25 07/20/25 15:00 23:00 07:00 Intake Total 253.808 ml 622.808 ml 789.84 ml Output Total 950 ml 1000 ml Balance 253.808 ml -327.192 ml -210.16 ml medications Current Medications Medications Dose Ordered Sig/Cherise Route Start Time Stop Time Status Last Admin Dose Admin Fentanyl Citrate 250 ml @ 2.5 mls/hr Q24H IV 07/11/25 15:00 07/19/25 21:31 7.5 MLS/HR Diagnostic Test (Pha) 1 strip Q6HR 07/12/25 00:00 07/20/25 12:21 1 STRIP Dextrose 50 ml UD PRN IV 07/11/25 19:00 Pantoprazole Sodium 40 mg DAILY IV 07/12/25 10:00 07/20/25 10:38 40 MG Enteral Nutritional Formula 1,000 ml 30ML/HR GT 07/11/25 21:00 Docusate Sodium 100 mg BID GT 07/11/25 22:00 07/19/25 21:31 100 MG Doxycycline Hyclate 100 ml @ 50 mls/hr Q12H IV 07/12/25 17:00 07/20/25 05:58 50 MLS/HR Cefepime HCl 50 ml @ 12.5 mls/hr BID IV 07/12/25 22:00 07/20/25 10:39 12.5 MLS/HR Insulin Human Regular Q6HR SC 07/13/25 00:00 07/20/25 06:20 2 UNITS Clopidogrel Bisulfate 75 mg DAILY NG 07/15/25 10:00 07/20/25 10:38 75 MG Aspirin 81 mg DAILY NG 07/15/25 10:00 07/20/25 10:38 81 MG Dobutamine HCl/ Dextrose 250 ml @ 11.28 mls/ hr [id number] IV 07/14/25 11:45 07/19/25 23:49 11.28 MLS/HR Purified Water 150 ml Q6HR GT 07/18/25 18:00 07/20/25 06:00 150 ML Propofol 100 ml @ 2.232 mls/ hr Q24H IV 07/18/25 17:30 07/20/25 13:26 11.16 MLS/HR Lactulose 30 ml DAILY PO 07/21/25 10:00 Sodium Chloride 1,000 ml @ 75 mls/hr [id number] IV 07/20/25 14:30 07/20/25 20:29 Examination Patient lying in bed, under sedoanalgesia due to mechanical ventilation General: RASS -3, afebrile, mucosae are moist Cardiovascular: Normal S1 and S2. No murmurs, gallops or rubs Respiratory: Mechanically assisted ventilation, equal bilateral airway entree. Clear lung sounds on auscultation Abdomen: Soft, nontender, no organomegaly, normal bowel sounds MSK/skin: Mobilization of limbs cannot be evaluated. Skin is dry and warm Neurological: Orientation cannot be assessed. No apparent motor no sensitive deficits. Pupils are isocoric and reactive. laboratory and microbiology Laboratory Tests 07/20/25 03:34 Test 07/20/25 03:34 Range/Units Serum Glucose 154 H 74-106 mg/dL Microbiology Date/Time Source Procedure Growth Status 07/11/25 14:45 Sputum Gram Stain - Final Complete 07/11/25 14:45 Respiratory Culture - Final Staphylococcus aureus Klebsiella ozaenae Complete 07/10/25 18:45 Urine - [place] Urine Culture - Final Complete 07/10/25 01:46 Nose MRSA Screen - Final Methicillin Resistant S.aureus Complete 07/09/25 05:40 Blood Blood Culture - Final NO GROWTH AFTER 5 DAYS OF INCUBATION. Complete Problem List/Assessment/Plan Problem List/Assessment/Plan Neurology # Sedation Fentanyl and Propofol # ALOC ?Cardiac encephalopathy -likely because of forward pump failure -patient is currently sedated and intubated Cardiology # NSTEMI type 2 likely, # Ruled out NSTEMI type 1 - elevated trops -patient underwent left heart catheterization by Dr. Gardner today, 07/20/25 - negative for atherosclerotic disease, - left heart catheterization shows: Left ventricular function shows segmental wall motion abnormality with anterior severe hypokinesis, apical hypokinesis, and anterior mild hypokinesis with an estimated EF around 25-30%. patient's right-sided pressures and left-sided pressures are within normal limits. ECHO : Left atrial enlargement with concentric LVH. Mild dilation of the sinuses of Valsalva. Mild aortic sclerosis. Mild mitral annular calcification. Left ventricular function is mildly to moderately diminished EF of 40% with normal RV function. There is severe mitral and tricuspid regurgitation. Right ventricular systolic pressure of 60 mmHg. This is consistent with severe pulmonary hypertension. # mild MR, mild TR # acute HFrEF exacerbation -currently on dobutamine drip 2.5mcg/kg/min started by the contract modeler - Dr. Gardner, cardiology on board. - IV lasix 60mg BID decreased to 40mg IV daily for worsening kidney function # elevated D-dimer likely because of sepsis CHF exacerbation -lower extremity ultrasound: No DVT # hypertension, currently in shock Hold antihypertensives # hyperlipidemia on statins # paroxysmal AFib, currently sinus rhythm. Likely because of CHF exacerbation # Known CAD status post 2021 to RCA -hold aspirin and Plavix because of gross hematuria Plan to restart Plavix Respiratory # Acute hypoxic respiratory failure likely due to acute HFrEF exacerbation and ARDS # ARDS - resolving Currently on mechanical ventilator Intubated 07/11/2025 # Gram-positive/negative community-acquired pneumonia -currently on antibiotics, # bilateral pleural effusion due to CHF exacerbation -continue diuresis # ?COPD, not in exacerbation Currently on mechanical ventilator # history of previous smoking # Genitourinary # CAMERON on CKD, improving Monitor Renal function Renal ultrasound # Hypernatremia, resolved -free water given 1/2 NS once given by nephrology Infectious disease # sepsis likely due to pneumonia IV antibiotics Cultures # MRSA nares positive Mupirocin GI # Mild transaminitis likely due to hepatic congestion -continue diuresis # bowel regimen -currently on Colace Endocrinology # diabetes mellitus type 2 Sliding scale insulin Rheumatology # Gout We will resume allopurinol on discharge # BPH Hold tamsulosin # gross hematuria -hold antiplatelet agents and bladder irrigation Hematology oncology # anemia, likely anemia of chronic disease - Monitor # thrombocytopenia likely due to sepsis - monitor CBC # GI prophylaxis: IV Protonix 40 mg daily # DVT prophylaxis -heparin on hold currently because of gross hematuria SCDs Lines Right IJ line CBC placed on 07/11/2025 Toscano's catheter placed on 07/11/25 CPAP trial tomorrow morning Critical Care time spent 63 minutes including patient care, chart review and updating family, excluding procedure. Case discussion with Dr. Marlow Plan discussed with: Son My Orders My Orders Orders - DEMARCUS SINGLETON RESIDENT Procedure Category Date Status Time Chest Xray 1 View XY 07/20/25 Resulted 04:00 Abg W/ Co-Ox RT 07/20/25 Logged 04:00 Lactulose Oral PHA 07/21/25 In Process 10:00 Complete Blood Count LAB 07/21/25 Verified 04:00 Comprehensive LAB 07/21/25 Verified Metabolic Panel 04:00 Chest Xray 1 View XY 07/21/25 Verified 04:00 Abg W/ Co-Ox RT 07/21/25 Verified 04:00 Dietary Evaluation Review Comments: Nutrition Recommendation: 1) EN Glucerna 1.2 @ 60ml/hr x 24hr (goal). TF at goal volume provides 1728 kcal (100%), 86 gm protein (100%), and 1159 ml free water. 2) Consider TPN/PN if NPO>7 days 3) Monitor NPO status, lab values, weight trend, and I/O Expected Outcomes/Goals: Intake to meet >75% estimated needs Lab values to improve FU 2-3 days Date of Service: Jul 20, 2025 Billing Provider: CELINE MARLOW MD Common Visit Codes: [id number] CARE 30-74 MIN DEMARCUS SINGLETON RESIDENT Jul 20, 2025 16:13 CELINE MARLOW MD Jul 21, 2025 11:23
[2025-07-20] MEDS: Glucerna 1.2 Cal 1Liter BOTTLE GT SCH (17:07)
[2025-07-20] MEDS: fentaNYL Drip 2500mCg/250mlNS 250 ML IV SCH (22:26)
[2025-07-21] VITALS (105 sets, daily range): BP systolic 108–166; BP diastolic 46–97; PULSE 65–108; RESP 10–24; TEMP 86.5–99.3; O2SAT 95–100
[2025-07-21 04:01] LABS: Hematocrit 28.8 % (41.0-53.0); Hemoglobin 9.8 g/dL (13.5-17.5); Mean Corpuscular Hemoglobin 31.9 pg (28.0-32.0); Mean Corpuscular Volume 93.6 fL (80.0-100.0); Nucleated Red Blood Cells % 0.0 %
[2025-07-21 04:17] LABS: Alanine Aminotransferase 22 U/L (7-40); Alkaline Phosphatase 61 U/L (46-116); BUN/Creatinine Ratio 27.5 (10.0-20.0); Bilirubin, Total 0.4 mg/dL (0.2-1.0); Potassium 3.8 mmol/L (3.5-5.1); Total Protein 6.0 g/dL (5.7-8.2)
[2025-07-21 04:37] LABS: Albumin 3.2 g/dL (3.2-4.8); Blood Urea Nitrogen 68 mg/dL (9-23); Calcium 8.2 mg/dL (8.7-10.4); Chloride 111 mmol/L (98-107); Glucose 134 mg/dL (74-106); Sodium 147 mmol/L (136-145)
[2025-07-21 04:45] LABS: Anion Gap 12 (5-15); Carbon Dioxide 24 mmol/L (20-31)
--- NOTE | 2025-07-21 05:43 | DVH ---
CHEST RADIOGRAPH Indication: Intubation Technique: Single frontal view of the chest was obtained Comparison: XY CHEST XRAY 1 VIEW on DOS: 07/20/25 FINDINGS: Lines and Tubes: The endotracheal tube terminates 3.2 cm above the terry. There is a right central venous catheter with the tip terminating in the superior vena cava. The enteric tube courses below the left hemidiaphragm and the tip extends outside the field of view. Lungs: Patient rotation limits evaluation. Right upper and lower lung zone interstitial prominence noted. Pleura: No effusion. No pneumothorax. Cardiomediastinal contours: Unremarkable Bones: No acute osseous abnormality. IMPRESSION: 1. Appropriate position of the support lines and tubes. 2. Patient rotation limits evaluation. 3. Right upper and lower lung zone interstitial prominence.
[2025-07-21 06:59] LABS: Base Excess -3.2 mmol/L (-2.0-3.0)
--- NOTE | 2025-07-21 07:12 | DVHPN2 ---
Progress Note - Dictate Date Seen: Jul 21, 2025 Medical Necessity Reason Pt with a Central, PICC or Fol: Yes The following are medically ne: Central Line, [place]oscano Catheter Subjective PT WITH MYALGIA ARTHALGIA FEVER LEUKOCYTOSIS WITH LEFT SHIFT NOW WITH ELEVATED BNP ELEVATED TROPONIN CKD RENAL FAILURE INSUFF HX OF CAD S/P PTCA STENT IN 2021 ECHO LVH EF 50% vital signs Vital Sign Date Time Temp Pulse Resp B/P (MAP) Pulse Ox O2 Delivery O2 Flow Rate FiO2 07/21/25 06:45 99.0 85 21 159/68 (98) 100 210.2 07/21/25 06:00 30 07/21/25 06:00 Mechanical Ventilator+ Total Intake and Output 07/20/25 07/20/25 07/21/25 15:00 23:00 07:00 Intake Total 304.08 ml 1054.98 ml 411.368 ml Output Total 1150 ml 1100 ml Balance 304.08 ml -95.02 ml -688.632 ml medications Current Medications Medications Dose Ordered Sig/Cherise Route Start Time Stop Time Status Last Admin Dose Admin Diagnostic Test (Pha) 1 strip Q6HR 07/12/25 00:00 07/21/25 05:55 1 STRIP Dextrose 50 ml UD PRN IV 07/11/25 19:00 Pantoprazole Sodium 40 mg DAILY IV 07/12/25 10:00 07/20/25 10:38 40 MG Enteral Nutritional Formula 1,000 ml 30ML/HR GT 07/11/25 21:00 07/20/25 17:07 1,000 ML Docusate Sodium 100 mg BID GT 07/11/25 22:00 07/20/25 22:23 100 MG Doxycycline Hyclate 100 ml @ 50 mls/hr Q12H IV 07/12/25 17:00 07/21/25 05:31 50 MLS/HR Cefepime HCl 50 ml @ 12.5 mls/hr BID IV 07/12/25 22:00 07/20/25 22:23 12.5 MLS/HR Insulin Human Regular Q6HR SC 07/13/25 00:00 07/21/25 05:54 2 UNITS Clopidogrel Bisulfate 75 mg DAILY NG 07/15/25 10:00 07/20/25 10:38 75 MG Aspirin 81 mg DAILY NG 07/15/25 10:00 07/20/25 10:38 81 MG Dobutamine HCl/ Dextrose 250 ml @ 11.28 mls/ hr [id number] IV 07/14/25 11:45 07/21/25 01:15 11.28 MLS/HR Purified Water 150 ml Q6HR GT 07/18/25 18:00 07/21/25 05:32 150 ML Propofol 100 ml @ 2.232 mls/ hr Q24H IV 07/18/25 17:30 07/21/25 01:15 6.696 MLS/HR Lactulose 30 ml DAILY PO 07/21/25 10:00 Fentanyl Citrate 250 ml @ 2.5 mls/hr Q24H IV 07/20/25 18:45 07/20/25 22:26 10 MLS/HR laboratory and microbiology Laboratory Tests 07/21/25 03:15 Test 07/21/25 03:15 Range/Units Serum Glucose 134 H 74-106 mg/dL Problem List MYALGIA ARTHALGIA FEVER LEUKOCYTOSIS WITH LEFT SHIFT NOW WITH ELEVATED BNP ELEVATED TROPONIN CKD RENAL FAILURE INSUFF HX OF CAD S/P PTCA STENT IN 2021 ECHO LVH EF 35% METABOLIC GAP ACIDOSIS SEVERE VOLUMEoverload Assessment/Plan IV FLUID ABX NO CARDIAC INTERVENTION AT THIS TIME ELEVATED CARDIAC PARAMETERS SECONDARY TO METABOLIC INSTABILITY EF 35% MILD TR MILD MR cxr CONSISTENT WITH ARDS IF CLINICALLY INDICATED CONSIDER RHC CXR BILATERAL INFILTRATE R>L CONSIDER CT OF CHEST SIGNIFICANT IMPROVEMENT IN CHEST CXR DISCUSSED WITH REMA SEYMOUR ABOUT L/RHC HE IS AGREEABLE WILL RESCHEDULE FOR 07/20/25 MAY EXTUBATE PT L/RHC TODAY HEMODYNAMICALLY PT CURRENTLY NOT DECOMPENSATED PWCP 10 LVEDP 10 EXTUBATE Dietary Evaluation Review Comments: Nutrition Recommendation: 1) EN Glucerna 1.2 @ 60ml/hr x 24hr (goal). TF at goal volume provides 1728 kcal (100%), 86 gm protein (100%), and 1159 ml free water. 2) Consider TPN/PN if NPO>7 days 3) Monitor NPO status, lab values, weight trend, and I/O Expected Outcomes/Goals: Intake to meet >75% estimated needs Lab values to improve FU 2-3 days Plan discussed with: Patient, Son Critical Care Time(min): 35 LIMA BRUCE MD Jul 21, 2025 07:12
[2025-07-21] MEDS: LACTULOSE 20Gm/30ML SOLN PO SCH (10:02)
[2025-07-21 10:36] LABS: Base Excess -2.5 mmol/L (-2.0-3.0)
--- NOTE | 2025-07-21 11:39 | DVHPN2 ---
Progress Note Date Seen: Jul 21, 2025 Resident Creating Document: ALYSE DONALD RESIDENT Medical Necessity Reason Pt with a Central, PICC or Fol: Yes The following are medically ne: Central Line, [place]ano Catheter Subjective Review of Systems Patient seen and examined at the bedside. Unable to obtain ROS due to patient's clinical status currently on mechanical ventilation. Objective vital signs Vital Sign Date Time Temp Pulse Resp B/P (MAP) Pulse Ox O2 Delivery O2 Flow Rate FiO2 07/21/25 11:17 98 12 148/72 (97) 100 30 07/21/25 10:15 99.1 210.4 07/21/25 10:08 Mechanical Ventilator+ Total Intake and Output 07/20/25 07/20/25 07/21/25 15:00 23:00 07:00 Intake Total 304.08 ml 1054.98 ml 427.112 ml Output Total 1150 ml 1100 ml Balance 304.08 ml -95.02 ml -672.888 ml medications Current Medications Medications Dose Ordered Sig/Cherise Route Start Time Stop Time Status Last Admin Dose Admin Diagnostic Test (Pha) 1 strip Q6HR 07/12/25 00:00 07/21/25 05:55 1 STRIP Dextrose 50 ml UD PRN IV 07/11/25 19:00 Pantoprazole Sodium 40 mg DAILY IV 07/12/25 10:00 07/21/25 10:02 40 MG Enteral Nutritional Formula 1,000 ml 30ML/HR GT 07/11/25 21:00 07/20/25 17:07 1,000 ML Docusate Sodium 100 mg BID GT 07/11/25 22:00 07/21/25 10:02 100 MG Doxycycline Hyclate 100 ml @ 50 mls/hr Q12H IV 07/12/25 17:00 07/21/25 05:31 50 MLS/HR Cefepime HCl 50 ml @ 12.5 mls/hr BID IV 07/12/25 22:00 07/21/25 10:02 12.5 MLS/HR Insulin Human Regular Q6HR SC 07/13/25 00:00 07/21/25 05:54 2 UNITS Clopidogrel Bisulfate 75 mg DAILY NG 07/15/25 10:00 07/21/25 10:03 75 MG Aspirin 81 mg DAILY NG 07/15/25 10:00 07/21/25 10:03 81 MG Dobutamine HCl/ Dextrose 250 ml @ 11.28 mls/ hr [id number] IV 07/14/25 11:45 07/21/25 01:15 11.28 MLS/HR Purified Water 150 ml Q6HR GT 07/18/25 18:00 07/21/25 05:32 150 ML Propofol 100 ml @ 2.232 mls/ hr Q24H IV 07/18/25 17:30 07/21/25 01:15 6.696 MLS/HR Lactulose 30 ml DAILY PO 07/21/25 10:00 07/21/25 10:02 30 ML Fentanyl Citrate 250 ml @ 2.5 mls/hr Q24H IV 07/20/25 18:45 07/20/25 22:26 10 MLS/HR Examination Pt is lying on bed General Appearance: Mildly sedated, intubated RASS -1 HEENT: Atraumatic, Mucous membranes moist/pink Respiratory: Clear to auscultation, Normal air movement, bilateral crackles Cardiovascular: Regular rate, Normal S1, Normal S2, No murmurs Abdominal: Active bowel sounds, Soft, no distention, no tenderness Extremities: No edema, Normal pulses, No tenderness/swelling Skin: No Significant rash, except past surgical scars Neuro: Pupillary and gag reflexes intact Nurse was there as ruby rails developer during examination laboratory and microbiology Laboratory Tests 07/21/25 03:15 Test 07/21/25 03:15 Range/Units Serum Glucose 134 H 74-106 mg/dL Microbiology Date/Time Source Procedure Growth Status 07/11/25 14:45 Sputum Gram Stain - Final Complete 07/11/25 14:45 Respiratory Culture - Final Staphylococcus aureus Klebsiella ozaenae Complete 07/10/25 18:45 Urine - [place] Urine Culture - Final Complete 07/10/25 01:46 Nose MRSA Screen - Final Methicillin Resistant S.aureus Complete 07/09/25 05:40 Blood Blood Culture - Final NO GROWTH AFTER 5 DAYS OF INCUBATION. Complete Labs and/or images reviewed: Labs reviewed by me, Image(s) reviewed by me Problem List/Assessment/Plan Problem List/Assessment/Plan Acute kidney injury hemodynamic mediated etiology unknown baseline renal function Acute hypoxic respiratory failure needing intubation Severe sepsis Possible underlying Chronic kidney disease four Congestive heart failure preserved ejection fraction hypernatremia Recommendations Monitor lab Lasix 20 mg daily Strict I&Os Assess fluid status daily will follow Patient is high risk for contrast induced nephropathy, so post catheterization the patient received 250 mL bolus followed by Lasix 40 mg IV push followed by NS 75 mL/hour for 6 hours Rest of management as per primary team Case discussed with Dr. Davenport Plan discussed with: Other (Family and RN) Dietary Evaluation Review Comments: Nutrition Recommendation: 1) EN Glucerna 1.2 @ 60ml/hr x 24hr (goal). TF at goal volume provides 1728 kcal (100%), 86 gm protein (100%), and 1159 ml free water. 2) Consider TPN/PN if NPO>7 days 3) Monitor NPO status, lab values, weight trend, and I/O Expected Outcomes/Goals: Intake to meet >75% estimated needs Lab values to improve FU 2-3 days ALYSE DONALD RESIDENT Jul 21, 2025 11:39
--- NOTE | 2025-07-21 15:48 | DVHPNRES ---
Progress Note Date Seen: Jul 21, 2025 Resident Creating Document: DEMARCUS SINGLETON RESIDENT Medical Necessity Reason Pt with a Central, PICC or Fol: Yes The following are medically ne: Central Line, Toscano Catheter Subjective Review of Systems This is a 84-year-old patient who presented to the ER with a chief complaint of shortness of breaths for the past 2 days. Patient reports having flu-like symptoms, mild fevers and chills for the past 2 days, says that yesterday around 3:00 p.m. he started to become more short of breaths while he was in the bed, associated with generalized weakness, productive cough with white phlegm for the past 2 days. He is also experiencing mild fever and chills. Denies any recent traveling or sick contacts. He quit smoking in 1994. On arrival to the ER, patient was afebrile, tachycardic, tachypneic 28 per minute and was put on non-rebreather and BiPAP then high-flow. WBC 19. D-dimer 0.9. Lactic 1.9, troponins 2074, 2045, 2288. Patient denies any chest pain, dizziness, palpitations at this time. Cardiology consulted for elevated troponins and shortness of breaths Past medical history: Diabetes mellitus on insulin, CKD, diastolic heart failure, CAD status post 2021 to RCA Past surgical history denies Home medications: Insulin, iron tablets, amlodipine 10, Lasix 40 mg Social history: Quit smoking and drinking 199407/15/2025: urine output improving. ECHO : .Left atrial enlargement with concentric LVH. Mild dilation of the sinuses of Valsalva. Mild aortic sclerosis. Mild mitral annular calcification. Left ventricular function is mildly to moderately diminished EF of 40% with normal RV function. There is severe mitral and tricuspid regurgitation. Right ventricular systolic pressure of 60 mmHg. This is consistent with severe pulmonary hypertension. Patient on 2.5 dobutamine drip. Patient's chest x-ray still looks congested. So Cardiology recommended keeping dobutamine drip. 07/16/2025 Currently intubated Respiratory cultures growing MRSA and Klebsiella CPAP trial in the a.m. 07/17/2025: Patient seen in ICU. patient kept on dobutamine drip 2.5. Patient not on pressors. kidney function improving. CPAP trial done today. Patient tolerated well. hypernatremia resolved. 07/18/25: Patient seen and examined at bedside, patient was on CPAP trial to the, patient is off sedation and following commands. Plan for left heart catheterization tomorrow 07/19/2025: Patient seen and examined at bedside, patient was on CPAP trial to the, patient is off sedation and following commands. Left heart catheterization was postponed today . Plan for left heart catheterization tomorrow. 07/20/25: Patient had a left heart catheterization today by Dr. Gardner 07/21/25: Patient seen and examined at bedside, patient was extubated today, patient is on 2 L supplemental oxygen. Objective vital signs Vital Sign Date Time Temp Pulse Resp B/P (MAP) Pulse Ox O2 Delivery O2 Flow Rate FiO2 07/21/25 14:07 98 Nasal Cannula 2.0 07/21/25 14:07 28 07/21/25 12:00 99 07/21/25 11:17 12 07/21/25 11:17 148/72 (97) 07/21/25 10:15 99.1 210.4 Total Intake and Output 07/20/25 07/20/25 07/21/25 15:00 23:00 07:00 Intake Total 304.08 ml 1054.98 ml 427.112 ml Output Total 1150 ml 1100 ml Balance 304.08 ml -95.02 ml -672.888 ml medications Current Medications Medications Dose Ordered Sig/Cherise Route Start Time Stop Time Status Last Admin Dose Admin Diagnostic Test (Pha) 1 strip Q6HR 07/12/25 00:00 07/21/25 12:05 1 STRIP Dextrose 50 ml UD PRN IV 07/11/25 19:00 Pantoprazole Sodium 40 mg DAILY IV 07/12/25 10:00 07/21/25 10:02 40 MG Enteral Nutritional Formula 1,000 ml 30ML/HR GT 07/11/25 21:00 07/20/25 17:07 1,000 ML Docusate Sodium 100 mg BID GT 07/11/25 22:00 07/21/25 10:02 100 MG Doxycycline Hyclate 100 ml @ 50 mls/hr Q12H IV 07/12/25 17:00 07/21/25 05:31 50 MLS/HR Cefepime HCl 50 ml @ 12.5 mls/hr BID IV 07/12/25 22:00 07/21/25 10:02 12.5 MLS/HR Insulin Human Regular Q6HR SC 07/13/25 00:00 07/21/25 12:06 2 UNITS Clopidogrel Bisulfate 75 mg DAILY NG 07/15/25 10:00 07/21/25 10:03 75 MG Aspirin 81 mg DAILY NG 07/15/25 10:00 07/21/25 10:03 81 MG Dobutamine HCl/ Dextrose 250 ml @ 11.28 mls/ hr [id number] IV 07/14/25 11:45 07/21/25 01:15 11.28 MLS/HR Purified Water 150 ml Q6HR GT 07/18/25 18:00 07/21/25 05:32 150 ML Propofol 100 ml @ 2.232 mls/ hr Q24H IV 07/18/25 17:30 07/21/25 01:15 6.696 MLS/HR Lactulose 30 ml DAILY PO 07/21/25 10:00 07/21/25 10:02 30 ML Fentanyl Citrate 250 ml @ 2.5 mls/hr Q24H IV 07/20/25 18:45 07/20/25 22:26 10 MLS/HR Examination Patient lying in bed, under sedoanalgesia due to mechanical ventilation General: RASS -1, afebrile, mucosae are moist Cardiovascular: Normal S1 and S2. No murmurs, gallops or rubs Respiratory: Patient was extubated today and on 2 L supplemental oxygen Abdomen: Soft, nontender, no organomegaly, normal bowel sounds MSK/skin: Mobilization of limbs cannot be evaluated. Skin is dry and warm Neurological: Patient is oriented, patient is following, laboratory and microbiology Laboratory Tests 07/21/25 03:15 Test 07/21/25 03:15 Range/Units Serum Glucose 134 H 74-106 mg/dL Microbiology Date/Time Source Procedure Growth Status 07/11/25 14:45 Sputum Gram Stain - Final Complete 07/11/25 14:45 Respiratory Culture - Final Staphylococcus aureus Klebsiella ozaenae Complete 07/10/25 18:45 Urine - [place] Urine Culture - Final Complete 07/10/25 01:46 Nose MRSA Screen - Final Methicillin Resistant S.aureus Complete 07/09/25 05:40 Blood Blood Culture - Final NO GROWTH AFTER 5 DAYS OF INCUBATION. Complete Problem List/Assessment/Plan Problem List/Assessment/Plan Neurology # Sedation Fentanyl and Propofol # ALOC ?Cardiac encephalopathy -likely because of forward pump failure -patient is currently sedated and intubated Cardiology # NSTEMI type 2 likely, # Ruled out NSTEMI type 1 - elevated trops -patient underwent left heart catheterization by Dr. Gardner today, 07/20/25 - negative for atherosclerotic disease, - left heart catheterization shows: Left ventricular function shows segmental wall motion abnormality with anterior severe hypokinesis, apical hypokinesis, and anterior mild hypokinesis with an estimated EF around 25-30%. patient's right-sided pressures and left-sided pressures are within normal limits. ECHO : Left atrial enlargement with concentric LVH. Mild dilation of the sinuses of Valsalva. Mild aortic sclerosis. Mild mitral annular calcification. Left ventricular function is mildly to moderately diminished EF of 40% with normal RV function. There is severe mitral and tricuspid regurgitation. Right ventricular systolic pressure of 60 mmHg. This is consistent with severe pulmonary hypertension. # mild MR, mild TR # acute HFrEF exacerbation -currently on dobutamine drip 2.5mcg/kg/min started by the casino games dealer - Dr. Gardner, cardiology on board. - IV lasix 40mg IV daily. # elevated D-dimer likely because of sepsis CHF exacerbation -lower extremity ultrasound: No DVT # hypertension, currently in shock Hold antihypertensives # hyperlipidemia on statins # paroxysmal AFib, currently sinus rhythm. Likely because of CHF exacerbation # Known CAD status post 1 ANICETO 2021 to RCA -hold aspirin and Plavix because of gross hematuria Plan to restart Plavix Respiratory # Acute hypoxic respiratory failure likely due to acute HFrEF exacerbation and ARDS # ARDS - resolving Currently on mechanical ventilator Intubated 07/11/2025 patient was extubated today, patient is on 2 L supplemental oxygen. # Gram-positive/negative community-acquired pneumonia -currently on antibiotics, # bilateral pleural effusion due to CHF exacerbation -continue diuresis # ?COPD, not in exacerbation Currently on mechanical ventilator # history of previous smoking # Genitourinary # CAMERON on CKD, improving Monitor Renal function Renal ultrasound # Hypernatremia, resolved -free water given 1/2 NS once given by nephrology Infectious disease # sepsis likely due to pneumonia IV antibiotics Cultures # MRSA nares positive Mupirocin GI # Mild transaminitis likely due to hepatic congestion -continue diuresis # bowel regimen -currently on Colace Endocrinology # diabetes mellitus type 2 Sliding scale insulin Rheumatology # Gout We will resume allopurinol on discharge # BPH Hold tamsulosin # gross hematuria -hold antiplatelet agents and bladder irrigation Hematology oncology # anemia, likely anemia of chronic disease - Monitor # thrombocytopenia likely due to sepsis - monitor CBC # GI prophylaxis: IV Protonix 40 mg daily # DVT prophylaxis -heparin on hold currently because of gross hematuria SCDs Lines Right IJ line CBC placed on 07/11/2025 Toscano's catheter placed on 07/11/25 patient was extubated today, patient is on 2 L supplemental oxygen. Critical Care time spent 104 minutes including CPAP trial, extubation, patient care, chart review and updating family, excluding procedure. Case discussion with Dr. Marlow Plan discussed with: Patient, Son My Orders My Orders Orders - DEMARCUS SINGLETON Procedure Category Date Status Time Chest Xray 1 View XY 07/21/25 Resulted 04:00 Abg W/ Co-Ox RT 07/21/25 Logged 04:00 Abg W/ Co-Ox RT 07/21/25 Logged 10:30 Complete Blood Count LAB 07/22/25 Verified 04:00 Comprehensive LAB 07/22/25 Verified Metabolic Panel 04:00 Dietary Evaluation Review Comments: Nutrition Recommendation: 1) EN Glucerna 1.2 @ 60ml/hr x 24hr (goal). TF at goal volume provides 1728 kcal (100%), 86 gm protein (100%), and 1159 ml free water. 2) Consider TPN/PN if NPO>7 days 3) Monitor NPO status, lab values, weight trend, and I/O Expected Outcomes/Goals: Intake to meet >75% estimated needs Lab values to improve FU 2-3 days Date of Service: Jul 21, 2025 Billing Provider: CELINE MARLOW MD Common Visit Codes: 32016-[id number] CARE 30-74 MIN, [id number] CARE-EACH +30MIN DEMARCUS SINGLETON Jul 21, 2025 15:48 CELINE MARLOW MD Jul 23, 2025 12:39
[2025-07-21] MEDS: ONDANSETRON HCL 4 MG/2 ML VIAL ONE (16:11)
[2025-07-21] MEDS: ONDANSETRON HCL 4 MG/2 ML VIAL IV PRN (16:22)
[2025-07-22] VITALS (80 sets, daily range): BP systolic 106–170; BP diastolic 52–82; PULSE 78–101; RESP 8–20; TEMP 97.8–98.9; O2SAT 96–100
[2025-07-22 03:21] LABS: Hematocrit 29.4 % (41.0-53.0); Hemoglobin 9.8 g/dL (13.5-17.5); Mean Corpuscular Hemoglobin 31.4 pg (28.0-32.0); Mean Corpuscular Volume 94.7 fL (80.0-100.0); Nucleated Red Blood Cells % 0.1 %
[2025-07-22 03:25] LABS: Alanine Aminotransferase 26 U/L (7-40); Albumin 3.5 g/dL (3.2-4.8); Alkaline Phosphatase 67 U/L (46-116); Anion Gap 15 (5-15); BUN/Creatinine Ratio 26.9 (10.0-20.0); Bilirubin, Total 0.7 mg/dL (0.2-1.0); Calcium 8.9 mg/dL (8.7-10.4); Carbon Dioxide 23 mmol/L (20-31); Potassium 3.8 mmol/L (3.5-5.1); Total Protein 6.6 g/dL (5.7-8.2)
[2025-07-22 03:37] LABS: Blood Urea Nitrogen 59 mg/dL (9-23); Chloride 113 mmol/L (98-107); Glucose 149 mg/dL (74-106); Sodium 151 mmol/L (136-145)
--- NOTE | 2025-07-22 12:04 | DVHPN2 ---
Progress Note Date Seen: Jul 22, 2025 Resident Creating Document: ALYSE DONALD RESIDENT Medical Necessity Reason Pt with a Central, PICC or Fol: Yes The following are medically ne: Central Line, [place]ano Catheter Subjective Review of Systems Patient seen and examined at the bedside. Patient is currently extubated and on 1 L NC. Continue monitoring. Objective vital signs Vital Sign Date Time Temp Pulse Resp B/P (MAP) Pulse Ox O2 Delivery O2 Flow Rate FiO2 07/22/25 06:45 95 15 149/63 (91) 100 07/22/25 06:00 Nasal Cannula* 2 28 07/22/25 04:00 98.9 98.9 Total Intake and Output 07/21/25 07/21/25 07/22/25 14:59 22:59 06:59 Intake Total 148.460 ml 330.24 ml 540.24 ml Output Total 0 ml 1450 ml 1350 ml Balance 148.460 ml -1119.76 ml -809.76 ml medications Current Medications Medications Dose Ordered Sig/Cherise Route Start Time Stop Time Status Last Admin Dose Admin Diagnostic Test (Pha) 1 strip Q6HR 07/12/25 00:00 07/22/25 11:35 1 STRIP Dextrose 50 ml UD PRN IV 07/11/25 19:00 Pantoprazole Sodium 40 mg DAILY IV 07/12/25 10:00 07/22/25 10:17 40 MG Enteral Nutritional Formula 1,000 ml 30ML/HR GT 07/11/25 21:00 07/20/25 17:07 1,000 ML Docusate Sodium 100 mg BID GT 07/11/25 22:00 07/21/25 10:02 100 MG Doxycycline Hyclate 100 ml @ 50 mls/hr Q12H IV 07/12/25 17:00 07/22/25 04:42 50 MLS/HR Cefepime HCl 50 ml @ 12.5 mls/hr BID IV 07/12/25 22:00 07/22/25 10:07 12.5 MLS/HR Insulin Human Regular Q6HR SC 07/13/25 00:00 07/22/25 05:29 2 UNITS Clopidogrel Bisulfate 75 mg DAILY NG 07/15/25 10:00 07/22/25 10:05 75 MG Aspirin 81 mg DAILY NG 07/15/25 10:00 07/22/25 10:05 81 MG Dobutamine HCl/ Dextrose 250 ml @ 11.28 mls/ hr [id number] IV 07/14/25 11:45 07/21/25 22:04 11.28 MLS/HR Purified Water 150 ml Q6HR GT 07/18/25 18:00 07/22/25 05:30 150 ML Lactulose 30 ml DAILY PO 07/21/25 10:00 07/21/25 10:02 30 ML Ondansetron HCl 4 mg Q6HPRN PRN IV 07/21/25 16:00 07/21/25 16:22 4 MG Amlodipine Besylate 10 mg DAILY PO 07/23/25 10:00 Examination Pt is lying on bed General Appearance: Alert, oriented, extubated HEENT: Atraumatic, Mucous membranes moist/pink Respiratory: Clear to auscultation, Normal air movement, bilateral crackles Cardiovascular: Regular rate, Normal S1, Normal S2, No murmurs Abdominal: Active bowel sounds, Soft, no distention, no tenderness Extremities: No edema, Normal pulses, No tenderness/swelling Skin: No Significant rash, except past surgical scars Neuro: No sensory motor deficits Nurse was there as flow match sofa cutter during examination laboratory and microbiology Laboratory Tests 07/22/25 02:32 Test 07/22/25 02:32 Range/Units Serum Glucose 149 H 74-106 mg/dL Microbiology Date/Time Source Procedure Growth Status 07/11/25 14:45 Sputum Gram Stain - Final Complete 07/11/25 14:45 Respiratory Culture - Final Staphylococcus aureus Klebsiella ozaenae Complete 07/10/25 18:45 Urine - [place] Urine Culture - Final Complete 07/10/25 01:46 Nose MRSA Screen - Final Methicillin Resistant S.aureus Complete 07/09/25 05:40 Blood Blood Culture - Final NO GROWTH AFTER 5 DAYS OF INCUBATION. Complete Labs and/or images reviewed: Labs reviewed by me, Image(s) reviewed by me Problem List/Assessment/Plan Problem List/Assessment/Plan Acute kidney injury hemodynamic mediated etiology unknown baseline renal function-improving Acute hypoxic respiratory failure needing intubation Severe sepsis Possible underlying Chronic kidney disease four Congestive heart failure preserved ejection fraction hypernatremia Recommendations Monitor lab Lasix 20 mg daily Strict I&Os Assess fluid status daily will follow Patient is high risk for contrast induced nephropathy, so post catheterization the patient received 250 mL bolus followed by Lasix 40 mg IV push followed by NS 75 mL/hour for 6 hours Rest of management as per primary team Case discussed with Dr. Haynes Plan discussed with: Patient, Other (RN) Dietary Evaluation Review Comments: Nutrition Recommendation: 1) EN Glucerna 1.2 @ 60ml/hr x 24hr (goal). TF at goal volume provides 1728 kcal (100%), 86 gm protein (100%), and 1159 ml free water. 2) Consider TPN/PN if NPO>7 days 3) Monitor NPO status, lab values, weight trend, and I/O Expected Outcomes/Goals: Intake to meet >75% estimated needs Lab values to improve FU 2-3 days ALYSE DONALD RESIDENT Jul 22, 2025 12:04
--- NOTE | 2025-07-22 15:12 | DVHPNRES ---
Progress Note Date Seen: Jul 22, 2025 Resident Creating Document: DEMARCUS SINGLETON RESIDENT Medical Necessity Reason Pt with a Central, PICC or Fol: Yes The following are medically ne: Central Line, [place] Catheter Subjective Review of Systems This is a 84-year-old patient who presented to the ER with a chief complaint of shortness of breaths for the past 2 days. Patient reports having flu-like symptoms, mild fevers and chills for the past 2 days, says that yesterday around 3:00 p.m. he started to become more short of breaths while he was in the bed, associated with generalized weakness, productive cough with white phlegm for the past 2 days. He is also experiencing mild fever and chills. Denies any recent traveling or sick contacts. He quit smoking in 1994. On arrival to the ER, patient was afebrile, tachycardic, tachypneic 28 per minute and was put on non-rebreather and BiPAP then high-flow. WBC 19. D-dimer 0.9. Lactic 1.9, troponins 2074, 2045, 2288. Patient denies any chest pain, dizziness, palpitations at this time. Cardiology consulted for elevated troponins and shortness of breaths Past medical history: Diabetes mellitus on insulin, CKD, diastolic heart failure, CAD status post 2021 to RCA Past surgical history denies Home medications: Insulin, iron tablets, amlodipine 10, Lasix 40 mg Social history: Quit smoking and drinking 199407/15/2025: urine output improving. ECHO : .Left atrial enlargement with concentric LVH. Mild dilation of the sinuses of Valsalva. Mild aortic sclerosis. Mild mitral annular calcification. Left ventricular function is mildly to moderately diminished EF of 40% with normal RV function. There is severe mitral and tricuspid regurgitation. Right ventricular systolic pressure of 60 mmHg. This is consistent with severe pulmonary hypertension. Patient on 2.5 dobutamine drip. Patient's chest x-ray still looks congested. So Cardiology recommended keeping dobutamine drip. 07/16/2025 Currently intubated Respiratory cultures growing MRSA and Klebsiella CPAP trial in the a.m. 07/17/2025: Patient seen in ICU. patient kept on dobutamine drip 2.5. Patient not on pressors. kidney function improving. CPAP trial done today. Patient tolerated well. hypernatremia resolved. 07/18/25: Patient seen and examined at bedside, patient was on CPAP trial to the, patient is off sedation and following commands. Plan for left heart catheterization tomorrow 07/19/2025: Patient seen and examined at bedside, patient was on CPAP trial to the, patient is off sedation and following commands. Left heart catheterization was postponed today . Plan for left heart catheterization tomorrow. 07/20/25: Patient had a left heart catheterization today by Dr. Gardner 07/21/25: Patient seen and examined at bedside, patient was extubated today, patient is on 2 L supplemental oxygen. 07/22/25: Seen and examined at bedside, patient is little confused, patient is on 2 L oxygen supplementation, patient is off pressors and off sedation. Downgrade patient to IZZY. Objective vital signs Vital Sign Date Time Temp Pulse Resp B/P (MAP) Pulse Ox O2 Delivery O2 Flow Rate FiO2 07/22/25 14:00 95 18 156/67 (96) 100 07/22/25 12:00 98.8 98.8 07/22/25 12:00 Nasal Cannula* 2 28 Total Intake and Output 07/21/25 07/21/25 07/22/25 15:00 23:00 07:00 Intake Total 143.996 ml 342.74 ml 527.74 ml Output Total 0 ml 1450 ml 1350 ml Balance 143.996 ml -1107.26 ml -822.26 ml medications Current Medications Medications Dose Ordered Sig/Cherise Route Start Time Stop Time Status Last Admin Dose Admin Diagnostic Test (Pha) 1 strip Q6HR 07/12/25 00:00 07/22/25 11:35 1 STRIP Dextrose 50 ml UD PRN IV 07/11/25 19:00 Pantoprazole Sodium 40 mg DAILY IV 07/12/25 10:00 07/22/25 10:17 40 MG Enteral Nutritional Formula 1,000 ml 30ML/HR GT 07/11/25 21:00 07/20/25 17:07 1,000 ML Docusate Sodium 100 mg BID GT 07/11/25 22:00 07/21/25 10:02 100 MG Doxycycline Hyclate 100 ml @ 50 mls/hr Q12H IV 07/12/25 17:00 07/22/25 04:42 50 MLS/HR Cefepime HCl 50 ml @ 12.5 mls/hr BID IV 07/12/25 22:00 07/22/25 10:07 12.5 MLS/HR Insulin Human Regular Q6HR SC 07/13/25 00:00 07/22/25 12:21 2 UNITS Clopidogrel Bisulfate 75 mg DAILY NG 07/15/25 10:00 07/22/25 10:05 75 MG Aspirin 81 mg DAILY NG 07/15/25 10:00 07/22/25 10:05 81 MG Purified Water 150 ml Q6HR GT 07/18/25 18:00 07/22/25 12:00 150 ML Lactulose 30 ml DAILY PO 07/21/25 10:00 07/21/25 10:02 30 ML Ondansetron HCl 4 mg Q6HPRN PRN IV 07/21/25 16:00 07/21/25 16:22 4 MG Amlodipine Besylate 10 mg DAILY PO 07/23/25 10:00 Examination GENERAL: Not in acute distress. HEENT: EOMI, Moist mucous membranes. No scleral icterus. No cervical lymphadenopathy. LUNGS: Clear to auscultation bilaterally. No accessory muscle use. On 2 L supplemental oxygen with nasal cannula. CARDIOVASCULAR: Regular rate and rhythm. No murmur. No JVD. ABDOMEN: Soft, nontender and nondistended. No palpable masses. EXTREMITIES: No edema. Nontender. SKIN: No rashes or lesions. Warm. NEUROLOGIC: Al patient is little confused, laboratory and microbiology Laboratory Tests 07/22/25 02:32 Test 07/22/25 02:32 Range/Units Serum Glucose 149 H 74-106 mg/dL Microbiology Date/Time Source Procedure Growth Status 07/11/25 14:45 Sputum Gram Stain - Final Complete 07/11/25 14:45 Respiratory Culture - Final Staphylococcus aureus Klebsiella ozaenae Complete 07/10/25 18:45 Urine - [place] Urine Culture - Final Complete 07/10/25 01:46 Nose MRSA Screen - Final Methicillin Resistant S.aureus Complete 07/09/25 05:40 Blood Blood Culture - Final NO GROWTH AFTER 5 DAYS OF INCUBATION. Complete Problem List/Assessment/Plan Problem List/Assessment/Plan Neurology # ALOC ?Cardiac encephalopathy -likely because of forward pump failure Cardiology # NSTEMI type 2 likely, # Ruled out NSTEMI type 1 - elevated trops -patient underwent left heart catheterization by Dr. Gardner on 07/20/25 - negative for atherosclerotic disease, - left heart catheterization shows: Left ventricular function shows segmental wall motion abnormality with anterior severe hypokinesis, apical hypokinesis, and anterior mild hypokinesis with an estimated EF around 25-30%. patient's right-sided pressures and left-sided pressures are within normal limits. ECHO : Left atrial enlargement with concentric LVH. Mild dilation of the sinuses of Valsalva. Mild aortic sclerosis. Mild mitral annular calcification. Left ventricular function is mildly to moderately diminished EF of 40% with normal RV function. There is severe mitral and tricuspid regurgitation. Right ventricular systolic pressure of 60 mmHg. This is consistent with severe pulmonary hypertension. # Mild MR, Mild TR # acute HFrEF exacerbation -currently on dobutamine drip 2.5mcg/kg/min started by the veterinary assistant - Dr. Gardner, cardiology on board. - IV lasix 40mg IV daily. # elevated D-dimer likely because of sepsis CHF exacerbation -lower extremity ultrasound: No DVT # hypertension, currently in shock Hold antihypertensives # hyperlipidemia on statins # paroxysmal AFib, currently sinus rhythm. Likely because of CHF exacerbation # Known CAD status post 1 ANICETO 2021 to RCA -hold aspirin and Plavix because of gross hematuria Plan to restart Plavix Respiratory # Acute hypoxic respiratory failure likely due to acute HFrEF exacerbation and ARDS # ARDS - resolving Currently on mechanical ventilator Intubated 07/11/2025 Patient is on IV Lasix # Gram-positive/negative community-acquired pneumonia -currently on antibiotics, # bilateral pleural effusion due to CHF exacerbation -continue diuresis # ?COPD, not in exacerbation Currently on mechanical ventilator # history of previous smoking # Genitourinary # CAMERON on CKD, improving Monitor Renal function Renal ultrasound # Hypernatremia, -free water given Infectious disease # sepsis likely due to pneumonia IV antibiotics Cultures # MRSA nares positive Mupirocin GI # Mild transaminitis likely due to hepatic congestion -continue diuresis # bowel regimen -currently on Colace Endocrinology # Diabetes mellitus type 2 Sliding scale insulin Rheumatology # Gout We will resume allopurinol on discharge # BPH Hold tamsulosin # gross hematuria -hold antiplatelet agents and bladder irrigation Hematology oncology # anemia, likely anemia of chronic disease - Monitor # thrombocytopenia likely due to sepsis - monitor CBC # GI prophylaxis: IV Protonix 40 mg daily # DVT prophylaxis -heparin on hold currently because of gross hematuria SCDs Lines Right IJ line CBC placed on 07/11/2025 Toscano's catheter placed on 07/11/25 Patient is downgraded to IZZY Critical Care time spent 47 minutes including patient care, chart review , excluding procedure. Case discussed with Dr. Tapia Plan discussed with: Patient, Son My Orders My Orders Orders - DEMARCUS SINGLETON RESIDENT Procedure Category Date Status Time Pt Request For Service PT 07/22/25 Logged 10:28 Amlodipine Tablet PHA 07/23/25 In Process (Norvasc Tablet) 10:00 Dietary Evaluation Review Comments: Nutrition Recommendation: 1) EN Glucerna 1.2 @ 60ml/hr x 24hr (goal). TF at goal volume provides 1728 kcal (100%), 86 gm protein (100%), and 1159 ml free water. 2) Consider TPN/PN if NPO>7 days 3) Monitor NPO status, lab values, weight trend, and I/O Expected Outcomes/Goals: Intake to meet >75% estimated needs Lab values to improve FU 2-3 days DEMARCUS SINGLETON RESIDENT Jul 22, 2025 15:12
[2025-07-23] VITALS (7 sets, daily range): BP systolic 134–155; BP diastolic 72–93; PULSE 84–93; RESP 14–18; TEMP 97.8–98.5; O2SAT 97–99
[2025-07-23 09:53] LABS: Hematocrit 31.7 % (41.0-53.0); Hemoglobin 10.6 g/dL (13.5-17.5); Mean Corpuscular Hemoglobin 31.6 pg (28.0-32.0); Mean Corpuscular Volume 94.3 fL (80.0-100.0); Nucleated Red Blood Cells % 0.0 %
[2025-07-23 10:16] LABS: Alanine Aminotransferase 24 U/L (7-40); Albumin 3.5 g/dL (3.2-4.8); Alkaline Phosphatase 67 U/L (46-116); Anion Gap 12 (5-15); BUN/Creatinine Ratio 23.3 (10.0-20.0); Bilirubin, Total 0.8 mg/dL (0.2-1.0); Calcium 8.9 mg/dL (8.7-10.4); Carbon Dioxide 24 mmol/L (20-31); Glucose 102 mg/dL (74-106); Sodium 144 mmol/L (136-145); Total Protein 6.7 g/dL (5.7-8.2)
[2025-07-23 10:30] LABS: Blood Urea Nitrogen 45 mg/dL (9-23); Chloride 108 mmol/L (98-107); Potassium 3.3 mmol/L (3.5-5.1)
--- NOTE | 2025-07-23 13:21 | DVHPN2 ---
Progress Note - Dictate Date Seen: Jul 23, 2025 Medical Necessity Reason Pt with a Central, PICC or Fol: Yes The following are medically ne: Central Line, Toscano Catheter Subjective Awake and alert, denies shortness of breath this afternoon. vital signs Vital Sign Date Time Temp Pulse Resp B/P (MAP) Pulse Ox O2 Delivery O2 Flow Rate FiO2 07/23/25 12:57 98.5 89 18 140/82 (101) 97 98.5 07/22/25 23:00 Room Air* 0 21 Total Intake and Output 07/22/25 07/22/25 07/23/25 15:00 23:00 07:00 Intake Total 117.68 ml 189 ml 1090 ml Output Total 560 ml 900 ml Balance 117.68 ml -371 ml 190 ml medications Current Medications Medications Dose Ordered Sig/Cherise Route Start Time Stop Time Status Last Admin Dose Admin Diagnostic Test (Pha) 1 strip Q6HR 07/12/25 00:00 07/23/25 12:12 1 STRIP Dextrose 50 ml UD PRN IV 07/11/25 19:00 Pantoprazole Sodium 40 mg DAILY IV 07/12/25 10:00 07/23/25 11:24 40 MG Docusate Sodium 100 mg BID GT 07/11/25 22:00 07/23/25 11:21 100 MG Doxycycline Hyclate 100 ml @ 50 mls/hr Q12H IV 07/12/25 17:00 07/23/25 05:50 50 MLS/HR Cefepime HCl 50 ml @ 12.5 mls/hr BID IV 07/12/25 22:00 07/23/25 11:24 12.5 MLS/HR Insulin Human Regular Q6HR SC 07/13/25 00:00 07/23/25 05:26 3 UNITS Clopidogrel Bisulfate 75 mg DAILY NG 07/15/25 10:00 07/23/25 11:24 75 MG Aspirin 81 mg DAILY NG 07/15/25 10:00 07/23/25 11:27 81 MG Purified Water 150 ml Q6HR GT 07/18/25 18:00 07/22/25 12:00 150 ML Lactulose 30 ml DAILY PO 07/21/25 10:00 07/23/25 11:21 30 ML Ondansetron HCl 4 mg Q6HPRN PRN IV 07/21/25 16:00 07/21/25 16:22 4 MG Amlodipine Besylate 10 mg DAILY PO 07/23/25 10:00 07/23/25 11:27 10 MG objective Gen: nad heent: nc/at, mmm lungs: cta anteriorly cvs: no rub abd: soft, bowel sounds audible ext: no edema skin: no rash neuro: alert and oriented laboratory and microbiology Laboratory Tests 07/23/25 09:19 Test 07/23/25 09:19 Range/Units Serum Glucose 102 74-106 mg/dL Assessment/Plan Problem List/Assessment/Plan Acute kidney injury hemodynamic mediated etiology unknown baseline renal function-improving Acute hypoxic respiratory failure needing intubation Severe sepsis Possible underlying Chronic kidney disease four Congestive heart failure preserved ejection fraction hypernatremia Recommendations Clinically stable from Nephrology perspective, kidney function with noted precipitous improvement. Dietary Evaluation Review Comments: Nutrition Recommendation: 1) EN Glucerna 1.2 @ 60ml/hr x 24hr (goal). TF at goal volume provides 1728 kcal (100%), 86 gm protein (100%), and 1159 ml free water. 2) Consider TPN/PN if NPO>7 days 3) Monitor NPO status, lab values, weight trend, and I/O Expected Outcomes/Goals: Intake to meet >75% estimated needs Lab values to improve FU 2-3 days Plan discussed with: Patient ANDRES HANCOCK MD Jul 23, 2025 13:21
--- NOTE | 2025-07-23 15:41 | DVHPNRES ---
Progress Note Date Seen: Jul 23, 2025 Resident Creating Document: KATY HURTADO RESIDENT Has the PT tested + for MRSA If YES, has PT been informed?: Yes Medical Necessity Reason Pt with a Central, PICC or Fol: Yes The following are medically ne: Central Line, Toscano Catheter Subjective Review of Systems This is a 84-year-old patient who presented to the ER with a chief complaint of shortness of breaths for the past 2 days. Patient reports having flu-like symptoms, mild fevers and chills for the past 2 days, says that yesterday around 3:00 p.m. he started to become more short of breaths while he was in the bed, associated with generalized weakness, productive cough with white phlegm for the past 2 days. He is also experiencing mild fever and chills. Denies any recent traveling or sick contacts. He quit smoking in 1994. On arrival to the ER, patient was afebrile, tachycardic, tachypneic 28 per minute and was put on non-rebreather and BiPAP then high-flow. WBC 19. D-dimer 0.9. Lactic 1.9, troponins 2074, 2045, 2288. Patient denies any chest pain, dizziness, palpitations at this time. Cardiology consulted for elevated troponins and shortness of breaths Past medical history: Diabetes mellitus on insulin, CKD, diastolic heart failure, CAD status post 1 2021 to RCA Past surgical history denies Home medications: Insulin, iron tablets, amlodipine 10, Lasix 40 mg Social history: Quit smoking and drinking 199407/15/2025: urine output improving. ECHO : .Left atrial enlargement with concentric LVH. Mild dilation of the sinuses of Valsalva. Mild aortic sclerosis. Mild mitral annular calcification. Left ventricular function is mildly to moderately diminished EF of 40% with normal RV function. There is severe mitral and tricuspid regurgitation. Right ventricular systolic pressure of 60 mmHg. This is consistent with severe pulmonary hypertension. Patient on 2.5 dobutamine drip. Patient's chest x-ray still looks congested. So Cardiology recommended keeping dobutamine drip. 07/16/2025 Currently intubated Respiratory cultures growing MRSA and Klebsiella CPAP trial in the a.m. 07/17/2025: Patient seen in ICU. patient kept on dobutamine drip 2.5. Patient not on pressors. kidney function improving. CPAP trial done today. Patient tolerated well. hypernatremia resolved. 07/18/25: Patient seen and examined at bedside, patient was on CPAP trial to the, patient is off sedation and following commands. Plan for left heart catheterization tomorrow 07/19/2025: Patient seen and examined at bedside, patient was on CPAP trial to the, patient is off sedation and following commands. Left heart catheterization was postponed today . Plan for left heart catheterization tomorrow. 07/20/25: Patient had a left heart catheterization today by Dr. Gardner 07/21/25: Patient seen and examined at bedside, patient was extubated today, patient is on 2 L supplemental oxygen. 07/22/25: Seen and examined at bedside, patient is little confused, patient is on 2 L oxygen supplementation, patient is off pressors and off sedation. Downgrade patient to IZZY. 07/23/25 : The patients mental status has improved slightly compared to yesterday. The patient is now more alert, interactive, and following simple commands, No acute distress reported. Denies active chest pain, shortness of breath, or new abdominal pain. Tolerating oral intake better. Toscano catheter discontinued today.Triple-lumen central line discontinued today.Potassium repleted for hypokalemia. Patient refused PT.Patient had last documented bowel movement on July 21. Continues on lactulose and Colace to maintain bowel regimen. Objective vital signs Vital Sign Date Time Temp Pulse Resp B/P (MAP) Pulse Ox O2 Delivery O2 Flow Rate FiO2 07/23/25 12:57 98.5 89 18 140/82 (101) 97 98.5 07/23/25 08:00 Room Air* 0 21 Total Intake and Output 07/22/25 07/22/25 07/23/25 15:00 23:00 07:00 Intake Total 117.68 ml 189 ml 1090 ml Output Total 560 ml 900 ml Balance 117.68 ml -371 ml 190 ml medications Current Medications Medications Dose Ordered Sig/Cherise Route Start Time Stop Time Status Last Admin Dose Admin Diagnostic Test (Pha) 1 strip Q6HR 07/12/25 00:00 07/23/25 12:12 1 STRIP Dextrose 50 ml UD PRN IV 07/11/25 19:00 Pantoprazole Sodium 40 mg DAILY IV 07/12/25 10:00 07/23/25 11:24 40 MG Docusate Sodium 100 mg BID GT 07/11/25 22:00 07/23/25 11:21 100 MG Doxycycline Hyclate 100 ml @ 50 mls/hr Q12H IV 07/12/25 17:00 07/23/25 05:50 50 MLS/HR Cefepime HCl 50 ml @ 12.5 mls/hr BID IV 07/12/25 22:00 07/23/25 11:24 12.5 MLS/HR Insulin Human Regular Q6HR SC 07/13/25 00:00 07/23/25 05:26 3 UNITS Clopidogrel Bisulfate 75 mg DAILY NG 07/15/25 10:00 07/23/25 11:24 75 MG Aspirin 81 mg DAILY NG 07/15/25 10:00 07/23/25 11:27 81 MG Purified Water 150 ml Q6HR GT 07/18/25 18:00 07/22/25 12:00 150 ML Lactulose 30 ml DAILY PO 07/21/25 10:00 07/23/25 11:21 30 ML Ondansetron HCl 4 mg Q6HPRN PRN IV 07/21/25 16:00 07/21/25 16:22 4 MG Amlodipine Besylate 10 mg DAILY PO 07/23/25 10:00 07/23/25 11:27 10 MG Examination Gen: nad heent: nc/at, mmm lungs: cta anteriorly cvs: no rub abd: soft, bowel sounds audible ext: no edema skin: no rash neuro: alert and oriented laboratory and microbiology Laboratory Tests 07/23/25 09:19 Test 07/23/25 09:19 Range/Units Serum Glucose 102 74-106 mg/dL Microbiology Date/Time Source Procedure Growth Status 07/11/25 14:45 Sputum Gram Stain - Final Complete 07/11/25 14:45 Respiratory Culture - Final Staphylococcus aureus Klebsiella ozaenae Complete 07/10/25 18:45 Urine - Toscano Port Urine Culture - Final Complete 07/10/25 01:46 Nose MRSA Screen - Final Methicillin Resistant S.aureus Complete 07/09/25 05:40 Blood Blood Culture - Final NO GROWTH AFTER 5 DAYS OF INCUBATION. Complete Problem List/Assessment/Plan Problem List/Assessment/Plan Neurology # ALOC Cardiac encephalopathy -likely because of forward pump failure * Mentation improving Cardiology # NSTEMI type 2 likely, # Ruled out NSTEMI type 1 - elevated trops -patient underwent left heart catheterization by Dr. Gardner on 07/20/25 - negative for atherosclerotic disease, - left heart catheterization shows: Left ventricular function shows segmental wall motion abnormality with anterior severe hypokinesis, apical hypokinesis, and anterior mild hypokinesis with an estimated EF around 25-30%. patient's right-sided pressures and left-sided pressures are within normal limits. ECHO : Left atrial enlargement with concentric LVH. Mild dilation of the sinuses of Valsalva. Mild aortic sclerosis. Mild mitral annular calcification. Left ventricular function is mildly to moderately diminished EF of 40% with normal RV function. There is severe mitral and tricuspid regurgitation. Right ventricular systolic pressure of 60 mmHg. This is consistent with severe pulmonary hypertension. # Mild MR, Mild TR # acute HFrEF exacerbation -currently on dobutamine drip 2.5mcg/kg/min started by the diagnostic cardiac sonographer - Dr. Gardner, cardiology on board. - IV lasix 40mg IV daily. # elevated D-dimer likely because of sepsis CHF exacerbation -lower extremity ultrasound: No DVT # hypertension, currently in shock Hold antihypertensives # hyperlipidemia on statins # paroxysmal AFib, currently sinus rhythm. Likely because of CHF exacerbation # Known CAD status post 1 ANICETO 2021 to RCA -hold aspirin and Plavix because of gross hematuria Plan to restart Plavix Respiratory # Acute hypoxic respiratory failure likely due to acute HFrEF exacerbation and ARDS # ARDS - resolving Currently on mechanical ventilator Intubated 07/11/2025 Patient is on IV Lasix # Gram-positive/negative community-acquired pneumonia -currently on antibiotics, # bilateral pleural effusion due to CHF exacerbation -continue diuresis # ?COPD, not in exacerbation Currently on mechanical ventilator # history of previous smoking # Genitourinary # CAMERON on CKD, improving Monitor Renal function Renal ultrasound # Hypernatremia, -free water given Infectious disease # sepsis likely due to pneumonia IV antibiotics Cultures # MRSA nares positive Mupirocin GI # Mild transaminitis likely due to hepatic congestion -continue diuresis # bowel regimen Lactulose TID titrated to 23 soft BMs/day, Colace BID Diet: Mechanical soft Endocrinology # Diabetes mellitus type 2 Sliding scale insulin Rheumatology # Gout We will resume allopurinol on discharge # BPH Hold tamsulosin * Toscano catheter removed * Monitor for urinary retention (post-void residual checks PRN) # gross hematuria -hold antiplatelet agents and bladder irrigation Hematology oncology # anemia, likely anemia of chronic disease - Monitor # thrombocytopenia likely due to sepsis - monitor CBC # GI prophylaxis: IV Protonix 40 mg daily # DVT prophylaxis -heparin on hold currently because of gross hematuria SCDs Physical Therapy / Mobility * PT evaluation ordered today * Encourage mobilization with assistance * Fall precautions Lines Right IJ line CBC placed on 07/11/2025 , PLACED ORDER TO REMOVE IT TODAY Toscano's catheter placed on 07/11/25, PLACED ORDER TO REMOVE IT TODAY Patient is downgraded to TELE Critical Care time spent 47 minutes including patient care, chart review , excluding procedure. Case discussed with Dr. Tapia Plan discussed with: Patient (rn) My Orders My Orders Orders - KATY HURTADO RESIDENT Procedure Category Date Status Time Discontinue Toscano YOEL 07/23/25 Verified Catheter 15:33 Urinal Or Bedpan As YOEL 07/23/25 Verified Needed 15:33 D/C Triple Lumen ORDERS 07/23/25 Verified 15:33 Potassium Er Tablet PHA 07/23/25 Verified (Klor-Con Tablet) 15:45 Complete Blood Count LAB 07/24/25 Verified 04:00 Comprehensive LAB 07/24/25 Verified Metabolic Panel 04:00 Dietary Evaluation Review Comments: Nutrition Recommendation: 1) EN Glucerna 1.2 @ 60ml/hr x 24hr (goal). TF at goal volume provides 1728 kcal (100%), 86 gm protein (100%), and 1159 ml free water. 2) Consider TPN/PN if NPO>7 days 3) Monitor NPO status, lab values, weight trend, and I/O Expected Outcomes/Goals: Intake to meet >75% estimated needs Lab values to improve FU 2-3 days KATY HURTADO RESIDENT Jul 23, 2025 15:41
[2025-07-23] MEDS: POTASSIUM CHL 20 Meq TABLET PO ONE ×2 (15:45→17:58)
[2025-07-24] VITALS (8 sets, daily range): BP systolic 111–131; BP diastolic 63–75; PULSE 74–89; RESP 14–18; TEMP 97.9–98.8; O2SAT 94–99
[2025-07-24 10:38] LABS: Hematocrit 34.9 % (41.0-53.0); Hemoglobin 11.2 g/dL (13.5-17.5); Mean Corpuscular Hemoglobin 30.4 pg (28.0-32.0); Mean Corpuscular Volume 94.7 fL (80.0-100.0); Nucleated Red Blood Cells % 0.0 %
[2025-07-24] MEDS: CLOPIDOGREL BISULFATE 75 MG TAB PO SCH (10:40)
[2025-07-24 10:49] LABS: Alanine Aminotransferase 26 U/L (7-40); Albumin 3.7 g/dL (3.2-4.8); Alkaline Phosphatase 70 U/L (46-116); Anion Gap 14 (5-15); BUN/Creatinine Ratio 23.2 (10.0-20.0); Calcium 8.9 mg/dL (8.7-10.4); Carbon Dioxide 23 mmol/L (20-31); Potassium 3.8 mmol/L (3.5-5.1); Sodium 144 mmol/L (136-145); Total Protein 7.0 g/dL (5.7-8.2)
[2025-07-24 10:50] LABS: Bilirubin, Total 0.9 mg/dL (0.2-1.0)
[2025-07-24 10:58] LABS: Blood Urea Nitrogen 51 mg/dL (9-23); Chloride 107 mmol/L (98-107); Glucose 160 mg/dL (74-106)
--- NOTE | 2025-07-24 14:09 | DVHPN2 ---
Progress Note Date Seen: Jul 24, 2025 Has the PT tested + for MRSA If YES, has PT been informed?: Yes Medical Necessity Reason Pt with a Central, PICC or Fol: Yes The following are medically ne: Central Line, Toscano Catheter Subjective Patient reports: No new complaints, Feels better Objective vital signs Vital Sign Date Time Temp Pulse Resp B/P (MAP) Pulse Ox O2 Delivery O2 Flow Rate FiO2 07/24/25 12:42 98.5 81 16 112/69 (83) 98 98.5 07/24/25 08:00 Room Air* 0 21 Total Intake and Output 07/23/25 07/23/25 07/24/25 15:00 23:00 07:00 Intake Total 100 ml 1600 ml 0 ml Output Total 1400 ml Balance 100 ml 200 ml 0 ml medications Current Medications Medications Dose Ordered Sig/Cherise Route Start Time Stop Time Status Last Admin Dose Admin Diagnostic Test (Pha) 1 strip Q6HR 07/12/25 00:00 07/24/25 12:00 1 STRIP Dextrose 50 ml UD PRN IV 07/11/25 19:00 Pantoprazole Sodium 40 mg DAILY IV 07/12/25 10:00 07/24/25 10:39 40 MG Docusate Sodium 100 mg BID GT 07/11/25 22:00 07/23/25 11:21 100 MG Insulin Human Regular Q6HR SC 07/13/25 00:00 07/24/25 06:02 3 UNITS Lactulose 30 ml DAILY PO 07/21/25 10:00 07/24/25 10:39 30 ML Ondansetron HCl 4 mg Q6HPRN PRN IV 07/21/25 16:00 07/21/25 16:22 4 MG Amlodipine Besylate 10 mg DAILY PO 07/23/25 10:00 07/24/25 10:40 10 MG Aspirin 81 mg DAILY PO 07/24/25 10:00 07/24/25 10:39 81 MG Clopidogrel Bisulfate 75 mg DAILY PO 07/24/25 10:00 07/24/25 10:40 75 MG Examination Gen: Appears stated age, NAD Lungs: Bilateral air entry, no rales Heart: RRR, normal S1 and S2 Ext: no edema Neuro: Alert and oriented x 4 laboratory and microbiology Laboratory Tests 07/24/25 09:43 Test 07/24/25 09:43 Range/Units Serum Glucose 160 H 74-106 mg/dL Microbiology Date/Time Source Procedure Growth Status 07/11/25 14:45 Sputum Gram Stain - Final Complete 07/11/25 14:45 Respiratory Culture - Final Staphylococcus aureus Klebsiella ozaenae Complete 07/10/25 18:45 Urine - Toscano Port Urine Culture - Final Complete 07/10/25 01:46 Nose MRSA Screen - Final Methicillin Resistant S.aureus Complete 07/09/25 05:40 Blood Blood Culture - Final NO GROWTH AFTER 5 DAYS OF INCUBATION. Complete Labs and/or images reviewed: Labs reviewed by me Problem List/Assessment/Plan Problem List/Assessment/Plan IMP Acute kidney injury hemodynamic mediated etiology unknown baseline renal function-stable Acute hypoxic respiratory failure needing intubation Severe sepsis Possible underlying Chronic kidney disease four Congestive heart failure preserved ejection fraction hypernatremia REC - Kidney function stable - BMP in am - Strict I&Os - Avoidance of NSAIDs and IV contrast studies if able - Will continue to follow Plan discussed with: Patient, Spouse, Daughter Dietary Evaluation Review Comments: Nutrition Recommendation: 1) EN Glucerna 1.2 @ 60ml/hr x 24hr (goal). TF at goal volume provides 1728 kcal (100%), 86 gm protein (100%), and 1159 ml free water. 2) Consider TPN/PN if NPO>7 days 3) Monitor NPO status, lab values, weight trend, and I/O Expected Outcomes/Goals: Intake to meet >75% estimated needs Lab values to improve FU 2-3 days KANDY SARMIENTO Jul 24, 2025 14:09
--- NOTE | 2025-07-24 14:16 | DVHPNRES ---
Progress Note Date Seen: Jul 24, 2025 Resident Creating Document: DEMARCUS SINGLETON RESIDENT Has the PT tested + for MRSA If YES, has PT been informed?: Yes Medical Necessity Reason Pt with a Central, PICC or Fol: Yes The following are medically ne: Central Line, Toscano Catheter Subjective Review of Systems This is a 84-year-old patient who presented to the ER with a chief complaint of shortness of breaths for the past 2 days. Patient reports having flu-like symptoms, mild fevers and chills for the past 2 days, says that yesterday around 3:00 p.m. he started to become more short of breaths while he was in the bed, associated with generalized weakness, productive cough with white phlegm for the past 2 days. He is also experiencing mild fever and chills. Denies any recent traveling or sick contacts. He quit smoking in 1994. On arrival to the ER, patient was afebrile, tachycardic, tachypneic 28 per minute and was put on non-rebreather and BiPAP then high-flow. WBC 19. D-dimer 0.9. Lactic 1.9, troponins 2074, 2045, 2288. Patient denies any chest pain, dizziness, palpitations at this time. Cardiology consulted for elevated troponins and shortness of breaths Past medical history: Diabetes mellitus on insulin, CKD, diastolic heart failure, CAD status post 1 2021 to RCA Past surgical history denies Home medications: Insulin, iron tablets, amlodipine 10, Lasix 40 mg Social history: Quit smoking and drinking 199407/15/2025: urine output improving. ECHO : .Left atrial enlargement with concentric LVH. Mild dilation of the sinuses of Valsalva. Mild aortic sclerosis. Mild mitral annular calcification. Left ventricular function is mildly to moderately diminished EF of 40% with normal RV function. There is severe mitral and tricuspid regurgitation. Right ventricular systolic pressure of 60 mmHg. This is consistent with severe pulmonary hypertension. Patient on 2.5 dobutamine drip. Patient's chest x-ray still looks congested. So Cardiology recommended keeping dobutamine drip. 07/16/2025 Currently intubated Respiratory cultures growing MRSA and Klebsiella CPAP trial in the a.m. 07/17/2025: Patient seen in ICU. patient kept on dobutamine drip 2.5. Patient not on pressors. kidney function improving. CPAP trial done today. Patient tolerated well. hypernatremia resolved. 07/18/25: Patient seen and examined at bedside, patient was on CPAP trial to the, patient is off sedation and following commands. Plan for left heart catheterization tomorrow 07/19/2025: Patient seen and examined at bedside, patient was on CPAP trial to the, patient is off sedation and following commands. Left heart catheterization was postponed today . Plan for left heart catheterization tomorrow. 07/20/25: Patient had a left heart catheterization today by Dr. Gardner 07/21/25: Patient seen and examined at bedside, patient was extubated today, patient is on 2 L supplemental oxygen. 07/22/25: Seen and examined at bedside, patient is little confused, patient is on 2 L oxygen supplementation, patient is off pressors and off sedation. Downgrade patient to IZZY. 07/23/25 : The patients mental status has improved slightly compared to yesterday. The patient is now more alert, interactive, and following simple commands, No acute distress reported. Denies active chest pain, shortness of breath, or new abdominal pain. Tolerating oral intake better. Toscano catheter discontinued today.Triple-lumen central line discontinued today.Potassium repleted for hypokalemia. 07/24/25: Patient seen and examined at bedside, patient has no new complaint, patient is working with PT, did not walk yet. Objective vital signs Vital Sign Date Time Temp Pulse Resp B/P (MAP) Pulse Ox O2 Delivery O2 Flow Rate FiO2 07/24/25 12:42 98.5 81 16 112/69 (83) 98 98.5 07/24/25 08:00 Room Air* 0 21 Total Intake and Output 07/23/25 07/23/25 07/24/25 15:00 23:00 07:00 Intake Total 100 ml 1600 ml 0 ml Output Total 1400 ml Balance 100 ml 200 ml 0 ml medications Current Medications Medications Dose Ordered Sig/Cherise Route Start Time Stop Time Status Last Admin Dose Admin Diagnostic Test (Pha) 1 strip Q6HR 07/12/25 00:00 07/24/25 12:00 1 STRIP Dextrose 50 ml UD PRN IV 07/11/25 19:00 Pantoprazole Sodium 40 mg DAILY IV 07/12/25 10:00 07/24/25 10:39 40 MG Docusate Sodium 100 mg BID GT 07/11/25 22:00 07/23/25 11:21 100 MG Insulin Human Regular Q6HR SC 07/13/25 00:00 07/24/25 06:02 3 UNITS Lactulose 30 ml DAILY PO 07/21/25 10:00 07/24/25 10:39 30 ML Ondansetron HCl 4 mg Q6HPRN PRN IV 07/21/25 16:00 07/21/25 16:22 4 MG Amlodipine Besylate 10 mg DAILY PO 07/23/25 10:00 07/24/25 10:40 10 MG Aspirin 81 mg DAILY PO 07/24/25 10:00 07/24/25 10:39 81 MG Clopidogrel Bisulfate 75 mg DAILY PO 07/24/25 10:00 07/24/25 10:40 75 MG Examination GENERAL: Not in acute distress. HEENT: EOMI, Moist mucous membranes. No scleral icterus. No cervical lymphadenopathy. LUNGS: Clear to auscultation bilaterally. No accessory muscle use. On 2 L supplemental oxygen with nasal cannula. CARDIOVASCULAR: Regular rate and rhythm. No murmur. No JVD. ABDOMEN: Soft, nontender and nondistended. No palpable masses. EXTREMITIES: No edema. Nontender. SKIN: No rashes or lesions. Warm. NEUROLOGIC: Alert and oriented laboratory and microbiology Laboratory Tests 07/24/25 09:43 Test 07/24/25 09:43 Range/Units Serum Glucose 160 H 74-106 mg/dL Microbiology Date/Time Source Procedure Growth Status 07/11/25 14:45 Sputum Gram Stain - Final Complete 07/11/25 14:45 Respiratory Culture - Final Staphylococcus aureus Klebsiella ozaenae Complete 07/10/25 18:45 Urine - T[place] Port Urine Culture - Final Complete 07/10/25 01:46 Nose MRSA Screen - Final Methicillin Resistant S.aureus Complete 07/09/25 05:40 Blood Blood Culture - Final NO GROWTH AFTER 5 DAYS OF INCUBATION. Complete Problem List/Assessment/Plan Problem List/Assessment/Plan Neurology # ALOC ?Cardiac encephalopathy -likely because of forward pump failure -improved Cardiology # NSTEMI type 2 likely, # Ruled out NSTEMI type 1 - elevated trops -patient underwent left heart catheterization by Dr. Gardner on 07/20/25 - negative for atherosclerotic disease, - left heart catheterization shows: Left ventricular function shows segmental wall motion abnormality with anterior severe hypokinesis, apical hypokinesis, and anterior mild hypokinesis with an estimated EF around 25-30%. patient's right-sided pressures and left-sided pressures are within normal limits. ECHO : Left atrial enlargement with concentric LVH. Mild dilation of the sinuses of Valsalva. Mild aortic sclerosis. Mild mitral annular calcification. Left ventricular function is mildly to moderately diminished EF of 40% with normal RV function. There is severe mitral and tricuspid regurgitation. Right ventricular systolic pressure of 60 mmHg. This is consistent with severe pulmonary hypertension. # Mild MR, Mild TR # acute HFrEF exacerbation -currently on dobutamine drip 2.5mcg/kg/min started by the stock fitter - Dr. Gardner, cardiology on board. - IV lasix 40mg IV daily. # elevated D-dimer likely because of sepsis CHF exacerbation -lower extremity ultrasound: No DVT # hypertension, currently in shock Hold antihypertensives # hyperlipidemia on statins # paroxysmal AFib, currently sinus rhythm. Likely because of CHF exacerbation # Known CAD status post 2021 to RCA -hold aspirin and Plavix because of gross hematuria Plan to restart Plavix Respiratory # Acute hypoxic respiratory failure likely due to acute HFrEF exacerbation and ARDS # ARDS - resolving Currently on mechanical ventilator Intubated 07/11/2025 Patient is on IV Lasix # Gram-positive/negative community-acquired pneumonia -currently on antibiotics, # bilateral pleural effusion due to CHF exacerbation -continue diuresis # ?COPD, not in exacerbation Currently on mechanical ventilator # history of previous smoking # Genitourinary # CAMERON on CKD, improving Monitor Renal function Renal ultrasound # Hypernatremia, -free water given Infectious disease # sepsis likely due to pneumonia IV antibiotics Cultures # MRSA nares positive Mupirocin GI # Mild transaminitis likely due to hepatic congestion -continue diuresis # bowel regimen -currently on Colace Endocrinology # Diabetes mellitus type 2 Sliding scale insulin Rheumatology # Gout We will resume allopurinol on discharge # BPH Hold tamsulosin # gross hematuria -hold antiplatelet agents and bladder irrigation Hematology oncology # anemia, likely anemia of chronic disease - Monitor # thrombocytopenia likely due to sepsis - monitor CBC # GI prophylaxis: IV Protonix 40 mg daily # DVT prophylaxis -heparin on hold currently because of gross hematuria SCDs Patient is downgraded to TELE. Case discussed with Dr. Tapia Plan discussed with: Patient Dietary Evaluation Review Comments: Nutrition Recommendation: 1) EN Glucerna 1.2 @ 60ml/hr x 24hr (goal). TF at goal volume provides 1728 kcal (100%), 86 gm protein (100%), and 1159 ml free water. 2) Consider TPN/PN if NPO>7 days 3) Monitor NPO status, lab values, weight trend, and I/O Expected Outcomes/Goals: Intake to meet >75% estimated needs Lab values to improve FU 2-3 days DEMARCUS SINGLETON RESIDENT Jul 24, 2025 14:16
[2025-07-24] MEDS: CEFEPIME 1GM/50ML 50 ML IV SCH (22:32)
[2025-07-25] VITALS (7 sets, daily range): BP systolic 93–133; BP diastolic 49–72; PULSE 72–96; RESP 16–18; TEMP 98–98.7; O2SAT 95–98
[2025-07-25 05:53] LABS: Chloride 106 mmol/L (98-107); Potassium 3.5 mmol/L (3.5-5.1); Sodium 141 mmol/L (136-145)
[2025-07-25 05:54] LABS: Anion Gap 13 (5-15); Carbon Dioxide 22 mmol/L (20-31)
[2025-07-25 05:59] LABS: BUN/Creatinine Ratio 22.8 (10.0-20.0)
[2025-07-25 06:02] LABS: Blood Urea Nitrogen 54 mg/dL (9-23); Calcium 8.6 mg/dL (8.7-10.4); Glucose 121 mg/dL (74-106)
[2025-07-25 08:16] LABS: Hematocrit 28.1 % (41.0-53.0); Hemoglobin 9.5 g/dL (13.5-17.5); Mean Corpuscular Hemoglobin 31.2 pg (28.0-32.0); Mean Corpuscular Volume 92.6 fL (80.0-100.0); Nucleated Red Blood Cells % 0.1 %
--- NOTE | 2025-07-25 10:01 | DVHPNRES ---
Progress Note Date Seen: Jul 25, 2025 Resident Creating Document: DEMARCUS SINGLETON RESIDENT Has the PT tested + for MRSA If YES, has PT been informed?: Yes Medical Necessity Reason Pt with a Central, PICC or Fol: Yes The following are medically ne: Central Line, Toscano Catheter Subjective Review of Systems This is a 84-year-old patient who presented to the ER with a chief complaint of shortness of breaths for the past 2 days. Patient reports having flu-like symptoms, mild fevers and chills for the past 2 days, says that yesterday around 3:00 p.m. he started to become more short of breaths while he was in the bed, associated with generalized weakness, productive cough with white phlegm for the past 2 days. He is also experiencing mild fever and chills. Denies any recent traveling or sick contacts. He quit smoking in 1994. On arrival to the ER, patient was afebrile, tachycardic, tachypneic 28 per minute and was put on non-rebreather and BiPAP then high-flow. WBC 19. D-dimer 0.9. Lactic 1.9, troponins 2074, 2045, 2288. Patient denies any chest pain, dizziness, palpitations at this time. Cardiology consulted for elevated troponins and shortness of breaths Past medical history: Diabetes mellitus on insulin, CKD, diastolic heart failure, CAD status post 1 2021 to RCA Past surgical history denies Home medications: Insulin, iron tablets, amlodipine 10, Lasix 40 mg Social history: Quit smoking and drinking 199407/15/2025: urine output improving. ECHO : .Left atrial enlargement with concentric LVH. Mild dilation of the sinuses of Valsalva. Mild aortic sclerosis. Mild mitral annular calcification. Left ventricular function is mildly to moderately diminished EF of 40% with normal RV function. There is severe mitral and tricuspid regurgitation. Right ventricular systolic pressure of 60 mmHg. This is consistent with severe pulmonary hypertension. Patient on 2.5 dobutamine drip. Patient's chest x-ray still looks congested. So Cardiology recommended keeping dobutamine drip. 07/16/2025 Currently intubated Respiratory cultures growing MRSA and Klebsiella CPAP trial in the a.m. 07/17/2025: Patient seen in ICU. patient kept on dobutamine drip 2.5. Patient not on pressors. kidney function improving. CPAP trial done today. Patient tolerated well. hypernatremia resolved. 07/18/25: Patient seen and examined at bedside, patient was on CPAP trial to the, patient is off sedation and following commands. Plan for left heart catheterization tomorrow 07/19/2025: Patient seen and examined at bedside, patient was on CPAP trial to the, patient is off sedation and following commands. Left heart catheterization was postponed today . Plan for left heart catheterization tomorrow. 07/20/25: Patient had a left heart catheterization today by Dr. Gardner 07/21/25: Patient seen and examined at bedside, patient was extubated today, patient is on 2 L supplemental oxygen. 07/22/25: Seen and examined at bedside, patient is little confused, patient is on 2 L oxygen supplementation, patient is off pressors and off sedation. Downgrade patient to IZZY. 07/23/25 : The patients mental status has improved slightly compared to yesterday. The patient is now more alert, interactive, and following simple commands, No acute distress reported. Denies active chest pain, shortness of breath, or new abdominal pain. Tolerating oral intake better. Toscano catheter discontinued today.Triple-lumen central line discontinued today.Potassium repleted for hypokalemia. 07/24/25: Patient seen and examined at bedside, patient has no new complaint, patient is working with PT, did not walk yet. 07/25/25: Patient seen and examined at bedside, no new complaint, patient is eating and drinking well, physical therapy. Objective vital signs Vital Sign Date Time Temp Pulse Resp B/P (MAP) Pulse Ox O2 Delivery O2 Flow Rate FiO2 07/25/25 08:00 83 16 98 Room Air* 0 21 07/25/25 05:00 98.4 130/71 (90) 98.4 Total Intake and Output 07/24/25 07/24/25 07/25/25 15:00 23:00 07:00 Intake Total 480 ml 450 ml Output Total 300 ml 575 ml Balance 180 ml -125 ml medications Current Medications Medications Dose Ordered Sig/Cherise Route Start Time Stop Time Status Last Admin Dose Admin Diagnostic Test (Pha) 1 strip Q6HR 07/12/25 00:00 07/25/25 06:03 1 STRIP Dextrose 50 ml UD PRN IV 07/11/25 19:00 Pantoprazole Sodium 40 mg DAILY IV 07/12/25 10:00 07/24/25 10:39 40 MG Docusate Sodium 100 mg BID GT 07/11/25 22:00 07/23/25 11:21 100 MG Insulin Human Regular Q6HR SC 07/13/25 00:00 07/24/25 18:30 2 UNITS Lactulose 30 ml DAILY PO 07/21/25 10:00 07/24/25 10:39 30 ML Ondansetron HCl 4 mg Q6HPRN PRN IV 07/21/25 16:00 07/21/25 16:22 4 MG Amlodipine Besylate 10 mg DAILY PO 07/23/25 10:00 07/24/25 10:40 10 MG Aspirin 81 mg DAILY PO 07/24/25 10:00 07/24/25 10:39 81 MG Clopidogrel Bisulfate 75 mg DAILY PO 07/24/25 10:00 07/24/25 10:40 75 MG Cefepime HCl 50 ml @ 12.5 mls/hr Q12HR IV 07/24/25 22:00 07/24/25 22:32 12.5 MLS/HR Examination GENERAL: Not in acute distress. HEENT: EOMI, Moist mucous membranes. No scleral icterus. No cervical lymphadenopathy. LUNGS: Clear to auscultation bilaterally. No accessory muscle use. On 2 L supplemental oxygen with nasal cannula. CARDIOVASCULAR: Regular rate and rhythm. No murmur. No JVD. ABDOMEN: Soft, nontender and nondistended. No palpable masses. EXTREMITIES: No edema. Nontender. SKIN: No rashes or lesions. Warm. NEUROLOGIC: Alert and oriented laboratory and microbiology Laboratory Tests 07/25/25 04:45 Test 07/25/25 04:45 Range/Units Serum Glucose 121 H 74-106 mg/dL Microbiology Date/Time Source Procedure Growth Status 07/11/25 14:45 Sputum Gram Stain - Final Complete 07/11/25 14:45 Respiratory Culture - Final Staphylococcus aureus Klebsiella ozaenae Complete 07/10/25 18:45 Urine - [place] Urine Culture - Final Complete 07/10/25 01:46 Nose MRSA Screen - Final Methicillin Resistant S.aureus Complete 07/09/25 05:40 Blood Blood Culture - Final NO GROWTH AFTER 5 DAYS OF INCUBATION. Complete Problem List/Assessment/Plan Problem List/Assessment/Plan Neurology # ALOC ?Cardiac encephalopathy -likely because of forward pump failure -improved Cardiology # NSTEMI type 2 likely, # Ruled out NSTEMI type 1 - elevated trops -patient underwent left heart catheterization by Dr. Gardner on 07/20/25 - negative for atherosclerotic disease, - left heart catheterization shows: Left ventricular function shows segmental wall motion abnormality with anterior severe hypokinesis, apical hypokinesis, and anterior mild hypokinesis with an estimated EF around 25-30%. patient's right-sided pressures and left-sided pressures are within normal limits. ECHO : Left atrial enlargement with concentric LVH. Mild dilation of the sinuses of Valsalva. Mild aortic sclerosis. Mild mitral annular calcification. Left ventricular function is mildly to moderately diminished EF of 40% with normal RV function. There is severe mitral and tricuspid regurgitation. Right ventricular systolic pressure of 60 mmHg. This is consistent with severe pulmonary hypertension. # Mild MR, Mild TR # acute HFrEF exacerbation -currently on dobutamine drip 2.5mcg/kg/min started by the minibus driver - Dr. Gardner, cardiology on board. - IV lasix 40mg IV daily. # elevated D-dimer likely because of sepsis CHF exacerbation -lower extremity ultrasound: No DVT # hypertension, currently in shock Hold antihypertensives # hyperlipidemia on statins # paroxysmal AFib, currently sinus rhythm. Likely because of CHF exacerbation # Known CAD status post 1 ANICETO 2021 to RCA -hold aspirin and Plavix because of gross hematuria Plan to restart Plavix Respiratory # Acute hypoxic respiratory failure likely due to acute HFrEF exacerbation and ARDS # ARDS - resolving Patient is on IV Lasix # Gram-positive/negative community-acquired pneumonia -switched IV antibiotic cefepime to p.o. Augmentin # bilateral pleural effusion due to CHF exacerbation -continue diuresis # ?COPD, not in exacerbation Currently on mechanical ventilator # history of previous smoking # Genitourinary # CAMERON on CKD, improving Monitor Renal function Renal ultrasound # Hypernatremia, -free water given Infectious disease # sepsis likely due to pneumonia -switched IV antibiotic cefepime to p.o. Augmentin Cultures # MRSA nares positive Mupirocin GI # Mild transaminitis likely due to hepatic congestion -continue diuresis # bowel regimen -currently on Colace Endocrinology # Diabetes mellitus type 2 Sliding scale insulin Rheumatology # Gout We will resume allopurinol on discharge # BPH Hold tamsulosin # gross hematuria -hold antiplatelet agents and bladder irrigation Hematology oncology # anemia, likely anemia of chronic disease - Monitor # thrombocytopenia likely due to sepsis - monitor CBC Discussed with patient's son Syed about discharge planning, family on patient will be discharged to home with home health for physical therapy, social security specialist consulted, patient needs a walker. advance care planning- full code- time spent 19 mins Case discussed with Dr. Marlow Plan discussed with: Patient, Son My Orders My Orders Orders - DEMARCUS SINGLETON RESIDENT Procedure Category Date Status Time * Banana Loader CONS 07/25/25 Transmitted Consult Dietary Evaluation Review Comments: Nutrition Recommendation: 1) EN Glucerna 1.2 @ 60ml/hr x 24hr (goal). TF at goal volume provides 1728 kcal (100%), 86 gm protein (100%), and 1159 ml free water. 2) Consider TPN/PN if NPO>7 days 3) Monitor NPO status, lab values, weight trend, and I/O Expected Outcomes/Goals: Intake to meet >75% estimated needs Lab values to improve FU 2-3 days Date of Service: Jul 25, 2025 Billing Provider: CELINE MARLOW MD Common Visit Codes: 34370-[id number] INP/OBS CARE(HIGH) Secondary Visit Codes: [id number]-[id number] CARE PLAN 30 MINUTES DEMARCUS SINGLETON RESIDENT Jul 25, 2025 10:00 CELINE MARLOW MD Jul 26, 2025 14:46
--- NOTE | 2025-07-25 11:10 | DVHPN2 ---
Progress Note - Dictate Date Seen: Jul 23, 2025 Has the PT tested + for MRSA If YES, has PT been informed?: Yes Medical Necessity Reason Pt with a Central, PICC or Fol: Yes The following are medically ne: Central Line, Toscano Catheter Subjective PT WITH MYALGIA ARTHALGIA FEVER LEUKOCYTOSIS WITH LEFT SHIFT NOW WITH ELEVATED BNP ELEVATED TROPONIN CKD RENAL FAILURE INSUFF HX OF CAD S/P PTCA STENT IN 2021 ECHO LVH EF 50% vital signs Vital Sign Date Time Temp Pulse Resp B/P (MAP) Pulse Ox O2 Delivery O2 Flow Rate FiO2 07/25/25 10:49 133/72 07/25/25 09:00 98.7 83 16 98 98.7 07/25/25 08:00 Room Air* 0 21 Total Intake and Output 07/24/25 07/24/25 07/25/25 15:00 23:00 07:00 Intake Total 480 ml 450 ml Output Total 300 ml 575 ml Balance 180 ml -125 ml medications Current Medications Medications Dose Ordered Sig/Cherise Route Start Time Stop Time Status Last Admin Dose Admin Diagnostic Test (Pha) 1 strip Q6HR 07/12/25 00:00 07/25/25 06:03 1 STRIP Dextrose 50 ml UD PRN IV 07/11/25 19:00 Pantoprazole Sodium 40 mg DAILY IV 07/12/25 10:00 07/25/25 10:47 40 MG Docusate Sodium 100 mg BID GT 07/11/25 22:00 07/23/25 11:21 100 MG Insulin Human Regular Q6HR SC 07/13/25 00:00 07/24/25 18:30 2 UNITS Lactulose 30 ml DAILY PO 07/21/25 10:00 07/24/25 10:39 30 ML Ondansetron HCl 4 mg Q6HPRN PRN IV 07/21/25 16:00 07/21/25 16:22 4 MG Amlodipine Besylate 10 mg DAILY PO 07/23/25 10:00 07/25/25 10:49 10 MG Aspirin 81 mg DAILY PO 07/24/25 10:00 07/25/25 10:49 81 MG Clopidogrel Bisulfate 75 mg DAILY PO 07/24/25 10:00 07/25/25 10:48 75 MG Cefepime HCl 50 ml @ 12.5 mls/hr Q12HR IV 07/24/25 22:00 07/25/25 10:47 12.5 MLS/HR laboratory and microbiology Laboratory Tests 07/25/25 04:45 Test 07/25/25 04:45 Range/Units Serum Glucose 121 H 74-106 mg/dL Problem List MYALGIA ARTHALGIA FEVER LEUKOCYTOSIS WITH LEFT SHIFT NOW WITH ELEVATED BNP ELEVATED TROPONIN CKD RENAL FAILURE INSUFF HX OF CAD S/P PTCA STENT IN 2021 ECHO LVH EF 35% METABOLIC GAP ACIDOSIS SEVERE VOLUMEoverload Assessment/Plan IV FLUID ABX NO CARDIAC INTERVENTION AT THIS TIME ELEVATED CARDIAC PARAMETERS SECONDARY TO METABOLIC INSTABILITY EF 35% MILD TR MILD MR cxr CONSISTENT WITH ARDS IF CLINICALLY INDICATED CONSIDER RHC CXR BILATERAL INFILTRATE R>L CONSIDER CT OF CHEST SIGNIFICANT IMPROVEMENT IN CHEST CXR DISCUSSED WITH REMA SEYMOUR ABOUT L/RHC HE IS AGREEABLE WILL RESCHEDULE FOR 07/20/25 MAY EXTUBATE PT L/RHC TODAY HEMODYNAMICALLY PT CURRENTLY NOT DECOMPENSATED PWCP 10 LVEDP 10 EXTUBATE Dietary Evaluation Review Comments: Nutrition Recommendation: 1) EN Glucerna 1.2 @ 60ml/hr x 24hr (goal). TF at goal volume provides 1728 kcal (100%), 86 gm protein (100%), and 1159 ml free water. 2) Consider TPN/PN if NPO>7 days 3) Monitor NPO status, lab values, weight trend, and I/O Expected Outcomes/Goals: Intake to meet >75% estimated needs Lab values to improve FU 2-3 days Plan discussed with: Patient Critical Care Time(min): 35 LIMA BRUCE MD Jul 25, 2025 11:10
--- NOTE | 2025-07-25 14:54 | DVHPN2 ---
Progress Note Date Seen: Jul 25, 2025 Resident Creating Document: ALYSE DONALD RESIDENT Has the PT tested + for MRSA If YES, has PT been informed?: Yes Medical Necessity Reason Pt with a Central, PICC or Fol: Yes The following are medically ne: Central Line, Toscano Catheter Subjective Review of Systems Patient seen and examined at the bedside. patient reported no new complaints and improved in his overall symptoms. Other Systems: Patient seen and examined by myself today on rounds with the medicine resident, I agree with the assessment and plan Objective vital signs Vital Sign Date Time Temp Pulse Resp B/P (MAP) Pulse Ox O2 Delivery O2 Flow Rate FiO2 07/25/25 13:00 98.0 82 18 131/72 (91) 98 98.0 07/25/25 08:00 Room Air* 0 21 Total Intake and Output 07/24/25 07/24/25 07/25/25 15:00 23:00 07:00 Intake Total 480 ml 450 ml Output Total 300 ml 575 ml Balance 180 ml -125 ml medications Current Medications Medications Dose Ordered Sig/Cherise Route Start Time Stop Time Status Last Admin Dose Admin Diagnostic Test (Pha) 1 strip Q6HR 07/12/25 00:00 07/25/25 12:08 1 STRIP Dextrose 50 ml UD PRN IV 07/11/25 19:00 Docusate Sodium 100 mg BID GT 07/11/25 22:00 07/23/25 11:21 100 MG Insulin Human Regular Q6HR SC 07/13/25 00:00 07/25/25 12:17 9 UNITS Lactulose 30 ml DAILY PO 07/21/25 10:00 07/24/25 10:39 30 ML Ondansetron HCl 4 mg Q6HPRN PRN IV 07/21/25 16:00 07/21/25 16:22 4 MG Amlodipine Besylate 10 mg DAILY PO 07/23/25 10:00 07/25/25 10:49 10 MG Aspirin 81 mg DAILY PO 07/24/25 10:00 07/25/25 10:49 81 MG Clopidogrel Bisulfate 75 mg DAILY PO 07/24/25 10:00 07/25/25 10:48 75 MG Cefepime HCl 50 ml @ 12.5 mls/hr Q12HR IV 07/24/25 22:00 07/25/25 10:47 12.5 MLS/HR Pantoprazole Sodium 40 mg DAILY@0600 PO 07/26/25 06:00 Examination Pt is lying on bed General Appearance: Alert, Oriented X3, Cooperative, Not in acute distress HEENT: Atraumatic, Mucous membranes moist/pink Respiratory: Clear to auscultation, Normal air movement, No added sounds Cardiovascular: Regular rate, Normal S1, Normal S2, No murmurs Abdominal: Active bowel sounds, Soft, no distention, no tenderness Extremities: No edema, Normal pulses, No tenderness/swelling Skin: No Significant rash, except past surgical scars Neuro: Normal speech, sensorimotor deficits none Psych/Mental Status: Mental status NL, Mood NL Nurse was there as email designer during examination laboratory and microbiology Laboratory Tests 07/25/25 04:45 Test 07/25/25 04:45 Range/Units Serum Glucose 121 H 74-106 mg/dL Microbiology Date/Time Source Procedure Growth Status 07/11/25 14:45 Sputum Gram Stain - Final Complete 07/11/25 14:45 Respiratory Culture - Final Staphylococcus aureus Klebsiella ozaenae Complete 07/10/25 18:45 Urine - [place] Urine Culture - Final Complete 07/10/25 01:46 Nose MRSA Screen - Final Methicillin Resistant S.aureus Complete 07/09/25 05:40 Blood Blood Culture - Final NO GROWTH AFTER 5 DAYS OF INCUBATION. Complete Labs and/or images reviewed: Labs reviewed by me, Image(s) reviewed by me Problem List/Assessment/Plan Problem List/Assessment/Plan Acute kidney injury hemodynamic mediated etiology unknown baseline renal function-improving Acute hypoxic respiratory failure needing intubation Severe sepsis Congestive heart failure preserved ejection fraction hypernatremia Plan/recommendation: Kidney function stable stage IV Increased urine output Monitor urinary output Encouraged to take oral fluids Monitor lab Daily assess fluid status Rest of management as per primary team Case discussed with the Dr. Ozuna Plan discussed with: Patient Dietary Evaluation Review Comments: Nutrition Recommendation: 1) EN Glucerna 1.2 @ 60ml/hr x 24hr (goal). TF at goal volume provides 1728 kcal (100%), 86 gm protein (100%), and 1159 ml free water. 2) Consider TPN/PN if NPO>7 days 3) Monitor NPO status, lab values, weight trend, and I/O Expected Outcomes/Goals: Intake to meet >75% estimated needs Lab values to improve FU 2-3 days ALYSE DONALD Jul 25, 2025 14:54 NANI OZUNA MD Jul 25, 2025 15:09
--- NOTE | 2025-07-25 18:53 | DVH ---
CHEST RADIOGRAPH Indication: PNA Technique: Single frontal view of the chest was obtained Comparison: XY CHEST XRAY 1 VIEW on DOS: 07/21/25, XY CHEST XRAY 1 VIEW on DOS: 07/20/25, XY CHEST XRAY 1 VIEW on DOS: 07/19/25 FINDINGS: Lines and Tubes: Life support lines and tubes have been removed compared to 07/21/2025 Lungs: No focal consolidation. Pleura: No effusion. No pneumothorax. Cardiomediastinal contours: Unremarkable Bones: No acute osseous abnormality. IMPRESSION: 1. No acute cardiopulmonary disease.
[2025-07-26] VITALS (8 sets, daily range): BP systolic 117–138; BP diastolic 54–68; PULSE 66–92; RESP 14–19; TEMP 97.8–99; O2SAT 98–100
[2025-07-26 05:55] LABS: Hemoglobin 8.2 g/dL (13.5-17.5); Mean Corpuscular Volume 93.3 fL (80.0-100.0); Nucleated Red Blood Cells % 0.0 %
[2025-07-26 05:58] LABS: Hematocrit 23.8 % (41.0-53.0); Mean Corpuscular Hemoglobin 32.3 pg (28.0-32.0)
[2025-07-26 06:01] LABS: Potassium 3.7 mmol/L (3.5-5.1); Sodium 143 mmol/L (136-145)
[2025-07-26 06:02] LABS: Anion Gap 12 (5-15); Carbon Dioxide 21 mmol/L (20-31)
[2025-07-26 06:07] LABS: BUN/Creatinine Ratio 22.9 (10.0-20.0)
[2025-07-26 06:18] LABS: Blood Urea Nitrogen 57 mg/dL (9-23); Calcium 8.0 mg/dL (8.7-10.4); Chloride 110 mmol/L (98-107); Glucose 122 mg/dL (74-106)
[2025-07-26] MEDS: PANTOPRAZOLE 40 MG TAB PO SCH (06:29)
[2025-07-26] MEDS: FUROSEMIDE 40 MG TAB PO SCH (12:28)
--- NOTE | 2025-07-26 13:04 | DVHPN2 ---
Progress Note - Dictate Date Seen: Jul 26, 2025 Has the PT tested + for MRSA If YES, has PT been informed?: Yes Medical Necessity Reason Pt with a Central, PICC or Fol: Yes The following are medically ne: Central Line, Toscano Catheter Subjective PT WITH MYALGIA ARTHALGIA FEVER LEUKOCYTOSIS WITH LEFT SHIFT NOW WITH ELEVATED BNP ELEVATED TROPONIN CKD RENAL FAILURE INSUFF HX OF CAD S/P PTCA STENT IN 2021 ECHO LVH EF 50% vital signs Vital Sign Date Time Temp Pulse Resp B/P (MAP) Pulse Ox O2 Delivery O2 Flow Rate FiO2 07/26/25 12:29 130/64 07/26/25 08:38 97.8 73 18 100 97.8 07/25/25 20:00 Room Air* 0 21 Total Intake and Output 07/25/25 07/25/25 07/26/25 15:00 23:00 07:00 Intake Total 360 ml 350 ml Output Total 300 ml Balance 60 ml 350 ml medications Current Medications Medications Dose Ordered Sig/Cherise Route Start Time Stop Time Status Last Admin Dose Admin Diagnostic Test (Pha) 1 strip Q6HR 07/12/25 00:00 07/26/25 12:13 1 STRIP Dextrose 50 ml UD PRN IV 07/11/25 19:00 Docusate Sodium 100 mg BID GT 07/11/25 22:00 07/26/25 10:54 100 MG Insulin Human Regular Q6HR SC 07/13/25 00:00 07/26/25 12:24 9 UNITS Lactulose 30 ml DAILY PO 07/21/25 10:00 07/26/25 10:54 30 ML Ondansetron HCl 4 mg Q6HPRN PRN IV 07/21/25 16:00 07/21/25 16:22 4 MG Aspirin 81 mg DAILY PO 07/24/25 10:00 07/26/25 10:55 81 MG Clopidogrel Bisulfate 75 mg DAILY PO 07/24/25 10:00 07/26/25 10:55 75 MG Pantoprazole Sodium 40 mg DAILY@0600 PO 07/26/25 06:00 07/26/25 06:29 40 MG Amoxicillin/ Clavulanate Potassium 500 mg Q12HR PO 07/25/25 22:00 07/26/25 10:00 500 MG Amlodipine Besylate 5 mg DAILY PO 07/26/25 10:30 07/26/25 12:29 5 MG Furosemide 40 mg DAILY PO 07/26/25 10:30 07/26/25 12:28 40 MG laboratory and microbiology Laboratory Tests 07/26/25 05:35 Test 07/26/25 05:35 Range/Units Serum Glucose 122 H 74-106 mg/dL Problem List MYALGIA ARTHALGIA FEVER LEUKOCYTOSIS WITH LEFT SHIFT NOW WITH ELEVATED BNP ELEVATED TROPONIN CKD RENAL FAILURE INSUFF HX OF CAD S/P PTCA STENT IN 2021 ECHO LVH EF 35% METABOLIC GAP ACIDOSIS SEVERE VOLUMEoverload Assessment/Plan IV FLUID ABX NO CARDIAC INTERVENTION AT THIS TIME ELEVATED CARDIAC PARAMETERS SECONDARY TO METABOLIC INSTABILITY EF 35% MILD TR MILD MR cxr CONSISTENT WITH ARDS IF CLINICALLY INDICATED CONSIDER RHC CXR BILATERAL INFILTRATE R>L CONSIDER CT OF CHEST SIGNIFICANT IMPROVEMENT IN CHEST CXR DISCUSSED WITH REMA SEYMOUR ABOUT L/RHC HE IS AGREEABLE WILL RESCHEDULE FOR 07/20/25 MAY EXTUBATE PT L/RHC TODAY HEMODYNAMICALLY PT CURRENTLY NOT DECOMPENSATED PWCP 10 LVEDP 10 EXTUBATED HEMODYNAMICALLY STABLE Dietary Evaluation Review Comments: Nutrition Recommendation: 1) EN Glucerna 1.2 @ 60ml/hr x 24hr (goal). TF at goal volume provides 1728 kcal (100%), 86 gm protein (100%), and 1159 ml free water. 2) Consider TPN/PN if NPO>7 days 3) Monitor NPO status, lab values, weight trend, and I/O Expected Outcomes/Goals: Intake to meet >75% estimated needs Lab values to improve FU 2-3 days Plan discussed with: Patient LIMA BRUCE MD Jul 26, 2025 13:04
--- NOTE | 2025-07-26 14:43 | DVHPN2 ---
Progress Note Date Seen: Jul 26, 2025 Resident Creating Document: ALYSE DONALD RESIDENT Has the PT tested + for MRSA If YES, has PT been informed?: Yes Medical Necessity Reason Pt with a Central, PICC or Fol: Yes The following are medically ne: Central Line, Toscano Catheter Subjective Review of Systems Patient seen and examined at the bedside. patient reported no new complaints and improved in his overall symptoms. Patient reports: Feels better Objective vital signs Vital Sign Date Time Temp Pulse Resp B/P (MAP) Pulse Ox O2 Delivery O2 Flow Rate FiO2 07/26/25 13:11 98.9 79 18 130/64 (86) 100 98.9 07/26/25 08:00 Room Air* 0 21 Total Intake and Output 07/25/25 07/25/25 07/26/25 15:00 23:00 07:00 Intake Total 360 ml 350 ml Output Total 300 ml Balance 60 ml 350 ml medications Current Medications Medications Dose Ordered Sig/Cherise Route Start Time Stop Time Status Last Admin Dose Admin Diagnostic Test (Pha) 1 strip Q6HR 07/12/25 00:00 07/26/25 12:13 1 STRIP Dextrose 50 ml UD PRN IV 07/11/25 19:00 Docusate Sodium 100 mg BID GT 07/11/25 22:00 07/26/25 10:54 100 MG Insulin Human Regular Q6HR SC 07/13/25 00:00 07/26/25 12:24 9 UNITS Lactulose 30 ml DAILY PO 07/21/25 10:00 07/26/25 10:54 30 ML Ondansetron HCl 4 mg Q6HPRN PRN IV 07/21/25 16:00 07/21/25 16:22 4 MG Aspirin 81 mg DAILY PO 07/24/25 10:00 07/26/25 10:55 81 MG Clopidogrel Bisulfate 75 mg DAILY PO 07/24/25 10:00 07/26/25 10:55 75 MG Pantoprazole Sodium 40 mg DAILY@0600 PO 07/26/25 06:00 07/26/25 06:29 40 MG Amoxicillin/ Clavulanate Potassium 500 mg Q12HR PO 07/25/25 22:00 07/26/25 10:00 500 MG Amlodipine Besylate 5 mg DAILY PO 07/26/25 10:30 07/26/25 12:29 5 MG Furosemide 40 mg DAILY PO 07/26/25 10:30 07/26/25 12:28 40 MG Examination Pt is lying on bed General Appearance: Alert, Oriented X3, Cooperative, Not in acute distress HEENT: Atraumatic, Mucous membranes moist/pink Respiratory: Clear to auscultation, Normal air movement, No added sounds Cardiovascular: Regular rate, Normal S1, Normal S2, No murmurs Abdominal: Active bowel sounds, Soft, no distention, no tenderness Extremities: No edema, Normal pulses, No tenderness/swelling Skin: No Significant rash, except past surgical scars Neuro: Normal speech, sensorimotor deficits none Psych/Mental Status: Mental status NL, Mood NL Nurse was there as microsoft application developer during examination laboratory and microbiology Laboratory Tests 07/26/25 05:35 Test 07/26/25 05:35 Range/Units Serum Glucose 122 H 74-106 mg/dL Microbiology Date/Time Source Procedure Growth Status 07/11/25 14:45 Sputum Gram Stain - Final Complete 07/11/25 14:45 Respiratory Culture - Final Staphylococcus aureus Klebsiella ozaenae Complete 07/10/25 18:45 Urine - [place] Urine Culture - Final Complete 07/10/25 01:46 Nose MRSA Screen - Final Methicillin Resistant S.aureus Complete 07/09/25 05:40 Blood Blood Culture - Final NO GROWTH AFTER 5 DAYS OF INCUBATION. Complete Labs and/or images reviewed: Labs reviewed by me, Image(s) reviewed by me Problem List/Assessment/Plan Problem List/Assessment/Plan Acute kidney injury hemodynamic mediated etiology unknown baseline renal function-improving Acute hypoxic respiratory failure needing intubation Severe sepsis Congestive heart failure preserved ejection fraction hypernatremia Plan/recommendation: Kidney function stable stage IV Increased urine output Monitor urinary output Encouraged to take oral fluids Monitor lab Lasix 40 p.o. daily Reduced amlodipine dose to 5 mg from 10 mg Daily assess fluid status Rest of management as per primary team Case discussed with the Dr. Marcial Plan discussed with: Patient Dietary Evaluation Review Comments: Nutrition Recommendation: 1) EN Glucerna 1.2 @ 60ml/hr x 24hr (goal). TF at goal volume provides 1728 kcal (100%), 86 gm protein (100%), and 1159 ml free water. 2) Consider TPN/PN if NPO>7 days 3) Monitor NPO status, lab values, weight trend, and I/O Expected Outcomes/Goals: Intake to meet >75% estimated needs Lab values to improve FU 2-3 days ALYSE DONALD RESIDENT Jul 26, 2025 14:43
--- NOTE | 2025-07-26 17:01 | DVHPNRES ---
Progress Note Date Seen: Jul 26, 2025 Resident Creating Document: DEMARCUS SINGLETON RESIDENT Has the PT tested + for MRSA If YES, has PT been informed?: Yes Medical Necessity Reason Pt with a Central, PICC or Fol: Yes The following are medically ne: Central Line, Toscano Catheter Subjective Review of Systems This is a 84-year-old patient who presented to the ER with a chief complaint of shortness of breaths for the past 2 days. Patient reports having flu-like symptoms, mild fevers and chills for the past 2 days, says that yesterday around 3:00 p.m. he started to become more short of breaths while he was in the bed, associated with generalized weakness, productive cough with white phlegm for the past 2 days. He is also experiencing mild fever and chills. Denies any recent traveling or sick contacts. He quit smoking in 1994. On arrival to the ER, patient was afebrile, tachycardic, tachypneic 28 per minute and was put on non-rebreather and BiPAP then high-flow. WBC 19. D-dimer 0.9. Lactic 1.9, troponins 2074, 2045, 2288. Patient denies any chest pain, dizziness, palpitations at this time. Cardiology consulted for elevated troponins and shortness of breaths Past medical history: Diabetes mellitus on insulin, CKD, diastolic heart failure, CAD status post 1 2021 to RCA Past surgical history denies Home medications: Insulin, iron tablets, amlodipine 10, Lasix 40 mg Social history: Quit smoking and drinking 199407/15/2025: urine output improving. ECHO : .Left atrial enlargement with concentric LVH. Mild dilation of the sinuses of Valsalva. Mild aortic sclerosis. Mild mitral annular calcification. Left ventricular function is mildly to moderately diminished EF of 40% with normal RV function. There is severe mitral and tricuspid regurgitation. Right ventricular systolic pressure of 60 mmHg. This is consistent with severe pulmonary hypertension. Patient on 2.5 dobutamine drip. Patient's chest x-ray still looks congested. So Cardiology recommended keeping dobutamine drip. 07/16/2025 Currently intubated Respiratory cultures growing MRSA and Klebsiella CPAP trial in the a.m. 07/17/2025: Patient seen in ICU. patient kept on dobutamine drip 2.5. Patient not on pressors. kidney function improving. CPAP trial done today. Patient tolerated well. hypernatremia resolved. 07/18/25: Patient seen and examined at bedside, patient was on CPAP trial to the, patient is off sedation and following commands. Plan for left heart catheterization tomorrow 07/19/2025: Patient seen and examined at bedside, patient was on CPAP trial to the, patient is off sedation and following commands. Left heart catheterization was postponed today . Plan for left heart catheterization tomorrow. 07/20/25: Patient had a left heart catheterization today by Dr. Gardner 07/21/25: Patient seen and examined at bedside, patient was extubated today, patient is on 2 L supplemental oxygen. 07/22/25: Seen and examined at bedside, patient is little confused, patient is on 2 L oxygen supplementation, patient is off pressors and off sedation. Downgrade patient to IZZY. 07/23/25 : The patients mental status has improved slightly compared to yesterday. The patient is now more alert, interactive, and following simple commands, No acute distress reported. Denies active chest pain, shortness of breath, or new abdominal pain. Tolerating oral intake better. Toscano catheter discontinued today.Triple-lumen central line discontinued today.Potassium repleted for hypokalemia. 07/24/25: Patient seen and examined at bedside, patient has no new complaint, patient is working with PT, did not walk yet. 07/25/25: Patient seen and examined at bedside, no new complaint, patient is eating and drinking well, physical therapy. 07/26/25: Patient seen and examined at bedside, no new complaint patient is working with PT, patient is walking but patient is very weak, patient needs PT Discussed with patient's son Syed about discharge planning, family agreed to be discharged in SNF for physical therapy, social and political studies professor consulted. Objective vital signs Vital Sign Date Time Temp Pulse Resp B/P (MAP) Pulse Ox O2 Delivery O2 Flow Rate FiO2 07/26/25 13:11 98.9 79 18 130/64 (86) 100 98.9 07/26/25 08:00 Room Air* 0 21 Total Intake and Output 07/25/25 07/25/25 07/26/25 15:00 23:00 07:00 Intake Total 360 ml 350 ml Output Total 300 ml Balance 60 ml 350 ml medications Current Medications Medications Dose Ordered Sig/Cherise Route Start Time Stop Time Status Last Admin Dose Admin Diagnostic Test (Pha) 1 strip Q6HR 07/12/25 00:00 07/26/25 12:13 1 STRIP Dextrose 50 ml UD PRN IV 07/11/25 19:00 Docusate Sodium 100 mg BID GT 07/11/25 22:00 07/26/25 10:54 100 MG Insulin Human Regular Q6HR SC 07/13/25 00:00 07/26/25 12:24 9 UNITS Lactulose 30 ml DAILY PO 07/21/25 10:00 07/26/25 10:54 30 ML Ondansetron HCl 4 mg Q6HPRN PRN IV 07/21/25 16:00 07/21/25 16:22 4 MG Aspirin 81 mg DAILY PO 07/24/25 10:00 07/26/25 10:55 81 MG Clopidogrel Bisulfate 75 mg DAILY PO 07/24/25 10:00 07/26/25 10:55 75 MG Pantoprazole Sodium 40 mg DAILY@0600 PO 07/26/25 06:00 07/26/25 06:29 40 MG Amoxicillin/ Clavulanate Potassium 500 mg Q12HR PO 07/25/25 22:00 07/26/25 10:00 500 MG Amlodipine Besylate 5 mg DAILY PO 07/26/25 10:30 07/26/25 12:29 5 MG Furosemide 40 mg DAILY PO 07/26/25 10:30 07/26/25 12:28 40 MG Examination GENERAL: Not in acute distress. HEENT: EOMI, Moist mucous membranes. No scleral icterus. No cervical lymphadenopathy. LUNGS: Clear to auscultation bilaterally. No accessory muscle use. On 2 L supplemental oxygen with nasal cannula. CARDIOVASCULAR: Regular rate and rhythm. No murmur. No JVD. ABDOMEN: Soft, nontender and nondistended. No palpable masses. EXTREMITIES: No edema. Nontender. SKIN: No rashes or lesions. Warm. NEUROLOGIC: Alert and oriented laboratory and microbiology Laboratory Tests 07/26/25 05:35 Test 07/26/25 05:35 Range/Units Serum Glucose 122 H 74-106 mg/dL Microbiology Date/Time Source Procedure Growth Status 07/11/25 14:45 Sputum Gram Stain - Final Complete 07/11/25 14:45 Respiratory Culture - Final Staphylococcus aureus Klebsiella ozaenae Complete 07/10/25 18:45 Urine - [place] Urine Culture - Final Complete 07/10/25 01:46 Nose MRSA Screen - Final Methicillin Resistant S.aureus Complete 07/09/25 05:40 Blood Blood Culture - Final NO GROWTH AFTER 5 DAYS OF INCUBATION. Complete Problem List/Assessment/Plan Problem List/Assessment/Plan Neurology # ALOC ?Cardiac encephalopathy -likely because of forward pump failure -improved Cardiology # NSTEMI type 2 likely, # Ruled out NSTEMI type 1 - elevated trops -patient underwent left heart catheterization by Dr. Gardner on 07/20/25 - negative for atherosclerotic disease, - left heart catheterization shows: Left ventricular function shows segmental wall motion abnormality with anterior severe hypokinesis, apical hypokinesis, and anterior mild hypokinesis with an estimated EF around 25-30%. patient's right-sided pressures and left-sided pressures are within normal limits. ECHO : Left atrial enlargement with concentric LVH. Mild dilation of the sinuses of Valsalva. Mild aortic sclerosis. Mild mitral annular calcification. Left ventricular function is mildly to moderately diminished EF of 40% with normal RV function. There is severe mitral and tricuspid regurgitation. Right ventricular systolic pressure of 60 mmHg. This is consistent with severe pulmonary hypertension. # Mild MR, Mild TR # acute HFrEF exacerbation -currently on dobutamine drip 2.5mcg/kg/min started by the design lead - Dr. Gardner, cardiology on board. - IV lasix 40mg IV daily. # elevated D-dimer likely because of sepsis CHF exacerbation -lower extremity ultrasound: No DVT # hypertension, currently in shock Hold antihypertensives # hyperlipidemia on statins # paroxysmal AFib, currently sinus rhythm. Likely because of CHF exacerbation # Known CAD status post 1 ANICETO 2021 to RCA -hold aspirin and Plavix because of gross hematuria Plan to restart Plavix Respiratory # Acute hypoxic respiratory failure likely due to acute HFrEF exacerbation and ARDS # ARDS - resolving Patient is on IV Lasix # Gram-positive/negative community-acquired pneumonia -switched IV antibiotic cefepime to p.o. Augmentin # bilateral pleural effusion due to CHF exacerbation -continue diuresis # ?COPD, not in exacerbation Currently on mechanical ventilator # history of previous smoking # Genitourinary # CAMERON on CKD, improving Monitor Renal function Renal ultrasound # Hypernatremia, -free water given Infectious disease # sepsis likely due to pneumonia -switched IV antibiotic cefepime to p.o. Augmentin Cultures # MRSA nares positive Mupirocin GI # Mild transaminitis likely due to hepatic congestion -continue diuresis # bowel regimen -currently on Colace Endocrinology # Diabetes mellitus type 2 Sliding scale insulin Rheumatology # Gout We will resume allopurinol on discharge # BPH Hold tamsulosin # gross hematuria -hold antiplatelet agents and bladder irrigation Hematology oncology # anemia, likely anemia of chronic disease - Monitor # thrombocytopenia likely due to sepsis - monitor CBC Discussed with patient's son Syed about discharge planning, family agreed to be discharged in SNF for physical therapy, social and political studies professor consulted Case discussed with Dr. Marlow Plan discussed with: Son My Orders My Orders Orders - DEMARCUS SINGLETON RESIDENT Procedure Category Date Status Time * Quilting Supervisor CONS 07/26/25 Transmitted Consult Basic Metabolic Panel LAB 07/27/25 Verified 04:00 Complete Blood Count LAB 07/27/25 Verified 04:00 Dietary Evaluation Review Comments: Nutrition Recommendation: 1) EN Glucerna 1.2 @ 60ml/hr x 24hr (goal). TF at goal volume provides 1728 kcal (100%), 86 gm protein (100%), and 1159 ml free water. 2) Consider TPN/PN if NPO>7 days 3) Monitor NPO status, lab values, weight trend, and I/O Expected Outcomes/Goals: Intake to meet >75% estimated needs Lab values to improve FU 2-3 days Date of Service: Jul 26, 2025 Billing Provider: CELINE MARLOW MD Common Visit Codes: [id number] INP/OBS CARE(HIGH) DEMARCUS SINGLETON RESIDENT Jul 26, 2025 17:01 CELINE MARLOW MD Jul 27, 2025 15:34
[2025-07-26] MEDS: DOCUSATE ORAL LIQUID 100 MG/10 ML UD PO SCH (21:48)
[2025-07-27 05:00] VITALS: BP 119/73; PULSE 83; RESP 19; TEMP 98.9; O2SAT 100
[2025-07-27 06:28] LABS: Hemoglobin 8.4 g/dL (13.5-17.5); Mean Corpuscular Volume 92.9 fL (80.0-100.0)
[2025-07-27 06:31] LABS: Hematocrit 25.0 % (41.0-53.0); Mean Corpuscular Hemoglobin 31.2 pg (28.0-32.0); Nucleated Red Blood Cells % 0.0 %
--- NOTE | 2025-07-27 06:43 | DVHDSRES ---
Discharge Summary Date of Admission Resident Creating Document: DEMARCUS SINGLETON RESIDENT Jul 09, 2025 at 10:18 Date of Discharge: Jul 27, 2025 Admitting Diagnosis Acute exacerbation of heart failure, Labs/Diagnostic Data: Laboratory Results Test 07/27/25 06:11 07/27/25 05:37 07/26/25 05:35 07/24/25 09:43 POC Glucose 81 mg/dl (70-106) Eosinophils (%) (Auto) 1.1 % (0.0-7.0) Eosinophils # (Auto) 0.1 10 ^3/uL (0-0.8) Basophils # (Auto) 0 10 ^3/uL (0-0.2) Nucleated Red Blood Cells 0.0 % Total Bilirubin 0.9 mg/dL (0.2-1.0) Aspartate Amino Transferase (AST) 23 U/L (13-40) Alanine Aminotransferase (ALT) 26 U/L (7-40) Alkaline Phosphatase 70 U/L (46-116) Total Protein 7.0 g/dL (5.7-8.2) Albumin 3.7 g/dL (3.2-4.8) Test 07/24/25 03:05 07/21/25 10:31 07/21/25 06:37 07/20/25 03:34 Stool Occult Blood Negative (Negative) Stool Occult Blood Sample #3 (Negative) Blood Gas Specimen Type Arterial Blood Gas Sample Site Right radial Blood Gas Patient Temperature 37.0 Arterial Blood Date Drawn [id number] Arterial Blood pH 7.411 (7.350-7.450) Arterial Blood Partial Pressure CO2 34.8 mmHg (35.0-48.0) Arterial Blood Partial Pressure O2 120.4 mmHg (83.0-108.0) Arterial Blood HCO3 21.6 mmol/L (21.0-28.0) Arterial Blood Oxygen Saturation 97.5 % (94.0-98.0) Arterial Blood Base Excess -2.5 mmol/L (-2.0-3.0) Arterial Blood Oxyhemoglobin 97.1 % (94.0-98.0) Arterial Blood Carboxyhemoglobin 0.3 % (0.5-1.5) Arterial Blood Methemoglobin 0.1 % (0.0-1.5) Salas Test Modified Blood Gas Total Hemoglobin 11.30 g/dL (13.5-17.5) Blood Gas Modality Vent - cpap FiO2 % 30.0 Blood Gas Pressure Support 8 Blood Gas PEEP or CPAP 5.0 Blood Gas Set Respiration Rate 22.0 Blood Gas Tidal Volume 450.0 Magnesium Level 3.0 mg/dL (1.6-2.6) Test 07/19/25 03:40 07/12/25 03:50 07/11/25 17:49 07/11/25 12:51 Prothrombin Time 12.2 sec (9.3-11.8) Prothrombin Time INR 1.17 (0.9-1.15) Activated Partial Thromboplast Time 29.6 SEC (24.5-34.5) Creatine Kinase 160 U/L (46-171) Random Vancomycin Level 14.3 ug/mL (5-10) Blood Gas Spontaneous Rate 28 Blood Gas EPAP 5 Blood Gas IPAP 12 Blood Gas Critical Value Read Back Yes Blood Gas Notified Whom Azra otero Blood Gas Notified Time [id number] Blood Gas Notified By German healy Test 07/11/25 09:30 07/11/25 02:46 07/10/25 18:45 07/10/25 15:31 Lactic Acid Level 2.5 mmol/L (0.4-2.0) Differential Total Cells Counted 100.0 (100) Neutrophils % (Manual) 90 (37.0-80.0) Band Neutrophils % (Manual) 6 Lymphocytes % (Manual) 4 (10.0-50.0) Monocytes % (Manual) 0 (0-12) Eosinophils % (Manual) 0 (0-7) Basophils % (Manual) 0 (0.0-2.0) Metamyelocytes % (manual) 0 Myelocytes % (Manual) 0 Promyelocytes % (Manual) 0 Blast Cells % (Manual) 0 Reactive Lymphocytes 0 Platelet Estimate Adequate C-Reactive Protein High Sensitivity 10.21 mg/dL (<1.0) B-Type Natriuretic Peptide 1276.53 pg/mL (0-100) Urine Color Light-yellow (Yellow) Urine Clarity Turbid (Clear) Urine pH 5.0 (5.0-9.0) Urine Specific [place] 1.012 (1.001-1.035) Urine Protein 1+ (Negative) Urine Ketones Negative (Negative) Urine Blood 2+ /uL (Negative) Urine Nitrite Negative (Negative) Urine Bilirubin Negative (Negative) Urine Urobilinogen Normal mg/dL (Negative) Urine Leukocyte Esterase Negative /uL (Negative) Urine RBC 34 /hpf (0 - 3) Urine Microscopic WBC 5 /HPF (0-3) Urine Squamous Epithelial Cells None seen /hpf (<5) Urine Amorphous Crystals Few /hpf (None Seen) Urine Bacteria Few /hpf (None Seen) Urine Creatinine 93.23 mg/dL (30.0-125.0) Urine Protein/Creatinine Ratio 0.78 Urine Sodium 19 mmol/L (40-220) Urine Glucose 2+ mg/dL (Normal) Urine Total Protein 72.8 mg/dL (1-14) Erythrocyte Sedimentation Rate 76 mm/hr (0-20) Iron Level 25 ug/dL (65-175) Total Iron Binding Capacity 209 ug/dL (250-425) Percent Iron Saturation 12.0 % (20-55) Ferritin 539.5 ng/mL (22-322) Test 07/10/25 11:57 07/10/25 06:39 07/09/25 12:13 07/09/25 11:12 Blood Gas Liter Flow 10.00 Troponin I High Sensitivity 2113 ng/L (</=54) Urine Hyaline Casts Few /lpf (0 - 2) Urine Opiates Screen Neg (NEGATIVE) Urine Fentanyl Screen Neg (NEGATIVE) Urine Barbiturates Screen Neg (NEGATIVE) Urine Phencyclidine Screen Neg (NEGATIVE) Urine Amphetamines Screen Neg (NEGATIVE) Urine Benzodiazepines Screen Neg (NEGATIVE) Urine Cocaine Screen Neg (NEGATIVE) Urine Cannabinoids Screen Neg (NEGATIVE) Hemoglobin A1c 6.8 % A1C (<5.7) Test 07/09/25 08:58 07/09/25 05:40 07/09/25 02:44 Influenza Type A Antigen Negative (Negative) Influenza Type B Antigen Negative (Negative) SARS-CoV-2 Antigen (Rapid) Negative (NEGATIVE) Thyroid Stimulating Hormone (TSH) 0.79 uIU/mL (0.55-4.78) Large Platelets Few D-Dimer, Quantitative 0.93 mg/L FEU (0.0-0.49) Brief Hx & Hospital Course: 84-year-old patient who presented to the ER with a chief complaint of shortness of breaths for the past 2 days. Patient reports having flu-like symptoms, mild fevers and chills for the past 2 days, says that yesterday around 3:00 p.m. he started to become more short of breaths while he was in the bed, associated with generalized weakness, productive cough with white phlegm for the past 2 days. Patti alan is also experiencing mild fever and chills. Denies any recent traveling or sick contacts. He quit smoking in 1994. On arrival to the ER, patient was afebrile, tachycardic, tachypneic 28 per minute and was put on non-rebreather and BiPAP then high-flow. WBC 19. D-dimer 0.9. Lactic 1.9, troponins 2074, 204, 2288. Cardiology consulted for elevated troponins and shortness of breaths. Past medical history: Diabetes mellitus on insulin, CKD, diastolic heart failure, CAD status post 1 ANICETO 2021 to RCA. Patient was started IV Lasix, urine output was improving but, patient had severe shortness of breath. Patient needed to be intubated and sedated for airway protection and to improve shortness of breath. Echo was done and shows: Left atrial enlargement with concentric LVH. Mild dilation of the sinuses of Valsalva. Mild aortic sclerosis. Mild mitral annular calcification. Left ventricular function is mildly to moderately diminished EF of 40% with normal RV function. There is severe mitral and tricuspid regurgitation. Right ventricular systolic pressure of 60 mmHg. This is consistent with severe pulmonary hypertension. Patient on 2.5 dobutamine drip. Patient's chest x-ray still looks congested. So Cardiology recommended keeping dobutamine drip. Patient had a left heart catheterization today by Dr. Gardner on 07/20/25 showed no atherosclerotic obstruction. EF 25%. Patient was extubated on 07/21/25. on 07/23/25 , The patients mental status has improved slightly The patient is now more alert, interactive, and following simple commands, No acute distress reported. Denies active chest pain, shortness of breath, or new abdominal pain. Tolerating oral intake better. Toscano catheter discontinued .Triple-lumen central line discontinued. Patient started getting physical therapy, patient is very weak and needs to continue physical therapy. Discussed with patient's son Syed about discharge planning, family agreed to be discharged in SNF for physical therapy, clinical social work therapist consulted. Patient will be discharged to SNF when bed is available. time spent in discharge planning was 41 mins Consults/Reason for consult Nephrology for CAMERON, Cardiology for NSTEMI Operations or Procedures Left heart catheterization by Dr. Gardner on 07/21/25 Condition at Discharge: Fair Final Diagnosis/Problems List # ALOC due to Cardiac encephalopathy # NSTEMI type 2 likely, # Ruled out NSTEMI type 1 # Mild MR, Mild TR # acute HFrEF exacerbation # elevated D-dimer likely because of sepsis CHF exacerbation # hypertension, currently in shock # hyperlipidemia # paroxysmal AFib, currently sinus rhythm. # Known CAD status post 1 ANICETO 2021 to RCA # Acute hypoxic respiratory failure likely due to acute HFrEF exacerbation and ARDS # ARDS - resolving # Gram-positive/negative community-acquired pneumonia # bilateral pleural effusion due to CHF exacerbation # ?COPD, not in exacerbation # history of previous smoking # CAMERON on CKD, improving # Hypernatremia, # sepsis likely due to pneumonia # MRSA nares positive # Mild transaminitis likely due to hepatic congestion # Diabetes mellitus type 2 # Gout # BPH # gross hematuria # anemia, likely anemia of chronic disease # thrombocytopenia likely due to sepsis Discharge Disposition: Shelter Facility SNF Discharge Will this Physician continue t: No Discharge Instruct/Medications Diet: Consistent carbohydrate, Cardiac 2g Na,low cholest Activity: No Restrictions, As Tolerated Follow Up/Referral: Follow up PCP in 1-2 weeks Medications: As per Medication list Scheduled Allopurinol (Allopurinol), 100 MG PO DAILY, (Reported) Amlodipine Besylate (Amlodipine Besylate), 1 TAB PO DAILY, (Reported) Atorvastatin Calcium (Lipitor), 1 TAB PO QPM, (Reported) Docusate Sodium (Colace), 1 CAP PO BID, (Reported) Ferrous Sulfate (Ferrous Sulfate), 1 TAB PO BID, (Reported) Ferrous Sulfate (Ferosul), 325 MG PO DAILY, (Reported) Furosemide (Furosemide), 1 TAB PO DAILY, (Reported) Glipizide (Glipizide Er), 1 TAB PO BID, (Reported) Insulin Glargine (Lantus Solostar), 15 UNITS SC DAILY, (Reported) Patiromer Sorbitex Calcium (Veltassa), 8.4 GM PO DAILY, (Reported) Tamsulosin Hcl (Tamsulosin Hcl), 0.4 MG PO HS, (Reported) Scheduled PRN Hydralazine Hcl (Hydralazine Hcl), 50 MG PO 3x a day PRN for blood pressure, (Reported) Discharge Statement: "Patient was advised to return to the ER or call 911 if any headaches, dizziness, shortness of breath, chest pain, abdominal pain, bleeding, fevers, or worsening of medical condition. Patient was counseled about treatment plan, medications, possible side effects, patientverbalized understanding. All questions were answered to the best of my ability. This discharge took greater then 30 minutes in planning, reviewing documentation, counseling the patient, and discussing with other team members." ASSESSMENT ASSESSMENT Assessment # ALOC due to Cardiac encephalopathy # NSTEMI type 2 likely, # Ruled out NSTEMI type 1 # Mild MR, Mild TR # acute HFrEF exacerbation # elevated D-dimer likely because of sepsis CHF exacerbation # hypertension, currently in shock # hyperlipidemia # paroxysmal AFib, currently sinus rhythm. # Known CAD status post 1 ANICETO 2021 to RCA # Acute hypoxic respiratory failure likely due to acute HFrEF exacerbation and ARDS # ARDS - resolving # Gram-positive/negative community-acquired pneumonia # bilateral pleural effusion due to CHF exacerbation # ?COPD, not in exacerbation # history of previous smoking # CAMERON on CKD, improving # Hypernatremia, # sepsis likely due to pneumonia # MRSA nares positive # Mild transaminitis likely due to hepatic congestion # Diabetes mellitus type 2 # Gout # BPH # gross hematuria # anemia, likely anemia of chronic disease # thrombocytopenia likely due to sepsis Date of Service: Jul 27, 2025 Billing Provider: CELINE MARLOW MD Common Visit Codes: 58492-CIA/OBS DISCH DAY >30min DEMARCUS SINGLETON RESIDENT Jul 27, 2025 06:43 CELINE MARLOW MD Jul 28, 2025 11:19
[2025-07-27 07:01] LABS: Anion Gap 12 (5-15); Carbon Dioxide 22 mmol/L (20-31); Potassium 3.7 mmol/L (3.5-5.1); Sodium 143 mmol/L (136-145)
[2025-07-27 07:02] LABS: Calcium 8.2 mg/dL (8.7-10.4); Chloride 109 mmol/L (98-107)
[2025-07-27 07:07] LABS: BUN/Creatinine Ratio 26.5 (10.0-20.0)
[2025-07-27 07:09] LABS: Blood Urea Nitrogen 52 mg/dL (9-23); Glucose 57 mg/dL (74-106)
[2025-07-27 08:00] VITALS: PULSE 74; RESP 14; O2SAT 98
[2025-07-27 09:00] VITALS: BP 139/78; PULSE 89; RESP 18; TEMP 98.3; O2SAT 99
[2025-07-27 12:40] VITALS: BP 137/71; PULSE 91; RESP 18; TEMP 98.1; O2SAT 100
[2025-07-27 13:17] VITALS: BP 139/78; TEMP 36.7
--- NOTE | 2025-07-27 13:58 | DVHPN2 ---
Progress Note Date Seen: Jul 27, 2025 Resident Creating Document: ALYSE DONALD RESIDENT Has the PT tested + for MRSA If YES, has PT been informed?: Yes Medical Necessity Reason Pt with a Central, PICC or Fol: Yes The following are medically ne: Central Line, Toscano Catheter Subjective Review of Systems Patient seen and examined at the bedside. Patient reported no new complaints Other Systems: Patient seen and examined by myself today in follow-up with the medicine resident, I agree with his assessment and plan Objective vital signs Vital Sign Date Time Temp Pulse Resp B/P (MAP) Pulse Ox O2 Delivery O2 Flow Rate FiO2 07/27/25 13:17 36.7 07/27/25 12:40 91 18 137/71 (93) 100 07/27/25 08:00 Room Air* 0 21 Total Intake and Output 07/26/25 07/26/25 07/27/25 15:00 23:00 07:00 Intake Total 625 ml 800 ml Output Total 1500 ml 2300 ml Balance -875 ml -1500 ml medications Current Medications Medications Dose Ordered Sig/Cherise Route Start Time Stop Time Status Last Admin Dose Admin Diagnostic Test (Pha) 1 strip Q6HR 07/12/25 00:00 07/27/25 12:16 1 STRIP Dextrose 50 ml UD PRN IV 07/11/25 19:00 Insulin Human Regular Q6HR SC 07/13/25 00:00 07/27/25 11:56 6 UNITS Lactulose 30 ml DAILY PO 07/21/25 10:00 07/27/25 10:14 30 ML Ondansetron HCl 4 mg Q6HPRN PRN IV 07/21/25 16:00 07/21/25 16:22 4 MG Aspirin 81 mg DAILY PO 07/24/25 10:00 07/27/25 10:15 81 MG Clopidogrel Bisulfate 75 mg DAILY PO 07/24/25 10:00 07/27/25 10:14 75 MG Pantoprazole Sodium 40 mg DAILY@0600 PO 07/26/25 06:00 07/27/25 06:07 40 MG Amoxicillin/ Clavulanate Potassium 500 mg Q12HR PO 07/25/25 22:00 07/27/25 10:15 500 MG Amlodipine Besylate 5 mg DAILY PO 07/26/25 10:30 07/27/25 10:14 5 MG Furosemide 40 mg DAILY PO 07/26/25 10:30 07/27/25 10:20 40 MG Docusate Sodium 100 mg BID PO 07/26/25 22:00 07/27/25 10:14 100 MG Examination Pt is lying on bed General Appearance: Alert, Oriented X3, Cooperative, Not in acute distress HEENT: Atraumatic, Mucous membranes moist/pink Respiratory: Clear to auscultation, Normal air movement, No added sounds Cardiovascular: Regular rate, Normal S1, Normal S2, No murmurs Abdominal: Active bowel sounds, Soft, no distention, no tenderness Extremities: No edema, Normal pulses, No tenderness/swelling Skin: No Significant rash, except past surgical scars Neuro: Normal speech, sensorimotor deficits none Psych/Mental Status: Mental status NL, Mood NL Nurse was there as portfolio management marketing during examination Examination: LUNGS:Normal, CVS:Normal, MSK:Normal laboratory and microbiology Laboratory Tests 07/27/25 05:37 Test 07/27/25 05:37 Range/Units Serum Glucose 57 L 74-106 mg/dL Microbiology Date/Time Source Procedure Growth Status 07/11/25 14:45 Sputum Gram Stain - Final Complete 07/11/25 14:45 Respiratory Culture - Final Staphylococcus aureus Klebsiella ozaenae Complete 07/10/25 18:45 Urine - [place] Urine Culture - Final Complete 07/10/25 01:46 Nose MRSA Screen - Final Methicillin Resistant S.aureus Complete 07/09/25 05:40 Blood Blood Culture - Final NO GROWTH AFTER 5 DAYS OF INCUBATION. Complete Labs and/or images reviewed: Labs reviewed by me, Image(s) reviewed by me Problem List/Assessment/Plan Problem List/Assessment/Plan Acute kidney injury hemodynamic mediated etiology unknown baseline renal function-improving Acute hypoxic respiratory failure, status post extubation Severe sepsis Congestive heart failure preserved ejection fraction hypernatremia secondary to dehydration Diabetes mellitus type 2 Plan/recommendation: Kidney function is improving Increased urine output Monitor urinary output Encouraged to take oral fluids Monitor lab Lasix 40 p.o. daily Reduced amlodipine dose to 5 mg from 10 mg Rest of management as per primary team outpatient follow up with the Nephrology Case discussed with the Dr. Ozuna Plan discussed with: Patient Dietary Evaluation Review Comments: Nutrition Recommendation: 1) EN Glucerna 1.2 @ 60ml/hr x 24hr (goal). TF at goal volume provides 1728 kcal (100%), 86 gm protein (100%), and 1159 ml free water. 2) Consider TPN/PN if NPO>7 days 3) Monitor NPO status, lab values, weight trend, and I/O Expected Outcomes/Goals: Intake to meet >75% estimated needs Lab values to improve FU 2-3 days ALYSE DONALD Jul 27, 2025 13:58 NANI OZUNA MD Jul 27, 2025 14:53
--- NOTE | 2025-07-27 15:38 | DVHPN2 ---
Progress Note - Dictate Date Seen: Jul 27, 2025 Has the PT tested + for MRSA If YES, has PT been informed?: Yes Medical Necessity Reason Pt with a Central, PICC or Fol: Yes The following are medically ne: Central Line, Toscano Catheter Subjective PT WITH MYALGIA ARTHALGIA FEVER LEUKOCYTOSIS WITH LEFT SHIFT NOW WITH ELEVATED BNP ELEVATED TROPONIN CKD RENAL FAILURE INSUFF HX OF CAD S/P PTCA STENT IN 2021 ECHO LVH EF 50% vital signs Vital Sign Date Time Temp Pulse Resp B/P (MAP) Pulse Ox O2 Delivery O2 Flow Rate FiO2 07/27/25 13:17 36.7 07/27/25 12:40 91 18 137/71 (93) 100 07/27/25 08:00 Room Air* 0 21 Total Intake and Output 07/26/25 07/26/25 07/27/25 15:00 23:00 07:00 Intake Total 625 ml 800 ml Output Total 1500 ml 2300 ml Balance -875 ml -1500 ml medications Current Medications Medications Dose Ordered Sig/Cherise Route Start Time Stop Time Status Last Admin Dose Admin Diagnostic Test (Pha) 1 strip Q6HR 07/12/25 00:00 07/27/25 12:16 1 STRIP Dextrose 50 ml UD PRN IV 07/11/25 19:00 Insulin Human Regular Q6HR SC 07/13/25 00:00 07/27/25 11:56 6 UNITS Lactulose 30 ml DAILY PO 07/21/25 10:00 07/27/25 10:14 30 ML Ondansetron HCl 4 mg Q6HPRN PRN IV 07/21/25 16:00 07/21/25 16:22 4 MG Aspirin 81 mg DAILY PO 07/24/25 10:00 07/27/25 10:15 81 MG Clopidogrel Bisulfate 75 mg DAILY PO 07/24/25 10:00 07/27/25 10:14 75 MG Pantoprazole Sodium 40 mg DAILY@0600 PO 07/26/25 06:00 07/27/25 06:07 40 MG Amoxicillin/ Clavulanate Potassium 500 mg Q12HR PO 07/25/25 22:00 07/27/25 10:15 500 MG Amlodipine Besylate 5 mg DAILY PO 07/26/25 10:30 07/27/25 10:14 5 MG Furosemide 40 mg DAILY PO 07/26/25 10:30 07/27/25 10:20 40 MG Docusate Sodium 100 mg BID PO 07/26/25 22:00 07/27/25 10:14 100 MG laboratory and microbiology Laboratory Tests 07/27/25 05:37 Test 07/27/25 05:37 Range/Units Serum Glucose 57 L 74-106 mg/dL Problem List MYALGIA ARTHALGIA FEVER LEUKOCYTOSIS WITH LEFT SHIFT NOW WITH ELEVATED BNP ELEVATED TROPONIN CKD RENAL FAILURE INSUFF HX OF CAD S/P PTCA STENT IN 2021 ECHO LVH EF 35% METABOLIC GAP ACIDOSIS SEVERE VOLUMEoverload Assessment/Plan IV FLUID ABX NO CARDIAC INTERVENTION AT THIS TIME ELEVATED CARDIAC PARAMETERS SECONDARY TO METABOLIC INSTABILITY EF 35% MILD TR MILD MR cxr CONSISTENT WITH ARDS IF CLINICALLY INDICATED CONSIDER RHC CXR BILATERAL INFILTRATE R>L CONSIDER CT OF CHEST SIGNIFICANT IMPROVEMENT IN CHEST CXR DISCUSSED WITH SON LION ABOUT L/RHC HE IS AGREEABLE WILL RESCHEDULE FOR 07/20/25 MAY EXTUBATE PT L/RHC S/P Left main patent. * Left anterior descending artery, mild intimal irregularity without any flow restrictive lesion. * Circumflex artery, mild intimal irregularity with unequivocal restrictive lesion. * The branches of the LAD, the diagonal, had about a 30% narrowing in the proximal segment, otherwise unremarkable. * The right coronary artery was proximally occluded with bridging collaterals from the left. * Left ventricular function shows segmental wall motion abnormality with anterior severe hypokinesis, apical hypokinesis, and anterior mild hypokinesis with an estimated EF around 25-30%. * LVEDP was 11 mmHg with a left ventricular systolic pressure of 150. * Right heart catheterization, [place]-Janie reading shows RA pressure of 5, RV pressure of 28/5, capillary wedge pressure of 10, and PA pressure of 28/10. HEMODYNAMICALLY PT CURRENTLY NOT DECOMPENSATED PWCP 10 LVEDP 10 EXTUBATED HEMODYNAMICALLY STABLE Dietary Evaluation Review Comments: Nutrition Recommendation: 1) EN Glucerna 1.2 @ 60ml/hr x 24hr (goal). TF at goal volume provides 1728 kcal (100%), 86 gm protein (100%), and 1159 ml free water. 2) Consider TPN/PN if NPO>7 days 3) Monitor NPO status, lab values, weight trend, and I/O Expected Outcomes/Goals: Intake to meet >75% estimated needs Lab values to improve FU 2-3 days Plan discussed with: Patient LIMA BRUCE MD Jul 27, 2025 15:38
[2025-07-27 21:00] VITALS: BP 122/63; PULSE 99; RESP 18; TEMP 98; O2SAT 100
== END 2025-07-27 20:01 | DRG 870 ==
LOC: ER 01:42 → EDBD 01:42 → OVERFLOW 10:18 → TELE-WESTW 23:57 → ICU WEST 07-10 18:30 → TELE-EAST 07-22 22:40
PROVIDERS: ADMIT Internal Medicine; ATTEND Internal Medicine
PROC: 5A09357 Assistance with Respiratory Ventilation, Less than 24 Consecutive Hours, Continuous Positive Airway Pressure (ICD-10-PCS; 2025-07-09)
PROC: 5A0935A Assistance with Respiratory Ventilation, Less than 24 Consecutive Hours, High Flow/Velocity Cannula (ICD-10-PCS; 2025-07-09)
PROC: 5A09357 Assistance with Respiratory Ventilation, Less than 24 Consecutive Hours, Continuous Positive Airway Pressure (ICD-10-PCS; 2025-07-10)
PROC: 5A1955Z Respiratory Ventilation, Greater than 96 Consecutive Hours (ICD-10-PCS; principal; 2025-07-11)
PROC: 02HV33Z Insertion of Infusion Device into Superior Vena Cava, Percutaneous Approach (ICD-10-PCS; 2025-07-11)
PROC: B548ZZA Ultrasonography of Superior Vena Cava, Guidance (ICD-10-PCS; 2025-07-11)
PROC: 0BH17EZ Insertion of Endotracheal Airway into Trachea, Via Natural or Artificial Opening (ICD-10-PCS; 2025-07-11)
PROC: 5A09357 Assistance with Respiratory Ventilation, Less than 24 Consecutive Hours, Continuous Positive Airway Pressure (ICD-10-PCS; 2025-07-11)
PROC: 30233N1 Transfusion of Nonautologous Red Blood Cells into Peripheral Vein, Percutaneous Approach (ICD-10-PCS; 2025-07-12)
PROC: 4A023N8 Measurement of Cardiac Sampling and Pressure, Bilateral, Percutaneous Approach (ICD-10-PCS; 2025-07-20)
PROC: B211YZZ Fluoroscopy of Multiple Coronary Arteries using Other Contrast (ICD-10-PCS; 2025-07-20)
PROC: B215YZZ Fluoroscopy of Left Heart using Other Contrast (ICD-10-PCS; 2025-07-20)
DX: A41.59 Other Gram-negative sepsis (principal); J15.69 Pneumonia due to other Gram-negative bacteria; I50.23 Acute on chronic systolic (congestive) heart failure; I21.A1 Myocardial infarction type 2; J15.9 Unspecified bacterial pneumonia; J80 Acute respiratory distress syndrome; E87.4 Mixed disorder of acid-base balance; E87.0 Hyperosmolality and hypernatremia; G93.49 Other encephalopathy; D69.6 Thrombocytopenia, unspecified; D63.8 Anemia in other chronic diseases classified elsewhere; J44.0 Chronic obstructive pulmonary disease with (acute) lower respiratory infection; N17.9 Acute kidney failure, unspecified; R65.20 Severe sepsis without septic shock; I13.0 Hypertensive heart and chronic kidney disease with heart failure and stage 1 through stage 4 chronic kidney disease, or unspecified chronic kidney disease; I27.20 Pulmonary hypertension, unspecified; E11.22 Type 2 diabetes mellitus with diabetic chronic kidney disease; N18.9 Chronic kidney disease, unspecified; I08.1 Rheumatic disorders of both mitral and tricuspid valves; I70.0 Atherosclerosis of aorta; Z20.822 Contact with and (suspected) exposure to COVID-19; E78.5 Hyperlipidemia, unspecified; M10.9 Gout, unspecified; I25.10 Atherosclerotic heart disease of native coronary artery without angina pectoris; R74.01 Elevation of levels of liver transaminase levels; D50.9 Iron deficiency anemia, unspecified; N40.0 Benign prostatic hyperplasia without lower urinary tract symptoms; I48.0 Paroxysmal atrial fibrillation; R31.0 Gross hematuria; Z79.4 Long term (current) use of insulin; Z87.891 Personal history of nicotine dependence; Z95.5 Presence of coronary angioplasty implant and graft; Z82.49 Family history of ischemic heart disease and other diseases of the circulatory system; Z79.899 Other long term (current) drug therapy
CPT/HCPCS: 36415; 36556; 36600; 71045; 76775; 76937; 80048; 80053; 80202; 80307; 81001; 82270; 82550; 82570; 82728; 82805; 82962; 83036; 83540; 83550; 83605; 83735; 83880; 84156; 84300; 84443; 84484; 85007; 85014; 85018; 85025; 85027; 85379; 85610; 85652; 85730; 86141; 86850; 86900; 86901; 86920; 87040; 87070; 87077; 87081; 87086; 87186; 87205; 87426; 87804; 92610; 93005; 93306; 93460; 93886; 93970; 94002; 94003; 94640; 94660; 96374; 96375; 97110; 97116; 97163; 97530; 99152; 99291; G0378; J0330; J1815; J2003; J2405; J2470; J2704; J3480; Q9967